=== PATIENT | female | born 1950 | race Caucasian/White ===

== ENCOUNTER 2016-09-28 22:27 | Emergency (ER) | payer MEDICARE, MEDICAID, SELFPAY ==
[2016-09-28] MEDS ORDERED: Sodium Chloride 0.9% 1,000 ML IV ONE (23:00)
[2016-09-28] MEDS ORDERED: Ondansetron 4 MG/2 ML SDV IVPUSH ONE (23:01)
[2016-09-28] MEDS ORDERED: HYDROmorphone 1 MG/ML Syringe IVPUSH ONE (23:01)
--- NOTE | 2016-09-28 23:08 | EDM.PDOC ---
ED HPI GI/ABDOMINAL - General Chief Complaint: Gastrointestinal Problem Stated Complaint: Constipation, No BM for 5 days Time Seen by Provider: 09/28/16 22:40 Source of Information: Reports: Patient History Limitations: Reports: No limitations - History of Present Illness INITIAL COMMENTS - FREE TEXT/NARRATIVE: patient has had a long h/o sluggish bowels. Typically one BM per week. Last BM currently was 4 days ago. C/O upper abd pain which is typically the area that gives her problems but is tender for 2 days which is not usual for her. No F/C. Timing/Duration: Reports: Day(s): (2), Gradual onset Location: other (Upper abd) Quality: Reports: cramping, fullness Severity: severe Improves with: Reports: lying down (on left side) Worsens with: Reports: palpation, other (moving) Associated Symptoms (-Female): Reports: constipation. Denies: chest pain, back pain, fever/chills, nausea/vomiting - Related Data Allergies/ADRs: Allergies Allergy/AdvReac Type Severity Reaction Status Date / Time carisoprodol [From Soma] Allergy Hives Verified 06/04/16 21:42 cefpodoxime proxetil Allergy Anaphylactic Verified 06/04/16 21:42 [From Vantin] Shock ciprofloxacin [From Cipro] Allergy Anaphylactic Verified 06/04/16 21:42 Shock ciprofloxacin HCl Allergy Anaphylactic Verified 06/04/16 21:42 [From Cipro] Shock egg Allergy Hives Verified 06/04/16 21:42 Iodinated Contrast Media - Allergy Anaphylactic Verified 06/04/16 21:42 Oral and Shock [Iodinated Contrast Media - IV Dye] latex Allergy Shortness Verified 06/04/16 21:42 of Breath milk Allergy Stomach Verified 09/28/16 22:29 Upset morphine Allergy Itching Verified 09/28/16 22:29 Penicillins Allergy Anaphylactic Verified 06/04/16 21:42 Shock propoxyphene HCl Allergy Itching Verified 06/04/16 21:42 [From Darvon] Home Meds: Home Meds Brimonidine [Alphagan 0.2% Ophth Soln] 1 ea EYEBOTH BID 11/07/13 [History] Montelukast [Singulair] 10 mg PO BEDTIME PRN 11/07/13 [History] Nebivolol [Bystolic] 20 mg PO QAM 11/07/13 [History] Travoprost [Travatan Z 0.004% Ophth Soln] 1 drop EYEBOTH BEDTIME 11/07/13 [ History] Albuterol Sulfate [Albuterol Sulfate HFA] 18 gm IH TID PRN 06/04/16 [History] Cholecalciferol (Vitamin D3) [Vitamin D3] 1,000 units PO DAILY 06/04/16 [History ] Pregabalin [Lyrica] 100 mg PO BID 06/04/16 [History] Warfarin [Coumadin] 1.5 mg PO DAILY 06/04/16 [History] Cetirizine [ZyrTEC] 10 mg PO DAILY 09/28/16 [History] Sennosides/Docusate Sodium [Senna S Tablet] 2 tab PO DAILY 09/28/16 [History] Vitamin B Complex 1 cap PO DAILY 09/28/16 [History] Past Medical History HEENT History: Reports: Glaucoma Cardiovascular History: Reports: Blood clots/VTE/DVT, Hypertension Respiratory History: Reports: Asthma Gastrointestinal History: Reports: Other (see below) (Food sensitivities) Endocrine/Metabolic History: Reports: Obesity/BMI 30+ Social & Family History - Tobacco Use Smoking Status *Q: Never Smoker Second Hand Smoke Exposure: No - Alcohol Use Days Per Week of Alcohol Use: 0 - Recreational Drug Use Recreational Drug Use: No - Living Situation & Occupation Living situation: Reports: (1994, marriage) Occupation: retired ED ROS GENERAL - Review of Systems Review Of Systems: See Below Constitutional: Denies: fever, chills, malaise, weakness, fatigue HEENT: Reports: No symptoms Respiratory: Reports: No Symptoms Cardiovascular: Reports: No symptoms Endocrine: Reports: no symptoms GI/Abdominal: Reports: Abdominal pain, Constipation, Distension, Other (able to eat fine) : Reports: no symptoms Musculoskeletal: Reports: no symptoms Skin: Reports: no symptoms Neurological: Reports: No Symptoms Psychiatric: Reports: No symptoms Hematologic/Lymphatic: Reports: no symptoms Immunologic: Reports: no symptoms ED EXAM, GI/ABD - Physical Exam Exam: See Below Exam Limited By: No limitations General Appearance: alert, WD/WN, mild distress (frustrated affect) Eyes: bilateral: EOMI Ears: normal external exam Nose: normal inspection, normal mucosa, no blood Throat/Mouth: Normal inspection, Normal oropharynx, No airway compromise Head: atraumatic, normocephalic Neck: normal inspection, supple, non-tender, full range of motion. No: lymphadenopathy (L), lymphadenopathy (R) Respiratory/Chest: no respiratory distress, lungs clear, normal breath sounds, no accessory muscle use Cardiovascular: regular rate, rhythm, no edema, no murmur GI/Abdominal: no organomegaly, hyperactive bowel sounds, tenderness (Upper abdomen), distention (generally, not tense) Back Exam: normal inspection, full range of motion. No: CVA tenderness (L), CVA tenderness (R) Extremities: normal inspection, normal range of motion, no pedal edema, normal capillary refill Neurological: alert, oriented, CN II-XII intact, normal cognition, no motor/ sensory deficits Psychiatric: normal affect, normal mood Skin Exam: Warm, Dry, Intact, Normal color, No rash Lymphatic: no adenopathy Course - Vital Signs Last Recorded V/S: Last Vital Signs Temp 37.3 C 09/28/16 22:38 Pulse 63 09/28/16 23:33 Resp 16 09/28/16 22:38 BP 109/74 09/28/16 23:33 Pulse Ox 98 09/28/16 23:29 - Orders/Labs/Meds Orders: Active Orders 24 hr Category Date Time Status EKG Documentation Completion [RC] ASDIRECTED Care 09/28/16 23:01 Active Abdomen Pelvis wo Cont [CT] Stat Exams 09/28/16 23:01 Taken Chest 2V [CR] Stat Exams 09/28/16 23:01 Taken UA W/MICROSCOPIC [URIN] Stat Lab 09/28/16 23:01 Uncollected Labs: Laboratory Tests 09/28/16 09/28/16 09/28/16 Range/Units 23:15 23:15 23:15 WBC 6.9 (4.0-10.2) K/uL RBC 4.61 (3.77-5.09) M/uL Hgb 13.4 (11.7-15.5) g/dL Hct 41.6 (34.0-46.0) % MCV 90.2 (84.0-98.0) fL MCH 29.1 (28.2-33.3) pg MCHC 32.2 (31.7-36.0) g/dL RDW 13.4 (11.2-14.1) % Plt Count 247 (150-350) K/uL Neut % (Auto) 59.8 (45.0-80.0) % Lymph % (Auto) 32.0 (10.0-50.0) % [place] % (Auto) 4.6 (2.0-14.0) % Eos % (Auto) 2.9 (0.0-5.0) % Baso % (Auto) 0.7 (0.0-2.0) % Neut # (Auto) 4.12 (1.40-7.00) K/uL Lymph # (Auto) 2.21 (0.50-3.50) K/uL [place] # (Auto) 0.32 (0.00-1.00) K/uL Eos # (Auto) 0.20 (0.00-0.50) K/uL Baso # (Auto) 0.05 (0.00-0.20) K/uL PT 24.9 H D (9.8-11.7) SEC INR 2.2 Sodium 143 (136-145) mmol/L Potassium 3.7 (3.5-5.1) mmol/L Chloride 106 (98-107) mmol/L Carbon Dioxide 27.3 (21.0-32.0) mmol/L BUN 21 H (7-18) mg/dL Creatinine 0.74 (0.51-1.17) mg/dL Est Cr Clr Drug Dosing TNP Estimated GFR (MDRD) > 60 mL/min Glucose 185 H (74-106) mg/dL Calcium 8.3 L (8.5-10.1) mg/dL Total Bilirubin 0.2 (0.2-1.0) mg/dL AST 16 (15-37) U/L ALT 35 (12-78) U/L Alkaline Phosphatase 110 (46-116) IU/L Troponin I 0.000 (0.000-0.056) ng/mL Total Protein 6.5 (6.4-8.2) g/dL Albumin 3.1 L (3.4-5.0) g/dL Lipase 95 (73-393) U/L Meds: Medications Discontinued Medications Generic Name Dose Route Start Last Admin Trade Name Freq PRN Reason Stop Dose Admin Hydromorphone HCl 0.5 mg 09/28/16 23:01 09/28/16 23:27 Dilaudid IVPUSH 09/28/16 23:02 0.5 mg ONETIME ONE Administration Sodium Chloride 1,000 mls @ 999 mls/hr 09/28/16 23:00 09/28/16 23:19 Normal Saline IV 09/29/16 00:00 999 mls/hr .BOLUS ONE Administration Ondansetron HCl 4 mg 09/28/16 23:01 09/28/16 23:22 Zofran IVPUSH 09/28/16 23:02 4 mg ONETIME ONE Administration Departure - Departure Time of Disposition: 00:23 Disposition: Home, Self-Care 01 Condition: good Clinical Impression: Constipation Instructions: Constipation, Adult Referrals: Candelario Jeong LAYBOY OPERATOR [Primary Care Provider] - Forms: ED Department Discharge Additional Instructions: Take the bottle of magnesium citrate when you get home. It will take a couple hours to work. If it does not work then try one more tomorrow Try visiting a smoke chaser who may be able to recommend intermediate project manager treatment - Problem List Review Problem List Initiated/Reviewed/Updated: No - My Orders Last 24 Hours: My Active Orders 09/28/16 23:01 EKG Documentation Completion [RC] ASDIRECTED Abdomen Pelvis wo Cont [CT] Stat Chest 2V [CR] Stat UA W/MICROSCOPIC [URIN] Stat - Assessment/Plan Last 24 Hours: My Active Orders 09/28/16 23:01 EKG Documentation Completion [RC] ASDIRECTED Abdomen Pelvis wo Cont [CT] Stat Chest 2V [CR] Stat UA W/MICROSCOPIC [URIN] Stat Assessment:: 1. Chronic constipation with acute exacerbation Plan: 1. Mag citrate tonight. 2. F/U GI
[2016-09-28 23:34] LABS: CHLORIDE,CL 106 mmol/L (98-107); SODIUM,NA 143 mmol/L (136-145)
[2016-09-28 23:48] VITALS: BP 109/74
[2016-09-29] MEDS ORDERED: Magnesium Citrate Solution 296 ML Bottle PO ONE (00:26)
== END 2016-09-29 00:50 | disposition home or self-care (01) ==
LOC: LL.ED 22:27
DX: K59.00 Constipation, unspecified (principal); Z88.8 Allergy status to other drugs, medicaments and biological substances; Z88.0 Allergy status to penicillin; Z79.899 Other long term (current) drug therapy; J45.909 Unspecified asthma, uncomplicated
CPT/HCPCS: 36415; 71020; 74176; 80053; 83690; 84484; 85025; 85610; 93005; 96361; 96374; 96375; 99284; A9270; J1170; J2405; J7030; 99283

== ENCOUNTER 2017-02-03 19:01 | Inpatient (IN) | payer MEDICARE, MEDICAID ==
[2017-02-03 20:21] LABS: CHLORIDE,CL 108 mmol/L (98-107); SODIUM,NA 144 mmol/L (136-145)
--- NOTE | 2017-02-03 20:58 | EDM.PDOC ---
ED HPI GENERAL MEDICAL PROBLEM - General Chief Complaint: Gastrointestinal Problem Stated Complaint: CONSTIPATION, ABD PAIN Time Seen by Provider: 02/03/17 19:02 Source of Information: Reports: Patient History Limitations: Reports: No Limitations - History of Present Illness INITIAL COMMENTS - FREE TEXT/NARRATIVE: Patient is here complaining of no bowel movement for approximately three weeks. Has chronic issues with constipation. 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 Has nausea but no emesis. No fevers. Has generalized abdominal distension and discomfort. No other complaints. Hospitalized for this in past. Has not tried mag citrate at home as it causes her to pass out when she subsequently needs to use toilet. She has tried Miralax, prune juice, and fruit. Abdominal Pain Score (Numeric/FACES): 10 - Related Data Allergies Allergy/AdvReac Type Severity Reaction Status Date / Time carisoprodol [From Soma] Allergy Hives Verified 02/03/17 19:09 cefpodoxime proxetil Allergy Anaphylactic Verified 02/03/17 19:09 [From Vantin] Shock ciprofloxacin [From Cipro] Allergy Anaphylactic Verified 02/03/17 19:09 Shock ciprofloxacin HCl Allergy Anaphylactic Verified 02/03/17 19:09 [From Cipro] Shock egg Allergy Hives Verified 02/03/17 19:09 Iodinated Contrast- Oral and Allergy Anaphylactic Verified 02/03/17 19:09 IV Dye Shock [Iodinated Contrast Media - IV Dye] latex Allergy Shortness Verified 02/03/17 19:09 of Breath milk Allergy Stomach Verified 02/03/17 19:09 Upset morphine Allergy Itching Verified 02/03/17 19:09 Penicillins Allergy Anaphylactic Verified 02/03/17 19:09 Shock propoxyphene HCl Allergy Itching Verified 02/03/17 19:09 [From Darvon] Home Meds: Home Meds Brimonidine [Alphagan 0.2% Ophth Soln] 1 ea EYEBOTH BID 11/07/13 [History] Montelukast [Singulair] 10 mg PO BEDTIME 11/07/13 [History] Nebivolol [Bystolic] 20 mg PO QAM 11/07/13 [History] Travoprost [Travatan Z 0.004% Ophth Soln] 1 drop EYEBOTH BEDTIME 11/07/13 [ History] Pregabalin [Lyrica] 100 mg PO BID 06/04/16 [History] Warfarin [Coumadin] 1.5 mg PO DAILY 06/04/16 [History] Cetirizine [ZyrTEC] 10 mg PO DAILY 09/28/16 [History] . [Unable To Obtain] 1 tab PO TID 02/03/17 [History] Acarbose [Precose] 25 mg PO TID 02/03/17 [History] Past Medical History HEENT History: Reports: Glaucoma Cardiovascular History: Reports: Blood Clots/VTE/DVT, Hypertension Respiratory History: Reports: Asthma Gastrointestinal History: Reports: Other (See Below) Other Gastrointestinal History: Hx of chronic constipation Musculoskeletal History: Reports: Fracture Endocrine/Metabolic History: Reports: Obesity/BMI 30+ - Past Surgical History HEENT Surgical History: Reports: Oral Surgery GI Surgical History: Reports: Appendectomy, Maylin Fundoplication, Other (See Below) (gastric bypass) Social & Family History - Tobacco Use Smoking Status *Q: Never Smoker Second Hand Smoke Exposure: No - Alcohol Use Days Per Week of Alcohol Use: 0 - Recreational Drug Use Recreational Drug Use: No - Living Situation & Occupation Living situation: Reports: Occupation: Retired ED ROS GENERAL - Review of Systems Review Of Systems: See Below Constitutional: Reports: Decreased Appetite. Denies: Fever, Chills, Night Sweats, Diaphoresis HEENT: Reports: No Symptoms Respiratory: Reports: No Symptoms Cardiovascular: Reports: No Symptoms GI/Abdominal: Reports: Abdominal Pain, Constipation, Decreased Appetite, Distension, Nausea. Denies: Black Stool, Bloody Stool, Diarrhea, Difficulty Swallowing, Hematemesis, Hematochezia, Melena, Stool Incontinence, Vomiting : Reports: No Symptoms Musculoskeletal: Reports: No Symptoms Skin: Reports: No Symptoms Neurological: Reports: No Symptoms Psychiatric: Reports: No Symptoms Hematologic/Lymphatic: Reports: No Symptoms ED EXAM, GI/ABD - Physical Exam Exam: See Below Exam Limited By: No Limitations General Appearance: Alert, WD/WN, Other (appears tired) Eyes: Bilateral: Normal Appearance, EOMI Ears: Normal External Exam Nose: No: Nasal Swelling, Nasal Drainage Throat/Mouth: Normal Inspection, Normal Voice, No Airway Compromise Head: Atraumatic, Normocephalic Neck: Normal Inspection, Supple, Non-Tender, Full Range of Motion. No: Lymphadenopathy (L), Lymphadenopathy (R) Respiratory/Chest: No Respiratory Distress, Lungs Clear, Normal Breath Sounds, No Accessory Muscle Use, Chest Non-Tender Cardiovascular: Regular Rate, Rhythm, No Murmur GI/Abdominal Exam: Normal Bowel Sounds, Soft, Distended, Tender (all four quadrants, more so on left side). No: Guarding, Rigid, Rebound Back Exam: No: CVA Tenderness (L), CVA Tenderness (R) Extremities: Normal Range of Motion, Non-Tender, Normal Capillary Refill Neurological: Alert, Oriented, Normal Cognition, No Motor/Sensory Deficits Psychiatric: Depressed Mood Skin Exam: Warm, Dry, Intact Course - Vital Signs Last Recorded V/S: Last Vital Signs Temp 36.6 C 02/03/17 19:02 Pulse 71 02/03/17 19:34 Resp 20 02/03/17 19:02 BP 172/76 H 02/03/17 19:34 Pulse Ox 96 02/03/17 19:34 - Orders/Labs/Meds Orders: Active Orders 24 hr Category Date Time Status Abdomen 2V AP Flat Upright [CR] Stat Exams 02/03/17 19:16 Ordered Labs: Laboratory Tests 02/03/17 02/03/17 02/03/17 Range/Units 19:55 19:55 19:55 WBC 10.9 H (4.0-10.2) K/uL RBC 4.91 (3.77-5.09) M/uL Hgb 14.5 (11.7-15.5) g/dL Hct 44.2 (34.0-46.0) % MCV 90.0 (84.0-98.0) fL MCH 29.5 (28.2-33.3) pg MCHC 32.8 (31.7-36.0) g/dL RDW 12.7 (11.2-14.1) % Plt Count 286 (150-350) K/uL Neut % (Auto) 77.5 (45.0-80.0) % Lymph % (Auto) 16.0 (10.0-50.0) % [place] % (Auto) 4.6 (2.0-14.0) % Eos % (Auto) 1.6 (0.0-5.0) % Baso % (Auto) 0.3 (0.0-2.0) % Neut # (Auto) 8.42 H (1.40-7.00) K/uL Lymph # (Auto) 1.74 (0.50-3.50) K/uL [place] # (Auto) 0.50 (0.00-1.00) K/uL Eos # (Auto) 0.17 (0.00-0.50) K/uL Baso # (Auto) 0.03 (0.00-0.20) K/uL PT 16.9 H D (9.8-11.7) SEC INR 1.5 Sodium 144 (136-145) mmol/L Potassium 3.5 (3.5-5.1) mmol/L Chloride 108 H (98-107) mmol/L Carbon Dioxide 28.2 (21.0-32.0) mmol/L BUN 17 (7-18) mg/dL Creatinine 0.82 (0.51-1.17) mg/dL Est Cr Clr Drug Dosing 58.26 mL/min Estimated GFR (MDRD) > 60 mL/min Glucose 125 H (74-106) mg/dL Calcium 8.8 (8.5-10.1) mg/dL Total Bilirubin 0.3 (0.2-1.0) mg/dL AST 18 (15-37) U/L ALT 33 (12-78) U/L Alkaline Phosphatase 150 H (46-116) IU/L Total Protein 7.4 (6.4-8.2) g/dL Albumin 3.5 (3.4-5.0) g/dL - Radiology Interpretation Free Text/Narrative:: Large quantity of stool noted throughout. Some air/fluid levels. Does not appear obstructed. - Re-Assessments/Exams Free Text/Narrative Re-Assessment/Exam: 02/03/17 21:01 Plan at this time is to admit patient for treatment of constipation. Given the prolonged nature of her complaint and severity of the constipation, will have her as full admit instead of observation as this may take multiple days to get adequately cleared. Departure - Departure Time of Disposition: 21:03 Disposition: Admitted As Inpatient 64 Condition: Good Clinical Impression: Constipation - Discharge Information - Problem List & Annotations (1) Constipation SNOMED Code(s): 58642651 Code(s): K59.00 - CONSTIPATION, UNSPECIFIED Status: Chronic Priority: High Current Visit: Yes Onset Date: ~01/13/17 Annotation/Comment:: Reports no bowel movement for approximately 3 weeks. Long history of GI issues, surgeries, and constipation. (2) Hypertension SNOMED Code(s): 62931295 Code(s): I10 - ESSENTIAL (PRIMARY) HYPERTENSION Status: Chronic Priority : Low Current Visit: No Qualifiers: Hypertension type: essential hypertension Qualified Code(s): I10 - Essential (primary) hypertension (3) Glaucoma SNOMED Code(s): 80471274 Code(s): H40.9 - UNSPECIFIED GLAUCOMA Status: Chronic Priority: Low Current Visit: No (4) Warfarin anticoagulation SNOMED Code(s): 58771934, 389875560 Code(s): Z79.01 - CORROSION CONTROL ENGINEER (CURRENT) USE OF ANTICOAGULANTS Status: Chronic Priority: Low Current Visit: No Annotation/Comment:: INR 1.5 History of difficult to control INR. Will increase patient's current dose for now and recheck INR in two days. - Problem List Review Problem List Initiated/Reviewed/Updated: Yes - My Orders Last 24 Hours: My Active Orders 02/03/17 19:16 Abdomen 2V AP Flat Upright [CR] Stat - Assessment/Plan Admission H&P: Please use this note as an admission H&P Last 24 Hours: My Active Orders 02/03/17 19:16 Abdomen 2V AP Flat Upright [CR] Stat Assessment:: Severe constipation. Plan: IV fluids, nausea medication, pain control prn, mag citrate. Increase warfarin dose and repeat INR in two days.
[2017-02-03] MEDS ORDERED: Magnesium Citrate Solution 296 ML Bottle PO ONE ×2 (21:12→21:24)
[2017-02-03] MEDS ORDERED: Acetaminophen 325 MG Tab PO PRN (21:23)
[2017-02-03] MEDS ORDERED: Warfarin 5 MG Tab PO ONE (21:29)
[2017-02-03] MEDS ORDERED: Sodium Chloride 0.9% 1,000 ML IV ONE (21:30)
[2017-02-03] MEDS ORDERED: Ondansetron 4 MG/2 ML SDV IVPUSH PRN (21:35)
[2017-02-03] MEDS ORDERED: HYDROmorphone 1 MG/ML Syringe IVPUSH PRN (21:35)
[2017-02-03] MEDS ORDERED: traMADol 50 MG Tab PO PRN (21:37)
[2017-02-03] MEDS ORDERED: Pregabalin 25 MG Cap PO ONE (22:09)
[2017-02-04] MEDS ORDERED: Sodium Chloride 0.9% 1,000 ML IV SCH (05:00)
[2017-02-04] MEDS ORDERED: Polyethylene Glycol 3350 Powder 17 GM Packet PO ONE (08:00)
[2017-02-04] MEDS ORDERED: Magnesium Citrate Solution 296 ML Bottle PO ONE (08:00)
[2017-02-04] MEDS: Brimonidine 0.2% Ophth Soln 5 ML Bottle EYEBOTH SCH ×2 (08:48→17:09)
[2017-02-04] MEDS: Cetirizine 10 MG Tab PO SCH (08:48)
[2017-02-04] MEDS: Pregabalin 25 MG Cap PO SCH ×2 (08:48→17:08)
[2017-02-04] MEDS ORDERED: Enoxaparin 40 MG/0.4 ML Syringe SUBCUT ONE (08:56)
--- NOTE | 2017-02-04 09:11 | PCM.PN ---
- General Info Date of Service: 02/04/17 Admission Dx/Problem (Free Text): 1. Abdominal pain 2. Chronic constipation 3. History of DVTs 4. Hypertension Functional Status: Reports: Pain Controlled, Tolerating Diet, Ambulating, Urinating. Denies: New Symptoms, Incentive Spirometry Pain Score: 6 (Improved from admission by patient history) - Review of Systems General: Denies: Fever, Weakness, Fatigue, Malaise, Chills, Night Sweats, Appetite (Adequate) HEENT: Reports: No Symptoms. Denies: Ear Pain, Eye Pain, Post Nasal Drip, Sinus Congestion, Sore Throat, Rhinitis, Visual Changes Pulmonary: Reports: No Symptoms. Denies: Shortness of Breath, Pleuritic Chest Pain, Cough, Sputum, Wheezing Cardiovascular: Reports: No Symptoms. Denies: Chest Pain, Palpitations, Dyspnea on Exertion, Orthopnea, Edema, Lightheadedness Gastrointestinal: Reports: Abdominal Pain (Secondary to abdominal cramping and constipation with some nonspecific radiation to the lumbar region bilaterally, no colic), Constipation, Other (No bowel movement since admission). Denies: Decreased Appetite, Diarrhea, Difficulty Swallowing, Flatus, Hematochezia, Melena, Nausea, Vomiting Genitourinary: Reports: No Symptoms. Denies: Dysuria, Frequency, Burning, Pain , Urgency, Incontinence, Hematuria, Retention, Flank Pain Musculoskeletal: Reports: Back Pain (Nonspecific as above). Denies: Neck Pain, Shoulder Pain, Arm Pain, Leg Pain Skin: Reports: No Symptoms. Denies: Cyanosis, Jaundice, Pallor, Diaphoresis, Bruising Neurological: Reports: No Symptoms. Denies: Confusion, Dizziness, Headache, Numbness, Paresthesia, Difficulty Walking, Weakness Psychiatric: Reports: No Symptoms. Denies: Confusion, Depression, Anxiety, Agitation, Cravings, Hallucinations - Patient Data Vitals - Most Recent: Last Vital Signs Temp 36.7 C 02/03/17 22:38 Pulse 68 02/04/17 08:48 Resp 16 02/03/17 22:38 BP 134/86 02/04/17 08:48 Pulse Ox 95 02/03/17 22:38 Weight - Most Recent: 82.645 kg I&O - Last 24 Hours: Intake & Output 02/03/17 02/04/17 02/04/17 22:59 06:59 14:59 Intake Total 1000 Balance 1000 Imaging Impressions - Last 24 Hours: None Lab Results Last 24 Hours: Laboratory Results - last 24 hr 02/03/17 02/03/17 02/03/17 Range/Units 19:55 19:55 19:55 WBC 10.9 H (4.0-10.2) K/uL RBC 4.91 (3.77-5.09) M/uL Hgb 14.5 (11.7-15.5) g/dL Hct 44.2 (34.0-46.0) % MCV 90.0 (84.0-98.0) fL MCH 29.5 (28.2-33.3) pg MCHC 32.8 (31.7-36.0) g/dL RDW 12.7 (11.2-14.1) % Plt Count 286 (150-350) K/uL Neut % (Auto) 77.5 (45.0-80.0) % Lymph % (Auto) 16.0 (10.0-50.0) % Gilchrist % (Auto) 4.6 (2.0-14.0) % Eos % (Auto) 1.6 (0.0-5.0) % Baso % (Auto) 0.3 (0.0-2.0) % Neut # (Auto) 8.42 H (1.40-7.00) K/uL Lymph # (Auto) 1.74 (0.50-3.50) K/uL Gilchrist # (Auto) 0.50 (0.00-1.00) K/uL Eos # (Auto) 0.17 (0.00-0.50) K/uL Baso # (Auto) 0.03 (0.00-0.20) K/uL PT 16.9 H D (9.8-11.7) SEC INR 1.5 Sodium 144 (136-145) mmol/L Potassium 3.5 (3.5-5.1) mmol/L Chloride 108 H (98-107) mmol/L Carbon Dioxide 28.2 (21.0-32.0) mmol/L BUN 17 (7-18) mg/dL Creatinine 0.82 (0.51-1.17) mg/dL Est Cr Clr Drug Dosing 58.26 mL/min Estimated GFR (MDRD) > 60 mL/min Glucose 125 H (74-106) mg/dL Calcium 8.8 (8.5-10.1) mg/dL Total Bilirubin 0.3 (0.2-1.0) mg/dL AST 18 (15-37) U/L ALT 33 (12-78) U/L Alkaline Phosphatase 150 H (46-116) IU/L Total Protein 7.4 (6.4-8.2) g/dL Albumin 3.5 (3.4-5.0) g/dL Leoncio Results Last 24 Hours: None Med Orders - Current: Current Medications Acetaminophen (Tylenol) 650 mg PO Q4H PRN PRN Reason: analgesia/fever Brimonidine Tartrate (Alphagan 0.2% Ophth Soln) 0 ml EYEBOTH BID [facility] Last Admin: 02/04/17 08:48 Dose: 1 drop Cetirizine HCl (Zyrtec) 10 mg PO DAILY [facility] Last Admin: 02/04/17 08:48 Dose: 10 mg Enoxaparin Sodium (Lovenox) 40 mg SUBCUT ONETIME ONE Stop: 02/04/17 08:57 Famotidine (Pepcid) 20 mg IVPUSH BID [facility] Sodium Chloride (Normal Saline) 1,000 mls @ 100 mls/hr IV ASDIRECTED [facility] Last Admin: 02/04/17 04:51 Dose: 100 mls/hr Clindamycin Phosphate 600 mg/ (Sodium Chloride) 104 mls @ 200 mls/hr IV Q8H [facility] Metronidazole 500 mg/ Premix 100 mls @ 100 mls/hr IV Q8H [facility] Latanoprost (Xalatan 0.005% Ophth Soln) 0 ml EYEBOTH BEDTIME [facility] Lisinopril (Prinivil) 10 mg PO DAILY [facility] Montelukast Sodium (Singulair) 10 mg PO BEDTIME [facility] Nebivolol (Bystolic) 20 mg PO QAM [facility] Last Admin: 02/04/17 08:48 Dose: 20 mg Non-Formulary Medication (Acarbose [Precose]) 25 mg PO TID [facility] Ondansetron HCl (Zofran) 4 mg IVPUSH Q6H PRN PRN Reason: Nausea/Vomiting Pantoprazole Sodium (Protonix Iv) 40 mg IVPUSH Q12H [facility] Pregabalin (Lyrica) 100 mg PO BID [facility] Last Admin: 02/04/17 08:48 Dose: 100 mg Sodium Chloride (Saline Flush) 10 ml FLUSH ASDIRECTED PRN PRN Reason: Keep Vein Open Tramadol HCl (Ultram) 50 mg PO Q6H PRN PRN Reason: Pain Last Admin: 02/03/17 22:30 Dose: 50 mg Warfarin Sodium (Coumadin) 2 mg PO DAILY@1800 GERALD Discontinued Medications Hydromorphone HCl (Dilaudid) 1 mg IVPUSH Q2H PRN PRN Reason: Pain (severe 7-10) Sodium Chloride (Normal Saline) 1,000 mls @ 150 mls/hr IV .BOLUS ONE Stop: 02/04/17 04:09 Last Admin: 02/03/17 21:55 Dose: 150 mls/hr Magnesium Citrate (Citrate Of Magnesia) 396 ml PO ONETIME ONE Stop: 02/03/17 21:13 Last Admin: 02/03/17 21:25 Dose: Not Given Magnesium Citrate (Citrate Of Magnesia) 296 ml PO ONETIME ONE Stop: 02/03/17 21:25 Last Admin: 02/03/17 21:53 Dose: 296 ml Magnesium Citrate (Citrate Of Magnesia) 296 ml PO ONETIME ONE Stop: 02/04/17 08:01 Last Admin: 02/04/17 08:48 Dose: 296 ml Polyethylene Glycol (Miralax) 17 gm PO ONETIME ONE Stop: 02/04/17 08:01 Last Admin: 02/04/17 08:47 Dose: 17 gm Pregabalin (Lyrica) 100 mg PO ONETIME ONE Stop: 02/03/17 22:10 Last Admin: 02/03/17 22:29 Dose: 100 mg Warfarin Sodium (Coumadin) 5 mg PO ONETIME ONE Stop: 02/03/17 21:30 Last Admin: 02/03/17 21:53 Dose: 5 mg - Exam Quality Assessment: DVT Prophylaxis (On Coumadin although INR sub-therapeutic). No: Supplemental Oxygen, Central Line/PICC, Urine Catheter, Skin Breakdown General: Alert, Oriented, Cooperative, No Acute Distress HEENT: Pupils Equal, Pupils Reactive, EOMI, Mucous Membr. Moist/[place] Neck: Supple, Trachea Midline, No JVD, No Thyromegaly. No: Lymphadenopathy Lungs: Clear to Auscultation, Normal Respiratory Effort. No: Rub Cardiovascular: Regular Rate, Regular Rhythm, No Murmurs. No: Murmurs, Gallops , Rubs GI/Abdominal Exam: Soft, No Distention, No Abnormal Bruit, No Mass, Pelvis Stable, Tender (Nonspecific mild diffuse palpation pain), Abnormal Bowel Sounds (Mild diffuse increased bowel sounds not high-pitched in nature), Other (Obese) . No: Distended, Guarding, Rebound (Female) Exam: Deferred Back Exam: Normal Inspection, Full Range of Motion. No: CVA Tenderness (L), CVA Tenderness (R), Muscle Spasm Extremities: Normal Inspection, Normal Range of Motion, Non-Tender, No Pedal Edema, Normal Capillary Refill, Other (AKASH hose in place). No: Pedal Edema, Sameera's Sign Peripheral Pulses: 2+: Radial (L), Radial (R), Dorsalis Pedis (L), Dorsalis Pedis (R) Skin: Warm, Dry, Intact. No: Ecchymosis Neurological: No New Focal Deficit Psy/Mental Status: Alert, Normal Affect, Normal Mood. No: Anxious, Depressed, Agitated, Hallucinations, Withdrawal Symptoms - Problem List & Annotations (1) Abdominal pain SNOMED Code(s): 06031361 Code(s): R10.9 - UNSPECIFIED ABDOMINAL PAIN Status: Acute Priority: High Current Visit: Yes Onset Date: 02/03/17 Qualifiers: Abdominal location: generalized Qualified Code(s): R10.84 - Generalized abdominal pain Annotation/Comment:: Nonspecific generalized abdominal pain likely secondary to her chronic constipation. No results from magnesium citrate yesterday with magnesium citrate with Miralax ordered for this morning. Fleet Enema has yet to be given, although this will be given later today, if the above therapy is not effective. Note mild leukocytosis on admission with IV Flagyl, IV clindamycin, IV Pepcid, and IV Protonix to be initiated today as GI prophylaxis. Repeat blood work and x-rays in the a.m. tomorrow. Abdominal assessments with vitals. (2) Constipation SNOMED Code(s): 82139510 Code(s): K59.00 - CONSTIPATION, UNSPECIFIED Status: Chronic Priority: [facility] Current Visit: Yes Onset Date: ~01/13/17 Annotation/Comment:: As above. Reports no bowel movement for approximately 3 weeks. Long history of GI issues, surgeries, including gastric bypass, etc. with additional history of known chronic constipation. (3) Hypertension SNOMED Code(s): 14230859 Code(s): I10 - ESSENTIAL (PRIMARY) HYPERTENSION Status: Chronic Priority : Medium Current Visit: No Qualifiers: Hypertension type: essential hypertension Qualified Code(s): I10 - Essential (primary) hypertension Annotation/Comment:: Blood pressure is under poor control despite high-dose by systolic. Additional lisinopril will be added this morning. 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 INR subtherapeutic on admission with subcutaneous Lovenox to be initiated today as DVT prophylaxis. Note the patient did receive a loading dose of her Coumadin on admission with INR and PTT to be repeated tomorrow with other blood work. By patient history her INRs have previously been therapeutic. No clinical evidence of DVT or PE today. (5) Allergic rhinitis SNOMED Code(s): 29842441 Code(s): J30.9 - ALLERGIC RHINITIS, UNSPECIFIED Status: Chronic Priority : Medium Current Visit: Yes Qualifiers: Chronicity: chronic Allergic rhinitis trigger: unspecified Allergic rhinitis seasonality: unspecified seasonality Qualified Code(s): J30.9 - Allergic rhinitis, unspecified Annotation/Comment:: Stable by history (6) Glaucoma SNOMED Code(s): 25463541 Code(s): H40.9 - UNSPECIFIED GLAUCOMA Status: Chronic Priority: Medium Current Visit: No Qualifiers: Glaucoma type: open-angle Laterality: bilateral Glaucoma stage: indeterminate stage Annotation/Comment:: Under therapy (7) Peptic reflux disease SNOMED Code(s): 11745712 Code(s): K21.9 - GASTRO-ESOPHAGEAL REFLUX DISEASE WITHOUT ESOPHAGITIS Status: Chronic Priority: Medium Current Visit: Yes Annotation/Comment:: IV Pepcid and IV Protonix added to current medical therapy as above (8) Asthma SNOMED Code(s): 841161436 Code(s): J45.909 - UNSPECIFIED ASTHMA, UNCOMPLICATED Status: Chronic Priority: Medium Current Visit: Yes Qualifiers: Asthma severity: mild intermittent Asthma complication type: uncomplicated Qualified Code(s): J45.20 - Mild intermittent asthma, uncomplicated Annotation/Comment:: No recent fever or bronchitic type symptoms (9) Osteoarthritis SNOMED Code(s): 090906064 Code(s): M19.90 - UNSPECIFIED OSTEOARTHRITIS, UNSPECIFIED SITE Status: Chronic Priority: Medium Current Visit: Yes Qualifiers: Osteoarthritis location: multiple joints Osteoarthritis type: primary Qualified Code(s): M15.0 - Primary generalized (osteo)arthritis Annotation/Comment:: Other than nonspecific low back pain stable by history - Problem List Review Problem List Initiated/Reviewed/Updated: Yes - My Orders Last 24 Hours: My Active Orders 02/04/17 08:53 Communication Order [RC] ROUTINE 02/04/17 08:54 OCCULT BLOOD DIAGNOSTIC [OP] Stat 02/04/17 08:56 Enoxaparin [Lovenox] 40 mg SUBCUT ONETIME ONE 02/04/17 09:00 Clindamycin Phosphate [Cleocin] 600 mg Sodium Chloride 0.9% [Normal Saline] 100 ml IV Q8H Famotidine [Pepcid] 20 mg IVPUSH BID Lisinopril [Prinivil] 10 mg PO DAILY Pantoprazole [ProTONIX IV] 40 mg IVPUSH Q12H metroNIDAZOLE/Normal Saline [Flagyl 500 MG in NS 100 ML] 500 mg Premix Bag 1 bag IV Q8H 02/04/17 09:02 Communication Order [RC] ROUTINE Daily Weight [Height and Weight] [RC] DAILY Intake and Output Strict [RC] ASDIRECTED GM Immunization Reflex [OM.PC] Click To Edit 02/04/17 09:03 Vaccines to be Administered [RC] PER UNIT ROUTINE 02/05/17 05:11 Abdomen Series w Chest 1V [CR] Routine AMYLASE [CHEM] Routine CBC WITH AUTO DIFF [HEME] Routine COMPREHENSIVE METABOLIC PN,CMP [CHEM] Routine INR,PT,PROTHROMBIN TIME [COAG] Routine LIPASE [CHEM] Routine MAGNESIUM [CHEM] Routine PTT,PARTIAL THROMBOPLSTIN TIME [COAG] Routine - Assessment Assessment:: As above - Plan Plan:: As above. Extensive precautions were given to the patient, who is in agreement with the treatment plan. Anticipate about 2-3 additional days of inpatient care secondary to refractory symptoms
[2017-02-04] MEDS: ACARBOSE 25 MG PO SCH ×3 (10:34→17:08)
[2017-02-04] MEDS: Famotidine 20 MG/2 ML SDV IVPUSH SCH ×2 (10:50→17:09)
[2017-02-04] MEDS: Lisinopril 10 MG Tab PO SCH (10:50)
[2017-02-04] MEDS: Clindamycin Phosphate 600 MG in Sodium Chloride 0.9% 100 ML IV SCH ×2 (10:50→17:09)
[2017-02-04] MEDS: Pantoprazole 40 MG Vial IVPUSH SCH ×2 (10:51→22:30)
[2017-02-04] MEDS: metroNIDAZOLE/Normal Saline 500 MG in Premix Bag 1 BAG IV SCH ×2 (12:13→20:21)
[2017-02-04] MEDS: Sodium Chloride 0.9% 10 ML Syringe FLUSH PRN ×3 (17:14→23:22)
[2017-02-04] MEDS ORDERED: Warfarin 2 MG Tab PO SCH (18:00)
[2017-02-04] MEDS ORDERED: Non-Formulary Medication 1 Each (Travoprost [Travatan Z 0.004% Ophth Soln] 1 DROP) EYEBOTH SCH (20:00)
[2017-02-04] MEDS: Latanoprost 0.005% Ophth Soln 2.5 ML Bottle EYEBOTH SCH (20:22)
[2017-02-04] MEDS: Montelukast 10 MG Tab PO SCH (20:22)
[2017-02-05] MEDS: Clindamycin Phosphate 600 MG in Sodium Chloride 0.9% 100 ML IV SCH ×3 (02:58→17:30)
[2017-02-05] MEDS: metroNIDAZOLE/Normal Saline 500 MG in Premix Bag 1 BAG IV SCH ×3 (02:58→19:32)
[2017-02-05 08:11] LABS: CHLORIDE,CL 107 mmol/L (98-107); SODIUM,NA 141 mmol/L (136-145)
[2017-02-05] MEDS: Famotidine 20 MG/2 ML SDV IVPUSH SCH ×2 (08:15→17:29)
[2017-02-05] MEDS: Cetirizine 10 MG Tab PO SCH (08:25)
[2017-02-05] MEDS: Pregabalin 25 MG Cap PO SCH ×2 (08:25→17:28)
[2017-02-05] MEDS: Brimonidine 0.2% Ophth Soln 5 ML Bottle EYEBOTH SCH ×2 (08:26→17:30)
[2017-02-05] MEDS: Lisinopril 10 MG Tab PO SCH (08:27)
[2017-02-05] MEDS: ACARBOSE 25 MG PO SCH ×3 (08:27→17:28)
--- NOTE | 2017-02-05 10:16 | PCM.PN ---
- General Info Date of Service: 02/05/17 Admission Dx/Problem (Free Text): 1. Abdominal pain 2. Chronic constipation 3. History of DVTs 4. Hypertension Functional Status: Reports: Pain Controlled, Tolerating Diet, Ambulating, Urinating. Denies: New Symptoms Pain Score: 5 - Review of Systems General: Reports: No Symptoms. Denies: Fever, Weakness, Fatigue, Malaise, Chills, Night Sweats, Appetite (Appetite good) HEENT: Reports: No Symptoms. Denies: Dysphasia, Ear Pain, Eye Pain, Headaches, Sinus Congestion, Sore Throat, Rhinitis, Visual Changes Pulmonary: Reports: No Symptoms. Denies: Shortness of Breath, Pleuritic Chest Pain, Cough, Sputum, Wheezing Cardiovascular: Reports: Edema (Stable chronic dependent). Denies: Chest Pain, Palpitations, Dyspnea on Exertion, Orthopnea, Lightheadedness Gastrointestinal: Reports: Abdominal Pain (Stable nonspecific intermittent generalized abdominal cramping), Diarrhea (Several large bowel movements yesterday by her history). Denies: Constipation, Difficulty Swallowing, Flatus , Hematochezia, Melena, Nausea, Vomiting Genitourinary: Reports: No Symptoms. Denies: Dysuria, Frequency, Burning, Pain , Urgency, Incontinence, Hematuria, Retention, Flank Pain Musculoskeletal: Reports: No Symptoms. Denies: Neck Pain, Shoulder Pain, Arm Pain, Leg Pain Skin: Reports: No Symptoms. Denies: Pallor, Diaphoresis, Bruising, Rash Neurological: Reports: No Symptoms. Denies: Confusion, Dizziness, Headache, Numbness, Paresthesia, Tingling, Weakness Psychiatric: Reports: No Symptoms. Denies: Confusion, Depression, Anxiety - Patient Data Vitals - Most Recent: Last Vital Signs Temp 36.4 C 02/05/17 08:00 Pulse 62 02/05/17 08:24 Resp 16 02/05/17 08:00 BP 131/67 02/05/17 08:27 Pulse Ox 96 02/05/17 08:00 Vital Signs - 24 hr 02/04/17 02/04/17 02/04/17 10:50 16:00 21:24 Temperature [ 36.8 C Oral] Pulse, Peripheral Pulse, 62 Peripheral [ Left Pulse Oximetry] Respiratory 12 Rate Blood Pressure 134/68 Blood Pressure 152/61 H [Left Upper Arm ] O2 Sat by Pulse 100 96 Oximetry 02/05/17 02/05/17 02/05/17 08:00 08:24 08:27 Temperature [ 36.4 C Oral] Pulse, 62 Peripheral Pulse, 62 Peripheral [ Left Pulse Oximetry] Respiratory 16 Rate Blood Pressure 131/67 131/67 Blood Pressure 131/67 [Left Upper Arm ] O2 Sat by Pulse 96 Oximetry Weight - Most Recent: 82.645 kg I&O - Last 24 Hours: Intake & Output 02/04/17 02/05/17 02/05/17 22:59 06:59 14:59 Intake Total 1154 240 Output Total 450 Balance 1154 -210 Imaging Impressions - Last 24 Hours: Acute abdominal x-rays shows evidence of persistent moderate diffuse stool and nonspecific mild to moderate increased bowel gaseous pattern, however no free air, fluid levels, or evidence of ileus/obstruction. Note status post cholecystectomy. Otherwise moderate osteoarthritic changes in the thoracic spine with mildly prominent proximal aorta with no cardiomegaly or CHF. Moderate COPD changes but no pulmonary infiltrates Lab Results Last 24 Hours: Laboratory Results - last 24 hr 02/05/17 02/05/17 02/05/17 Range/Units 07:15 07:15 07:15 WBC 5.5 (4.0-10.2) K/uL RBC 4.38 (3.77-5.09) M/uL Hgb 13.3 (11.7-15.5) g/dL Hct 40.3 (34.0-46.0) % MCV 92.0 (84.0-98.0) fL MCH 30.4 (28.2-33.3) pg MCHC 33.0 (31.7-36.0) g/dL RDW 12.6 (11.2-14.1) % Plt Count 253 (150-350) K/uL Neut % (Auto) 65.9 (45.0-80.0) % Lymph % (Auto) 24.4 (10.0-50.0) % Giles % (Auto) 6.6 (2.0-14.0) % Eos % (Auto) 2.7 (0.0-5.0) % Baso % (Auto) 0.4 (0.0-2.0) % Neut # (Auto) 3.62 (1.40-7.00) K/uL Lymph # (Auto) 1.34 (0.50-3.50) K/uL Giles # (Auto) 0.36 (0.00-1.00) K/uL Eos # (Auto) 0.15 (0.00-0.50) K/uL Baso # (Auto) 0.02 (0.00-0.20) K/uL PT 51.5 H D (9.8-11.7) SEC INR 4.5 Sodium 141 (136-145) mmol/L Potassium 4.6 (3.5-5.1) mmol/L Chloride 107 (98-107) mmol/L Carbon Dioxide 28.6 (21.0-32.0) mmol/L BUN 9 (7-18) mg/dL Creatinine 0.75 (0.51-1.17) mg/dL Est Cr Clr Drug Dosing 63.70 mL/min Estimated GFR (MDRD) > 60 mL/min Glucose 99 (74-106) mg/dL Calcium 8.1 L (8.5-10.1) mg/dL Magnesium 1.9 (1.8-2.4) mg/dL Total Bilirubin 0.3 (0.2-1.0) mg/dL AST 28 (15-37) U/L ALT 35 (12-78) U/L Alkaline Phosphatase 137 H (46-116) IU/L Total Protein 6.0 L (6.4-8.2) g/dL Albumin 2.8 L (3.4-5.0) g/dL Amylase 25 (25-115) U/L Lipase 70 L (73-393) U/L Leoncio Results Last 24 Hours: None Med Orders - Current: Current Medications Acetaminophen (Tylenol) 650 mg PO Q4H PRN PRN Reason: analgesia/fever Brimonidine Tartrate (Alphagan 0.2% Ophth Soln) 0 ml EYEBOTH BID [facility] Last Admin: 02/05/17 08:26 Dose: 2 drop Cetirizine HCl (Zyrtec) 10 mg PO DAILY [facility] Last Admin: 02/05/17 08:25 Dose: 10 mg Famotidine (Pepcid) 20 mg IVPUSH BID [facility] Last Admin: 02/05/17 08:15 Dose: 20 mg Sodium Chloride (Normal Saline) 1,000 mls @ 100 mls/hr IV ASDIRECTED [facility] Last Admin: 02/04/17 04:51 Dose: 100 mls/hr Clindamycin Phosphate 600 mg/ (Sodium Chloride) 104 mls @ 200 mls/hr IV Q8H [facility] Last Admin: 02/05/17 02:58 Dose: 200 mls/hr Metronidazole 500 mg/ Premix 100 mls @ 100 mls/hr IV Q8H [facility] Last Admin: 02/05/17 02:58 Dose: 100 mls/hr Latanoprost (Xalatan 0.005% Ophth Soln) 0 ml EYEBOTH BEDTIME [facility] Last Admin: 02/04/17 20:22 Dose: 1 drop Lisinopril (Prinivil) 10 mg PO DAILY [facility] Last Admin: 02/05/17 08:27 Dose: 10 mg Montelukast Sodium (Singulair) 10 mg PO BEDTIME [facility] Last Admin: 02/04/17 20:22 Dose: 10 mg Nebivolol (Bystolic) 10 mg PO DAILY [facility] Last Admin: 02/05/17 08:24 Dose: 10 mg Acarbose [Precose] (25 Mg Tab) 25 mg PO TID [facility] Last Admin: 02/05/17 08:27 Dose: 25 mg Ondansetron HCl (Zofran) 4 mg IVPUSH Q6H PRN PRN Reason: Nausea/Vomiting Pantoprazole Sodium (Protonix Iv) 40 mg IVPUSH Q12H [facility] Last Admin: 02/04/17 22:30 Dose: 40 mg Pregabalin (Lyrica) 100 mg PO BID [facility] Last Admin: 02/05/17 08:25 Dose: 100 mg Sodium Chloride (Saline Flush) 10 ml FLUSH ASDIRECTED PRN PRN Reason: Keep Vein Open Last Admin: 02/04/17 23:22 Dose: 10 ml Warfarin Sodium (Coumadin) 2 mg PO DAILY@1800 [facility] Last Admin: 02/04/17 17:08 Dose: 2 mg Discontinued Medications Enoxaparin Sodium (Lovenox) 40 mg SUBCUT ONETIME ONE Stop: 02/04/17 08:57 Last Admin: 02/04/17 10:49 Dose: 40 mg Hydromorphone HCl (Dilaudid) 1 mg IVPUSH Q2H PRN PRN Reason: Pain (severe 7-10) Sodium Chloride (Normal Saline) 1,000 mls @ 150 mls/hr IV .BOLUS ONE Stop: 02/04/17 04:09 Last Admin: 02/03/17 21:55 Dose: 150 mls/hr Magnesium Citrate (Citrate Of Magnesia) 396 ml PO ONETIME ONE Stop: 02/03/17 21:13 Last Admin: 02/03/17 21:25 Dose: Not Given Magnesium Citrate (Citrate Of Magnesia) 296 ml PO ONETIME ONE Stop: 02/03/17 21:25 Last Admin: 02/03/17 21:53 Dose: 296 ml Magnesium Citrate (Citrate Of Magnesia) 296 ml PO ONETIME ONE Stop: 02/04/17 08:01 Last Admin: 02/04/17 08:48 Dose: 296 ml Nebivolol (Bystolic) 20 mg PO QAM [facility] Last Admin: 02/04/17 08:48 Dose: 20 mg Polyethylene Glycol (Miralax) 17 gm PO ONETIME ONE Stop: 02/04/17 08:01 Last Admin: 02/04/17 08:47 Dose: 17 gm Pregabalin (Lyrica) 100 mg PO ONETIME ONE Stop: 02/03/17 22:10 Last Admin: 02/03/17 22:29 Dose: 100 mg Tramadol HCl (Ultram) 50 mg PO Q6H PRN PRN Reason: Pain Last Admin: 02/03/17 22:30 Dose: 50 mg Warfarin Sodium (Coumadin) 5 mg PO ONETIME ONE Stop: 02/03/17 21:30 Last Admin: 02/03/17 21:53 Dose: 5 mg - Exam Quality Assessment: DVT Prophylaxis. No: Supplemental Oxygen, Central Line/PICC , Urine Catheter, Skin Breakdown, Restraints General: Alert, Oriented, Cooperative, No Acute Distress HEENT: Pupils Equal, Pupils Reactive, EOMI, Mucous Membr. Moist/[place] Neck: Supple, Trachea Midline, No JVD, No Thyromegaly. No: Lymphadenopathy Lungs: Clear to Auscultation, Normal Respiratory Effort. No: Rales, Rub, Wheezing Cardiovascular: Regular Rate, Regular Rhythm, No Murmurs. No: Gallops, Rubs GI/Abdominal Exam: Normal Bowel Sounds, Soft, Non-Tender, No Organomegaly, No Distention, No Abnormal Bruit, No Mass, Pelvis Stable, Other (Obese). No: Guarding, Rebound (Female) Exam: Deferred Back Exam: Normal Inspection, Full Range of Motion. No: CVA Tenderness (L), CVA Tenderness (R), Muscle Spasm Extremities: Normal Range of Motion, Non-Tender, Normal Capillary Refill, Pedal Edema (Mild trace to +1 pedal/pretibial edema). No: Sameera's Sign Peripheral Pulses: 2+: Radial (L), Radial (R), Dorsalis Pedis (L), Dorsalis Pedis (R) Skin: Warm, Dry, Intact. No: Ecchymosis Neurological: No New Focal Deficit Psy/Mental Status: Alert, Normal Affect, Normal Mood - Problem List & Annotations (1) Abdominal pain SNOMED Code(s): 31627971 Code(s): R10.9 - UNSPECIFIED ABDOMINAL PAIN Status: Acute Priority: High Current Visit: Yes Onset Date: 02/03/17 Qualifiers: Abdominal location: generalized Qualified Code(s): R10.84 - Generalized abdominal pain Annotation/Comment:: Various therapeutic options were discussed with the patient , who is requesting an additional day of inpatient care and additional dose of Mirilax/magnesium citrate therapy today. Note excellent response to previous dosing yesterday, although previous history of significant constipation and recurrent borderline obstructions. Nonspecific generalized abdominal pain has improved likely secondary to her chronic constipation. Note mild leukocytosis on admission with IV Flagyl, IV clindamycin, IV Pepcid, and IV Protonix to be continued as GI prophylaxis. Repeat blood work and x-rays in the a.m. tomorrow. Abdominal assessments with vitals will also be continued. (2) Constipation SNOMED Code(s): 21854107 Code(s): K59.00 - CONSTIPATION, UNSPECIFIED Status: Chronic Priority: High Current Visit: Yes Onset Date: ~01/13/17 Annotation/Comment:: As above. Reports no bowel movement for approximately 3 weeks prior to admission. Long history of GI issues, surgeries, including gastric bypass, etc. with additional history of known chronic constipation. She would benefit from chronic magnesium oxide and Mirilax use (3) Hypertension SNOMED Code(s): 06210060 Code(s): I10 - ESSENTIAL (PRIMARY) HYPERTENSION Status: Chronic Priority : Medium Current Visit: No Qualifiers: Hypertension type: essential hypertension Qualified Code(s): I10 - Essential (primary) hypertension Annotation/Comment:: Blood pressures are improved today with additional lisinopril, which was started yesterday. (4) DVT (deep venous thrombosis) SNOMED Code(s): 955555227 Code(s): I82.409 - ACUTE EMBOLISM AND THOMBOS UNSP DEEP VN UNSP LOWER EXTREMITY Status: Chronic Priority: Medium Current Visit: Yes Qualifiers: DVT location: lower extremity Chronicity: chronic Laterality: left Annotation/Comment:: INR elevated today. 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 INR subtherapeutic on admission with subcutaneous Lovenox initiated yesterday. Note the patient did receive a loading dose of her Coumadin on admission with INR and PTT to be repeated tomorrow with other blood work. No clinical evidence of DVT or PE today. Hold Coumadin for now (5) Allergic rhinitis SNOMED Code(s): 02892696 Code(s): J30.9 - ALLERGIC RHINITIS, UNSPECIFIED Status: Chronic Priority : Medium Current Visit: Yes Qualifiers: Chronicity: chronic Allergic rhinitis trigger: unspecified Allergic rhinitis seasonality: unspecified seasonality Qualified Code(s): J30.9 - Allergic rhinitis, unspecified Annotation/Comment:: Stable by history (6) Glaucoma SNOMED Code(s): 07111827 Code(s): H40.9 - UNSPECIFIED GLAUCOMA Status: Chronic Priority: Medium Current Visit: No Qualifiers: Glaucoma type: open-angle Laterality: bilateral Glaucoma stage: indeterminate stage Annotation/Comment:: Under therapy (7) Peptic reflux disease SNOMED Code(s): 21503182 Code(s): K21.9 - GASTRO-ESOPHAGEAL REFLUX DISEASE WITHOUT ESOPHAGITIS Status: Chronic Priority: Medium Current Visit: Yes Annotation/Comment:: IV Pepcid and IV Protonix added to current medical therapy as above (8) Asthma SNOMED Code(s): 920259593 Code(s): J45.909 - UNSPECIFIED ASTHMA, UNCOMPLICATED Status: Chronic Priority: Medium Current Visit: Yes Qualifiers: Asthma severity: mild intermittent Asthma complication type: uncomplicated Qualified Code(s): J45.20 - Mild intermittent asthma, uncomplicated Annotation/Comment:: No recent fever or bronchitic type symptoms (9) Osteoarthritis SNOMED Code(s): 046099580 Code(s): M19.90 - UNSPECIFIED OSTEOARTHRITIS, UNSPECIFIED SITE Status: Chronic Priority: Medium Current Visit: Yes Qualifiers: Osteoarthritis location: multiple joints Osteoarthritis type: primary Qualified Code(s): M15.0 - Primary generalized (osteo)arthritis Annotation/Comment:: Other than nonspecific low back pain stable by history (10) Hypoalbuminemia SNOMED Code(s): 811297355 Code(s): E88.09 - OTH DISORDERS OF PLASMA-PROTEIN METABOLISM, NEC Status: Acute Priority: Medium Current Visit: Yes Onset Date: 02/05/17 Annotation/Comment:: Initiate high protein Glucerna supplements as snacks - Problem List Review Problem List Initiated/Reviewed/Updated: Yes - My Orders Last 24 Hours: My Active Orders 02/04/17 10:00 Clindamycin Phosphate [Cleocin] 600 mg Sodium Chloride 0.9% [Normal Saline] 100 ml IV Q8H Pantoprazole [ProTONIX IV] 40 mg IVPUSH Q12H 02/04/17 11:00 metroNIDAZOLE/Normal Saline [Flagyl 500 MG in NS 100 ML] 500 mg Premix Bag 1 bag IV Q8H 02/05/17 05:11 Abdomen Series w Chest 1V [CR] Routine 02/05/17 07:15 INR,PT,PROTHROMBIN TIME [COAG] Routine PTT,PARTIAL THROMBOPLSTIN TIME [COAG] Routine 02/05/17 08:00 Nebivolol [Bystolic] 10 mg PO DAILY 02/05/17 09:50 Echo Comp wo Cont [US] Urgent - Assessment Assessment:: As above - Plan Plan:: As above. Extensive precautions were given to the patient, who is in agreement with the treatment plan. Anticipate about 1 additional day of inpatient care secondary to refractory symptoms
[2017-02-05] MEDS: Pantoprazole 40 MG Vial IVPUSH SCH ×2 (10:32→22:04)
[2017-02-05] MEDS ORDERED: Polyethylene Glycol 3350 Powder 17 GM Packet PO ONE (10:57)
[2017-02-05] MEDS ORDERED: Magnesium Citrate Solution 296 ML Bottle PO ONE (10:57)
[2017-02-05] MEDS: Latanoprost 0.005% Ophth Soln 2.5 ML Bottle EYEBOTH SCH (19:32)
[2017-02-05] MEDS: Montelukast 10 MG Tab PO SCH (19:32)
[2017-02-05] MEDS: Sodium Chloride 0.9% 10 ML Syringe FLUSH PRN (22:04)
[2017-02-06] MEDS: Sodium Chloride 0.9% 10 ML Syringe FLUSH PRN ×3 (02:51→07:43)
[2017-02-06] MEDS: Clindamycin Phosphate 600 MG in Sodium Chloride 0.9% 100 ML IV SCH (02:51)
[2017-02-06] MEDS: metroNIDAZOLE/Normal Saline 500 MG in Premix Bag 1 BAG IV SCH (03:31)
[2017-02-06 07:28] LABS: CHLORIDE,CL 106 mmol/L (98-107); SODIUM,NA 142 mmol/L (136-145)
[2017-02-06] MEDS: Famotidine 20 MG/2 ML SDV IVPUSH SCH (07:43)
[2017-02-06] MEDS: Brimonidine 0.2% Ophth Soln 5 ML Bottle EYEBOTH SCH (07:44)
[2017-02-06] MEDS: ACARBOSE 25 MG PO SCH (07:44)
[2017-02-06] MEDS: Pregabalin 25 MG Cap PO SCH (07:45)
[2017-02-06] MEDS: Lisinopril 10 MG Tab PO SCH (07:47)
[2017-02-06] MEDS: Cetirizine 10 MG Tab PO SCH (07:47)
[2017-02-06 09:22] VITALS: BP 144/65
--- NOTE | 2017-02-06 09:38 | PCM.DCSUM1 ---
Discharge Summary - Hospital Course HPI Initial Comments: See admission H&P/emergency room note Brief History: See admission H&P/emergency room note - Discharge Data Discharge Date: 02/06/17 Discharge Disposition: Home, Self-Care 01 Condition: Good - Discharge Diagnosis/Problem(s) (1) Abdominal pain SNOMED Code(s): 44515763 ICD Code: R10.9 - UNSPECIFIED ABDOMINAL PAIN Status: Acute Priority: High Current Visit: Yes Onset Date: 02/03/17 Problem Details: Excellent results with repeat Mirilax yesterday. Only mild nonspecific left upper quadrant abdominal cramping with excellent bowel movements yesterday and this morning without nausea, emesis, hematochezia, melena, etc. Note excellent response to previous dosing, although symptoms somewhat initially refractory to therapy with previous history of significant constipation and recurrent borderline obstructions. Amylase and lipase 2 were normal during this hospitalization with no evidence of acute GI bleed, etc. Resolved leukocytosis on admission with IV Flagyl, IV clindamycin, IV Pepcid, and IV Protonix throughout this hospitalization. Close follow-up with regular provider with dietary issues discussed today Qualifiers: Abdominal location: generalized Qualified Code(s): R10.84 - Generalized abdominal pain (2) Constipation SNOMED Code(s): 08251090 ICD Code: K59.00 - CONSTIPATION, UNSPECIFIED Status: Chronic Priority: High Current Visit: Yes Onset Date: ~01/13/17 Problem Details: As above. Reports no bowel movement for approximately 3 weeks prior to admission. Long history of GI issues, surgeries, including gastric bypass, etc. with additional history of known chronic constipation. She would benefit from chronic magnesium oxide and Mirilax use as per discharge instructions (3) Hypertension SNOMED Code(s): 02065121 ICD Code: I10 - ESSENTIAL (PRIMARY) HYPERTENSION Status: Chronic Priority : Medium Current Visit: No Problem Details: Blood pressures are improved and under good control at discharge with additional lisinopril during this hospitalization. Continued close follow-up by her regular provider. Qualifiers: Hypertension type: essential hypertension Qualified Code(s): I10 - Essential (primary) hypertension (4) DVT (deep venous thrombosis) SNOMED Code(s): 242584963 ICD Code: I82.409 - ACUTE EMBOLISM AND THOMBOS UNSP DEEP VN UNSP LOWER EXTREMITY Status: Chronic Priority: Medium Current Visit: Yes Problem Details: INR progressively elevated today despite discontinuation of Lovenox and holding her Coumadin. No evidence of significant bleeding. INR elevation secondary to current antibiotic therapy, which will not be continued at discharge. No evidence of significant colitis, etc. Coumadin will be continued to be held with repeat CBC and INR in 2 days as per discharge instructions with vitamin K therapy not indicated at this time. 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 INR subtherapeutic on admission with subcutaneous Lovenox initiated in early hospitalization however subsequently discontinued after one dose. Note the patient did receive a loading dose of her Coumadin on admission. Qualifiers: DVT location: lower extremity Chronicity: chronic Laterality: left (5) Allergic rhinitis SNOMED Code(s): 21539267 ICD Code: J30.9 - ALLERGIC RHINITIS, UNSPECIFIED Status: Chronic Priority : Medium Current Visit: Yes Problem Details: Stable by history Qualifiers: Chronicity: chronic Allergic rhinitis trigger: unspecified Allergic rhinitis seasonality: unspecified seasonality Qualified Code(s): J30.9 - Allergic rhinitis, unspecified (6) Glaucoma SNOMED Code(s): 43074615 ICD Code: H40.9 - UNSPECIFIED GLAUCOMA Status: Chronic Priority: Medium Current Visit: No Problem Details: Under therapy Qualifiers: Glaucoma type: open-angle Laterality: bilateral Glaucoma stage: indeterminate stage (7) Peptic reflux disease SNOMED Code(s): 55943244 ICD Code: K21.9 - GASTRO-ESOPHAGEAL REFLUX DISEASE WITHOUT ESOPHAGITIS Status: Chronic Priority: Medium Current Visit: Yes Problem Details: IV Pepcid and IV Protonix added to current medical therapy during this hospitalization as above (8) Asthma SNOMED Code(s): 550625878 ICD Code: J45.909 - UNSPECIFIED ASTHMA, UNCOMPLICATED Status: Chronic Priority: Medium Current Visit: Yes Problem Details: No recent fever or bronchitic type symptoms Qualifiers: Asthma severity: mild intermittent Asthma complication type: uncomplicated Qualified Code(s): J45.20 - Mild intermittent asthma, uncomplicated (9) Osteoarthritis SNOMED Code(s): 796551972 ICD Code: M19.90 - UNSPECIFIED OSTEOARTHRITIS, UNSPECIFIED SITE Status: Chronic Priority: Medium Current Visit: Yes Problem Details: Other than nonspecific occasional low back pain stable by history Qualifiers: Osteoarthritis location: multiple joints Osteoarthritis type: primary Qualified Code(s): M15.0 - Primary generalized (osteo)arthritis (10) Hypoalbuminemia SNOMED Code(s): 064162396 ICD Code: E88.09 - OTH DISORDERS OF PLASMA-PROTEIN METABOLISM, NEC Status: Acute Priority: Medium Current Visit: Yes Onset Date: 02/05/17 Problem Details: Initiate high protein Glucerna supplements as snacks (11) Elevated INR SNOMED Code(s): 580411464, 812447634 ICD Code: R79.1 - ABNORMAL COAGULATION PROFILE Status: Acute Priority: High Current Visit: Yes Onset Date: 02/05/17 Problem Details: As above (12) Syncope SNOMED Code(s): 106042889 ICD Code: R55 - SYNCOPE AND COLLAPSE Status: Acute Priority: Medium Current Visit: Yes Problem Details: Apparent previous episode of syncope with echocardiogram previously ordered in this facility by her regular provider with preliminary results as below Qualifiers: Syncope type: unspecified Qualified Code(s): R55 - Syncope and collapse - Patient Summary/Data Operative Procedure(s) Performed: None Complications: None despite elevated INR as above Consults: None Labs Pending at D/C: Final echocardiogram report Recommended Follow-up Testing/Procedures: As per discharge instructions Planned Operative Procedure(s) after DC: None Hospital Course: She was admitted to inpatient/acute care secondary to threatening ileus/bowel obstruction with aggressive IV Pepcid, IV Protonix, IV Flagyl, and IV clindamycin therapy. Her antibiotic therapy was discontinued this morning secondary to progressive INR elevation as above with Lovenox previously discontinued and Coumadin therapy stopped on day prior to discharge as above. No complications from INR elevation as above. Patient's symptoms were somewhat refractory to therapy with aggressive Mirilax and lactulose therapy required. An echocardiogram was conducted during this hospitalization with a study previously ordered by her regular provider secondary to apparent previous episode of syncope. No chest pain, anginal complaints, syncope, or neurological deficits during this hospitalization. - Patient Instructions Diet: Heart Healthy Diet Diet, Other: Otherwise as per discharge instructions Activity: As Tolerated (With strict injury and fall precautions secondary to elevated INR) Driving: May Drive Today Notify Provider of: Fever, Increased Pain, Nausea and/or Vomiting Other/Special Instructions: 1. Follow-up with your regular provider in 2 days for reevaluation and recommended repeat CBC and INR. 2. Resume Coumadin per instructions of regular provider. 3. Recommend an additional follow-up with your regular provider in one week for reevaluation, CBC, comprehensive metabolic panel, magnesium level, and acute abdominal x-rays. 4. [place] diet including encouragement of oral fluids such as sports drinks, etc. for 24-48 hours as directed. Advance to strict low-fat, low-cholesterol, high-fiber, high protein diverticulosis diet as tolerated thereafter. Additional high- protein Glucerna supplements twice a day as snacks. 5. Discuss possible colonoscopy and/or EGD at your follow-up visit with your regular provider - Discharge Plan Prescriptions/Med Rec: Lisinopril [Prinivil] 10 mg PO DAILY #20 tablet Magnesium Oxide 400 mg PO BID #30 tablet Omeprazole Magnesium [Prilosec Otc] 20 mg PO DAILY #30 tablet. Polyethylene Glycol 3350 [MiraLAX] 17 gm PO BEDTIME #30 packet Home Medications: Home Meds Brimonidine [Alphagan 0.2% Ophth Soln] 1 ea EYEBOTH BID 11/07/13 [History] Montelukast [Singulair] 10 mg PO BEDTIME 11/07/13 [History] Travoprost [Travatan Z 0.004% Ophth Soln] 1 drop EYEBOTH BEDTIME 11/07/13 [ History] Pregabalin [Lyrica] 100 mg PO BID@08,20 06/04/16 [History] Cetirizine [ZyrTEC] 10 mg PO DAILY 09/28/16 [History] Acarbose [Precose] 25 mg PO TID 02/03/17 [History] Nebivolol HCl [Bystolic] 10 mg PO DAILY 02/04/17 [History] Acetaminophen [Tylenol] 650 mg PO Q4H PRN #0 tablet 02/06/17 [Rx] Lisinopril [Prinivil] 10 mg PO DAILY #20 tablet 02/06/17 [Rx] Magnesium Oxide 400 mg PO BID #30 tablet 02/06/17 [Rx] Omeprazole Magnesium [Prilosec Otc] 20 mg PO DAILY #30 tablet. 02/06/17 [Rx] Polyethylene Glycol 3350 [MiraLAX] 17 gm PO BEDTIME #30 packet 02/06/17 [Rx] Patient Handouts: Abdominal Pain, Adult, [id number], Constipation, Adult, High-Fiber Diet, Fat and Cholesterol Restricted Diet Forms: ED Department Discharge - Discharge Summary/Plan Comment DC Time >30 min.: Yes Discharge Summary/Plan Comment: As above. Extensive precautions were given to the patient, who is in agreement with the treatment plan. See Patient Instructions for further treatment and plan. - General Info Date of Service: 02/06/17 Admission Dx/Problem (Free Text: 1. Abdominal pain 2. Chronic constipation 3. History of DVTs 4. Hypertension Functional Status: Reports: Pain Controlled, Tolerating Diet, Ambulating, Urinating. Denies: New Symptoms, Incentive Spirometry Numeric/FACES Score: 5 - Review of Systems General: Reports: No Symptoms. Denies: Fever, Weakness, Fatigue, Malaise, Chills, Night Sweats, Appetite (Appetite good) HEENT: Reports: No Symptoms. Denies: Dysphasia, Ear Pain, Eye Pain, Headaches, Sinus Congestion, Sore Throat, Rhinitis, Visual Changes Pulmonary: Reports: No Symptoms. Denies: Shortness of Breath, Pleuritic Chest Pain, Cough, Sputum, Wheezing Cardiovascular: Reports: Edema (Stable dependent). Denies: Chest Pain, Palpitations, Dyspnea on Exertion, Orthopnea, Lightheadedness, Other Gastrointestinal: Reports: Abdominal Pain (Nonspecific occasional left upper quadrant abdominal cramping). Denies: Constipation, Decreased Appetite, Diarrhea, Difficulty Swallowing, Flatus, Hematochezia, Melena, Nausea, Vomiting Genitourinary: Reports: No Symptoms. Denies: Dysuria, Frequency, Burning, Pain , Urgency, Incontinence, Hematuria, Retention, Flank Pain Musculoskeletal: Reports: No Symptoms. Denies: Neck Pain, Shoulder Pain, Arm Pain, Back Pain, Leg Pain Skin: Reports: No Symptoms. Denies: Jaundice, Pallor, Diaphoresis, Bruising Neurological: Reports: No Symptoms. Denies: Confusion, Dizziness, Headache, Numbness, Paresthesia, Tingling, Weakness Psychiatric: Reports: No Symptoms. Denies: Confusion, Depression, Anxiety, Agitation, Hallucinations - Patient Data Vitals - Most Recent: Last Vital Signs Temp 36.2 C 02/06/17 08:00 Pulse 61 02/06/17 08:00 Resp 16 02/06/17 08:00 BP 144/65 H 02/06/17 08:00 Pulse Ox 99 02/06/17 08:00 Vital Signs - 24 hr 02/05/17 02/05/17 02/05/17 16:00 21:00 23:43 Temperature [ 36.3 C 36.3 C Oral] Pulse, Peripheral Pulse, 60 58 L Peripheral [ Left Pulse Oximetry] Respiratory 12 16 Rate Blood Pressure Blood Pressure 144/61 H 126/63 [Left Upper Arm ] O2 Sat by Pulse 100 100 100 Oximetry 02/06/17 02/06/17 02/06/17 07:46 07:47 08:00 Temperature [ 36.2 C Oral] Pulse, 61 Peripheral Pulse, 61 Peripheral [ Left Pulse Oximetry] Respiratory 16 Rate Blood Pressure 149/65 H 149/65 H Blood Pressure 144/65 H [Left Upper Arm ] O2 Sat by Pulse 99 Oximetry Weight - Most Recent: 82.554 kg I&O - Last 24 hours: Intake & Output 02/05/17 02/06/17 02/06/17 22:59 06:59 14:59 Intake Total 365 220 Balance 365 220 Imaging Impressions - Last 24 hrs: Acute abdominal x-rays on day of discharge showed some persistent mild diffuse increased bowel gaseous pattern with occasional fluid levels but no significant evidence of ileus, obstruction, free air, etc.. Bowel gaseous pattern somewhat prominent and yesterday however significant improvement of her moderate stool since that evaluation. Note status post cholecystectomy. Additional moderate pulmonary obstructive disease with right middle lobe atelectasis versus nonspecific infiltrate and mild cardiomegaly and prominence of the proximal aorta but no CHF, pneumothorax, etc. Telephone consultation with Amira [facility], on 02/05/17 with preliminary verbal report of Echocardiogram which was conducted in this facility per her regular provider's request secondary to previous syncopal episode. Only mild tricuspid and mitral valve insuffiency with EF of 60%. No etiiology of syncope by Echocardiogram. Lab Results - Last 24 hrs: Laboratory Results - last 24 hr 02/05/17 02/06/17 02/06/17 Range/Units 07:15 06:35 06:35 WBC 5.7 (4.0-10.2) K/uL RBC 4.46 (3.77-5.09) M/uL Hgb 13.2 (11.7-15.5) g/dL Hct 40.7 (34.0-46.0) % MCV 91.3 (84.0-98.0) fL MCH 29.6 (28.2-33.3) pg MCHC 32.4 (31.7-36.0) g/dL RDW 12.6 (11.2-14.1) % Plt Count 253 (150-350) K/uL Neut % (Auto) 71.4 (45.0-80.0) % Lymph % (Auto) 20.8 (10.0-50.0) % [place] % (Auto) 5.3 (2.0-14.0) % Eos % (Auto) 2.1 (0.0-5.0) % Baso % (Auto) 0.4 (0.0-2.0) % Neut # (Auto) 4.08 (1.40-7.00) K/uL Lymph # (Auto) 1.19 (0.50-3.50) K/uL [place] # (Auto) 0.30 (0.00-1.00) K/uL Eos # (Auto) 0.12 (0.00-0.50) K/uL Baso # (Auto) 0.02 (0.00-0.20) K/uL PT 51.5 H D 79.6 H D (9.8-11.7) SEC INR 4.5 6.7 H* APTT 43.8 H 52.4 H (23.5-30.0) SEC Sodium (136-145) mmol/L Potassium (3.5-5.1) mmol/L Chloride (98-107) mmol/L Carbon Dioxide (21.0-32.0) mmol/L BUN (7-18) mg/dL Creatinine (0.51-1.17) mg/dL Est Cr Clr Drug Dosing mL/min Estimated GFR (MDRD) mL/min Glucose (74-106) mg/dL Calcium (8.5-10.1) mg/dL Total Bilirubin (0.2-1.0) mg/dL AST (15-37) U/L ALT (12-78) U/L Alkaline Phosphatase (46-116) IU/L Total Protein (6.4-8.2) g/dL Albumin (3.4-5.0) g/dL Amylase (25-115) U/L Lipase (73-393) U/L 02/06/17 02/06/17 Range/Units 06:35 06:50 WBC (4.0-10.2) K/uL RBC (3.77-5.09) M/uL Hgb (11.7-15.5) g/dL Hct (34.0-46.0) % MCV (84.0-98.0) fL MCH (28.2-33.3) pg MCHC (31.7-36.0) g/dL RDW (11.2-14.1) % Plt Count (150-350) K/uL Neut % (Auto) (45.0-80.0) % Lymph % (Auto) (10.0-50.0) % [place] % (Auto) (2.0-14.0) % Eos % (Auto) (0.0-5.0) % Baso % (Auto) (0.0-2.0) % Neut # (Auto) (1.40-7.00) K/uL Lymph # (Auto) (0.50-3.50) K/uL [place] # (Auto) (0.00-1.00) K/uL Eos # (Auto) (0.00-0.50) K/uL Baso # (Auto) (0.00-0.20) K/uL PT (9.8-11.7) SEC INR APTT (23.5-30.0) SEC Sodium 142 (136-145) mmol/L Potassium 3.8 (3.5-5.1) mmol/L Chloride 106 (98-107) mmol/L Carbon Dioxide 30.2 (21.0-32.0) mmol/L BUN 9 (7-18) mg/dL Creatinine 0.87 (0.51-1.17) mg/dL Est Cr Clr Drug Dosing 54.92 mL/min Estimated GFR (MDRD) > 60 mL/min Glucose 107 H (74-106) mg/dL Calcium 8.2 L (8.5-10.1) mg/dL Total Bilirubin 0.3 (0.2-1.0) mg/dL AST 24 (15-37) U/L ALT 33 (12-78) U/L Alkaline Phosphatase 134 H (46-116) IU/L Total Protein 6.3 L (6.4-8.2) g/dL Albumin 3.0 L (3.4-5.0) g/dL Amylase 20 L (25-115) U/L Lipase 63 L (73-393) U/L Laboratory Tests 02/03/17 02/03/17 02/03/17 Range/Units 19:55 19:55 19:55 WBC 10.9 H (4.0-10.2) K/uL RBC 4.91 (3.77-5.09) M/uL Hgb 14.5 (11.7-15.5) g/dL Hct 44.2 (34.0-46.0) % MCV 90.0 (84.0-98.0) fL MCH 29.5 (28.2-33.3) pg MCHC 32.8 (31.7-36.0) g/dL RDW 12.7 (11.2-14.1) % Plt Count 286 (150-350) K/uL Neut % (Auto) 77.5 (45.0-80.0) % Lymph % (Auto) 16.0 (10.0-50.0) % [place] % (Auto) 4.6 (2.0-14.0) % Eos % (Auto) 1.6 (0.0-5.0) % Baso % (Auto) 0.3 (0.0-2.0) % Neut # (Auto) 8.42 H (1.40-7.00) K/uL Lymph # (Auto) 1.74 (0.50-3.50) K/uL [place] # (Auto) 0.50 (0.00-1.00) K/uL Eos # (Auto) 0.17 (0.00-0.50) K/uL Baso # (Auto) 0.03 (0.00-0.20) K/uL PT 16.9 H D (9.8-11.7) SEC INR 1.5 APTT (23.5-30.0) SEC Sodium 144 (136-145) mmol/L Potassium 3.5 (3.5-5.1) mmol/L Chloride 108 H (98-107) mmol/L Carbon Dioxide 28.2 (21.0-32.0) mmol/L BUN 17 (7-18) mg/dL Creatinine 0.82 (0.51-1.17) mg/dL Est Cr Clr Drug Dosing 58.26 mL/min Estimated GFR (MDRD) > 60 mL/min Glucose 125 H (74-106) mg/dL Calcium 8.8 (8.5-10.1) mg/dL Magnesium (1.8-2.4) mg/dL Total Bilirubin 0.3 (0.2-1.0) mg/dL AST 18 (15-37) U/L ALT 33 (12-78) U/L Alkaline Phosphatase 150 H (46-116) IU/L Total Protein 7.4 (6.4-8.2) g/dL Albumin 3.5 (3.4-5.0) g/dL Amylase (25-115) U/L Lipase (73-393) U/L 02/05/17 02/05/17 02/05/17 Range/Units 07:15 07:15 07:15 WBC 5.5 (4.0-10.2) K/uL RBC 4.38 (3.77-5.09) M/uL Hgb 13.3 (11.7-15.5) g/dL Hct 40.3 (34.0-46.0) % MCV 92.0 (84.0-98.0) fL MCH 30.4 (28.2-33.3) pg MCHC 33.0 (31.7-36.0) g/dL RDW 12.6 (11.2-14.1) % Plt Count 253 (150-350) K/uL Neut % (Auto) 65.9 (45.0-80.0) % Lymph % (Auto) 24.4 (10.0-50.0) % [place] % (Auto) 6.6 (2.0-14.0) % Eos % (Auto) 2.7 (0.0-5.0) % Baso % (Auto) 0.4 (0.0-2.0) % Neut # (Auto) 3.62 (1.40-7.00) K/uL Lymph # (Auto) 1.34 (0.50-3.50) K/uL [place] # (Auto) 0.36 (0.00-1.00) K/uL Eos # (Auto) 0.15 (0.00-0.50) K/uL Baso # (Auto) 0.02 (0.00-0.20) K/uL PT 51.5 H D (9.8-11.7) SEC INR 4.5 APTT 43.8 H (23.5-30.0) SEC Sodium 141 (136-145) mmol/L Potassium 4.6 (3.5-5.1) mmol/L Chloride 107 (98-107) mmol/L Carbon Dioxide 28.6 (21.0-32.0) mmol/L BUN 9 (7-18) mg/dL Creatinine 0.75 (0.51-1.17) mg/dL Est Cr Clr Drug Dosing 63.70 mL/min Estimated GFR (MDRD) > 60 mL/min Glucose 99 (74-106) mg/dL Calcium 8.1 L (8.5-10.1) mg/dL Magnesium 1.9 (1.8-2.4) mg/dL Total Bilirubin 0.3 (0.2-1.0) mg/dL AST 28 (15-37) U/L ALT 35 (12-78) U/L Alkaline Phosphatase 137 H (46-116) IU/L Total Protein 6.0 L (6.4-8.2) g/dL Albumin 2.8 L (3.4-5.0) g/dL Amylase 25 (25-115) U/L Lipase 70 L (73-393) U/L 02/06/17 02/06/17 02/06/17 Range/Units 06:35 06:35 06:35 WBC 5.7 (4.0-10.2) K/uL RBC 4.46 (3.77-5.09) M/uL Hgb 13.2 (11.7-15.5) g/dL Hct 40.7 (34.0-46.0) % MCV 91.3 (84.0-98.0) fL MCH 29.6 (28.2-33.3) pg MCHC 32.4 (31.7-36.0) g/dL RDW 12.6 (11.2-14.1) % Plt Count 253 (150-350) K/uL Neut % (Auto) 71.4 (45.0-80.0) % Lymph % (Auto) 20.8 (10.0-50.0) % [place] % (Auto) 5.3 (2.0-14.0) % Eos % (Auto) 2.1 (0.0-5.0) % Baso % (Auto) 0.4 (0.0-2.0) % Neut # (Auto) 4.08 (1.40-7.00) K/uL Lymph # (Auto) 1.19 (0.50-3.50) K/uL [place] # (Auto) 0.30 (0.00-1.00) K/uL Eos # (Auto) 0.12 (0.00-0.50) K/uL Baso # (Auto) 0.02 (0.00-0.20) K/uL PT 79.6 H D (9.8-11.7) SEC INR 6.7 H* APTT 52.4 H (23.5-30.0) SEC Sodium 142 (136-145) mmol/L Potassium 3.8 (3.5-5.1) mmol/L Chloride 106 (98-107) mmol/L Carbon Dioxide 30.2 (21.0-32.0) mmol/L BUN 9 (7-18) mg/dL Creatinine 0.87 (0.51-1.17) mg/dL Est Cr Clr Drug Dosing 54.92 mL/min Estimated GFR (MDRD) > 60 mL/min Glucose 107 H (74-106) mg/dL Calcium 8.2 L (8.5-10.1) mg/dL Magnesium (1.8-2.4) mg/dL Total Bilirubin 0.3 (0.2-1.0) mg/dL AST 24 (15-37) U/L ALT 33 (12-78) U/L Alkaline Phosphatase 134 H (46-116) IU/L Total Protein 6.3 L (6.4-8.2) g/dL Albumin 3.0 L (3.4-5.0) g/dL Amylase (25-115) U/L Lipase (73-393) U/L 02/06/17 Range/Units 06:50 WBC (4.0-10.2) K/uL RBC (3.77-5.09) M/uL Hgb (11.7-15.5) g/dL Hct (34.0-46.0) % MCV (84.0-98.0) fL MCH (28.2-33.3) pg MCHC (31.7-36.0) g/dL RDW (11.2-14.1) % Plt Count (150-350) K/uL Neut % (Auto) (45.0-80.0) % Lymph % (Auto) (10.0-50.0) % [place] % (Auto) (2.0-14.0) % Eos % (Auto) (0.0-5.0) % Baso % (Auto) (0.0-2.0) % Neut # (Auto) (1.40-7.00) K/uL Lymph # (Auto) (0.50-3.50) K/uL [place] # (Auto) (0.00-1.00) K/uL Eos # (Auto) (0.00-0.50) K/uL Baso # (Auto) (0.00-0.20) K/uL PT (9.8-11.7) SEC INR APTT (23.5-30.0) SEC Sodium (136-145) mmol/L Potassium (3.5-5.1) mmol/L Chloride (98-107) mmol/L Carbon Dioxide (21.0-32.0) mmol/L BUN (7-18) mg/dL Creatinine (0.51-1.17) mg/dL Est Cr Clr Drug Dosing mL/min Estimated GFR (MDRD) mL/min Glucose (74-106) mg/dL Calcium (8.5-10.1) mg/dL Magnesium (1.8-2.4) mg/dL Total Bilirubin (0.2-1.0) mg/dL AST (15-37) U/L ALT (12-78) U/L Alkaline Phosphatase (46-116) IU/L Total Protein (6.4-8.2) g/dL Albumin (3.4-5.0) g/dL Amylase 20 L (25-115) U/L Lipase 63 L (73-393) U/L [facility]KAS Results - Last 24 hrs: Microbiology 02/06/17 03:00 Stool Occult Blood (VIKAS) - Final Stool / Feces NEGATIVE OCCULT BLOOD Microbiology 02/06/17 03:00 Stool / Feces Stool Occult Blood (VIKAS) - Final NEGATIVE OCCULT BLOOD Med Orders - Current: Current Medications Acetaminophen (Tylenol) 650 mg PO Q4H PRN PRN Reason: analgesia/fever Brimonidine Tartrate (Alphagan 0.2% Ophth Soln) 0 ml EYEBOTH BID [facility] Last Admin: 02/06/17 07:44 Dose: 2 drop Cetirizine HCl (Zyrtec) 10 mg PO DAILY [facility] Last Admin: 02/06/17 07:47 Dose: 10 mg Famotidine (Pepcid) 20 mg IVPUSH BID [facility] Last Admin: 02/06/17 07:43 Dose: 20 mg Latanoprost (Xalatan 0.005% Ophth Soln) 0 ml EYEBOTH BEDTIME [facility] Last Admin: 02/05/17 19:32 Dose: 1 drop Lisinopril (Prinivil) 10 mg PO DAILY [facility] Last Admin: 02/06/17 07:47 Dose: 10 mg Montelukast Sodium (Singulair) 10 mg PO BEDTIME [facility] Last Admin: 02/05/17 19:32 Dose: 10 mg Nebivolol (Bystolic) 10 mg PO DAILY [facility] Last Admin: 02/06/17 07:46 Dose: 10 mg Acarbose [Precose] (25 Mg Tab) 25 mg PO TID [facility] Last Admin: 02/06/17 07:44 Dose: 25 mg Ondansetron HCl (Zofran) 4 mg IVPUSH Q6H PRN PRN Reason: Nausea/Vomiting Last Admin: 02/05/17 11:53 Dose: 4 mg Pantoprazole Sodium (Protonix Iv) 40 mg IVPUSH Q12H [facility] Last Admin: 02/05/17 22:04 Dose: 40 mg Pregabalin (Lyrica) 100 mg PO BID [facility] Last Admin: 02/06/17 07:45 Dose: 100 mg Sodium Chloride (Saline Flush) 10 ml FLUSH ASDIRECTED PRN PRN Reason: Keep Vein Open Last Admin: 02/06/17 07:43 Dose: 10 ml Discontinued Medications Enoxaparin Sodium (Lovenox) 40 mg SUBCUT ONETIME ONE Stop: 02/04/17 08:57 Last Admin: 02/04/17 10:49 Dose: 40 mg Hydromorphone HCl (Dilaudid) 1 mg IVPUSH Q2H PRN PRN Reason: Pain (severe 7-10) Sodium Chloride (Normal Saline) 1,000 mls @ 150 mls/hr IV .BOLUS ONE Stop: 02/04/17 04:09 Last Admin: 02/03/17 21:55 Dose: 150 mls/hr Sodium Chloride (Normal Saline) 1,000 mls @ 100 mls/hr IV ASDIRECTED [facility] Last Admin: 02/04/17 04:51 Dose: 100 mls/hr Clindamycin Phosphate 600 mg/ (Sodium Chloride) 104 mls @ 200 mls/hr IV Q8H [facility] Last Admin: 02/06/17 02:51 Dose: 200 mls/hr Metronidazole 500 mg/ Premix 100 mls @ 100 mls/hr IV Q8H [facility] Last Admin: 02/06/17 03:31 Dose: 100 mls/hr Magnesium Citrate (Citrate Of Magnesia) 396 ml PO ONETIME ONE Stop: 02/03/17 21:13 Last Admin: 02/03/17 21:25 Dose: Not Given Magnesium Citrate (Citrate Of Magnesia) 296 ml PO ONETIME ONE Stop: 02/03/17 21:25 Last Admin: 02/03/17 21:53 Dose: 296 ml Magnesium Citrate (Citrate Of Magnesia) 296 ml PO ONETIME ONE Stop: 02/04/17 08:01 Last Admin: 02/04/17 08:48 Dose: 296 ml Magnesium Citrate (Citrate Of Magnesia) 296 ml PO ONETIME ONE Stop: 02/05/17 10:58 Last Admin: 02/05/17 11:16 Dose: 296 ml Nebivolol (Bystolic) 20 mg PO [facility] Last Admin: 02/04/17 08:48 Dose: 20 mg Polyethylene Glycol (Miralax) 17 gm PO ONETIME ONE Stop: 02/04/17 08:01 Last Admin: 02/04/17 08:47 Dose: 17 gm Polyethylene Glycol (Miralax) 17 gm PO ONETIME ONE Stop: 02/05/17 10:58 Last Admin: 02/05/17 11:16 Dose: 17 gm Pregabalin (Lyrica) 100 mg PO ONETIME ONE Stop: 02/03/17 22:10 Last Admin: 02/03/17 22:29 Dose: 100 mg Tramadol HCl (Ultram) 50 mg PO Q6H PRN PRN Reason: Pain Last Admin: 02/03/17 22:30 Dose: 50 mg Warfarin Sodium (Coumadin) 5 mg PO ONETIME ONE Stop: 02/03/17 21:30 Last Admin: 02/03/17 21:53 Dose: 5 mg Warfarin Sodium (Coumadin) 2 mg PO DAILY@1800 [facility] Last Admin: 02/04/17 17:08 Dose: 2 mg - Exam Quality Assessment: Reports: DVT Prophylaxis (Including Lovenox and Coumadin as above). Denies: Supplemental Oxygen, Central Line/PICC, Urine Catheter, Skin Breakdown, Restraints General: Reports: Alert, Oriented, Cooperative, No Acute Distress HEENT: Reports: Pupils Equal, Pupils Reactive, EOMI, Mucous Membr. Moist/[place] Neck: Reports: Supple, Trachea Midline, No JVD, No Thyromegaly. Denies: Lymphadenopathy Lungs: Reports: Clear to Auscultation, Normal Respiratory Effort. Denies: Rub, Wheezing Cardiovascular: Reports: Regular Rate, Regular Rhythm, No Murmurs. Denies: Gallops, Rubs GI/Abdominal Exam: Normal Bowel Sounds, Soft, Non-Tender (With only mild occasional nonspecific left upper quadrant abdominal cramping as above but no significant palpation pain), No Organomegaly, No Distention, No Abnormal Bruit, No Mass, Pelvis Stable, Other (Obese). No: Guarding, Rebound (Female) Exam: Deferred Rectal (Female) Exam: Deferred Back Exam: Reports: Normal Inspection, Full Range of Motion. Denies: CVA Tenderness (L), CVA Tenderness (R), Muscle Spasm Extremities: Normal Range of Motion, Non-Tender, Normal Capillary Refill, Pedal Edema (Trace bilateral pedal/pretibial edema) Skin: Reports: Warm, Dry, Intact. Denies: Ecchymosis Neurological: Reports: No New Focal Deficit Psy/Mental Status: Reports: Alert, Normal Affect, Normal Mood. Denies: Agitated , Withdrawal Symptoms *Q Meaningful Use (DIS) - VTE *Q VTE Criteria *Q: - Stroke *Q Stroke Criteria *Q: - AMI *Q AMI Criteria *Q:
[2017-02-06] MEDS: Pantoprazole 40 MG Vial IVPUSH SCH (09:44)
== END 2017-02-06 11:15 | disposition home or self-care (01) | DRG 392 ==
LOC: LL.ED 19:01 → LL.MS 20:28 → UNDOADMIN 20:28 → LL.MS 21:16 → UNDODISIN 02-06 11:15
PROVIDERS: ADMIT Emergency Medicine; ATTEND Family Medicine
DX: K59.09 Other constipation (principal); I10 Essential (primary) hypertension; Z79.01 Long term (current) use of anticoagulants; Z86.718 Personal history of other venous thrombosis and embolism; Z86.711 Personal history of pulmonary embolism; Z98.84 Bariatric surgery status; R10.84 Generalized abdominal pain; R55 Syncope and collapse; H40.9 Unspecified glaucoma; J30.9 Allergic rhinitis, unspecified; K21.9 Gastro-esophageal reflux disease without esophagitis; J45.20 Mild intermittent asthma, uncomplicated; M19.90 Unspecified osteoarthritis, unspecified site; R79.1 Abnormal coagulation profile; Z88.1 Allergy status to other antibiotic agents; Z91.041 Radiographic dye allergy status; Z91.012 Allergy to eggs; Z88.5 Allergy status to narcotic agent; Z88.0 Allergy status to penicillin; Z88.8 Allergy status to other drugs, medicaments and biological substances; Z91.011 Allergy to milk products
CPT/HCPCS: 36415; 74020; 74022; 80053; 82150; 82272; 83690; 83735; 85025; 85610; 85730; 93306; 99285; A9270-GY; C9113; J1650; J2405; J7030; J7050; S0028; S0077

== ENCOUNTER 2017-02-21 12:22 | Day surgery (SDC) | payer MEDICARE, MEDICAID, OTHER ==
[2017-02-21] MEDS ORDERED: Lactated Ringers 1,000 ML IV SCH (12:30)
[2017-02-21] MEDS ORDERED: Sodium Chloride 0.9% 10 ML Syringe FLUSH PRN (12:30)
[2017-02-21] MEDS ORDERED: fentaNYL 100 MCG/2 ML SDV ONE ×2 (13:08→13:25)
[2017-02-21] MEDS ORDERED: Propofol 200 MG/20 ML SDV ONE ×2 (13:09→13:25)
[2017-02-21] MEDS ORDERED: Midazolam 1 MG/ML 2 ML SDV ONE ×2 (13:09→13:25)
--- NOTE | 2017-02-21 13:23 | PCM.PN ---
- General Info Date of Service: 02/21/17 - Review of Systems Systems Review Comment:: 67 y/o female referred for EGD and Colonoscopy. She has some symptoms of dysphagia and she has noted a significant change in bowel pattern recently. I have discussed the proposed procedures with the patient. Risks such bleeding and GI injury discussed. She agrees to proceed. - Patient Data Vitals - Most Recent: Last Vital Signs Temp 97.7 F 02/21/17 12:38 Pulse 64 02/21/17 12:38 Resp 20 02/21/17 12:38 BP 82/45 L 02/21/17 12:38 Pulse Ox 93 L 02/21/17 12:38 Weight - Most Recent: 82.554 kg Med Orders - Current: Current Medications Lactated Ringer's (Ringers, Lactated) 1,000 mls @ 125 mls/hr IV ASDIRECTED GERALD Sodium Chloride (Saline Flush) 10 ml FLUSH ASDIRECTED PRN PRN Reason: Keep Vein Open - Problem List Review Problem List Initiated/Reviewed/Updated: Yes - My Orders Last 24 Hours: My Active Orders 02/21/17 12:30 Patient Status [ADT] Routine Peripheral IV Care [RC] . DIRECTED Verify Patient Consent Obtain [RC] ASDIRECTED Lactated Ringers [Ringers, Lactated] 1,000 ml IV ASDIRECTED Sodium Chloride 0.9% [Saline Flush] 10 ml FLUSH ASDIRECTED PRN Peripheral IV Insertion Adult [OM.PC] Routine - Assessment Assessment:: Dysphagia Change in Bowel Habits - Plan Plan:: EGD and Colonoscopy
[2017-02-21] MEDS ORDERED: Lidocaine 2% 100 MG/5 ML Syringe ONE (13:25)
--- NOTE | 2017-02-21 14:17 | PCM.OPNOTE ---
- General Post-Op/Procedure Note Date of Surgery/Procedure: 02/21/17 Operative Procedure(s): EGD with Biopsy and Colonoscopy Findings: Normal Post Op EGD and Normal Colonoscopy Pre Op Diagnosis: Dysphagia. Change in Bowel Pattern Post-Op Diagnosis: Normal EGD and Colonoscopy Anesthesia Technique: MAC Primary Surgeon: Francisco Lincoln Pathology: Biopsies of Gastric Antrum Output, Urine Amount: 0 EBL in mLs: 2 Complications: None Condition: Good Free Text/Narrative:: Intake & Output 02/20/17 02/21/17 02/21/17 22:59 06:59 14:59 Intake Total 450 Balance 450
[2017-02-21 16:49] VITALS: BP 123/53
--- NOTE | 2017-02-22 08:26 | OR ---
Date of Procedure: 02/21/2017 PREOPERATIVE DIAGNOSIS: Dysphagia and change in bowel habits. POSTOPERATIVE DIAGNOSIS: Normal post surgical upper endoscopy and normal colon. TEST PERFORMED: Esophagogastroduodenoscopy with biopsy and colonoscopy. INDICATIONS FOR SURGERY: This 67-year-old female, who has a history of some symptoms of dysphagia. She also notes that she has had an ulcer in the past as well. She has noticed a significant change in the bowel pattern with rather profound constipation over the last few weeks and she is referred for upper and lower endoscopy. FINDINGS: Upper endoscopy appears normal. She has had a previous Maylin fundoplication. The wrap appears intact. There has no evidence of any narrowing of the esophagus or of the gastroesophageal junction at the level of the wrap. The esophageal lining appears healthy without signs of visible inflammation. The stomach including retroflexed examination appears to have a normal appearing lining without signs of ulcer or inflammation and the visualized duodenum appears normal. The patient's colon also appears normal. PROCEDURE: The patient is taken to the operating room. She was given intravenous sedation and her throat is topically anesthetized. With her in the left lateral decubitus position, the esophagus is intubated with the Olympus gastroscope. The scope was advanced under direct visualization through the entire length of the esophagus, stomach, and duodenum where examination to the fourth portion is performed. The duodenum was then carefully examined and the scope was withdrawn back into the stomach where full examination of the stomach including retroflexed examination of the fundus was performed. Biopsies of the antrum are taken to rule out H. pylori. After examining the stomach, the GE junction is again carefully examined and the scope was withdrawn allowing reexamination of the esophagus. The upper endoscope was then removed and attention was turned to colonoscopy. Digital rectal exam shows no rectal masses. The Olympus colonoscope was inserted into the rectum. Retroflexed examination of the rectal canal is performed. The scope was then carefully advanced under direct visualization through the entire length of the colon until the cecum was reached. Cecal acquisition is confirmed by noting the normal internal cecal anatomy including the appendiceal orifice and ileocecal valve. Acquisition of the cecum did require some hand pressure, but was able to be safely accomplished. After examining the cecum, the scope was slowly withdrawn sequentially re-examining the colonic segments until the entire colon and rectum had been fully examined. The scope was removed. The patient was taken from the operating room in satisfactory condition. ESTIMATED BLOOD LOSS: 2 mL. COMPLICATIONS: None. PROGNOSIS: Good. ZAN Lincoln MD /[id number] MTDD
== END 2017-02-21 15:24 | disposition home or self-care (01) ==
LOC: LL.SDS 12:22
PROVIDERS: ATTEND Surgery
DX: K29.50 Unspecified chronic gastritis without bleeding (principal); K91.1 Postgastric surgery syndromes; R73.03 Prediabetes; K59.09 Other constipation; I10 Essential (primary) hypertension; Z88.1 Allergy status to other antibiotic agents; Z88.5 Allergy status to narcotic agent; Z88.6 Allergy status to analgesic agent; Z88.8 Allergy status to other drugs, medicaments and biological substances; Z91.040 Latex allergy status; Z91.048 Other nonmedicinal substance allergy status; Z79.899 Other long term (current) drug therapy; Z98.890 Other specified postprocedural states
CPT/HCPCS: 00810; 43239; 45378; J2250; J2704; J3010; J7120; 88305; 88342

== ENCOUNTER 2017-04-12 07:31 | Emergency (ER) | payer MEDICARE, MEDICAID, OTHER, SELFPAY ==
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
[2017-04-12 07:53] VITALS: BP 157/84
== END 2017-04-12 09:00 | disposition home or self-care (01) ==
LOC: LL.ED 07:31
DX: S70.12XA Contusion of left thigh, initial encounter (principal); K21.9 Gastro-esophageal reflux disease without esophagitis; F41.8 Other specified anxiety disorders; E78.5 Hyperlipidemia, unspecified; I82.512 Chronic embolism and thrombosis of left femoral vein; F32.9 Major depressive disorder, single episode, unspecified; F41.9 Anxiety disorder, unspecified; E78.00 Pure hypercholesterolemia, unspecified; I10 Essential (primary) hypertension; J45.909 Unspecified asthma, uncomplicated; M15.0 Primary generalized (osteo)arthritis; E66.9 Obesity, unspecified; Z88.1 Allergy status to other antibiotic agents; Z88.5 Allergy status to narcotic agent; Z91.012 Allergy to eggs; Z88.0 Allergy status to penicillin; Z91.011 Allergy to milk products; Z91.040 Latex allergy status; Z91.041 Radiographic dye allergy status; Z91.09 Other allergy status, other than to drugs and biological substances; Z79.899 Other long term (current) drug therapy; Z79.01 Long term (current) use of anticoagulants; Z87.440 Personal history of urinary (tract) infections; Z86.79 Personal history of other diseases of the circulatory system; Z90.49 Acquired absence of other specified parts of digestive tract; Z90.89 Acquired absence of other organs; Z90.710 Acquired absence of both cervix and uterus; Z86.718 Personal history of other venous thrombosis and embolism; W22.8XXA Striking against or struck by other objects, initial encounter
CPT/HCPCS: 72170; 99283

== ENCOUNTER 2019-04-27 14:42 | Emergency (ER) | payer MEDICARE, MEDICAID ==
--- NOTE | 2019-04-27 15:02 | EDM.PDOC ---
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 discuss your medical care. 6. Please remember that we are ALWAYS here for you and want to answer any questions you may have. Feel free to call the hospital any time and we call you back ERYN. - Problem List & Annotations (1) Abdominal pain SNOMED Code(s): 99105126 Code(s): R10.9 - UNSPECIFIED ABDOMINAL PAIN Status: Acute Priority: High Current Visit: Yes Annotation/Comment:: Long history of chronic abdominal pain, including diarrhea, constipation, irritable bowel syndrome, etc. as above. Symptoms improved with IV Pepcid, IV Protonix, and 1 L bolus of IV lactated Ringer's. No change in medical therapy for now with close follow-up by regular provider as per discharge instructions. Patient was unable to provide us with a urine specimen. Qualifiers: Abdominal location: generalized Qualified Code(s): R10.84 - Generalized abdominal pain (2) Migraine headache SNOMED Code(s): 14266836 Code(s): G43.909 - MIGRAINE, UNSP, NOT INTRACTABLE, WITHOUT STATUS MIGRAINOSUS Status: Acute Priority: High Current Visit: Yes Annotation/ Comment:: Recurrence of her chronic migraine headaches. Note current magnesium supplementation. She has not taken any medications for her symptoms to this point with symptomatic relief, including Tylenol, etc. as per discharge instructions. Note extensive previous negative workup including CT scans of the brain, MRI of the brain, etc. Note previous TIA in May 2018 with no neurological deficits today. Qualifiers: Migraine type: without aura Status migrainosus presence: without status migrainosus Intractability: not intractable Qualified Code(s): G43.009 - Migraine without aura, not intractable, without status migrainosus (3) Elevated lactic acid level SNOMED Code(s): 6646030 Code(s): R79.89 - OTHER SPECIFIED ABNORMAL FINDINGS OF BLOOD CHEMISTRY Status: Acute Priority: High Current Visit: Yes Onset Date: 04/27/19 Annotation/Comment:: No leukocytosis, fever, or clinical evidence of sepsis. Note some diarrhea today with 1 L IV bolus of lactated Ringer's given in the emergency room. Continue to observe closely by regular provider. (4) Hypoalbuminemia SNOMED Code(s): 798220801 Code(s): E88.09 - [facility] DISORDERS OF PLASMA-PROTEIN METABOLISM, NEC Status: Chronic Priority: Medium Current Visit: Yes Onset Date: 02/05/17 Annotation/Comment:: She has yet to initiate high protein Glucerna supplements as snacks as previously advised with compliance with these supplements once again strongly encouraged today. (5) Hypokalemia SNOMED Code(s): 55898000 Code(s): E87.6 - HYPOKALEMIA Status: Acute Priority: Medium Current Visit: Yes Onset Date: 04/27/19 Annotation/Comment:: Observe closely by regular provider. IV lactated Ringer's given as above. (6) Hypomagnesemia SNOMED Code(s): 432587674 Code(s): E83.42 - HYPOMAGNESEMIA Status: Chronic Priority: Medium Current Visit: Yes Annotation/Comment:: Currently under supplementation. Observe for now. Follow-up by regular provider as per discharge instructions. (7) Asthma SNOMED Code(s): 219442470 Code(s): J45.909 - UNSPECIFIED ASTHMA, UNCOMPLICATED Status: Chronic Priority: Medium Current Visit: Yes Annotation/Comment:: Stable by history with no recent fever or bronchitic type symptoms. Qualifiers: Asthma severity: mild Asthma persistence: intermittent Asthma complication type: uncomplicated Qualified Code(s): J45.20 - Mild intermittent asthma, uncomplicated (8) DVT (deep venous thrombosis) SNOMED Code(s): 307073203 Code(s): I82.409 - ACUTE EMBOLISM AND THOMBOS UNSP DEEP VN UNSP LOWER EXTREMITY Status: Chronic Priority: Medium Current Visit: Yes Annotation /Comment:: INR therapeutic today. No clinical evidence of DVT or PE. Qualifiers: DVT location: lower extremity Affected thrombotic vein of extremity: femoral Chronicity: chronic Laterality: left Qualified Code(s): I82.512 - Chronic embolism and thrombosis of left femoral vein (9) Hypertension SNOMED Code(s): 03642964 Code(s): I10 - ESSENTIAL (PRIMARY) HYPERTENSION Status: Chronic Priority : Medium Current Visit: Yes Annotation/Comment:: Blood pressures were under good control in the emergency room, although occasional low but nonsymptomatic. IV fluids given as above. Continue close follow-up by her regular provider. Qualifiers: Hypertension type: essential hypertension Qualified Code(s): I10 - Essential (primary) hypertension (10) Mixed anxiety depressive disorder SNOMED Code(s): 774292620 Code(s): F41.8 - OTHER SPECIFIED ANXIETY DISORDERS Status: Chronic Priority: Medium Current Visit: Yes Annotation/Comment:: Mild to moderate control based on today's exam. Continue to observe closely by her regular provider. (11) Osteoarthritis SNOMED Code(s): 122315902 Code(s): M19.90 - UNSPECIFIED OSTEOARTHRITIS, UNSPECIFIED SITE Status: Chronic Priority: Medium Current Visit: Yes Annotation/Comment:: Stable by history Qualifiers: Osteoarthritis location: multiple joints Osteoarthritis type: primary Qualified Code(s): M15.0 - Primary generalized (osteo)arthritis (12) Sleep apnea SNOMED Code(s): 99375764 Code(s): G47.30 - SLEEP APNEA, UNSPECIFIED Status: Acute Priority: Medium Current Visit: Yes Annotation/Comment:: Complex sleep apnea per [facility]. She is still attempting to have her CPAP therapy adjusted with apparent new machines, etc. Qualifiers: Sleep apnea type: other type Qualified Code(s): G47.39 - Other sleep apnea (13) Peptic reflux disease SNOMED Code(s): 182265967 Code(s): K21.9 - GASTRO-ESOPHAGEAL REFLUX DISEASE WITHOUT ESOPHAGITIS Status: Chronic Priority: Medium Current Visit: Yes Annotation/Comment:: Stable by history with high-dose IV Pepcid and IV Protonix given as GI prophylaxis as above. (14) Diabetes mellitus SNOMED Code(s): 06664449 Code(s): E11.9 - TYPE 2 DIABETES MELLITUS WITHOUT COMPLICATIONS Status: Acute Current Visit: Yes Annotation/Comment:: Prediabetes currently diet controlled. Weight loss in moderation is advisable. Mild elevated random blood sugar/hyperglycemia today. Continue to observe closely by regular provider. Qualifiers: Diabetes mellitus type: type 2 Diabetes mellitus prison insulin use: without terminal carman use Diabetes mellitus complication status: without complication Qualified Code(s): E11.9 - Type 2 diabetes mellitus without complications - Problem List Review Problem List Initiated/Reviewed/Updated: Yes - My Orders Last 24 Hours: My Active Orders 04/27/19 15:09 Sodium Chloride 0.9% [Saline Flush] 10 ml FLUSH ASDIRECTED PRN Resuscitation Status Stat 04/27/19 15:10 Abdomen Series w Chest 1V [CR] Stat Obtain Past Medical Record [OM.PC] Urgent Peripheral IV Insertion Adult [OM.PC] Stat 04/27/19 15:11 Peripheral IV Care [RC] . DIRECTED 04/27/19 Breakfast Nothing Per Oral Diet [DIET] - Assessment/Plan Last 24 Hours: My Active Orders 04/27/19 15:09 Sodium Chloride 0.9% [Saline Flush] 10 ml FLUSH ASDIRECTED PRN Resuscitation Status Stat 04/27/19 15:10 Abdomen Series w Chest 1V [CR] Stat Obtain Past Medical Record [OM.PC] Urgent Peripheral IV Insertion Adult [OM.PC] Stat 04/27/19 15:11 Peripheral IV Care [RC] . DIRECTED 04/27/19 Breakfast Nothing Per Oral Diet [DIET] Assessment:: As above Plan: As above. Extensive precautions were given to the patient and her , who are in agreement with the treatment plan. See Patient Instructions for further treatment and plan.
[2019-04-27] MEDS ORDERED: Lactated Ringers 1,000 ML IV ONE (15:09)
[2019-04-27] MEDS ORDERED: Ondansetron 4 MG/2 ML SDV IVPUSH ONE (15:09)
[2019-04-27] MEDS ORDERED: Famotidine 20 MG/2 ML SDV IVPUSH ONE (15:09)
[2019-04-27] MEDS ORDERED: Sodium Chloride 0.9% 10 ML Syringe FLUSH PRN (15:09)
[2019-04-27] MEDS ORDERED: Pantoprazole 40 MG Vial IVPUSH ONE (15:09)
[2019-04-27 15:36] LABS: CHLORIDE,CL 104 mmol/L (98-107); SODIUM,NA 142 mmol/L (136-145)
[2019-04-27 16:39] VITALS: BP 94/54; PULSE 67
== END 2019-04-27 16:55 | disposition home or self-care (01) ==
LOC: LL.ED 14:42
DX: K21.9 Gastro-esophageal reflux disease without esophagitis (principal); I82.512 Chronic embolism and thrombosis of left femoral vein; F41.8 Other specified anxiety disorders; E83.42 Hypomagnesemia; E87.6 Hypokalemia; G47.30 Sleep apnea, unspecified; E11.9 Type 2 diabetes mellitus without complications; M15.0 Primary generalized (osteo)arthritis; J45.20 Mild intermittent asthma, uncomplicated; G43.909 Migraine, unspecified, not intractable, without status migrainosus; I10 Essential (primary) hypertension; J45.909 Unspecified asthma, uncomplicated; E78.5 Hyperlipidemia, unspecified; R74.0 Nonspecific elevation of levels of transaminase and lactic acid dehydrogenase [LDH]; R10.84 Generalized abdominal pain; Z88.5 Allergy status to narcotic agent; Z88.0 Allergy status to penicillin; Z88.1 Allergy status to other antibiotic agents; Z91.041 Radiographic dye allergy status; Z91.012 Allergy to eggs; Z91.040 Latex allergy status; Z91.011 Allergy to milk products; Z79.01 Long term (current) use of anticoagulants; Z79.899 Other long term (current) drug therapy
CPT/HCPCS: 36415; 74022; 80053; 82150; 83605; 83690; 83735; 84550; 85025; 85610; 85730; 96361; 96374; 96375; 99284-25; C9113; J2405; J3490; J7120

== ENCOUNTER 2019-09-17 08:34 | Inpatient (IN) | payer MEDICARE, MEDICAID ==
[2019-09-17] MEDS ORDERED: Cetirizine 10 MG Tab PO PRN (14:31)
[2019-09-17] MEDS ORDERED: Albuterol/Ipratropium 3.0-0.5 MG/3 ML Neb Soln NEB PRN (14:39)
--- NOTE | 2019-09-17 14:53 | PCM.HP.2 ---
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 Acetaminophen (Tylenol) 650 mg PO TID [facility] Albuterol (Proventil Neb Soln) 2.5 mg INH Q2H PRN PRN Reason: SHORTNESS OF BREATH Albuterol/Ipratropium (Duoneb 3.0-0.5 Mg/3 Ml) 3 ml NEB Q4HRRT PRN PRN Reason: Dyspnea Cetirizine HCl (Zyrtec) 10 mg PO DAILY PRN PRN Reason: Allergies Chlorthalidone (Chlorthalidone) 12.5 mg PO MOWEFR@08 [facility] Cyanocobalamin (Vitamin B12) 1,000 mcg PO DAILY [facility] Docusate Sodium (Colace) 100 mg PO BID [facility] Enoxaparin Sodium (Lovenox) 30 mg SUBCUT Q12HR [facility] Escitalopram Oxalate (Lexapro) 20 mg PO DAILY [facility] Hydromorphone HCl (Dilaudid) 2 mg PO Q6H PRN PRN Reason: Pain (severe 7-10) Magnesium Oxide (Magnesium Oxide) 400 mg PO BID [facility] Montelukast Sodium (Singulair) 10 mg PO BEDTIME [facility] Nebivolol (Bystolic) 1.25 mg PO DAILY [facility] Non-Formulary Medication (Brimonidine Tartrate [Alphagan P 0.1% Ophth Soln]) 1 drop EYEBOTH BID [facility] Non-Formulary Medication (Latanoprost/Pf [Latanoprost 0.005% Eye Drop]) 1 drop EYEBOTH BEDTIME [facility] Non-Formulary Medication (Pregabalin [Pregabalin]) 150 mg PO BID [facility] Non-Formulary Medication (Travoprost [Travatan Z 0.004% Ophth Soln]) 1 drop EYEBOTH BEDTIME [facility] Non-Formulary Medication (Warfarin) 1.5 mg PO MOWEFR@18 [facility] Non-Formulary Medication (Warfarin) 2 mg PO SUTUTHSA@18 [facility] Senna/Docusate Sodium (Senna Plus) 2 tab PO DAILY@1800 [facility] Assessment/Plan Comment:: As above. Extensive precautions were given to the patient, who is in agreement with the treatment plan. - Mortality Measure Prognosis:: Good
[2019-09-17] MEDS ORDERED: HYDROmorphone 2 MG Tab PO PRN (15:00)
[2019-09-17] MEDS ORDERED: Albuterol 0.083% 2.5 MG/3 ML Neb Soln INH PRN (15:00)
[2019-09-17] MEDS: Magnesium Citrate Solution 296 ML Bottle PO ONE ×2 (16:16→18:19)
[2019-09-17] MEDS: Polyethylene Glycol 3350 Powder 17 GM Packet PO ONE ×2 (16:16→18:19)
[2019-09-17] MEDS: Docusate Sodium 100 MG Cap PO SCH (17:38)
[2019-09-17] MEDS: Pregabalin 75 MG Cap PO SCH (17:39)
[2019-09-17] MEDS: Acetaminophen 325 MG Tab PO SCH (17:40)
[2019-09-17] MEDS: Magnesium Oxide 400 MG Tab PO SCH (17:40)
[2019-09-17] MEDS: BRIMONIDINE TARTRATE EYEBOTH SCH (17:43)
[2019-09-17] MEDS: Montelukast 10 MG Tab PO SCH (19:14)
[2019-09-17] MEDS: Latanoprost 0.005% Ophth Soln 2.5 ML Bottle EYEBOTH SCH (19:15)
[2019-09-17] MEDS: Enoxaparin 30 MG/0.3 ML Syringe SUBCUT SCH (19:16)
[2019-09-17] MEDS ORDERED: Non-Formulary Medication 1 Each (Travoprost [Travatan Z 0.004% Ophth Soln] 1 DROP) EYEBOTH SCH (20:00)
[2019-09-18] MEDS ORDERED: Acetaminophen 325 MG Tab PO PRN (00:25)
[2019-09-18 07:33] LABS: HEMOGLOBIN A1C 6.5 % (4.3-5.7)
[2019-09-18 07:47] LABS: CHLORIDE,CL 104 mmol/L (98-107); SODIUM,NA 143 mmol/L (136-145)
[2019-09-18 07:52] LABS: PTT,PARTIAL THROMBOPLSTIN TIME 31.9 SEC (24.5-32.8)
[2019-09-18] MEDS: BRIMONIDINE TARTRATE EYEBOTH SCH ×2 (07:59→17:11)
[2019-09-18] MEDS: Chlorthalidone 25 MG Tab PO SCH (08:01)
[2019-09-18] MEDS: Escitalopram 20 MG Tab PO SCH (08:03)
[2019-09-18] MEDS: Docusate Sodium 100 MG Cap PO SCH ×2 (08:03→17:12)
[2019-09-18] MEDS: Magnesium Oxide 400 MG Tab PO SCH ×2 (08:03→17:12)
[2019-09-18] MEDS: Acetaminophen 325 MG Tab PO SCH ×3 (08:04→17:12)
[2019-09-18] MEDS: Pregabalin 75 MG Cap PO SCH ×2 (08:04→17:12)
[2019-09-18] MEDS: Enoxaparin 30 MG/0.3 ML Syringe SUBCUT SCH ×2 (08:05→20:51)
[2019-09-18] MEDS: Cyanocobalamin (Vitamin B12) 1,000 MCG Tab PO SCH (08:05)
[2019-09-18] MEDS: Montelukast 10 MG Tab PO SCH (20:51)
[2019-09-18] MEDS: Latanoprost 0.005% Ophth Soln 2.5 ML Bottle EYEBOTH SCH (20:51)
[2019-09-18] MEDS: Melatonin 3 MG Tab PO SCH (20:51)
[2019-09-19] MEDS: Acetaminophen 325 MG Tab PO SCH ×3 (09:47→20:39)
[2019-09-19] MEDS: Docusate Sodium 100 MG Cap PO SCH ×2 (09:47→17:30)
[2019-09-19] MEDS: Pregabalin 75 MG Cap PO SCH ×2 (09:48→17:31)
[2019-09-19] MEDS: Cyanocobalamin (Vitamin B12) 1,000 MCG Tab PO SCH (09:48)
[2019-09-19] MEDS: Magnesium Oxide 400 MG Tab PO SCH ×2 (09:48→17:30)
[2019-09-19] MEDS: Escitalopram 20 MG Tab PO SCH (09:49)
[2019-09-19] MEDS: Enoxaparin 30 MG/0.3 ML Syringe SUBCUT SCH ×2 (09:50→20:39)
[2019-09-19] MEDS: BRIMONIDINE TARTRATE EYEBOTH SCH ×2 (09:50→17:32)
[2019-09-19] MEDS: Montelukast 10 MG Tab PO SCH (20:39)
[2019-09-19] MEDS: Melatonin 3 MG Tab PO SCH (20:39)
[2019-09-19] MEDS: Latanoprost 0.005% Ophth Soln 2.5 ML Bottle EYEBOTH SCH (21:01)
[2019-09-20] MEDS: Acetaminophen 325 MG Tab PO PRN (00:08)
[2019-09-20] MEDS: Pregabalin 75 MG Cap PO SCH ×2 (07:15→18:09)
[2019-09-20] MEDS: Magnesium Oxide 400 MG Tab PO SCH ×2 (07:15→18:11)
[2019-09-20] MEDS: Docusate Sodium 100 MG Cap PO SCH ×2 (07:15→18:09)
[2019-09-20] MEDS: BRIMONIDINE TARTRATE EYEBOTH SCH ×2 (07:16→18:09)
[2019-09-20] MEDS: Cyanocobalamin (Vitamin B12) 1,000 MCG Tab PO SCH (07:16)
[2019-09-20] MEDS: Escitalopram 20 MG Tab PO SCH (07:16)
[2019-09-20] MEDS: Enoxaparin 30 MG/0.3 ML Syringe SUBCUT SCH ×2 (07:16→20:55)
[2019-09-20] MEDS: Warfarin 2 MG Tab PO SCH (18:11)
[2019-09-20] MEDS: Montelukast 10 MG Tab PO SCH (20:55)
[2019-09-20] MEDS: Melatonin 3 MG Tab PO SCH (20:55)
[2019-09-20] MEDS: Latanoprost 0.005% Ophth Soln 2.5 ML Bottle EYEBOTH SCH (20:55)
[2019-09-21] MEDS: BRIMONIDINE TARTRATE EYEBOTH SCH ×2 (07:57→17:59)
[2019-09-21] MEDS: Cyanocobalamin (Vitamin B12) 1,000 MCG Tab PO SCH (08:11)
[2019-09-21] MEDS: Docusate Sodium 100 MG Cap PO SCH ×2 (08:12→17:59)
[2019-09-21] MEDS: Escitalopram 20 MG Tab PO SCH (08:12)
[2019-09-21] MEDS: Chlorthalidone 25 MG Tab PO SCH (08:12)
[2019-09-21] MEDS: Enoxaparin 30 MG/0.3 ML Syringe SUBCUT SCH ×2 (08:13→21:26)
[2019-09-21] MEDS: Pregabalin 75 MG Cap PO SCH ×2 (08:13→17:59)
[2019-09-21] MEDS: Magnesium Oxide 400 MG Tab PO SCH ×2 (08:13→17:59)
[2019-09-21] MEDS ORDERED: Warfarin 5 MG Tab PO ONE (09:00)
--- NOTE | 2019-09-21 09:34 | PCM.SN ---
- Free Text/Narrative Note: Patient's INRs continue to be variable with additional 5 mg loading dose of Coumadin today. I did consult with the patient and her physical therapist, Desmond Smith, today in the room updating her on chest x-ray and blood work results from 09/18/19. Note some moderate LFTs elevation with probable fatty liver, however abdominal ultrasound will be conducted later today. Her glycosylated hemoglobin was 6.5%. Some hypoalbuminemia, which will be observed for now secondary to her obesity. Repeat blood work and official swing bed exam will be conducted tomorrow. Otherwise no current complaints from the patient today. Estimating an additional 1-2 weeks of swing bed care per history from her physical therapist as above. Chest x-ray, PA and lateral, from 09/18/19 showed some moderate pulmonary obstructive disease with no pulmonary infiltrates, CHF, pneumothorax, etc.. Mild increase in bowel gaseous pattern with additional moderate stool and moderate osteoarthritic and osteoporotic changes in the thoracic spine. Mild hiatal hernia. Mildly elevated right hemidiaphragm with mild prominence of the proximal aortic arch.
[2019-09-21] MEDS: Warfarin 2 MG Tab PO SCH (17:59)
[2019-09-21] MEDS: Melatonin 3 MG Tab PO SCH (21:24)
[2019-09-21] MEDS: Montelukast 10 MG Tab PO SCH (21:24)
[2019-09-21] MEDS: Acetaminophen 325 MG Tab PO PRN (21:25)
[2019-09-21] MEDS: Latanoprost 0.005% Ophth Soln 2.5 ML Bottle EYEBOTH SCH (21:27)
[2019-09-22 07:09] LABS: PTT,PARTIAL THROMBOPLSTIN TIME 37.4 SEC (24.5-32.8)
[2019-09-22] MEDS: Enoxaparin 30 MG/0.3 ML Syringe SUBCUT SCH ×2 (07:33→20:58)
[2019-09-22] MEDS: Pregabalin 75 MG Cap PO SCH ×2 (07:34→17:38)
[2019-09-22] MEDS: Magnesium Oxide 400 MG Tab PO SCH ×2 (07:34→17:38)
[2019-09-22] MEDS: Escitalopram 20 MG Tab PO SCH (07:34)
[2019-09-22] MEDS: Docusate Sodium 100 MG Cap PO SCH ×2 (07:35→17:38)
[2019-09-22] MEDS: Cyanocobalamin (Vitamin B12) 1,000 MCG Tab PO SCH (07:35)
[2019-09-22] MEDS: BRIMONIDINE TARTRATE EYEBOTH SCH ×2 (07:37→17:38)
[2019-09-22 08:30] LABS: CHLORIDE,CL 104 mmol/L (98-107); SODIUM,NA 143 mmol/L (136-145)
[2019-09-22] MEDS ORDERED: Warfarin 5 MG Tab PO ONE (09:34)
--- NOTE | 2019-09-22 09:46 | PCM.PN ---
- General Info Date of Service: 09/22/19 Admission Dx/Problem (Free Text): Admission Diagnosis/Problem Admission Diagnosis/Problem Osteoarthritis Functional Status: Reports: Pain Controlled, Tolerating Diet, Ambulating (With a knee scooter) Pain Score: 4 - Review of Systems General: Denies: Fever, Weakness, Fatigue, Malaise, Appetite (Good) HEENT: Reports: Glasses. Denies: Dysphasia, Ear Pain, Eye Pain, Headaches, Sinus Congestion, Sore Throat Pulmonary: Reports: Pleuritic Chest Pain (Occasional nonspecific), Cough. Denies: Shortness of Breath, Sputum, Hemoptysis, Wheezing Cardiovascular: Reports: Edema (Stable dependent). Denies: Chest Pain, Palpitations, Dyspnea on Exertion, Orthopnea, Lightheadedness Gastrointestinal: Reports: No Symptoms, Other (Excellent normal bowel movement yesterday). Denies: Abdominal Pain, Constipation, Decreased Appetite, Diarrhea , Difficulty Swallowing, Flatus, Hematochezia, Melena, Nausea, Vomiting Genitourinary: Reports: No Symptoms. Denies: Dysuria, Frequency, Burning, Pain , Urgency, Incontinence, Hematuria, Retention, Flank Pain Musculoskeletal: Reports: Foot Pain (Normal postoperative left foot pain under good control). Denies: Neck Pain, Shoulder Pain, Arm Pain, Back Pain, Leg Pain Skin: Reports: No Symptoms. Denies: Diaphoresis, Rash Neurological: Reports: Difficulty Walking (Secondary to left foot surgery). Denies: Confusion, Dizziness, Headache, Numbness, Paresthesia, Pre-Existing Deficit, Tingling, Weakness Psychiatric: Reports: No Symptoms. Denies: Confusion, Depression, Anxiety, Agitation, Hallucinations, Homicidal Ideation - Patient Data Vitals - Most Recent: Last Vital Signs Temp 36.3 C 09/22/19 07:57 Pulse 71 09/22/19 07:57 Resp 17 09/22/19 07:57 BP 153/74 H 09/22/19 07:57 Pulse Ox 97 09/22/19 07:57 Vital Signs (72 hours) 09/19/19 09/20/19 09/20/19 09:48 07:18 07:19 Temperature [ 36.6 C Temporal] Pulse, 0 L 78 Peripheral Pulse, 78 Peripheral [ Left Pulse Oximetry] Respiratory 16 Rate Blood Pressure 00/00 L 135/80 Blood Pressure 135/80 [Left Upper Arm ] O2 Sat by Pulse 95 Oximetry 09/21/19 09/21/19 09/22/19 07:50 08:12 07:33 Temperature [ 36.7 C Temporal] Pulse, 82 71 Peripheral Pulse, 82 Peripheral [ Left Pulse Oximetry] Respiratory 17 Rate Blood Pressure 138/80 153/74 H Blood Pressure 138/80 [Left Upper Arm ] O2 Sat by Pulse 94 L Oximetry 09/22/19 07:57 Temperature [ 36.3 C Temporal] Pulse, Peripheral Pulse, 71 Peripheral [ Left Pulse Oximetry] Respiratory 17 Rate Blood Pressure Blood Pressure 153/74 H [Left Upper Arm ] O2 Sat by Pulse 97 Oximetry Weight - Most Recent: 90.718 kg I&O - Last 24 Hours: Intake & Output 09/21/19 09/22/19 09/22/19 22:59 06:59 14:59 Intake Total 360 Balance 360 Imaging Impressions - Last 24 Hours: Chest x-ray, PA and lateral, from 09/18/19 showed some moderate pulmonary obstructive disease with no pulmonary infiltrates, CHF, pneumothorax, etc.. Mild increase in bowel gaseous pattern with additional moderate stool and moderate osteoarthritic and osteoporotic changes in the thoracic spine. Mild hiatal hernia. Mildly elevated right hemidiaphragm with mild prominence of the proximal aortic arch. Complete abdominal ultrasound from 09/21/19 indicates a fatty liver with borderline dilated common bile duct, however suboptimal exam. Lab Results Last 24 Hours: Laboratory Results - last 24 hr 09/22/19 09/22/19 09/22/19 Range/Units 06:45 06:45 06:45 WBC 8.3 (4.0-10.2) K/uL RBC 4.18 (3.77-5.09) M/uL Hgb 12.4 (11.7-15.5) g/dL Hct 39.5 (34.0-46.0) % MCV 94.5 (84.0-98.0) fL MCH 29.7 (28.2-33.3) pg MCHC 31.4 L (31.7-36.0) g/dL RDW 14.3 H (11.2-14.1) % Plt Count 308 (150-350) K/uL Neut % (Auto) 58.4 (45.0-80.0) % Lymph % (Auto) 30.3 (10.0-50.0) % [place] % (Auto) 6.2 (2.0-14.0) % Eos % (Auto) 4.4 (0.0-5.0) % Baso % (Auto) 0.7 (0.0-2.0) % Neut # (Auto) 4.86 (1.40-7.00) K/uL Lymph # (Auto) 2.53 (0.50-3.50) K/uL [place] # (Auto) 0.52 (0.00-1.00) K/uL Eos # (Auto) 0.37 (0.00-0.50) K/uL Baso # (Auto) 0.06 (0.00-0.20) K/uL PT 17.8 H D (9.5-12.0) SEC INR 1.8 APTT 37.4 H (24.5-32.8) SEC Sodium 143 (136-145) mmol/L Potassium 3.6 (3.5-5.1) mmol/L Chloride 104 (98-107) mmol/L Carbon Dioxide 31.1 (21.0-32.0) mmol/L BUN 14 (7-18) mg/dL Creatinine 0.81 (0.51-1.17) mg/dL Est Cr Clr Drug Dosing 57.32 mL/min Estimated GFR (MDRD) > 60 mL/min Glucose 139 H (74-106) mg/dL Hemoglobin A1c (4.3-5.7) % Calcium 8.6 (8.5-10.1) mg/dL Total Bilirubin 0.3 (0.2-1.0) mg/dL AST 33 (15-37) U/L ALT 87 H (12-78) U/L Alkaline Phosphatase 159 H (46-116) IU/L Creatine Kinase 25 L (26-308) U/L Creatine Kinase Index 2.0 (0.0-2.5) % CK-MB (CK-2) 0.50 (0.00-3.60) ng/mL Troponin I 0.000 (0.000-0.056) ng/mL NT-Pro-B Natriuret Pep 28 (0-125) pg/mL Total Protein 6.6 (6.4-8.2) g/dL Albumin 3.0 L (3.4-5.0) g/dL Amylase 29 (25-115) U/L Lipase 57 L (73-393) U/L 09/22/19 Range/Units 06:45 WBC (4.0-10.2) K/uL RBC (3.77-5.09) M/uL Hgb (11.7-15.5) g/dL Hct (34.0-46.0) % MCV (84.0-98.0) fL MCH (28.2-33.3) pg MCHC (31.7-36.0) g/dL RDW (11.2-14.1) % Plt Count (150-350) K/uL Neut % (Auto) (45.0-80.0) % Lymph % (Auto) (10.0-50.0) % [place] % (Auto) (2.0-14.0) % Eos % (Auto) (0.0-5.0) % Baso % (Auto) (0.0-2.0) % Neut # (Auto) (1.40-7.00) K/uL Lymph # (Auto) (0.50-3.50) K/uL [place] # (Auto) (0.00-1.00) K/uL Eos # (Auto) (0.00-0.50) K/uL Baso # (Auto) (0.00-0.20) K/uL PT (9.5-12.0) SEC INR APTT (24.5-32.8) SEC Sodium (136-145) mmol/L Potassium (3.5-5.1) mmol/L Chloride (98-107) mmol/L Carbon Dioxide (21.0-32.0) mmol/L BUN (7-18) mg/dL Creatinine (0.51-1.17) mg/dL Est Cr Clr Drug Dosing mL/min Estimated GFR (MDRD) mL/min Glucose (74-106) mg/dL Hemoglobin A1c 6.5 H (4.3-5.7) % Calcium (8.5-10.1) mg/dL Total Bilirubin (0.2-1.0) mg/dL AST (15-37) U/L ALT (12-78) U/L Alkaline Phosphatase (46-116) IU/L Creatine Kinase (26-308) U/L Creatine Kinase Index (0.0-2.5) % CK-MB (CK-2) (0.00-3.60) ng/mL Troponin I (0.000-0.056) ng/mL NT-Pro-B Natriuret Pep (0-125) pg/mL Total Protein (6.4-8.2) g/dL Albumin (3.4-5.0) g/dL Amylase (25-115) U/L Lipase (73-393) U/L Leoncio Results Last 24 Hours: None Med Orders - Current: Current Medications Acetaminophen (Tylenol) 650 mg PO Q4H PRN PRN Reason: Pain (mild 1-3) Last Admin: 09/21/19 21:25 Dose: 650 mg Albuterol (Proventil Neb Soln) 2.5 mg INH Q2H PRN PRN Reason: SHORTNESS OF BREATH Albuterol/Ipratropium (Duoneb 3.0-0.5 Mg/3 Ml) 3 ml NEB Q4HRRT PRN PRN Reason: Dyspnea Cetirizine HCl (Zyrtec) 10 mg PO DAILY PRN PRN Reason: Allergies Chlorthalidone (Chlorthalidone) 12.5 mg PO MOWEFR@08 [facility] Last Admin: 09/21/19 08:12 Dose: 12.5 mg Cyanocobalamin (Vitamin B12) 1,000 mcg PO DAILY [facility] Last Admin: 09/22/19 07:35 Dose: 1,000 mcg Docusate Sodium (Colace) 100 mg PO BID [facility] Last Admin: 09/22/19 07:35 Dose: 100 mg Enoxaparin Sodium (Lovenox) 30 mg SUBCUT Q12HR [facility] Last Admin: 09/22/19 07:33 Dose: 30 mg Escitalopram Oxalate (Lexapro) 20 mg PO DAILY [facility] Last Admin: 09/22/19 07:34 Dose: 20 mg Hydromorphone HCl (Dilaudid) 2 mg PO Q6H PRN PRN Reason: Pain (severe 7-10) Latanoprost (Xalatan 0.005% Ophth Soln) 1 ml EYEBOTH BEDTIME [facility] Last Admin: 09/21/19 21:27 Dose: 1 drop Magnesium Oxide (Magnesium Oxide) 400 mg PO BID [facility] Last Admin: 09/22/19 07:34 Dose: 400 mg Melatonin (Melatonin) 3 mg PO BEDTIME [facility] Last Admin: 09/21/19 21:24 Dose: 3 mg Montelukast Sodium (Singulair) 10 mg PO BEDTIME [facility] Last Admin: 09/21/19 21:24 Dose: 10 mg Nebivolol (Bystolic) 1.25 mg PO DAILY [facility] Last Admin: 09/22/19 07:33 Dose: 1.25 mg Brimonidine Tartrate [Alphagan 0.15% Ophth Soln] 1 drop EYEBOTH BID [facility] Last Admin: 09/22/19 07:37 Dose: 1 drop Non-Formulary Medication (Travoprost [Travatan Z 0.004% Ophth Soln]) 1 drop EYEBOTH BEDTIME [facility] Polyethylene Glycol (Miralax) 17 gm PO DAILY PRN PRN Reason: Constipation Pregabalin (Lyrica) 150 mg PO BID [facility] Last Admin: 09/22/19 07:34 Dose: 150 mg Senna/Docusate Sodium (Senna Plus) 2 tab PO DAILY@1800 [facility] Last Admin: 09/21/19 17:59 Dose: 2 tab Warfarin Sodium (Coumadin) 10 mg PO ONETIME ONE Stop: 09/22/19 09:35 Discontinued Medications Acetaminophen (Tylenol) 650 mg PO TID [facility] Last Admin: 09/18/19 17:12 Dose: 650 mg Acetaminophen (Tylenol) 325 mg PO Q4H PRN PRN Reason: Pain (mild 1-3) Last Admin: 09/18/19 00:37 Dose: 325 mg Acetaminophen (Tylenol) 650 mg PO 0800,1400,2000 [facility] Last Admin: 09/19/19 20:39 Dose: Not Given Magnesium Citrate (Citrate Of Magnesia) 296 ml PO ONETIME ONE Stop: 09/17/19 15:19 Last Admin: 09/17/19 18:19 Dose: Not Given Polyethylene Glycol (Miralax) 17 gm PO ONETIME ONE Stop: 09/17/19 15:19 Last Admin: 09/17/19 18:19 Dose: Not Given Warfarin Sodium (Coumadin) 1.5 mg PO MOWEFR@18 [facility] Last Admin: 09/18/19 17:13 Dose: 1.5 mg Warfarin Sodium (Coumadin) 2 mg PO SUTUTHSA@18 [facility] Last Admin: 09/19/19 17:29 Dose: 2 mg Warfarin Sodium (Coumadin) 2 mg PO DAILY@1800 [facility] Last Admin: 09/21/19 17:59 Dose: 2 mg Warfarin Sodium (Coumadin) 5 mg PO ONETIME ONE Stop: 09/21/19 09:01 Last Admin: 09/21/19 10:10 Dose: 5 mg - Exam Quality Assessment: DVT Prophylaxis (Lovenox and Coumadin). No: Central Line/ PICC, Urine Catheter, Skin Breakdown, Restraints General: Alert, Oriented, Cooperative, No Acute Distress HEENT: Pupils Equal, Pupils Reactive, EOMI, Mucous Membr. Moist/[place], Other ( Patient wearing glasses.). No: Scleral Icterus Neck: Supple, Trachea Midline, No JVD, No Thyromegaly. No: Carotid Bruit Lungs: Clear to Auscultation, Normal Respiratory Effort. No: Rhonchi, Rub, Wheezing Cardiovascular: Regular Rate, Regular Rhythm, No Murmurs. No: Gallops, Rubs GI/Abdominal Exam: Normal Bowel Sounds, Soft, Non-Tender, No Organomegaly, No Distention, No Abnormal Bruit, No Mass, Other (Obese). No: Guarding (Female) Exam: Deferred Back Exam: Normal Inspection, Full Range of Motion. No: CVA Tenderness (L), CVA Tenderness (R), Muscle Spasm Extremities: Normal Capillary Refill, Pedal Edema (Stable trace +1 bilateral pedal/pretibial edema with left foot any plantar splint with Umer wrapped dressing), Leg Pain (Normal postoperative left foot pain). No: Sameera's Sign, Increased Warmth Peripheral Pulses: 2+: Radial (L), Radial (R), Dorsalis Pedis (R) Skin: Warm, Dry, Intact Wound/Incisions: Healing Well Neurological: No New Focal Deficit Psy/Mental Status: Alert, Normal Affect, Normal Mood. No: Agitated, Hallucinations, Withdrawal Symptoms Sepsis Event Note - Evaluation Sepsis Screening Result: No Definite Risk - Focused Exam Vital Signs: Vital Signs Temp Pulse Pulse Resp BP BP Pulse Ox 09/22/19 07:57 36.3 C 71 17 153/74 H 97 09/22/19 07:33 71 153/74 H Date Exam was Performed: 09/22/19 Time Exam was Performed: 09:57 - Problem List & Annotations (1) Osteoarthritis SNOMED Code(s): 775747748 Code(s): M19.90 - UNSPECIFIED OSTEOARTHRITIS, UNSPECIFIED SITE Status: Chronic Priority: Medium Current Visit: Yes Qualifiers: Osteoarthritis location: multiple joints Osteoarthritis type: primary Qualified Code(s): M15.0 - Primary generalized (osteo)arthritis Annotation/Comment:: Note recent left foot surgery above on 09/10/19. PT and OT are progressing well with she now using a knee scooter. Per consultation with physical therapy yesterday planned continued treatment for an additional 12 weeks for wound care, strengthening, etc.. Otherwise follow-up with her orthopedic surgeon, etc. as already scheduled. 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 Patient is still subtherapeutic today despite 7 mg loading dose yesterday. 10 mg of Coumadin to be given this morning with continuation of daily Coumadin and INR evaluations and orders with [facility] physician to assume care tomorrow morning. Continue with bridging Lovenox therapy until her INRs are therapeutic with her Coumadin with subsequent district continuation of her Lovenox. (3) Diabetes mellitus SNOMED Code(s): 77308218 Code(s): E11.9 - TYPE 2 DIABETES MELLITUS WITHOUT COMPLICATIONS Status: Chronic Priority: Medium Current Visit: Yes Qualifiers: Diabetes mellitus type: type 2 Diabetes mellitus [employer] insulin use: without fpc use Diabetes mellitus complication status: without complication Qualified Code(s): E11.9 - Type 2 diabetes mellitus without complications Annotation/Comment:: Prediabetes currently diet controlled, although the patient has been significantly noncompliant with her diet, including in swing bed. She is eating cookies, candy, etc.. Weight loss in moderation is advisable. Glycosylated hemoglobin on 09/21 was 6.5%. Compliance with diet strongly encouraged. Continue to observe closely by regular provider after discharge. (4) Asthma SNOMED Code(s): 783915773 Code(s): J45.909 - UNSPECIFIED ASTHMA, UNCOMPLICATED Status: Chronic Priority: Medium Current Visit: Yes Qualifiers: Asthma severity: mild Asthma persistence: intermittent Asthma complication type: uncomplicated Qualified Code(s): J45.20 - Mild intermittent asthma, uncomplicated Annotation/Comment:: Stable by history with no recent fever or bronchitic type symptoms however nonspecific postoperative nonproductive cough and borderline occasional pleurisy as above. Chest x-ray shows no evidence of infection, etc.. Continue when necessary nebulizer treatments during this swing bed care. Consider PFTs by her regular provider after discharge. (5) Constipation SNOMED Code(s): 97419578 Code(s): K59.00 - CONSTIPATION, UNSPECIFIED Status: Chronic Priority: High Current Visit: Yes Onset Date: ~01/13/17 Annotation/Comment:: Post operative constipation secondary to narcotics as above. MiraLAX and magnesium citrate on admission. Excellent bowel movement on 09/20. Long history of GI issues, surgeries, including gastric bypass, etc. with additional history of known chronic constipation. Magnesium oxide increased on admission. (6) Dyslipidemia SNOMED Code(s): 522226723 Code(s): E78.5 - HYPERLIPIDEMIA, UNSPECIFIED Status: Chronic Priority: Medium Current Visit: Yes Annotation/Comment:: Currently under therapy, however persistent fatty liver with secondary LFTs elevation. Lipase and amylase are normal. Note abdominal ultrasound results from 09/20 as above. Patient has been noncompliant with her diet as above. Her diet was extensively discussed. Lipid panel to be conducted on 09/22. Continue close follow-up by her regular provider after discharge. (7) Hypertension SNOMED Code(s): 10438329 Code(s): I10 - ESSENTIAL (PRIMARY) HYPERTENSION Status: Chronic Priority : Medium Current Visit: Yes Qualifiers: Hypertension type: essential hypertension Qualified Code(s): I10 - Essential (primary) hypertension Annotation/Comment:: Blood pressure somewhat variable with occasional systolic blood pressures in the 150s, however otherwise under good control. Continue to observe for now and by her regular provider after discharge. (8) Mixed anxiety depressive disorder SNOMED Code(s): 641800243 Code(s): F41.8 - OTHER SPECIFIED ANXIETY DISORDERS Status: Chronic Priority: Medium Current Visit: Yes Annotation/Comment:: Stable by history. Continue to observe closely. (9) Peptic reflux disease SNOMED Code(s): 002192435 Code(s): K21.9 - GASTRO-ESOPHAGEAL REFLUX DISEASE WITHOUT ESOPHAGITIS Status: Chronic Priority: Medium Current Visit: Yes Annotation/Comment:: Stable by history, however discontinue ibuprofen therapy secondary to chronic Coumadin use. (10) Hypoalbuminemia SNOMED Code(s): 390127735 Code(s): E88.09 - OTH DISORDERS OF PLASMA-PROTEIN METABOLISM, NEC Status: Chronic Priority: Medium Current Visit: No Onset Date: 02/05/17 Annotation/Comment:: Consider high protein Glucerna supplements as snacks as previously advised however note problems with her obesity, dietary noncompliance , etc. Observe for now. - Problem List Review Problem List Initiated/Reviewed/Updated: Yes - My Orders Last 24 Hours: My Active Orders 09/21/19 08:58 Abdomen Comp [US] Urgent 09/22/19 09:34 Warfarin [Coumadin] 10 mg PO ONETIME ONE 09/22/19 09:39 polyethylene glycoL 3350 [MiraLAX] 17 gm PO DAILY PRN 09/22/19 Dinner Nothing per Oral Now Diet [DIET] 09/23/19 05:11 INR,PT,PROTHROMBIN TIME [COAG] Routine LIPID PANEL [CHEM] Routine - Assessment Assessment:: As above - Plan Plan:: As above. Extensive precautions were given to the patient, who is in agreement with the treatment plan. Continue PT and OT as above.
[2019-09-22] MEDS: Montelukast 10 MG Tab PO SCH (20:59)
[2019-09-22] MEDS: Latanoprost 0.005% Ophth Soln 2.5 ML Bottle EYEBOTH SCH (20:59)
[2019-09-22] MEDS: Melatonin 3 MG Tab PO SCH (20:59)
[2019-09-23] MEDS: Docusate Sodium 100 MG Cap PO SCH ×2 (07:55→17:30)
[2019-09-23] MEDS: BRIMONIDINE TARTRATE EYEBOTH SCH ×2 (07:55→17:31)
[2019-09-23] MEDS: Chlorthalidone 25 MG Tab PO SCH (07:56)
[2019-09-23] MEDS: Magnesium Oxide 400 MG Tab PO SCH ×2 (07:56→17:31)
[2019-09-23] MEDS: Pregabalin 75 MG Cap PO SCH ×2 (07:57→17:30)
[2019-09-23] MEDS: Escitalopram 20 MG Tab PO SCH (07:59)
[2019-09-23] MEDS: Enoxaparin 30 MG/0.3 ML Syringe SUBCUT SCH ×2 (07:59→20:41)
[2019-09-23] MEDS: Cyanocobalamin (Vitamin B12) 1,000 MCG Tab PO SCH (07:59)
[2019-09-23] MEDS: Acetaminophen 325 MG Tab PO PRN (11:31)
[2019-09-23] MEDS: Melatonin 3 MG Tab PO SCH (20:41)
[2019-09-23] MEDS: Montelukast 10 MG Tab PO SCH (20:41)
[2019-09-23] MEDS: Latanoprost 0.005% Ophth Soln 2.5 ML Bottle EYEBOTH SCH (20:42)
[2019-09-24] MEDS: Docusate Sodium 100 MG Cap PO SCH ×2 (08:25→17:08)
[2019-09-24] MEDS: Magnesium Oxide 400 MG Tab PO SCH ×2 (08:26→17:08)
[2019-09-24] MEDS: Cyanocobalamin (Vitamin B12) 1,000 MCG Tab PO SCH (08:26)
[2019-09-24] MEDS: Pregabalin 75 MG Cap PO SCH ×2 (08:26→17:08)
[2019-09-24] MEDS: Escitalopram 20 MG Tab PO SCH (08:26)
[2019-09-24] MEDS: BRIMONIDINE TARTRATE EYEBOTH SCH ×2 (08:27→17:08)
[2019-09-24] MEDS: Enoxaparin 30 MG/0.3 ML Syringe SUBCUT SCH (08:48)
[2019-09-24] MEDS: Acetaminophen 325 MG Tab PO PRN (17:08)
[2019-09-24] MEDS: Montelukast 10 MG Tab PO SCH (20:36)
[2019-09-24] MEDS: Latanoprost 0.005% Ophth Soln 2.5 ML Bottle EYEBOTH SCH (20:36)
[2019-09-24] MEDS: Melatonin 3 MG Tab PO SCH (20:36)
[2019-09-25] MEDS: BRIMONIDINE TARTRATE EYEBOTH SCH ×2 (07:32→17:38)
[2019-09-25] MEDS: Magnesium Oxide 400 MG Tab PO SCH ×2 (07:34→17:38)
[2019-09-25] MEDS: Pregabalin 75 MG Cap PO SCH ×2 (07:34→17:38)
[2019-09-25] MEDS: Cyanocobalamin (Vitamin B12) 1,000 MCG Tab PO SCH (07:34)
[2019-09-25] MEDS: Chlorthalidone 25 MG Tab PO SCH (07:35)
[2019-09-25] MEDS: Docusate Sodium 100 MG Cap PO SCH ×2 (07:35→17:38)
[2019-09-25] MEDS: Escitalopram 20 MG Tab PO SCH (07:36)
[2019-09-25] MEDS: Acetaminophen 325 MG Tab PO PRN (07:43)
[2019-09-25] MEDS: Warfarin 2 MG Tab PO SCH (17:38)
[2019-09-25] MEDS: Melatonin 3 MG Tab PO SCH (20:02)
[2019-09-25] MEDS: Montelukast 10 MG Tab PO SCH (20:02)
[2019-09-25] MEDS: Latanoprost 0.005% Ophth Soln 2.5 ML Bottle EYEBOTH SCH (20:03)
[2019-09-26] MEDS: Cyanocobalamin (Vitamin B12) 1,000 MCG Tab PO SCH (08:06)
[2019-09-26] MEDS: Docusate Sodium 100 MG Cap PO SCH ×2 (08:06→18:24)
[2019-09-26] MEDS: Pregabalin 75 MG Cap PO SCH ×2 (08:07→18:23)
[2019-09-26] MEDS: Escitalopram 20 MG Tab PO SCH (08:08)
[2019-09-26] MEDS: BRIMONIDINE TARTRATE EYEBOTH SCH ×2 (08:09→18:34)
[2019-09-26] MEDS: Magnesium Oxide 400 MG Tab PO SCH ×2 (08:09→18:24)
--- NOTE | 2019-09-26 14:35 | PCM.SN ---
- Free Text/Narrative Note: Patient started on Clindamycin due to erythema observed around incision site/ foot. Mildly worse today than yesterday. No active drainage noted. No fevers. Continue to observe for changes.
[2019-09-26] MEDS: Clindamycin HCl 150 MG Cap PO SCH ×2 (15:09→23:24)
[2019-09-26] MEDS: Warfarin 2 MG Tab PO SCH (18:23)
[2019-09-26] MEDS: Montelukast 10 MG Tab PO SCH (20:05)
[2019-09-26] MEDS: Melatonin 3 MG Tab PO SCH (20:05)
[2019-09-26] MEDS: Latanoprost 0.005% Ophth Soln 2.5 ML Bottle EYEBOTH SCH (20:06)
[2019-09-27] MEDS: Clindamycin HCl 150 MG Cap PO SCH ×3 (07:39→22:10)
[2019-09-27] MEDS: Magnesium Oxide 400 MG Tab PO SCH ×2 (07:39→17:29)
[2019-09-27] MEDS: Docusate Sodium 100 MG Cap PO SCH ×2 (07:39→17:29)
[2019-09-27] MEDS: Pregabalin 75 MG Cap PO SCH ×2 (07:39→17:28)
[2019-09-27] MEDS: Cyanocobalamin (Vitamin B12) 1,000 MCG Tab PO SCH (07:41)
[2019-09-27] MEDS: BRIMONIDINE TARTRATE EYEBOTH SCH ×2 (07:42→17:31)
[2019-09-27] MEDS: Escitalopram 20 MG Tab PO SCH (07:42)
[2019-09-27] MEDS: Acetaminophen 325 MG Tab PO PRN (16:18)
[2019-09-27] MEDS: Warfarin 2.5 MG Tab PO SCH (17:29)
[2019-09-27] MEDS: Montelukast 10 MG Tab PO SCH (20:34)
[2019-09-27] MEDS: Latanoprost 0.005% Ophth Soln 2.5 ML Bottle EYEBOTH SCH (20:35)
[2019-09-27] MEDS: Melatonin 3 MG Tab PO SCH (20:35)
[2019-09-28] MEDS: Escitalopram 20 MG Tab PO SCH (09:16)
[2019-09-28] MEDS: Docusate Sodium 100 MG Cap PO SCH ×2 (09:16→17:27)
[2019-09-28] MEDS: Chlorthalidone 25 MG Tab PO SCH (09:16)
[2019-09-28] MEDS: Pregabalin 75 MG Cap PO SCH ×2 (09:16→17:27)
[2019-09-28] MEDS: Cyanocobalamin (Vitamin B12) 1,000 MCG Tab PO SCH (09:17)
[2019-09-28] MEDS: Magnesium Oxide 400 MG Tab PO SCH ×2 (09:17→17:27)
[2019-09-28] MEDS: BRIMONIDINE TARTRATE EYEBOTH SCH ×2 (09:20→17:27)
[2019-09-28] MEDS: Clindamycin HCl 150 MG Cap PO SCH ×3 (09:20→22:00)
--- NOTE | 2019-09-28 14:11 | PCM.SN ---
- Free Text/Narrative Note: Recheck labs in AM. to assume care tomorrow.
[2019-09-28] MEDS: Warfarin 2.5 MG Tab PO SCH (17:27)
[2019-09-28] MEDS: Melatonin 3 MG Tab PO SCH (21:47)
[2019-09-28] MEDS: Montelukast 10 MG Tab PO SCH (21:48)
[2019-09-28] MEDS: Latanoprost 0.005% Ophth Soln 2.5 ML Bottle EYEBOTH SCH (21:49)
[2019-09-29 07:39] LABS: CHLORIDE,CL 104 mmol/L (98-107); SODIUM,NA 143 mmol/L (136-145)
[2019-09-29] MEDS: Magnesium Oxide 400 MG Tab PO SCH ×2 (07:46→17:26)
[2019-09-29] MEDS: BRIMONIDINE TARTRATE EYEBOTH SCH ×2 (07:46→17:25)
[2019-09-29] MEDS: Pregabalin 75 MG Cap PO SCH ×2 (07:47→17:25)
[2019-09-29] MEDS: Docusate Sodium 100 MG Cap PO SCH ×2 (07:47→17:26)
[2019-09-29] MEDS: Escitalopram 20 MG Tab PO SCH (07:47)
[2019-09-29] MEDS: Clindamycin HCl 150 MG Cap PO SCH ×3 (07:47→22:09)
[2019-09-29] MEDS: Cyanocobalamin (Vitamin B12) 1,000 MCG Tab PO SCH (07:47)
--- NOTE | 2019-09-29 10:56 | PCM.SN ---
- Free Text/Narrative Note: Today's blood work was from reviewed with some mild hypoalbuminemia, which will be observed for now. INR is therapeutic despite recent initiation of clindamycin therapy. Repeat INR on 10/01. Planned discharge from swing bed next week per physical therapy. Blood work, etc. should be repeated prior to discharge. Close follow-up of patient's INR by [facility] physician. Note negative wound culture and sensitivity with gram-positive organisms noted on Gram stain. Consider discontinuation of clindamycin in the near future, depending on her clinical course secondary to current Coumadin therapy.
[2019-09-29] MEDS: Warfarin 2.5 MG Tab PO SCH (17:27)
[2019-09-29] MEDS: Melatonin 3 MG Tab PO SCH (21:23)
[2019-09-29] MEDS: Montelukast 10 MG Tab PO SCH (21:23)
[2019-09-29] MEDS: Latanoprost 0.005% Ophth Soln 2.5 ML Bottle EYEBOTH SCH (21:23)
[2019-09-30] MEDS: Clindamycin HCl 150 MG Cap PO SCH ×3 (07:45→22:09)
[2019-09-30] MEDS: Magnesium Oxide 400 MG Tab PO SCH ×2 (07:46→17:09)
[2019-09-30] MEDS: Pregabalin 75 MG Cap PO SCH ×2 (07:46→17:09)
[2019-09-30] MEDS: Docusate Sodium 100 MG Cap PO SCH ×2 (07:46→17:09)
[2019-09-30] MEDS: Escitalopram 20 MG Tab PO SCH (07:47)
[2019-09-30] MEDS: BRIMONIDINE TARTRATE EYEBOTH SCH ×2 (07:47→17:09)
[2019-09-30] MEDS: Cyanocobalamin (Vitamin B12) 1,000 MCG Tab PO SCH (07:47)
[2019-09-30] MEDS: Chlorthalidone 25 MG Tab PO SCH (08:17)
[2019-09-30] MEDS: Warfarin 2.5 MG Tab PO SCH (17:09)
[2019-09-30] MEDS: Melatonin 3 MG Tab PO SCH (19:47)
[2019-09-30] MEDS: Montelukast 10 MG Tab PO SCH (19:47)
[2019-09-30] MEDS: Latanoprost 0.005% Ophth Soln 2.5 ML Bottle EYEBOTH SCH (19:47)
[2019-10-01] MEDS: Clindamycin HCl 150 MG Cap PO SCH ×3 (07:39→22:11)
[2019-10-01] MEDS: BRIMONIDINE TARTRATE EYEBOTH SCH ×2 (07:39→17:17)
[2019-10-01] MEDS: Pregabalin 75 MG Cap PO SCH ×2 (07:40→17:14)
[2019-10-01] MEDS: Escitalopram 20 MG Tab PO SCH (07:40)
[2019-10-01] MEDS: Magnesium Oxide 400 MG Tab PO SCH ×2 (07:40→17:14)
[2019-10-01] MEDS: Docusate Sodium 100 MG Cap PO SCH ×2 (07:41→17:15)
[2019-10-01] MEDS: Cyanocobalamin (Vitamin B12) 1,000 MCG Tab PO SCH (07:41)
[2019-10-01] MEDS: Warfarin 2.5 MG Tab PO SCH (17:16)
[2019-10-01] MEDS: Montelukast 10 MG Tab PO SCH (20:59)
[2019-10-01] MEDS: Melatonin 3 MG Tab PO SCH (20:59)
[2019-10-01] MEDS: Latanoprost 0.005% Ophth Soln 2.5 ML Bottle EYEBOTH SCH (20:59)
[2019-10-02] MEDS: Chlorthalidone 25 MG Tab PO SCH (07:44)
[2019-10-02] MEDS: Pregabalin 75 MG Cap PO SCH ×2 (07:44→17:50)
[2019-10-02] MEDS: Magnesium Oxide 400 MG Tab PO SCH ×2 (07:45→17:50)
[2019-10-02] MEDS: Clindamycin HCl 150 MG Cap PO SCH ×3 (07:45→21:57)
[2019-10-02] MEDS: BRIMONIDINE TARTRATE EYEBOTH SCH ×2 (07:45→17:50)
[2019-10-02] MEDS: Escitalopram 20 MG Tab PO SCH (07:46)
[2019-10-02] MEDS: Cyanocobalamin (Vitamin B12) 1,000 MCG Tab PO SCH (07:46)
[2019-10-02] MEDS: Docusate Sodium 100 MG Cap PO SCH ×2 (07:46→17:50)
[2019-10-02] MEDS: Warfarin 2.5 MG Tab PO SCH (17:50)
[2019-10-02] MEDS: Latanoprost 0.005% Ophth Soln 2.5 ML Bottle EYEBOTH SCH (20:40)
[2019-10-02] MEDS: Melatonin 3 MG Tab PO SCH (20:40)
[2019-10-02] MEDS: Montelukast 10 MG Tab PO SCH (20:40)
[2019-10-03] MEDS: BRIMONIDINE TARTRATE EYEBOTH SCH ×2 (08:00→17:19)
[2019-10-03] MEDS: Escitalopram 20 MG Tab PO SCH (08:01)
[2019-10-03] MEDS: Cyanocobalamin (Vitamin B12) 1,000 MCG Tab PO SCH (08:01)
[2019-10-03] MEDS: Magnesium Oxide 400 MG Tab PO SCH ×2 (08:01→17:19)
[2019-10-03] MEDS: Pregabalin 75 MG Cap PO SCH ×2 (08:01→17:19)
[2019-10-03] MEDS: Docusate Sodium 100 MG Cap PO SCH ×2 (08:01→17:19)
[2019-10-03] MEDS: Clindamycin HCl 150 MG Cap PO SCH ×3 (08:01→23:49)
[2019-10-03] MEDS: Polyethylene Glycol 3350 Powder 17 GM Packet PO PRN (08:06)
[2019-10-03] MEDS: Warfarin 2.5 MG Tab PO SCH (17:18)
[2019-10-03] MEDS: Montelukast 10 MG Tab PO SCH (20:43)
[2019-10-03] MEDS: Melatonin 3 MG Tab PO SCH (20:43)
[2019-10-03] MEDS: Latanoprost 0.005% Ophth Soln 2.5 ML Bottle EYEBOTH SCH (20:43)
[2019-10-04] MEDS: Cyanocobalamin (Vitamin B12) 1,000 MCG Tab PO SCH (08:23)
[2019-10-04] MEDS: BRIMONIDINE TARTRATE EYEBOTH SCH ×2 (08:23→17:13)
[2019-10-04] MEDS: Clindamycin HCl 150 MG Cap PO SCH ×3 (08:24→23:06)
[2019-10-04] MEDS: Escitalopram 20 MG Tab PO SCH (08:24)
[2019-10-04] MEDS: Docusate Sodium 100 MG Cap PO SCH ×2 (08:24→17:12)
[2019-10-04] MEDS: Pregabalin 75 MG Cap PO SCH ×2 (08:24→17:12)
[2019-10-04] MEDS: Magnesium Oxide 400 MG Tab PO SCH ×2 (08:24→17:12)
--- NOTE | 2019-10-04 15:20 | PCM.SN ---
- Free Text/Narrative Note: UC ordered after UA showed 5-10 WBC/HPF. Negative nitrite/trace L.E.
[2019-10-04] MEDS: Warfarin 2.5 MG Tab PO SCH (17:12)
[2019-10-04] MEDS: Latanoprost 0.005% Ophth Soln 2.5 ML Bottle EYEBOTH SCH (20:25)
[2019-10-04] MEDS: Montelukast 10 MG Tab PO SCH (20:25)
[2019-10-04] MEDS: Melatonin 3 MG Tab PO SCH (20:25)
[2019-10-05] MEDS: Clindamycin HCl 150 MG Cap PO SCH ×2 (07:34→15:16)
[2019-10-05] MEDS: Cyanocobalamin (Vitamin B12) 1,000 MCG Tab PO SCH (07:34)
[2019-10-05] MEDS: Magnesium Oxide 400 MG Tab PO SCH ×2 (07:34→17:33)
[2019-10-05] MEDS: Docusate Sodium 100 MG Cap PO SCH ×2 (07:34→17:33)
[2019-10-05] MEDS: Chlorthalidone 25 MG Tab PO SCH (07:35)
[2019-10-05] MEDS: Pregabalin 75 MG Cap PO SCH ×2 (07:35→17:33)
[2019-10-05] MEDS: BRIMONIDINE TARTRATE EYEBOTH SCH ×2 (07:35→17:34)
[2019-10-05] MEDS: Escitalopram 20 MG Tab PO SCH (07:36)
[2019-10-05] MEDS: Polyethylene Glycol 3350 Powder 17 GM Packet PO PRN (17:33)
[2019-10-05] MEDS: Warfarin 2.5 MG Tab PO SCH (17:34)
[2019-10-05] MEDS: Montelukast 10 MG Tab PO SCH (19:47)
[2019-10-05] MEDS: Latanoprost 0.005% Ophth Soln 2.5 ML Bottle EYEBOTH SCH (19:47)
[2019-10-05] MEDS: Melatonin 3 MG Tab PO SCH (19:47)
[2019-10-05] MEDS: Acetaminophen 325 MG Tab PO PRN (19:48)
[2019-10-06] MEDS: Clindamycin HCl 150 MG Cap PO SCH ×4 (01:27→22:59)
[2019-10-06] MEDS: BRIMONIDINE TARTRATE EYEBOTH SCH ×2 (07:24→17:38)
[2019-10-06] MEDS: Docusate Sodium 100 MG Cap PO SCH ×2 (07:25→17:39)
[2019-10-06] MEDS: Pregabalin 75 MG Cap PO SCH ×2 (07:25→17:40)
[2019-10-06] MEDS: Cyanocobalamin (Vitamin B12) 1,000 MCG Tab PO SCH (07:25)
[2019-10-06] MEDS: Magnesium Oxide 400 MG Tab PO SCH ×2 (07:26→17:39)
[2019-10-06] MEDS: Escitalopram 20 MG Tab PO SCH (07:26)
[2019-10-06] MEDS: Sulfamethoxazole/Trimethoprim 800-160 MG Tab PO SCH ×2 (11:43→17:40)
[2019-10-06] MEDS: Warfarin 2.5 MG Tab PO SCH (17:39)
[2019-10-06] MEDS: Melatonin 3 MG Tab PO SCH (19:46)
[2019-10-06] MEDS: Latanoprost 0.005% Ophth Soln 2.5 ML Bottle EYEBOTH SCH (19:46)
[2019-10-06] MEDS: Montelukast 10 MG Tab PO SCH (19:46)
[2019-10-07 07:55] VITALS: BP 142/79; PULSE 69
[2019-10-07] MEDS: Clindamycin HCl 150 MG Cap PO SCH (08:12)
[2019-10-07] MEDS: BRIMONIDINE TARTRATE EYEBOTH SCH (08:12)
[2019-10-07] MEDS: Pregabalin 75 MG Cap PO SCH (08:13)
[2019-10-07] MEDS: Docusate Sodium 100 MG Cap PO SCH (08:13)
[2019-10-07] MEDS: Escitalopram 20 MG Tab PO SCH (08:13)
[2019-10-07] MEDS: Chlorthalidone 25 MG Tab PO SCH (08:13)
[2019-10-07] MEDS: Magnesium Oxide 400 MG Tab PO SCH (08:14)
[2019-10-07] MEDS: Sulfamethoxazole/Trimethoprim 800-160 MG Tab PO SCH (08:14)
[2019-10-07] MEDS: Cyanocobalamin (Vitamin B12) 1,000 MCG Tab PO SCH (08:14)
--- NOTE | 2019-10-07 09:26 | PCM.DCSUM1 ---
Discharge Summary - Hospital Course Free Text/Narrative:: Pt has done well Pt started on Bactrim DS for UTI INR monitored Pt stable for discharge Diagnosis: Stroke: No - Discharge Data Discharge Date: 10/07/19 Discharge Disposition: Home, Self-Care 01 Condition: Good - Referral to Home Health Date of Face to Face Encounter: 10/07/19 Reason for Homebound Status: Wound care, nursing care for lab draws for PT/INR. Hold Coumadin for 10/07/2019. Primary Care Physician: Elsie Szymanski NP Skilled Need: needs PT/INR and anticoag monitoring; wound care. - Discharge Diagnosis/Problem(s) (1) UTI (urinary tract infection) SNOMED Code(s): 78654276 ICD Code: N39.0 - URINARY TRACT INFECTION, SITE NOT SPECIFIED Status: Acute Current Visit: Yes Qualifiers: Urinary tract infection type: site unspecified (2) Cellulitis of left foot SNOMED Code(s): 984217780 ICD Code: L03.116 - CELLULITIS OF LEFT LOWER LIMB Status: Acute Current Visit: Yes (3) S/P foot surgery, left SNOMED Code(s): 683520606, 24410079, 635321420 ICD Code: Z98.890 - OTHER SPECIFIED POSTPROCEDURAL STATES Status: Acute Current Visit: Yes (4) Diabetes mellitus SNOMED Code(s): 10948322 ICD Code: E11.9 - TYPE 2 DIABETES MELLITUS WITHOUT COMPLICATIONS Status: Chronic Priority: Medium Current Visit: Yes Problem Details: Prediabetes currently diet controlled, although the patient has been significantly noncompliant with her diet, including in swing bed. She is eating cookies, candy , etc.. Weight loss in moderation is advisable. Glycosylated hemoglobin on was 6.5%. Compliance with diet strongly encouraged. Continue to observe closely by regular provider after discharge. Qualifiers: Diabetes mellitus type: type 2 Diabetes mellitus tank terminal gauger insulin use: without tank terminal gauger use Diabetes mellitus complication status: without complication Qualified Code(s): E11.9 - Type 2 diabetes mellitus without complications (5) Hypertension SNOMED Code(s): 84541917 ICD Code: I10 - ESSENTIAL (PRIMARY) HYPERTENSION Status: Chronic Priority : Medium Current Visit: Yes Problem Details: Needs to follow up with PCP after DC. Qualifiers: Hypertension type: essential hypertension Qualified Code(s): I10 - Essential (primary) hypertension - Patient Summary/Data Consults: Consultations 09/17/19 14:23 Consult to Case Management/Supervisor [employer] [CONS] Routine OT Evaluation and Treatment [CONS] Routine PT Evaluation and Treatment [CONS] Routine 10/07/19 08:06 Consult to Home Health [CONS] Routine - Patient Instructions Diet: Diabetic Diet Activity: Non Weight Bearing Driving: Do Not Drive Showering/Bathing: May Shower Wound/Incision Care: Keep Operative Site/Wound Site Clean and Dry, Change Dressing Daily (home health ) Notify Provider of: Fever, Increased Pain, Swelling and Redness, Drainage Other/Special Instructions: Please hold coumadin dose for 10/07/2019. Patient to be drawn on 10/08/2019. Coumadin dosing will be adjusted based on that result. - Discharge Plan *PRESCRIPTION DRUG MONITORING PROGRAM REVIEWED*: Not Applicable *COPY OF PRESCRIPTION DRUG MONITORING REPORT IN PATIENT STACIE: Not Applicable Prescriptions/Med Rec: Sulfamethoxazole/Trimethoprim [Septra DS] 1 tab PO BID #20 tablet Home Medications: Home Meds Travoprost [Travatan Z 0.004% Ophth Soln] 1 drop EYEBOTH BEDTIME 11/07/13 [ History] Escitalopram [Lexapro] 20 mg PO DAILY 04/18/18 [History] Brimonidine Tartrate [Alphagan P 0.1% Ophth Soln] 1 drop EYEBOTH BID 09/17/19 [ History] Cetirizine [ZyrTEC] 10 mg PO DAILY PRN 09/17/19 [History] Chlorthalidone 12.5 mg PO MOWEFR@08 09/17/19 [History] Cyanocobalamin (Vitamin B-12) [B-12] 1,000 mcg PO DAILY 09/17/19 [History] Docusate Sodium 100 mg PO BID 09/17/19 [History] Ibuprofen 400 mg PO Q4HR PRN 09/17/19 [History] Ipratropium [Atrovent HFA] 2 puff INH Q6H PRN 09/17/19 [History] Latanoprost/Pf [Latanoprost 0.005% Eye Drop] 1 drop EYEBOTH BEDTIME 09/17/19 [ History] Magnesium Chloride [Slow-Mag] 2 tab PO BID 09/17/19 [History] Montelukast Sodium [Singulair] 10 mg PO BEDTIME 09/17/19 [History] Nebivolol [Bystolic] 1.25 mg PO DAILY 09/17/19 [History] Pregabalin 150 mg PO BID 09/17/19 [History] Sennosides/Docusate Sodium [Senna-Docusate Sodium Tablet] 2 tab PO DAILY@1800 [History] fentaNYL [Sublimaze] 25 mcg SUBCUT Q2HR PRN 09/17/19 [History] Melatonin 3 mg PO BEDTIME 09/18/19 [History] Acetaminophen [Tylenol] 650 mg PO Q4H PRN tablet 10/07/19 [Rx] Sulfamethoxazole/Trimethoprim [Septra DS] 1 tab PO BID #20 tablet 10/07/19 [Rx] polyethylene glycoL 3350 [MiraLAX] 17 gm PO DAILY PRN packet 10/07/19 [Rx] - Discharge Summary/Plan Comment DC Time >30 min.: No - General Info Date of Service: 10/07/19 (+-) Admission Dx/Problem (Free Text: Pt doing well Wound healing Pt started on Bactrim DS for UTI Coumadin being monitored Functional Status: Reports: Pain Controlled - Review of Systems Pulmonary: Reports: No Symptoms Cardiovascular: Reports: No Symptoms Gastrointestinal: Reports: No Symptoms Musculoskeletal: Reports: Other (Wound healing) - Patient Data Vitals - Most Recent: Last Vital Signs Temp 97.7 F 10/07/19 07:54 Pulse 69 10/07/19 08:12 Resp 17 10/07/19 07:54 BP 142/79 H 10/07/19 08:12 Pulse Ox 100 10/07/19 07:54 Weight - Most Recent: 207 lb 6.4 oz I&O - Last 24 hours: Intake & Output 10/06/19 10/07/19 10/07/19 18:59 02:59 10:59 Intake Total 420 240 Balance 420 240 Lab Results - Last 24 hrs: Laboratory Results - last 24 hr 10/07/19 Range/Units 07:45 INR 3.6 VIKAS Results - Last 24 hrs: Microbiology 10/04/19 12:16 Urine Culture - Final Urine, Voided Enterobacter Aerogenes Med Orders - Current: Current Medications Acetaminophen (Tylenol) 650 mg PO Q4H PRN PRN Reason: Pain (mild 1-3) Last Admin: 10/05/19 19:48 Dose: 650 mg Albuterol (Proventil Neb Soln) 2.5 mg INH Q2H PRN PRN Reason: SHORTNESS OF BREATH Albuterol/Ipratropium (Duoneb 3.0-0.5 Mg/3 Ml) 3 ml NEB Q4HRRT PRN PRN Reason: Dyspnea Cetirizine HCl (Zyrtec) 10 mg PO DAILY PRN PRN Reason: Allergies Chlorthalidone (Chlorthalidone) 12.5 mg PO MOWEFR@08 [facility] Last Admin: 10/07/19 08:13 Dose: 12.5 mg Clindamycin HCl (Cleocin) 300 mg PO Q8H [facility] Last Admin: 10/07/19 08:12 Dose: 300 mg Cyanocobalamin (Vitamin B12) 1,000 mcg PO DAILY [facility] Last Admin: 10/07/19 08:14 Dose: 1,000 mcg Docusate Sodium (Colace) 100 mg PO BID [facility] Last Admin: 10/07/19 08:13 Dose: 100 mg Escitalopram Oxalate (Lexapro) 20 mg PO DAILY [facility] Last Admin: 10/07/19 08:13 Dose: 20 mg Hydromorphone HCl (Dilaudid) 2 mg PO Q6H PRN PRN Reason: Pain (severe 7-10) Latanoprost (Xalatan 0.005% Ophth Soln) 1 ml EYEBOTH BEDTIME [facility] Last Admin: 10/06/19 19:46 Dose: 1 drop Magnesium Oxide (Magnesium Oxide) 400 mg PO BID [facility] Last Admin: 10/07/19 08:14 Dose: 400 mg Melatonin (Melatonin) 3 mg PO BEDTIME [facility] Last Admin: 10/06/19 19:46 Dose: 3 mg Montelukast Sodium (Singulair) 10 mg PO BEDTIME [facility] Last Admin: 10/06/19 19:46 Dose: 10 mg Nebivolol (Bystolic) 2.5 mg PO DAILY [facility] Last Admin: 10/07/19 08:12 Dose: 2.5 mg Brimonidine Tartrate [Alphagan 0.15% Ophth Soln] 1 drop EYEBOTH BID [facility] Last Admin: 10/07/19 08:12 Dose: 1 drop Non-Formulary Medication (Travoprost [Travatan Z 0.004% Ophth Soln]) 1 drop EYEBOTH BEDTIME [facility] Polyethylene Glycol (Miralax) 17 gm PO DAILY PRN PRN Reason: Constipation Last Admin: 10/05/19 17:33 Dose: 17 gm Pregabalin (Lyrica) 150 mg PO BID [facility] Last Admin: 10/07/19 08:13 Dose: 150 mg Senna/Docusate Sodium (Senna Plus) 2 tab PO DAILY@1800 [facility] Last Admin: 10/06/19 17:39 Dose: 2 tab Trimethoprim/Sulfamethoxazole (Septra Ds) 1 tab PO BID [facility] Stop: 10/16/19 12:01 Last Admin: 10/07/19 08:14 Dose: 1 tab Warfarin Sodium (Coumadin) 2.5 mg PO DAILY@1800 [facility] Last Admin: 10/06/19 17:39 Dose: 2.5 mg Discontinued Medications Acetaminophen (Tylenol) 650 mg PO TID [facility] Last Admin: 09/18/19 17:12 Dose: 650 mg Acetaminophen (Tylenol) 325 mg PO Q4H PRN PRN Reason: Pain (mild 1-3) Last Admin: 09/18/19 00:37 Dose: 325 mg Acetaminophen (Tylenol) 650 mg PO 0800,1400,2000 [facility] Last Admin: 09/19/19 20:39 Dose: Not Given Enoxaparin Sodium (Lovenox) 30 mg SUBCUT Q12HR [facility] Last Admin: 09/24/19 08:48 Dose: Not Given Magnesium Citrate (Citrate Of Magnesia) 296 ml PO ONETIME ONE Stop: 09/17/19 15:19 Last Admin: 09/17/19 18:19 Dose: Not Given Nebivolol (Bystolic) 1.25 mg PO DAILY [facility] Last Admin: 10/03/19 08:11 Dose: 1.25 mg Nebivolol (Bystolic) 2.5 mg PO ONETIME ONE Stop: 10/03/19 15:30 Last Admin: 10/03/19 16:33 Dose: 2.5 mg Polyethylene Glycol (Miralax) 17 gm PO ONETIME ONE Stop: 09/17/19 15:19 Last Admin: 09/17/19 18:19 Dose: Not Given Warfarin Sodium (Coumadin) 1.5 mg PO MOWEFR@18 [facility] Last Admin: 09/18/19 17:13 Dose: 1.5 mg Warfarin Sodium (Coumadin) 2 mg PO SUTUTHSA@18 [facility] Last Admin: 09/19/19 17:29 Dose: 2 mg Warfarin Sodium (Coumadin) 2 mg PO DAILY@1800 [facility] Last Admin: 09/21/19 17:59 Dose: 2 mg Warfarin Sodium (Coumadin) 5 mg PO ONETIME ONE Stop: 09/21/19 09:01 Last Admin: 09/21/19 10:10 Dose: 5 mg Warfarin Sodium (Coumadin) 10 mg PO ONETIME ONE Stop: 09/22/19 09:35 Last Admin: 09/22/19 10:25 Dose: 10 mg Warfarin Sodium (Coumadin) 2 mg PO DAILY@1800 [facility] Last Admin: 09/26/19 18:23 Dose: 2 mg Warfarin Sodium (Coumadin) 1 mg PO ONETIME ONE Stop: 09/27/19 12:55 Last Admin: 09/27/19 14:43 Dose: 1 mg - Exam General: Reports: Alert, Oriented Lungs: Reports: Clear to Auscultation Cardiovascular: Reports: Regular Rate GI/Abdominal Exam: Non-Tender Extremities: Other (Wound clean and dressed)
== END 2019-10-07 10:15 | disposition home health service (06) | DRG 560 ==
LOC: LL.MS 13:15 → UNDOADMIN 13:15 → LL.MS 14:24
PROVIDERS: ADMIT Family Medicine; ATTEND Family Medicine
DX: Z47.89 Encounter for other orthopedic aftercare (principal); N39.0 Urinary tract infection, site not specified; L03.116 Cellulitis of left lower limb; M15.0 Primary generalized (osteo)arthritis; E11.9 Type 2 diabetes mellitus without complications; J45.20 Mild intermittent asthma, uncomplicated; K59.03 Drug induced constipation; T40.605A Adverse effect of unspecified narcotics, initial encounter; E78.5 Hyperlipidemia, unspecified; I10 Essential (primary) hypertension; F41.8 Other specified anxiety disorders; K21.9 Gastro-esophageal reflux disease without esophagitis; E88.09 Other disorders of plasma-protein metabolism, not elsewhere classified; Z98.890 Other specified postprocedural states; Z79.01 Long term (current) use of anticoagulants; Z86.718 Personal history of other venous thrombosis and embolism
CPT/HCPCS: 36415; 36416; 71046; 76700; 80053; 80061; 81001; 82150; 82550; 82553; 83036; 83690; 83735; 83880; 84484; 85025; 85610; 85730; 87070; 87086; 87088; 87186; 87205; 97110-GO; 97110-GP; 97116-GP; 97162-GP; 97165-GO; 97530-GO; 97530-GP; 97535-GO; A9270-GY; J1650

== ENCOUNTER 2020-01-07 22:19 | Emergency (ER) | payer MEDICARE, MEDICAID ==
--- NOTE | 2020-01-07 22:39 | EDM.PDOC ---
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 concerning this disorder. Symptomatic relief as per discharge instructions. Additional mild right elbow contusion with no clinical indication for x-rays at this time. Note mild leukocytosis and no evidence of infection at injury sites including multiple superficial abrasions as above. Patient has a local intolerance/allergy to tetanus immunization. Qualifiers: Encounter type: initial encounter Contusion area: lower leg Laterality: left Qualified Code(s): S80.12XA - Contusion of left lower leg, initial encounter (2) Asthma SNOMED Code(s): 542496830 Code(s): J45.909 - UNSPECIFIED ASTHMA, UNCOMPLICATED Status: Chronic Priority: Medium Annotation/Comment:: Stable by history with no recent fever or bronchitic type symptoms. Possible mild left lower rib contusion, however the patient did not feel that rib x-rays were warranted at this time with only clinical findings today. Continue to observe for now. Qualifiers: Asthma severity: mild Asthma persistence: intermittent Asthma complication type: uncomplicated Qualified Code(s): J45.20 - Mild intermittent asthma, uncomplicated (3) Hypertension SNOMED Code(s): 31355403 Code(s): I10 - ESSENTIAL (PRIMARY) HYPERTENSION Status: Chronic Priority: Medium Annotation/Comment:: Initially elevated blood pressure on arrival however improved without therapy prior to discharge. Continue to closely by her regular provider. Qualifiers: Hypertension type: essential hypertension Qualified Code(s): I10 - Essential (primary) hypertension (4) Mixed anxiety depressive disorder SNOMED Code(s): 653713194 Code(s): F41.8 - OTHER SPECIFIED ANXIETY DISORDERS Status: Chronic Priority: Medium Annotation/Comment:: Stable by history. Continue to observe closely by her regular provider. (5) Osteoarthritis SNOMED Code(s): 249874919 Code(s): M19.90 - UNSPECIFIED OSTEOARTHRITIS, UNSPECIFIED SITE Status: Chronic Priority: Medium Annotation/Comment:: Otherwise stable by history with no other significant injuries. 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 She has not been using excessive Tylenol and previously stopped using ibuprofen. INR is therapeutic today. (8) Elevated LFTs SNOMED Code(s): 883389794, 942182316 Code(s): R79.89 - OTHER SPECIFIED ABNORMAL FINDINGS OF BLOOD CHEMISTRY Status: Chronic Priority: Medium Annotation/Comment:: Likely secondary to fatty liver. Continue to observe closely by regular provider. (9) Hypokalemia SNOMED Code(s): 30780543 Code(s): E87.6 - HYPOKALEMIA Status: Acute Priority: Medium Onset Date: 01/07/20 Annotation/Comment:: Observe for now. Close follow-up by regular provider. (10) Hypoalbuminemia SNOMED Code(s): 580588048 Code(s): E88.09 - OTH DISORDERS OF PLASMA-PROTEIN METABOLISM, NEC Status: Chronic Priority: Medium Onset Date: 02/05/17 Annotation/Comment:: Consider high protein Glucerna supplements as snacks as previously advised however note problems with her obesity, dietary noncompliance, etc. Observe for now. - Problem List Review Problem List Initiated/Reviewed/Updated: Yes - My Orders Last 24 Hours: My Active Orders 01/07/20 22:39 Tibia Fibula Lt [CR] Stat - Assessment/Plan Last 24 Hours: My Active Orders 01/07/20 22:39 Tibia Fibula Lt [CR] Stat Assessment:: As above Plan: As above. Extensive precautions were given to the patient and her , who are in agreement with the treatment plan. See Patient Instructions for further treatment and plan.
[2020-01-07 23:09] VITALS: BP 134/73; PULSE 89
[2020-01-07 23:12] LABS: PTT,PARTIAL THROMBOPLSTIN TIME 37.7 SEC (24.5-32.8)
[2020-01-07 23:50] LABS: CHLORIDE,CL 100 mmol/L (98-107); SODIUM,NA 138 mmol/L (136-145)
== END 2020-01-07 23:43 | disposition home or self-care (01) ==
LOC: LL.ED 22:19
DX: S50.01XA Contusion of right elbow, initial encounter (principal); S80.12XA Contusion of left lower leg, initial encounter; F41.8 Other specified anxiety disorders; K21.9 Gastro-esophageal reflux disease without esophagitis; E88.09 Other disorders of plasma-protein metabolism, not elsewhere classified; E87.6 Hypokalemia; R79.89 Other specified abnormal findings of blood chemistry; E11.9 Type 2 diabetes mellitus without complications; I11.0 Hypertensive heart disease with heart failure; I50.9 Heart failure, unspecified; M89.49 Other hypertrophic osteoarthropathy, multiple sites; J45.20 Mild intermittent asthma, uncomplicated; Z79.01 Long term (current) use of anticoagulants; Z88.8 Allergy status to other drugs, medicaments and biological substances; Z88.1 Allergy status to other antibiotic agents; Z91.012 Allergy to eggs; Z91.041 Radiographic dye allergy status; Z91.011 Allergy to milk products; Z91.09 Other allergy status, other than to drugs and biological substances; Z88.5 Allergy status to narcotic agent; Z88.0 Allergy status to penicillin; W10.8XXA Fall (on) (from) other stairs and steps, initial encounter
CPT/HCPCS: 36415; 73590-LT; 80053; 82550; 82553; 85025; 85610; 85730; 99283-25

== ENCOUNTER 2020-09-04 13:52 | Observation (INO) | payer MEDICARE, MEDICAID, SELFPAY ==
[2020-09-04 15:04] LABS: CHLORIDE,CL 103 mmol/L (98-107); SODIUM,NA 142 mmol/L (136-145)
--- NOTE | 2020-09-04 15:56 | EDM.PDOC ---
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 Annotation/Comment:: Normal/low level noted today. Will give single dose IV Mag as that may assist with the constipation issue. (15) Osteoarthritis SNOMED Code(s): 880423827 Code(s): M19.90 - UNSPECIFIED OSTEOARTHRITIS, UNSPECIFIED SITE Status: Chronic Priority: Low Current Visit: No Annotation/Comment:: Stable by history Qualifiers: Osteoarthritis location: multiple joints Osteoarthritis type: primary Qualified Code(s): M89.49 - Other hypertrophic osteoarthropathy, multiple sites (16) Sleep apnea SNOMED Code(s): 49362282 Code(s): G47.30 - SLEEP APNEA, UNSPECIFIED Status: Chronic Priority: Medium Current Visit: No Annotation/Comment:: Patient does not have her CPAP with her at this time. Will see if family can bring it if patient desires to have it overnight. Qualifiers: Sleep apnea type: other type Qualified Code(s): G47.39 - Other sleep apnea - Problem List Review Problem List Initiated/Reviewed/Updated: Yes - My Orders Last 24 Hours: My Active Orders 09/04/20 14:41 UA W/MICROSCOPIC [URIN] Stat 09/04/20 14:42 Abdomen Series w Chest 1V [CR] Stat - Assessment/Plan Admission H&P: Please use this note as an admission H&P Last 24 Hours: My Active Orders 09/04/20 14:41 UA W/MICROSCOPIC [URIN] Stat 09/04/20 14:42 Abdomen Series w Chest 1V [CR] Stat Assessment:: as above. Patient stable and suitable for general supervision Plan: Will see if current plan can promote good bowel movements and if patient's abdominal discomfort improves afterwards. Anticipate possible discharge tomorrow if things go well.
[2020-09-04] MEDS ORDERED: Sodium Chloride 0.9% 10 ML Syringe FLUSH PRN (16:21)
[2020-09-04] MEDS ORDERED: Polyethylene Glycol 3350 Powder 17 GM Packet PO ONE (16:24)
[2020-09-04] MEDS ORDERED: Ondansetron 4 MG Tab.DIS PO ONE (16:25)
[2020-09-04] MEDS ORDERED: Magnesium Citrate Solution 296 ML Bottle PO ONE (16:26)
[2020-09-04] MEDS ORDERED: Warfarin 2.5 MG Tab PO ONE (16:29)
[2020-09-04] MEDS ORDERED: Acetaminophen 325 MG Tab PO PRN (16:30)
[2020-09-04] MEDS ORDERED: Ondansetron 4 MG/2 ML SDV IVPUSH PRN (16:35)
[2020-09-04] MEDS: Sodium Chloride 0.9% 1,000 ML IV SCH (16:41)
[2020-09-04] MEDS: Pregabalin 25 MG Cap PO SCH (18:24)
[2020-09-04] MEDS ORDERED: Lactulose Soln 10 GM/15 ML 30 ML UD Cup PO ONE (20:00)
[2020-09-05] MEDS ORDERED: Lactulose Soln 10 GM/15 ML 30 ML UD Cup PO ONE (08:00)
[2020-09-05] MEDS ORDERED: Pregabalin 75 MG Cap PO SCH (08:00)
[2020-09-05] MEDS ORDERED: Escitalopram 20 MG Tab PO SCH (08:00)
[2020-09-05 08:02] LABS: HEMOGLOBIN A1C 8.6 % (4.3-5.7)
[2020-09-05 08:05] VITALS: PULSE 82
[2020-09-05 08:05] LABS: CHLORIDE,CL 105 mmol/L (98-107); SODIUM,NA 142 mmol/L (136-145)
[2020-09-05 08:47] VITALS: BP 126/76
[2020-09-05] MEDS: Pregabalin 25 MG Cap PO SCH (08:47)
[2020-09-05] MEDS: Sodium Chloride 0.9% 1,000 ML IV SCH (08:50)
--- NOTE | 2020-09-05 09:19 | PCM.DCSUM1 ---
Discharge Summary - Hospital Course Free Text/Narrative:: Pt admitted with constipation which is a chronic problem Pt given medication and is now passing stool without difficulty Diagnosis: Stroke: No - Discharge Data Discharge Date: 09/05/20 Discharge Disposition: Home, Self-Care 01 Condition: Good - Referral to Home Health Primary Care Physician: Elsie Szymanski NP - Discharge Diagnosis/Problem(s) (1) Constipation SNOMED Code(s): 44267232 ICD Code: K59.00 - CONSTIPATION, UNSPECIFIED Status: Acute Current Visit: Yes Qualifiers: Constipation type: unspecified constipation type Qualified Code(s): K59.00 - Constipation, unspecified - Patient Instructions Diet: Usual Diet as Tolerated Activity: As Tolerated Driving: May Drive Today Showering/Bathing: May Shower Notify Provider of: Increased Pain, Nausea and/or Vomiting - Discharge Plan *PRESCRIPTION DRUG MONITORING PROGRAM REVIEWED*: Not Applicable *COPY OF PRESCRIPTION DRUG MONITORING REPORT IN PATIENT STACIE: Not Applicable Home Medications: Home Meds Escitalopram [Lexapro] 20 mg PO DAILY 04/18/18 [History] Brimonidine Tartrate [Alphagan P 0.1% Ophth Soln] 1 drop EYEBOTH BID 09/17/19 [History] Cetirizine [ZyrTEC] 10 mg PO DAILY PRN 09/17/19 [History] Chlorthalidone 12.5 mg PO MOWEFR@08 09/17/19 [History] Docusate Sodium 100 mg PO BID 09/17/19 [History] Ipratropium [Atrovent HFA] 2 puff INH Q6H PRN 09/17/19 [History] Latanoprost/Pf [Latanoprost 0.005% Eye Drop] 1 drop EYEBOTH BID 09/17/19 [History] Magnesium Chloride [Slow-Mag] 2 tab PO TID 09/17/19 [History] Montelukast Sodium [Singulair] 10 mg PO BEDTIME 09/17/19 [History] Nebivolol [Bystolic] 1.25 mg PO DAILY 09/17/19 [History] Pregabalin 150 mg PO BID 09/17/19 [History] Sennosides/Docusate Sodium [Senna-Docusate Sodium Tablet] 2 tab PO BID 09/17/19 [History] Acetaminophen [Tylenol] 650 mg PO Q4H PRN tablet 10/07/19 [Rx] Warfarin [Coumadin] 1.5 mg PO SUTUTHSA 01/07/20 [History] Warfarin [Coumadin] 2 mg PO MOWEFR 01/07/20 [History] Forms: ED Department Discharge Referrals: Elsie Szymanski, [employer] [Primary Care Provider] - - Discharge Summary/Plan Comment DC Time >30 min.: No Discharge Summary/Plan Comment: Follow up in clinic - General Info Date of Service: 09/05/20 - Review of Systems General: Reports: No Symptoms HEENT: Reports: No Symptoms Pulmonary: Reports: No Symptoms Cardiovascular: Reports: No Symptoms Gastrointestinal: Reports: Constipation Genitourinary: Reports: No Symptoms Musculoskeletal: Reports: No Symptoms - Patient Data Vitals - Most Recent: Last Vital Signs Temp 97.7 F 09/05/20 08:00 Pulse 82 09/05/20 08:46 Resp 16 09/05/20 08:00 BP 126/76 09/05/20 08:46 Pulse Ox 91 L 09/05/20 08:00 Weight - Most Recent: 182 lb I&O - Last 24 hours: Intake & Output 09/04/20 09/05/20 09/05/20 18:59 02:59 10:59 Intake Total 100 897 Balance 100 897 Lab Results - Last 24 hrs: Laboratory Results - last 24 hr 09/04/20 09/04/20 09/04/20 Range/Units 14:42 14:42 14:42 WBC 12.3 H (4.0-10.2) K/uL RBC 4.98 (3.77-5.09) M/uL Hgb 14.7 D (11.7-15.5) g/dL Hct 46.2 H (34.0-46.0) % MCV 92.8 (84.0-98.0) fL MCH 29.5 (28.2-33.3) pg MCHC 31.8 (31.7-36.0) g/dL RDW 13.3 (11.2-14.1) % Plt Count 312 (150-350) K/uL Neut % (Auto) 85.9 H (45.0-80.0) % Lymph % (Auto) 9.5 L (10.0-50.0) % [place] % (Auto) 3.5 (2.0-14.0) % Eos % (Auto) 0.9 (0.0-5.0) % Baso % (Auto) 0.2 (0.0-2.0) % Neut # (Auto) 10.60 H (1.40-7.00) K/uL Lymph # (Auto) 1.17 (0.50-3.50) K/uL [place] # (Auto) 0.43 (0.00-1.00) K/uL Eos # (Auto) 0.11 (0.00-0.50) K/uL Baso # (Auto) 0.03 (0.00-0.20) K/uL PT 18.9 H (9.5-12.0) SEC INR 1.9 Sodium 142 (136-145) mmol/L Potassium 3.9 (3.5-5.1) mmol/L Chloride 103 (98-107) mmol/L Carbon Dioxide 32.8 H (21.0-32.0) mmol/L BUN 17 (7-18) mg/dL Creatinine 0.81 (0.51-1.17) mg/dL Est Cr Clr Drug Dosing 54.21 mL/min Estimated GFR (MDRD) > 60 mL/min Glucose 256 H (70-99) mg/dL Hemoglobin A1c (4.3-5.7) % Lactic Acid (0.4-2.0) mmol/L Calcium 9.4 (8.5-10.1) mg/dL Magnesium 1.9 (1.8-2.4) mg/dL Total Bilirubin 0.6 (0.2-1.0) mg/dL AST 36 (15-37) U/L ALT 65 (12-78) U/L Alkaline Phosphatase 126 H (46-116) IU/L Troponin I 0.000 (0.000-0.056) ng/mL Total Protein 7.2 (6.4-8.2) g/dL Albumin 3.3 L (3.4-5.0) g/dL 09/04/20 09/05/20 09/05/20 Range/Units 14:42 07:40 07:40 WBC 13.0 H (4.0-10.2) K/uL RBC 4.78 (3.77-5.09) M/uL Hgb 14.1 (11.7-15.5) g/dL Hct 44.6 (34.0-46.0) % MCV 93.3 (84.0-98.0) fL MCH 29.5 (28.2-33.3) pg MCHC 31.6 L (31.7-36.0) g/dL RDW 13.6 (11.2-14.1) % Plt Count 332 (150-350) K/uL Neut % (Auto) 73.1 (45.0-80.0) % Lymph % (Auto) 21.4 (10.0-50.0) % [place] % (Auto) 4.4 (2.0-14.0) % Eos % (Auto) 0.8 (0.0-5.0) % Baso % (Auto) 0.3 (0.0-2.0) % Neut # (Auto) 9.50 H (1.40-7.00) K/uL Lymph # (Auto) 2.79 (0.50-3.50) K/uL [place] # (Auto) 0.57 (0.00-1.00) K/uL Eos # (Auto) 0.11 (0.00-0.50) K/uL Baso # (Auto) 0.04 (0.00-0.20) K/uL PT 24.0 H (9.5-12.0) SEC INR 2.5 Sodium (136-145) mmol/L Potassium (3.5-5.1) mmol/L Chloride (98-107) mmol/L Carbon Dioxide (21.0-32.0) mmol/L BUN (7-18) mg/dL Creatinine (0.51-1.17) mg/dL Est Cr Clr Drug Dosing mL/min Estimated GFR (MDRD) mL/min Glucose (70-99) mg/dL Hemoglobin A1c (4.3-5.7) % Lactic Acid 1.8 (0.4-2.0) mmol/L Calcium (8.5-10.1) mg/dL Magnesium (1.8-2.4) mg/dL Total Bilirubin (0.2-1.0) mg/dL AST (15-37) U/L ALT (12-78) U/L Alkaline Phosphatase (46-116) IU/L Troponin I (0.000-0.056) ng/mL Total Protein (6.4-8.2) g/dL Albumin (3.4-5.0) g/dL 09/05/20 09/05/20 Range/Units 07:40 07:40 WBC (4.0-10.2) K/uL RBC (3.77-5.09) M/uL Hgb (11.7-15.5) g/dL Hct (34.0-46.0) % MCV (84.0-98.0) fL MCH (28.2-33.3) pg MCHC (31.7-36.0) g/dL RDW (11.2-14.1) % Plt Count (150-350) K/uL Neut % (Auto) (45.0-80.0) % Lymph % (Auto) (10.0-50.0) % [place] % (Auto) (2.0-14.0) % Eos % (Auto) (0.0-5.0) % Baso % (Auto) (0.0-2.0) % Neut # (Auto) (1.40-7.00) K/uL Lymph # (Auto) (0.50-3.50) K/uL [place] # (Auto) (0.00-1.00) K/uL Eos # (Auto) (0.00-0.50) K/uL Baso # (Auto) (0.00-0.20) K/uL PT (9.5-12.0) SEC INR Sodium 142 (136-145) mmol/L Potassium 3.5 (3.5-5.1) mmol/L Chloride 105 (98-107) mmol/L Carbon Dioxide 33.7 H (21.0-32.0) mmol/L BUN 20 H (7-18) mg/dL Creatinine 0.76 (0.51-1.17) mg/dL Est Cr Clr Drug Dosing 57.78 mL/min Estimated GFR (MDRD) > 60 mL/min Glucose 178 H (70-99) mg/dL Hemoglobin A1c 8.6 H (4.3-5.7) % Lactic Acid (0.4-2.0) mmol/L Calcium 8.3 L (8.5-10.1) mg/dL Magnesium (1.8-2.4) mg/dL Total Bilirubin (0.2-1.0) mg/dL AST (15-37) U/L ALT (12-78) U/L Alkaline Phosphatase (46-116) IU/L Troponin I (0.000-0.056) ng/mL Total Protein (6.4-8.2) g/dL Albumin (3.4-5.0) g/dL Med Orders - Current: Current Medications Acetaminophen (Tylenol) 650 mg PO Q4H PRN PRN Reason: Pain (mild 1-3) Last Admin: 09/05/20 09:01 Dose: 650 mg Documented by: Escitalopram Oxalate (Lexapro) 20 mg PO DAILY [facility] Last Admin: 09/05/20 08:46 Dose: 20 mg Documented by: Sodium Chloride (Normal Saline) 1,000 mls @ 75 mls/hr IV ASDIRECTED [facility] Last Admin: 09/05/20 08:50 Dose: 75 mls/hr Documented by: Nebivolol (Bystolic) 1.25 mg PO DAILY [facility] Last Admin: 09/05/20 08:46 Dose: 1.25 mg Documented by: Ondansetron HCl (Zofran) 4 mg IVPUSH Q6H PRN PRN Reason: Nausea/Vomiting Pregabalin (Lyrica) 150 mg PO BID [facility] Last Admin: 09/05/20 08:46 Dose: 150 mg Documented by: Sodium Chloride (Saline Flush) 10 ml FLUSH ASDIRECTED PRN PRN Reason: Keep Vein Open Warfarin Sodium (Coumadin) 1.5 mg PO SuTuThSa@1800 [facility] Last Admin: 09/04/20 18:26 Dose: 1.5 mg Documented by: Discontinued Medications Magnesium Sulfate/Dextrose 1 (gm/ Premix) 100 mls @ 100 mls/hr IV ONETIME ONE Stop: 09/04/20 17:37 Last Admin: 09/04/20 18:26 Dose: 100 mls/hr Documented by: Lactulose (Cephulac) 30 gm PO ONETIME ONE Stop: 09/04/20 20:01 Last Admin: 09/04/20 20:00 Dose: Not Given Documented by: Lactulose (Cephulac) 20 gm PO ONETIME ONE Stop: 09/05/20 08:01 Last Admin: 09/05/20 08:47 Dose: Not Given Documented by: Magnesium Citrate (Citrate Of Magnesia) 286 ml PO ONETIME ONE Stop: 09/04/20 16:27 Last Admin: 09/04/20 16:42 Dose: 286 ml Documented by: Ondansetron HCl (Zofran Odt) 4 mg PO ONETIME ONE Stop: 09/04/20 16:26 Last Admin: 09/04/20 16:43 Dose: 4 mg Documented by: Polyethylene Glycol (Miralax) 17 gm PO ONETIME ONE Stop: 09/04/20 16:25 Last Admin: 09/04/20 16:42 Dose: 17 gm Documented by: Pregabalin (Lyrica) 150 mg PO BID [facility] Last Admin: 09/05/20 08:47 Dose: Not Given Documented by: Warfarin Sodium (Coumadin) 2.5 mg PO ONETIME ONE Stop: 09/04/20 16:30 Last Admin: 09/04/20 16:43 Dose: 2.5 mg Documented by: - Exam General: Reports: Alert, Oriented, No Acute Distress Neck: Reports: Supple Lungs: Reports: Clear to Auscultation Cardiovascular: Reports: Regular Rhythm GI/Abdominal Exam: Soft, Non-Tender Extremities: Normal Inspection Psy/Mental Status: Reports: Alert, Normal Affect
== END 2020-09-05 09:42 | disposition home or self-care (01) ==
LOC: LL.ED 13:52 → LL.MS 15:40 → UNDOADMOB 15:40 → UNDODISOB 09-05 09:42
PROVIDERS: ADMIT Emergency Medicine; ATTEND Family Medicine
DX: K59.09 Other constipation (principal); E78.00 Pure hypercholesterolemia, unspecified; I10 Essential (primary) hypertension; J45.909 Unspecified asthma, uncomplicated; G47.30 Sleep apnea, unspecified; K56.7 Ileus, unspecified; H40.9 Unspecified glaucoma; E11.42 Type 2 diabetes mellitus with diabetic polyneuropathy; K21.9 Gastro-esophageal reflux disease without esophagitis; M79.7 Fibromyalgia; M19.90 Unspecified osteoarthritis, unspecified site; E83.42 Hypomagnesemia; R32 Unspecified urinary incontinence; E66.9 Obesity, unspecified; Z68.31 Body mass index [BMI] 31.0-31.9, adult; Z91.041 Radiographic dye allergy status; Z88.1 Allergy status to other antibiotic agents; Z91.012 Allergy to eggs; Z91.040 Latex allergy status; Z91.011 Allergy to milk products; Z88.0 Allergy status to penicillin; Z88.6 Allergy status to analgesic agent; Z88.7 Allergy status to serum and vaccine; Z91.048 Other nonmedicinal substance allergy status; Z79.01 Long term (current) use of anticoagulants; Z79.899 Other long term (current) drug therapy; Z86.718 Personal history of other venous thrombosis and embolism; Z87.19 Personal history of other diseases of the digestive system; Z87.42 Personal history of other diseases of the female genital tract; Z98.890 Other specified postprocedural states; Z91.11 Patient's noncompliance with dietary regimen
CPT/HCPCS: 36415; 74018; 74022; 80048; 80053; 83036; 83605; 83735; 84484; 85025; 85610; 93005; 96374; 99217; 99219; 99285-25; A9270-GY; G0378; J3475; J7030

== ENCOUNTER 2020-09-07 15:53 | Inpatient (IN) | payer MEDICARE, MEDICAID, SELFPAY ==
--- NOTE | 2020-09-07 16:07 | EDM.PDOC ---
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 history. High-dose IV Pepcid and IV Protonix as a prophylactic measure. Qualifiers: Esophagitis presence: esophagitis presence not specified Qualified Code(s): K21.9 - Gastro-esophageal reflux disease without esophagitis (5) Mixed anxiety depressive disorder SNOMED Code(s): 545890381 Code(s): F41.8 - OTHER SPECIFIED ANXIETY DISORDERS Status: Chronic Priority: Medium Current Visit: Yes Annotation/Comment:: Stable by history although moderate control based on today's exam. Continue to observe closely by her regular provider. (6) Osteoarthritis SNOMED Code(s): 722376261 Code(s): M19.90 - UNSPECIFIED OSTEOARTHRITIS, UNSPECIFIED SITE Status: Chronic Priority: Medium Current Visit: Yes Annotation/Comment:: Stable by history with patient needing a walker. Qualifiers: Osteoarthritis location: multiple joints Osteoarthritis type: primary Qualified Code(s): M89.49 - Other hypertrophic osteoarthropathy, multiple sites (7) Hypertension SNOMED Code(s): 17628389 Code(s): I10 - ESSENTIAL (PRIMARY) HYPERTENSION Status: Chronic Priority: Medium Current Visit: Yes Annotation/Comment:: Blood pressure somewhat elevated in the emergency room. Continue to observe closely for now. Qualifiers: Hypertension type: essential hypertension Qualified Code(s): I10 - Essential (primary) hypertension - Problem List Review Problem List Initiated/Reviewed/Updated: Yes - My Orders Last 24 Hours: My Active Orders 09/07/20 16:14 Abdomen Series w Chest 1V [CR] Routine Obtain Past Medical Record [OM.PC] Routine - Assessment/Plan Admission H&P: Please use this note as an admission H&P Last 24 Hours: My Active Orders 09/07/20 16:14 Abdomen Series w Chest 1V [CR] Routine Obtain Past Medical Record [OM.PC] Routine Assessment:: As above Plan: As above. Extensive precautions were given to the patient and her daughter, who are in agreement with the treatment plan. See Patient Instructions for further treatment and plan. The patiennt's condition is stable enough to allow placement in Observation.
[2020-09-07] MEDS ORDERED: Polyethylene Glycol 3350 Powder 17 GM Packet PO ONE (18:15)
[2020-09-07] MEDS ORDERED: Polyethylene Glycol 3350 Powder 17 GM Packet PO PRN (18:15)
[2020-09-07] MEDS ORDERED: IPRATROPIUM INH PRN (18:15)
[2020-09-07] MEDS ORDERED: Magnesium Citrate Solution 296 ML Bottle PO ONE (18:15)
[2020-09-07] MEDS ORDERED: Cetirizine 10 MG Tab PO PRN (18:15)
[2020-09-07] MEDS ORDERED: Ondansetron 4 MG/2 ML SDV IVPUSH PRN (18:16)
[2020-09-07] MEDS ORDERED: Magnesium Oxide 400 MG Tab PO ONE (19:05)
[2020-09-07] MEDS ORDERED: Temazepam 15 MG Cap PO PRN (20:00)
[2020-09-07] MEDS ORDERED: Montelukast 10 MG Tab PO SCH (20:00)
[2020-09-07] MEDS ORDERED: Pravastatin 20 MG Tab PO SCH (20:00)
[2020-09-07] MEDS ORDERED: Escitalopram 20 MG Tab PO SCH (20:00)
[2020-09-07] MEDS: Escitalopram 20 MG Tab PO SCH (20:01)
[2020-09-07] MEDS: Montelukast 10 MG Tab PO SCH (20:01)
[2020-09-07] MEDS: Pravastatin 20 MG Tab PO SCH (20:01)
[2020-09-07] MEDS: Sodium Chloride 0.9% 10 ML Syringe FLUSH SCH (20:02)
[2020-09-07] MEDS: Famotidine 20 MG/2 ML SDV IVPUSH SCH (20:37)
[2020-09-07] MEDS: Pantoprazole 40 MG Vial IVPUSH SCH (20:37)
[2020-09-07] MEDS: Sodium Chloride 0.9% 10 ML Syringe FLUSH PRN (23:23)
[2020-09-08] MEDS: Pregabalin 75 MG Cap PO SCH ×2 (07:27→17:40)
[2020-09-08] MEDS: Famotidine 20 MG/2 ML SDV IVPUSH SCH ×2 (07:27→17:41)
[2020-09-08] MEDS: Docusate Sodium 100 MG Cap PO SCH ×2 (07:27→17:40)
[2020-09-08] MEDS: Pantoprazole 40 MG Vial IVPUSH SCH ×2 (07:27→21:39)
[2020-09-08] MEDS: Chlorthalidone 25 MG Tab PO SCH (07:28)
[2020-09-08] MEDS: Acetaminophen 325 MG Tab PO PRN (07:33)
[2020-09-08] MEDS: Latanoprost 0.005% Ophth Soln **OWN MED EYEBOTH SCH ×3 (07:34→21:39)
[2020-09-08] MEDS: Sodium Chloride 0.9% 10 ML Syringe FLUSH SCH ×2 (07:34→21:39)
[2020-09-08] MEDS: ALPHAGAN P EYEBOTH SCH ×2 (07:34→21:40)
[2020-09-08 07:39] LABS: CHLORIDE,CL 104 mmol/L (98-107); SODIUM,NA 143 mmol/L (136-145)
[2020-09-08] MEDS ORDERED: MAGNESIUM CHLORIDE PO SCH (08:00)
[2020-09-08] MEDS ORDERED: Polyethylene Glycol 3350 Powder 17 GM Packet PO ONE (08:44)
[2020-09-08] MEDS ORDERED: Magnesium Citrate Solution 296 ML Bottle PO ONE (08:44)
[2020-09-08] MEDS ORDERED: Glucagon,Human Recombinant 1 MG Vial IM PRN (08:46)
[2020-09-08] MEDS ORDERED: 50% Dextrose in Water 50 ML Syringe IV PRN (08:46)
[2020-09-08] MEDS ORDERED: Bisacodyl 5 MG Tab PO ONE (08:50)
--- NOTE | 2020-09-08 08:58 | PCM.PN ---
- General Info Date of Service: 09/08/20 Admission Dx/Problem (Free Text): 1. Constipation secondary abdominal pain 2. Peptic reflux disease Functional Status: Reports: Pain Controlled, Ambulating (With walker), Urinating, Incentive Spirometry. Denies: Tolerating Diet (Still n.p.o.), New Symptoms Pain Score: 4 (Left retro-orbital headache which apparently has been present for 1 week with stable nonspecific bilateral lower quadrant cramping secondary to her constipation) - Review of Systems General: Reports: Weakness (Stable generalized with required walker use), Appetite (Borderline anorexia). Denies: Fever, Fatigue, Malaise, Chills, Night Sweats HEENT: Reports: Headaches (Left retro-orbital headache as above). Denies: Ear Pain, Eye Pain, Post Nasal Drip, Sinus Congestion, Sore Throat, Rhinitis, Visual Changes Pulmonary: Reports: Cough (Stable chronic nonproductive). Denies: Shortness of Breath, Pleuritic Chest Pain, Sputum, Hemoptysis, Wheezing Cardiovascular: Reports: No Symptoms. Denies: Chest Pain, Palpitations, Dyspnea on Exertion, Orthopnea, PND, Edema, Lightheadedness Gastrointestinal: Reports: Abdominal Pain, Constipation, Decreased Appetite (As above), Other (Mild stool smearing). Denies: Difficulty Swallowing, Flatus, Hematochezia, Melena, Nausea, Vomiting Genitourinary: Reports: No Symptoms. Denies: Dysuria, Frequency, Burning, Pain, Urgency, Hematuria, Retention, Flank Pain Musculoskeletal: Reports: No Symptoms. Denies: Neck Pain, Shoulder Pain, Arm Pain, Back Pain, Leg Pain Skin: Reports: Bruising (Stable from previous hospitalization). Denies: Diaphoresis, Rash Neurological: Reports: Headache, Difficulty Walking (Stable with required walker use), Weakness (As above). Denies: Confusion, Dizziness, Numbness, Paresthesia, Tingling Psychiatric: Reports: Depression (Stable), Anxiety (Stable). Denies: Agitation, Cravings, Hallucinations - Patient Data Vitals - Most Recent: Last Vital Signs Temp 36.9 C 09/08/20 07:40 Pulse 103 H 09/08/20 07:40 Resp 16 09/08/20 07:40 BP 149/82 H 09/08/20 07:40 Pulse Ox 92 L 09/08/20 07:40 Vital Signs - 24 hr 09/07/20 09/07/20 09/07/20 16:00 18:03 19:43 Temperature [ Oral] Temperature [ 36.6 C 36.6 C 36.6 C Temporal] Pulse, Peripheral Pulse, 78 81 85 Peripheral [ Pulse Oximetry] Respiratory 16 16 16 Rate Blood Pressure Blood Pressure [Left Upper Arm ] Blood Pressure 171/83 H 160/72 H 158/100 H [Right Upper Arm] O2 Sat by Pulse 94 L 93 L 99 Oximetry 09/07/20 09/08/20 09/08/20 23:24 03:50 07:28 Temperature [ 37.1 C 36.9 C Oral] Temperature [ Temporal] Pulse, 103 H Peripheral Pulse, 91 105 H Peripheral [ Pulse Oximetry] Respiratory 20 20 Rate Blood Pressure 149/82 H Blood Pressure 158/89 H 153/79 H [Left Upper Arm ] Blood Pressure [Right Upper Arm] O2 Sat by Pulse 92 L 91 L Oximetry 09/08/20 07:40 Temperature [ 36.9 C Oral] Temperature [ Temporal] Pulse, Peripheral Pulse, 103 H Peripheral [ Pulse Oximetry] Respiratory 16 Rate Blood Pressure Blood Pressure 149/82 H [Left Upper Arm ] Blood Pressure [Right Upper Arm] O2 Sat by Pulse 92 L Oximetry Weight - Most Recent: 97.976 kg I&O - Last 24 Hours: Intake & Output 09/07/20 09/08/20 09/08/20 22:59 06:59 14:59 Intake Total 60 Output Total 200 300 Balance -200 -240 Imaging Impressions - Last 24 Hours: None Lab Results Last 24 Hours: Laboratory Results - last 24 hr 09/08/20 09/08/20 09/08/20 Range/Units 00:00 07:15 07:15 WBC 9.0 (4.0-10.2) K/uL RBC 4.55 (3.77-5.09) M/uL Hgb 13.4 (11.7-15.5) g/dL Hct 42.6 (34.0-46.0) % MCV 93.6 (84.0-98.0) fL MCH 29.5 (28.2-33.3) pg MCHC 31.5 L (31.7-36.0) g/dL RDW 13.4 (11.2-14.1) % Plt Count 296 (150-350) K/uL Neut % (Auto) 65.9 (45.0-80.0) % Lymph % (Auto) 25.5 (10.0-50.0) % [place] % (Auto) 6.4 (2.0-14.0) % Eos % (Auto) 1.9 (0.0-5.0) % Baso % (Auto) 0.3 (0.0-2.0) % Neut # (Auto) 5.91 (1.40-7.00) K/uL Lymph # (Auto) 2.29 (0.50-3.50) K/uL [place] # (Auto) 0.57 (0.00-1.00) K/uL Eos # (Auto) 0.17 (0.00-0.50) K/uL Baso # (Auto) 0.03 (0.00-0.20) K/uL Sodium 143 (136-145) mmol/L Potassium 3.8 (3.5-5.1) mmol/L Chloride 104 (98-107) mmol/L Carbon Dioxide 34.4 H (21.0-32.0) mmol/L BUN 18 (7-18) mg/dL Creatinine 0.80 (0.51-1.17) mg/dL Est Cr Clr Drug Dosing 54.89 mL/min Estimated GFR (MDRD) > 60 mL/min Glucose 185 H (70-99) mg/dL Calcium 8.1 L (8.5-10.1) mg/dL Magnesium 2.4 (1.8-2.4) mg/dL Total Bilirubin 0.4 (0.2-1.0) mg/dL AST 37 (15-37) U/L ALT 66 (12-78) U/L Alkaline Phosphatase 111 (46-116) IU/L Total Protein 6.3 L (6.4-8.2) g/dL Albumin 2.9 L (3.4-5.0) g/dL Amylase 20 L (25-115) U/L Lipase 39 L (73-393) U/L Specimen Type Urincc Urine Color Yellow Urine Appearance Slightly cloudy Urine pH 7.0 (5.0-9.0) Ur Specific [place] 1.025 (1.005-1.030) Urine Protein Negative (NEGATIVE) mg/dL Urine Glucose (UA) 100 H (NEGATIVE) mg/dL Urine Ketones 15 H (NEGATIVE) mg/dL Urine Occult Blood Negative (NEGATIVE) Urine Nitrite Negative (NEGATIVE) Urine Bilirubin Negative (NEGATIVE) Urine Urobilinogen 0.2 (0.2-1.0) E.U./dL Ur Leukocyte Esterase Negative (NEGATIVE) Urine RBC Not seen /HPF Urine WBC 0-5 /HPF Ur Epithelial Cells Moderate H /LPF Urine Bacteria Rare (NONE TO FEW) /HPF Urine specimen sent for culture and sensitivity Leoncio Results Last 24 Hours: Microbiology 09/07/20 16:14 Stool Occult Blood (LEONCIO) - Final Stool / Feces NEGATIVE OCCULT BLOOD REFERENCE RANGE: NEGATIVE Med Orders - Current: Current Medications Acetaminophen (Tylenol) 650 mg PO Q4H PRN PRN Reason: Pain Last Admin: 09/08/20 07:33 Dose: 650 mg Documented by: Bisacodyl (Dulcolax) 10 mg PO ONETIME ONE Stop: 09/08/20 08:51 Cetirizine HCl (Zyrtec) 10 mg PO DAILY PRN PRN Reason: Allergies Chlorthalidone (Chlorthalidone) 12.5 mg PO TUTHSA@08 [facility] Last Admin: 09/08/20 07:28 Dose: 12.5 mg Documented by: Dextrose/Water (Dextrose 50% In Water) 50 ml IV ASDIRECTED PRN PRN Reason: Hypoglycemia Docusate Sodium (Colace) 100 mg PO BID [facility] Last Admin: 09/08/20 07:27 Dose: 100 mg Documented by: Escitalopram Oxalate (Lexapro) 20 mg PO BEDTIME [facility] Last Admin: 09/07/20 20:01 Dose: 20 mg Documented by: Famotidine (Pepcid) 20 mg IVPUSH BID [facility] Last Admin: 09/08/20 07:27 Dose: 20 mg Documented by: Glucagon (Glucagen) 1 mg IM ASDIRECTED PRN PRN Reason: Hypoglycemia Lactated Ringer's (Ringers, Lactated) 1,000 mls @ 80 mls/hr IV ASDIRECTED [facility] Insulin Human Lispro ([facility]) [facility] Protocol Latanoprost (Xalatan 0.005% Ophth Soln) 0 ml EYEBOTH BID [facility] Last Admin: 09/08/20 07:39 Dose: Not Given Documented by: Lisinopril (Prinivil) 10 mg PO DAILY [facility] Magnesium Citrate (Citrate Of Magnesia) 0 ml PO ONETIME ONE Stop: 09/08/20 08:45 Metformin HCl (Glucophage) 500 mg PO BIDMEALS [facility] Montelukast Sodium (Singulair) 10 mg PO BEDTIME [facility] Last Admin: 09/07/20 20:01 Dose: 10 mg Documented by: Nebivolol (Bystolic) 1.25 mg PO DAILY [facility] Last Admin: 09/08/20 07:28 Dose: 1.25 mg Documented by: Cassia Cuellar 1% Own (Med) 0 each EYEBOTH BID [facility] Last Admin: 09/08/20 07:34 Dose: 1 each Documented by: Non-Formulary Medication (Ipratropium) 2 puff INH Q6H PRN PRN Reason: Shortness of Breath Non-Formulary Medication (Magnesium Chloride [Nu-Mag]) 2 tab PO TID [facility] Ondansetron HCl (Zofran) 4 mg IVPUSH Q6H PRN PRN Reason: Nausea/Vomiting Last Admin: 09/07/20 23:23 Dose: 4 mg Documented by: Pantoprazole Sodium (Protonix Iv) 40 mg IVPUSH Q12H [facility] Last Admin: 09/08/20 07:27 Dose: 40 mg Documented by: Polyethylene Glycol (Miralax) 17 gm PO DAILY PRN PRN Reason: Constipation Last Admin: 09/08/20 07:56 Dose: 17 gm Documented by: Polyethylene Glycol (Miralax) 17 gm PO ONETIME ONE Stop: 09/08/20 08:45 Pravastatin Sodium (Pravachol) 20 mg PO BEDTIME [facility] Last Admin: 09/07/20 20:01 Dose: 20 mg Documented by: Pregabalin (Lyrica) 150 mg PO BID [facility] Last Admin: 09/08/20 07:27 Dose: 150 mg Documented by: Sodium Chloride (Saline Flush) 10 ml FLUSH Q12HR [facility] Last Admin: 09/08/20 07:34 Dose: 10 ml Documented by: Sodium Chloride (Saline Flush) 10 ml FLUSH ASDIRECTED PRN PRN Reason: Keep Vein Open Last Admin: 09/07/20 23:23 Dose: 10 ml Documented by: Temazepam (Restoril) 15 mg PO DAILY@2000 PRN PRN Reason: Insomnia Warfarin Sodium (Coumadin) 1.5 mg PO SUTUTHSA@18 [facility] Warfarin Sodium (Coumadin) 2 mg PO MOWEFR@18 [facility] Discontinued Medications Famotidine (Pepcid) 20 mg IVPUSH Q12H [facility] Magnesium Citrate (Citrate Of Magnesia) 0 ml PO ONETIME ONE Stop: 09/07/20 18:16 Last Admin: 09/07/20 20:00 Dose: 296 ml Documented by: Magnesium Oxide (Magnesium Oxide) 400 mg PO ONETIME ONE Stop: 09/07/20 19:06 Last Admin: 09/07/20 20:00 Dose: 400 mg Documented by: Montelukast Sodium (Singulair) 10 mg PO BEDTIME [facility] Polyethylene Glycol (Miralax) 17 gm PO ONETIME ONE Stop: 09/07/20 18:16 Last Admin: 09/07/20 20:00 Dose: 17 gm Documented by: Pravastatin Sodium (Pravachol) 20 mg PO BEDTIME [facility] - Exam Quality Assessment: DVT Prophylaxis (Coumadin). No: Supplemental Oxygen, C entral Line/PICC, Urine Catheter, Skin Breakdown, Restraints General: Alert, Oriented, Cooperative, No Acute Distress HEENT: Pupils Equal, Pupils Reactive, EOMI, Mucous Membr. Moist/Kim. No: Scleral Icterus Neck: Supple, Trachea Midline, No JVD, No Thyromegaly. No: Lymphadenopathy Lungs: Clear to Auscultation, Normal Respiratory Effort. No: Rub Cardiovascular: Regular Rate, Regular Rhythm, No Murmurs. No: Tachycardia (Resolved from previous vitals although borderline), Gallops, Rubs GI/Abdominal Exam: Normal Bowel Sounds, Soft, Non-Tender, No Organomegaly, No Distention, No Abnormal Bruit, No Mass, Pelvis Stable, Other (Obese) (Female) Exam: Deferred Back Exam: Normal Inspection, Full Range of Motion. No: CVA Tenderness (L), CVA Tenderness (R), Muscle Spasm Extremities: Normal Inspection, Normal Range of Motion, Non-Tender, No Pedal Edema, Normal Capillary Refill. No: Sameera's Sign Peripheral Pulses: 2+: Radial (L), Radial (R), Dorsalis Pedis (L), Dorsalis Pedis (R) Skin: Warm, Dry, Intact, Ecchymosis (Arms and hands by laterally secondary to previous IVs from recent hospitalization. No petechiae.) Neurological: No New Focal Deficit Psy/Mental Status: Anxious (Mild to moderate), Depressed (Moderate). No: Agitated, Hallucinations, Withdrawal Symptoms - Patient Data Lab Results Last 24 hrs: Laboratory Results - last 24 hr 09/08/20 09/08/20 09/08/20 Range/Units 00:00 07:15 07:15 WBC 9.0 (4.0-10.2) K/uL RBC 4.55 (3.77-5.09) M/uL Hgb 13.4 (11.7-15.5) g/dL Hct 42.6 (34.0-46.0) % MCV 93.6 (84.0-98.0) fL MCH 29.5 (28.2-33.3) pg MCHC 31.5 L (31.7-36.0) g/dL RDW 13.4 (11.2-14.1) % Plt Count 296 (150-350) K/uL Neut % (Auto) 65.9 (45.0-80.0) % Lymph % (Auto) 25.5 (10.0-50.0) % [place] % (Auto) 6.4 (2.0-14.0) % Eos % (Auto) 1.9 (0.0-5.0) % Baso % (Auto) 0.3 (0.0-2.0) % Neut # (Auto) 5.91 (1.40-7.00) K/uL Lymph # (Auto) 2.29 (0.50-3.50) K/uL [place] # (Auto) 0.57 (0.00-1.00) K/uL Eos # (Auto) 0.17 (0.00-0.50) K/uL Baso # (Auto) 0.03 (0.00-0.20) K/uL Sodium 143 (136-145) mmol/L Potassium 3.8 (3.5-5.1) mmol/L Chloride 104 (98-107) mmol/L Carbon Dioxide 34.4 H (21.0-32.0) mmol/L BUN 18 (7-18) mg/dL Creatinine 0.80 (0.51-1.17) mg/dL Est Cr Clr Drug Dosing 54.89 mL/min Estimated GFR (MDRD) > 60 mL/min Glucose 185 H (70-99) mg/dL Calcium 8.1 L (8.5-10.1) mg/dL Magnesium 2.4 (1.8-2.4) mg/dL Total Bilirubin 0.4 (0.2-1.0) mg/dL AST 37 (15-37) U/L ALT 66 (12-78) U/L Alkaline Phosphatase 111 (46-116) IU/L Total Protein 6.3 L (6.4-8.2) g/dL Albumin 2.9 L (3.4-5.0) g/dL Amylase 20 L (25-115) U/L Lipase 39 L (73-393) U/L Specimen Type Urincc Urine Color Yellow Urine Appearance Slightly cloudy Urine pH 7.0 (5.0-9.0) Ur Specific [place] 1.025 (1.005-1.030) Urine Protein Negative (NEGATIVE) mg/dL Urine Glucose (UA) 100 H (NEGATIVE) mg/dL Urine Ketones 15 H (NEGATIVE) mg/dL Urine Occult Blood Negative (NEGATIVE) Urine Nitrite Negative (NEGATIVE) Urine Bilirubin Negative (NEGATIVE) Urine Urobilinogen 0.2 (0.2-1.0) E.U./dL Ur Leukocyte Esterase Negative (NEGATIVE) Urine RBC Not seen /HPF Urine WBC 0-5 /HPF Ur Epithelial Cells Moderate H /LPF Urine Bacteria Rare (NONE TO FEW) /HPF Result Diagrams: 09/08/20 07:15 09/08/20 07:15 Leoncio Results Last 24 hrs: Microbiology 09/07/20 16:14 Stool Occult Blood (LEONCIO) - Final Stool / Feces NEGATIVE OCCULT BLOOD REFERENCE RANGE: NEGATIVE Sepsis Event Note - Evaluation Sepsis Screening Result: No Definite Risk - Focused Exam Vital Signs: Vital Signs Temp Pulse Pulse Resp BP BP Pulse Ox 09/08/20 07:40 36.9 C 103 H 16 149/82 H 92 L 09/08/20 07:28 103 H 149/82 H 09/08/20 03:50 36.9 C 105 H 20 153/79 H 91 L 09/07/20 23:24 37.1 C 91 20 158/89 H 92 L - Problem List & Annotations (1) Constipation SNOMED Code(s): 17222383 Code(s): K59.00 - CONSTIPATION, UNSPECIFIED Status: Acute Priority: High Current Visit: Yes Onset Date: ~09/04/20 Qualifiers: Constipation type: unspecified constipation type Qualified Code(s): K59.00 - Constipation, unspecified Annotation/Comment:: In spite of magnesium citrate and MiraLAX therapy after admission the patient has had to have a bowel movement, although she is having some stool smears at this time. Additional Dulcolax and MiraLAX with magnesium citrate will be initiated this morning with repeat dose later today, if this remains ineffective. Secondary to some mild ketonuria with no evidence of significant dehydration the patient will be started on IV lactated Ringer's. Continue observation status for now with delay of repeat x-rays or blood work for the time being. Note the patient and her daughter refused outpatient treatment in the emergency room secondary to their safety issues of care at home. The patient was placed in observation status per their request. Abdominal check with vitals have been stable. Soapsuds enema depending on her clinical course. Patient and her daughter were extensively counseled on the importance of compliance with medical therapy, excellent bowel movements on at least a daily to every other day basis, etc. in the emergency room prior to hospitalization. Mild abdominal pain secondary to her constipation as above with no evidence of acute GI bleed. High-dose IV Pepcid and IV Protonix initiated on admission as GI prophylaxis. 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 By patient history patient had an INR of 3.2 at [facility] on 3 prior to admission. (2) Asthma SNOMED Code(s): 331196081 Code(s): J45.909 - UNSPECIFIED ASTHMA, UNCOMPLICATED Status: Chronic Priority: Medium Current Visit: Yes Qualifiers: Asthma severity: mild Asthma persistence: intermittent Asthma complication type: uncomplicated Qualified Code(s): J45.20 - Mild intermittent asthma, uncomplicated Annotation/Comment:: Stable by history with no recent fever or bronchitic type symptoms. (3) Diabetes mellitus SNOMED Code(s): 42491358 Code(s): E11.9 - TYPE 2 DIABETES MELLITUS WITHOUT COMPLICATIONS Status: Chronic Priority: Medium Current Visit: Yes Qualifiers: Diabetes mellitus type: type 2 Diabetes mellitus senior care insulin use: without senior care use Diabetes mellitus complication status: without complication Qualified Code(s): E11.9 - Type 2 diabetes mellitus without complications Annotation/Comment:: Previously diet controlled, although the patient has been observed to be significantly noncompliant with her diet and has also been noncompliant with her home Accu-Cheks. Diabetic teaching, including review of diabetic Accu-Cheks, diet, etc. initiated on 09/08. Glycosylated hemoglobin 8.6% on 09/05/2020 in this facility. Metformin therapy initiated in the a.m. of 09/08 w ith additional lisinopril for better blood pressure control and as renal protection for her diabetes. The patient was also placed on a Humalog twice daily sliding scale on 09/08. Glycosylated hemoglobin and lipid panel should be repeated in about 3 months by her regular provider. Weight loss in moderation strongly advisable with dietary information to be provided at discharge. (4) GERD (gastroesophageal reflux disease) SNOMED Code(s): 799653432 Code(s): K21.9 - GASTRO-ESOPHAGEAL REFLUX DISEASE WITHOUT ESOPHAGITIS Status: Chronic Priority: Medium Current Visit: Yes Qualifiers: Esophagitis presence: esophagitis presence not specified Qualified Code(s): K21.9 - Gastro-esophageal reflux disease without esophagitis Annotation/Comment:: History Gerd/HH/PUD. Stable per history. High-dose IV Pepcid and IV Protonix initiated on admission as above. (5) Mixed anxiety depressive disorder SNOMED Code(s): 253137762 Code(s): F41.8 - OTHER SPECIFIED ANXIETY DISORDERS Status: Chronic Priority: Medium Current Visit: Yes Annotation/Comment:: Stable by history although moderate control based on today's exam. Continue to observe closely by her regular provider. Note 1 week history of minor left-sided headache as above with Tylenol received this morning. Continue to observe for now. (6) Osteoarthritis SNOMED Code(s): 016127946 Code(s): M19.90 - UNSPECIFIED OSTEOARTHRITIS, UNSPECIFIED SITE Status: Chronic Priority: Medium Current Visit: Yes Qualifiers: Osteoarthritis location: multiple joints Osteoarthritis type: primary Qualified Code(s): M89.49 - Other hypertrophic osteoarthropathy, multiple sites Annotation/Comment:: Stable by history with patient needing a walker. (7) Hypertension SNOMED Code(s): 67050580 Code(s): I10 - ESSENTIAL (PRIMARY) HYPERTENSION Status: Chronic Priority: Medium Current Visit: Yes Qualifiers: Hypertension type: essential hypertension Qualified Code(s): I10 - Ailyn ntial (primary) hypertension Annotation/Comment:: Blood pressure somewhat elevated in the emergency room and during the early phases of this hospitalization. Lisinopril initiated on 09/08/2020 as above. Continue to observe closely. (8) Hypocalcemia SNOMED Code(s): 4095898 Code(s): E83.51 - HYPOCALCEMIA Status: Acute Priority: Medium Current Visit: Yes Onset Date: 09/08/20 Annotation/Comment:: Observe for now (9) Hypomagnesemia SNOMED Code(s): 940048968 Code(s): E83.42 - HYPOMAGNESEMIA Status: Chronic Priority: Medium Curre nt Visit: Yes Annotation/Comment:: Normal on 09/08/2020. Her magnesium supplement from home is not available with magnesium oxide at 400 mg p.o. twice daily initiated on admission. (10) Hypoalbuminemia SNOMED Code(s): 565009688 Code(s): E88.09 - OT DISORDERS OF PLASMA-PROTEIN METABOLISM, NEC Status: Chronic Priority: Medium Current Visit: Yes Onset Date: 02/05/17 An notation/Comment:: Consider high protein Glucerna supplements as snacks as previously advised however note problems with her obesity, dietary noncompliance, etc. Observe for now. - Problem List Review Problem List Initiated/Reviewed/Updated: Yes - My Orders Last 24 Hours: My Active Orders 09/07/20 16:14 Abdomen Series w Chest 1V [CR] Routine 09/07/20 18:15 Cetirizine [ZyrTEC] 10 mg PO DAILY PRN Ipratropium 2 puff INH Q6H PRN polyethylene glycoL 3350 [MiraLAX] 17 gm PO DAILY PRN 09/07/20 18:16 Communication Order [RC] 08,20 Communication Order [RC] Q4HR Height and Weight [RC] DAILY Intake and Output Strict [RC] 06,18 Oxygen Therapy [RC] .PRN Pulse Oximetry [RC] .PRN Up With Assistance [RC] DAILY Acetaminophen [TylenoL] 650 mg PO Q4H PRN Ondansetron [Zofran] 4 mg IVPUSH Q6H PRN GM Immunization Reflex [OM.PC] Click to Edit 09/07/20 18:17 Communication, Vaccine [RC] PER UNIT ROUTINE 09/07/20 19:28 Peripheral IV Care [RC] . DIRECTED Sodium Chloride 0.9% [Saline Flush] 10 ml FLUSH ASDIRECTED PRN Peripheral IV Insertion Adult [OM.PC] Routine 09/07/20 20:00 Escitalopram [Lexapro] 20 mg PO BEDTIME Montelukast [Singulair] 10 mg PO BEDTIME Pravastatin [Pravachol] 20 mg PO BEDTIME Sodium Chloride 0.9% [Saline Flush] 10 ml FLUSH Q12HR Temazepam [Restoril] 15 mg PO DAILY@1999 PRN 09/07/20 20:15 Famotidine [Pepcid] 20 mg IVPUSH BID Pantoprazole [ProTONIX IV] 40 mg IVPUSH Q12H 09/07/20 22:00 CULTURE URINE [RM] Stat 09/07/20 22:08 Resuscitation Status Routine 09/08/20 Breakfast ADA Diabetic [[employer] [employer] Diet] [DIET] 09/08/20 08:00 Chlorthalidone 12.5 mg PO TUTHSA@08 Docusate Sodium [Colace] 100 mg PO BID Latanoprost [Xalatan 0.005% Ophth Soln] 0 ml EYEBOTH BID Magnesium Chloride [Nu-Mag] 2 tab PO TID Nebivolol [Bystolic] 1.25 mg PO DAILY Non-Formulary Medication [NF Drug] 0 each EYEBOTH BID Pregabalin [Lyrica] 150 mg PO BID 09/08/20 08:44 Magnesium Citrate [Citrate of Magnesia] See Dose Instructions PO ONETIME ONE polyethylene glycoL 3350 [MiraLAX] 17 gm PO ONETIME ONE 09/08/20 08:45 metFORMIN [Glucophage] 500 mg PO BIDMEALS 09/08/20 08:46 Dextrose 50% in Water 50 ml IV ASDIRECTED PRN Glucagon,Human Recombinant [GlucaGen] 1 mg IM ASDIRECTED PRN 09/08/20 08:50 Communication Order [RC] ROUTINE bisacodyL [Dulcolax] 10 mg PO ONETIME ONE 09/08/20 08:52 Vital Signs [RC] Q6HR 09/08/20 09:00 Lactated Ringers [Ringers, Lactated] 1,000 ml IV ASDIRECTED lisinopriL [Prinivil] 10 mg PO DAILY 09/08/20 17:30 Blood Glucose Check, Bedside [RC] BIDAC Insulin Lispro [HumaLOG] See Protocol SUBCUT BIDAC 09/08/20 18:00 Warfarin [Coumadin] 1.5 mg PO SUTUTHSA@18 09/09/20 18:00 Warfarin [Coumadin] 2 mg PO MOWEFR@18 - Assessment Assessment:: As above - Plan Plan:: As above. Extensive precautions were given to the patient, who is in agreement with the treatment plan. Continue observation status with consideration of transfer to acute care tomorrow, if symptoms continue to remain refractory to therapy.
[2020-09-08] MEDS: metFORMIN 500 MG Tab PO SCH ×2 (09:37→17:39)
[2020-09-08] MEDS: Magnesium Oxide 400 MG Tab PO SCH ×2 (09:37→17:40)
[2020-09-08] MEDS: Lisinopril 10 MG Tab PO SCH (09:37)
[2020-09-08] MEDS: Lactated Ringers 1,000 ML IV SCH ×2 (09:38→21:41)
[2020-09-08] MEDS: Insulin Lispro 100 Units/ML 3 ML Vial SUBCUT SCH (17:50)
[2020-09-08] MEDS ORDERED: Famotidine 20 MG/2 ML SDV IVPUSH SCH (18:30)
[2020-09-08] MEDS ORDERED: Pantoprazole 40 MG Vial IVPUSH SCH (18:30)
[2020-09-08] MEDS: Escitalopram 20 MG Tab PO SCH (21:38)
[2020-09-08] MEDS: Montelukast 10 MG Tab PO SCH (21:38)
[2020-09-08] MEDS: Pravastatin 20 MG Tab PO SCH (21:38)
[2020-09-09] MEDS: Pregabalin 75 MG Cap PO SCH ×2 (08:20→17:29)
[2020-09-09] MEDS: Magnesium Oxide 400 MG Tab PO SCH ×2 (08:20→17:30)
[2020-09-09] MEDS: Lisinopril 10 MG Tab PO SCH (08:20)
[2020-09-09] MEDS: metFORMIN 500 MG Tab PO SCH ×2 (08:21→17:03)
[2020-09-09] MEDS: Docusate Sodium 100 MG Cap PO SCH ×2 (08:23→17:30)
[2020-09-09] MEDS: ALPHAGAN P EYEBOTH SCH ×2 (08:23→17:02)
[2020-09-09] MEDS: Insulin Lispro 100 Units/ML 3 ML Vial SUBCUT SCH ×2 (08:25→17:13)
[2020-09-09] MEDS: Latanoprost 0.005% Ophth Soln **OWN MED EYEBOTH SCH ×2 (08:26→21:14)
[2020-09-09] MEDS: Pantoprazole 40 MG Vial IVPUSH SCH ×2 (08:28→21:13)
[2020-09-09] MEDS: Famotidine 20 MG/2 ML SDV IVPUSH SCH ×2 (08:28→17:29)
[2020-09-09] MEDS: Sodium Chloride 0.9% 10 ML Syringe FLUSH SCH ×2 (08:29→21:13)
--- NOTE | 2020-09-09 09:16 | PCM.PN ---
- General Info Date of Service: 09/09/20 Admission Dx/Problem (Free Text): 1. Constipation secondary abdominal pain 2. Peptic reflux disease Functional Status: Reports: Pain Controlled, Tolerating Diet, Ambulating (With assist and walker), Urinating (Urinary incontinence), Incentive Spirometry. Denies: New Symptoms Pain Score: 3 (Improved abdominal pain. Resolved headache) - Review of Systems General: Reports: Weakness (Chronic). Denies: Fever, Fatigue, Malaise, Chills, Night Sweats, Appetite (Good) HEENT: Reports: Glasses. Denies: Dysphasia, Ear Pain, Eye Pain, Headaches, Post Nasal Drip, Sinus Congestion, Sore Throat, Rhinitis, Visual Changes Pulmonary: Reports: No Symptoms. Denies: Shortness of Breath, Pleuritic Chest Pain, Cough, Sputum, Hemoptysis, Wheezing Cardiovascular: Reports: Edema (Mild dependent). Denies: Chest Pain, Palpitat ions, Dyspnea on Exertion, Orthopnea, Lightheadedness, Other Gastrointestinal: Reports: Abdominal Pain, Constipation (Improved). Denies: Decreased Appetite, Diarrhea, Difficulty Swallowing, Flatus, Hematochezia, Melena, Nausea, Vomiting, Other Genitourinary: Reports: Incontinence. Denies: Dysuria, Frequency, Burning, Pain, Urgency, Hematuria, Retention, Flank Pain Musculoskeletal: Reports: No Symptoms. Denies: Neck Pain, Shoulder Pain, Arm Pain, Back Pain, Leg Pain Skin: Reports: Bruising (Stable from previous IV sites). Denies: Jaundice, Pallor, Diaphoresis, Pruritis, Rash Neurological: Reports: Difficulty Walking (As above), Weakness (As above). Denies: Confusion, Dizziness, Headache Psychiatric: Reports: Depression (Improved), Anxiety (Improved). Denies: Agitation, Cravings, Hallucinations - Patient Data Vitals - Most Recent: Last Vital Signs Temp 36.4 C 09/09/20 06:00 Pulse 83 09/09/20 08:26 Resp 14 09/09/20 06:00 BP 133/72 09/09/20 08:26 Pulse Ox 93 L 09/09/20 06:00 Vital Signs - 24 hr 09/08/20 09/08/20 09/08/20 09:37 12:00 18:00 Temperature [ 36.6 C 36.9 C Oral] Pulse, Peripheral Pulse, 67 82 Peripheral [ Pulse Oximetry] Respiratory 16 18 Rate Blood Pressure 149/82 H Blood Pressure 120/69 139/87 [Left Upper Arm ] Blood Pressure [Right Upper Arm] O2 Sat by Pulse 92 L 95 Oximetry 09/08/20 09/09/20 09/09/20 23:20 06:00 08:20 Temperature [ 36.8 C 36.4 C Oral] Pulse, Peripheral Pulse, 82 83 Peripheral [ Pulse Oximetry] Respiratory 15 14 Rate Blood Pressure 133/72 Blood Pressure 132/72 [Left Upper Arm ] Blood Pressure 148/94 H [Right Upper Arm] O2 Sat by Pulse 97 93 L Oximetry 09/09/20 08:26 Temperature [ Oral] Pulse, 83 Peripheral Pulse, Peripheral [ Pulse Oximetry] Respiratory Rate Blood Pressure 133/72 Blood Pressure [Left Upper Arm ] Blood Pressure [Right Upper Arm] O2 Sat by Pulse Oximetry Weight - Most Recent: 97.976 kg I&O - Last 24 Hours: Intake & Output 09/08/20 09/09/20 09/09/20 22:59 06:59 14:59 Intake Total 1595 Balance 1595 Imaging Impressions - Last 24 Hours: None Lab Results Last 24 Hours: Laboratory Results - last 24 hr 09/08/20 09/09/20 Range/Units 17:11 07:45 POC Glucose 163 H 148 H (65-110) mg/dl [facility]cio Results Last 24 Hours: Microbiology 09/07/20 16:14 Stool / Feces Stool Occult Blood (LEONCIO) - Final NEGATIVE OCCULT BLOOD REFERENCE RANGE: NEGATIVE Med Orders - Current: Current Medications Acetaminophen (Tylenol) 650 mg PO Q4H PRN PRN Reason: Pain Last Admin: 09/08/20 07:33 Dose: 650 mg Documented by: Cetirizine HCl (Zyrtec) 10 mg PO DAILY PRN PRN Reason: Allergies Chlorthalidone (Chlorthalidone) 12.5 mg PO TUTHSA@08 [facility] Last Admin: 09/08/20 07:28 Dose: 12.5 mg Documented by: Dextrose/Water (Dextrose 50% In Water) 50 ml IV ASDIRECTED PRN PRN Reason: Hypoglycemia Docusate Sodium (Colace) 100 mg PO BID [facility] Last Admin: 09/09/20 08:23 Dose: Not Given Documented by: Escitalopram Oxalate (Lexapro) 20 mg PO BEDTIME [facility] Last Admin: 09/08/20 21:38 Dose: 20 mg Documented by: Famotidine (Pepcid) 20 mg IVPUSH BID [facility] Last Admin: 09/09/20 08:28 Dose: 20 mg Documented by: Glucagon (Glucagen) 1 mg IM ASDIRECTED PRN PRN Reason: Hypoglycemia Lactated Ringer's (Ringers, Lactated) 1,000 mls @ 80 mls/hr IV ASDIRECTED [facility] Last Admin: 09/08/20 21:41 Dose: 80 mls/hr Documented by: Insulin Human Lispro (Humalog) 0 unit SUBCUT BIDAC [facility]; Protocol Last Admin: 09/09/20 08:25 Dose: Not Given Documented by: Latanoprost (Xalatan 0.005% Ophth Soln) 0 ml EYEBOTH BID [facility] Last Admin: 09/09/20 08:26 Dose: Not Given Documented by: Lisinopril (Prinivil) 10 mg PO DAILY [facility] Last Admin: 09/09/20 08:20 Dose: 10 mg Documented by: Magnesium Oxide (Magnesium Oxide) 400 mg PO BID [facility] Last Admin: 09/09/20 08:20 Dose: 400 mg Documented by: Metformin HCl (Glucophage) 500 mg PO BIDMEALS [facility] Last Admin: 09/09/20 08:21 Dose: 500 mg Documented by: Montelukast Sodium (Singulair) 10 mg PO BEDTIME [facility] Last Admin: 09/08/20 21:38 Dose: 10 mg Documented by: Nebivolol (Bystolic) 1.25 mg PO DAILY [facility] Last Admin: 09/09/20 08:26 Dose: 1.25 mg Documented by: Alphagan P 1% Own (Med) 0 each EYEBOTH BID [facility] Last Admin: 09/09/20 08:23 Dose: 1 each Documented by: Non-Formulary Medication (Ipratropium) 2 puff INH Q6H PRN PRN Reason: Shortness of Breath Ondansetron HCl (Zofran) 4 mg IVPUSH Q6H PRN PRN Reason: Nausea/Vomiting Last Admin: 09/07/20 23:23 Dose: 4 mg Documented by: Pantoprazole Sodium (Protonix Iv) 40 mg IVPUSH Q12H [facility] Last Admin: 09/09/20 08:28 Dose: 40 mg Documented by: Polyethylene Glycol (Miralax) 17 gm PO DAILY PRN PRN Reason: Constipation Pravastatin Sodium (Pravachol) 20 mg PO BEDTIME [facility] Last Admin: 09/08/20 21:38 Dose: 20 mg Documented by: Pregabalin (Lyrica) 150 mg PO BID [facility] Last Admin: 09/09/20 08:20 Dose: 150 mg Documented by: Sodium Chloride (Saline Flush) 10 ml FLUSH Q12HR [facility] Last Admin: 09/09/20 08:29 Dose: 10 ml Documented by: Sodium Chloride (Saline Flush) 10 ml FLUSH ASDIRECTED PRN PRN Reason: Keep Vein Open Last Admin: 09/07/20 23:23 Dose: 10 ml Documented by: Temazepam (Restoril) 15 mg PO DAILY@2000 PRN PRN Reason: Insomnia Warfarin Sodium (Coumadin) 1.5 mg PO SUTUTHSA@18 [facility] Last Admin: 09/08/20 17:40 Dose: 1.5 mg Documented by: Warfarin Sodium (Coumadin) 2 mg PO MOWEFR@18 [facility] Discontinued Medications Bisacodyl (Dulcolax) 10 mg PO ONETIME ONE Stop: 09/08/20 08:51 Last Admin: 09/08/20 09:37 Dose: 10 mg Documented by: Famotidine (Pepcid) 20 mg IVPUSH Q12H [facility] Magnesium Citrate (Citrate Of Magnesia) 0 ml PO ONETIME ONE Stop: 09/07/20 18:16 Last Admin: 09/07/20 20:00 Dose: 296 ml Documented by: Magnesium Citrate (Citrate Of Magnesia) 0 ml PO ONETIME ONE Stop: 09/08/20 08:45 Last Admin: 09/08/20 09:36 Dose: 296 ml Documented by: Magnesium Oxide (Magnesium Oxide) 400 mg PO ONETIME ONE Stop: 09/07/20 19:06 Last Admin: 09/07/20 20:00 Dose: 400 mg Documented by: Montelukast Sodium (Singulair) 10 mg PO BEDTIME [facility] Polyethylene Glycol (Miralax) 17 gm PO ONETIME ONE Stop: 09/07/20 18:16 Last Admin: 09/07/20 20:00 Dose: 17 gm Documented by: Polyethylene Glycol (Miralax) 17 gm PO ONETIME ONE Stop: 09/08/20 08:45 Last Admin: 09/08/20 09:37 Dose: 17 gm Documented by: Pravastatin Sodium (Pravachol) 20 mg PO BEDTIME [facility] - Exam Quality Assessment: DVT Prophylaxis (Coumadin). No: Supplemental Oxygen, Central Line/PICC, Urine Catheter, Skin Breakdown, Restraints General: Oriented, Cooperative, No Acute Distress HEENT: Pupils Equal, Pupils Reactive, EOMI, Mucous Membr. Moist/[address], Other (Patient is wearing glasses). No: Scleral Icterus Neck: Supple, Trachea Midline, No JVD, No Thyromegaly. No: Lymphadenopathy, Thy romegaly Lungs: Clear to Auscultation, Normal Respiratory Effort. No: Rub Cardiovascular: Regular Rate, Regular Rhythm, No Murmurs. No: Gallops, Rubs GI/Abdominal Exam: Normal Bowel Sounds, Soft, Non-Tender, No Organomegaly, No Distention, No Abnormal Bruit, No Mass, Other (Obese). No: Guarding (Female) Exam: Deferred Back Exam: Normal Inspection, Full Range of Motion. No: CVA Tenderness (L), CVA Tenderness (R), Muscle Spasm Extremities: Normal Range of Motion, Non-Tender, No Pedal Edema, Normal Capillary Refill, Pedal Edema (Trace bilateral pedal/pretibial edema). No: Sameera's Sign Peripheral Pulses: 2+: Radial (L), Radial (R), Dorsalis Pedis (L), Dorsalis Pedis (R) Skin: Warm, Dry, Intact. No: Ecchymosis (Stable in the arms bilaterally secondary previous IVs and hospitalization) Neurological: No New Focal Deficit, Other (No clinical orthostasis. Stable moderate generalized weakness.) Psy/Mental Status: Anxious (Mildimproved), Depressed (Mildimproved). No: Agitated, Hallucinations, Withdrawal Symptoms - Patient Data Lab Results Last 24 hrs: Laboratory Results - last 24 hr 09/08/20 09/09/20 Range/Units 17:11 07:45 POC Glucose 163 H 148 H (65-110) mg/dl Result Diagrams: 09/08/20 07:15 09/08/20 07:15 Sepsis Event Note - Evaluation Sepsis Screening Result: No Definite Risk - Focused Exam Vital Signs: Vital Signs Temp Pulse Pulse Resp BP BP BP 09/09/20 08:26 83 133/72 09/09/20 08:20 133/72 03/05/21 06:00 36.4 C 83 14 132/72 09/08/20 23:20 36.8 C 82 15 148/94 H Pulse Ox 09/09/20 08:26 09/09/20 08:20 09/09/20 06:00 93 L 09/08/20 23:20 97 - Problem List & Annotations (1) Constipation SNOMED Code(s): 34217172 Code(s): K59.00 - CONSTIPATION, UNSPECIFIED Status: Acute Priority: High Current Visit: Yes Onset Date: ~09/04/20 Qualifiers: Constipation type: unspecified constipation type Qualified Code(s): K59.00 - Constipation, unspecified Annotation/Comment:: Eventual improved results with bowel movements with patient having 8 bowel movement yesterday but no bowel movement yet today. She is still having 23/10 mostly bilateral lower quadrant abdominal cramping and still feels full. Note additional magnesium oxide therapy on a twice daily basis. In spite of magnesium citrate and MiraLAX therapy after admission the patient did not initially have a bowel movement. Additional Dulcolax and MiraLAX with magnesium citrate given on 09/08 with additional repeat dose not needed. Secondary to some mild ketonuria with no evidence of significant dehydration the patient was started on IV lactated Ringer's with continuation of this fluids for the time being. Secondary to refractory symptoms the patient was changed from observation status to inpatient/acute care on 09/08/2020. Blood work and x-rays will be repeated on 09/10 with [facility] physician to assume care at that time. The patient is requesting permanent group home placement with case management consultation in effect and initial plans of transferring the patient to [facility] on 09/12/2020. Recommend repeat labs on that day including her INR secondary to multiple medication changes during this hospitalization. PT and OT consultation ordered on 09/10 secondary to moderate generalized weakness and history of recurrent falls at home despite her walker use. The patient does not feel that she can perform her ADLs any longer with limited support system at home, including a very weak , etc. Abdominal checks have been stable. Note the patient and her daughter refused outpatient treatment in the emergency room secondary to their safety issues of care at home. The patient was placed initially in observation status per their request. Soapsuds enema depending on her clinical course with the patient to initiate daily MiraLAX use for now. Patient and her daughter were extensively counseled on the importance of compliance with medical therapy, excellent bowel movements on at least a daily to every other day basis, etc. in the emergency room prior to hospitalization. Mild abdominal pain secondary to her constipation as above with no evidence of acute GI bleed. High-dose IV Pepcid and IV Protonix initiated on admission as GI prophylaxis with this to be continued for now. 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 By patient history patient had an INR of 3.2 at [facility] on 09/07 prior to admission. (2) Asthma SNOMED Code(s): 238969794 Code(s): J45.909 - UNSPECIFIED ASTHMA, UNCOMPLICATED Status: Chronic Priority: Medium Current Visit: Yes Qualifiers: Asthma severity: mild Asthma persistence: intermittent Asthma c omplication type: uncomplicated Qualified Code(s): J45.20 - Mild intermittent asthma, uncomplicated Annotation/Comment:: Stable by history with no recent fever or bronchitic type symptoms. The patient is using inhalers during this hospitalization. (3) Diabetes mellitus SNOMED Code(s): 42064047 Code(s): E11.9 - TYPE 2 DIABETES MELLITUS WITHOUT COMPLICATIONS Status: Chronic Priority: Medium Current Visit: Yes Qualifiers: Diabetes mellitus type: type 2 Diabetes mellitus halfway insulin use: without halfway use Diabetes mellitus complication status: without complication Qualified Code(s): E11.9 - Type 2 diabetes mellitus without complications Annotation/Comment:: Previously diet controlled, although the patient has been observed to be significantly noncompliant with her diet and has also been noncompliant with her home Accu-Cheks. Diabetic teaching, including review of diabetic Accu-Cheks, diet, etc. initiated on 09/08 and is going well by patient history. Glycosylated hemoglobin 8.6% on 09/05/2020 in this facility. Metformin therapy initiated in the a.m. of 09/08 with additional lisinopril for better blood pressure control and as renal protection for her diabetes. The patient was also placed on a Humalog twice daily sliding scale on 09/08 with improved twice daily Accu-Cheks during this hospitalization with the above therapy. Glycosylated hemoglobin and lipid panel should be repeated in about 3 monthsr. Weight loss i n moderation strongly advisable with patient placed on a 1500-calorie weight loss ADA, heart healthy, diverticulosis diet on 09/08. (4) GERD (gastroesophageal reflux disease) SNOMED Code(s): 325105155 Code(s): K21.9 - GASTRO-ESOPHAGEAL REFLUX DISEASE WITHOUT ESOPHAGITIS Status: Chronic Priority: Medium Current Visit: Yes Qualifiers: Esophagitis presence: esophagitis presence not specified Qualified Code(s): K21.9 - Gastro-esophageal reflux disease without esophagitis Annotation/Comment:: History Gerd/HH/PUD. Stable per history. High-dose IV Pepcid and IV Protonix initiated on admission and during this hospitalization as above. (5) Mixed anxiety depressive disorder SNOMED Code(s): 440549293 Code(s): F41.8 - OTHER SPECIFIED ANXIETY DISORDERS Status: Chronic Priority: Medium Current Visit: Yes Annotation/Comment:: Stable by history although moderate control during initial phases of this hospitalization. Note that the patient's anxiety has significantly improved after improvement of her abdominal complaints and our plan for group home placement. Continue to observe closely by her regular provider after discharge from this facility. Her headachehas completely resolved. (6) Osteoarthritis SNOMED Code(s): 267410337 Code(s): M19.90 - UNSPECIFIED OSTEOARTHRITIS, UNSPECIFIED SITE Status: Chronic Priority: Medium Current Visit: Yes Qualifiers: Osteoarthritis location: multiple joints Osteoarthritis type: primary Qualified Code(s): M89.49 - Other hypertrophic osteoarthropathy, multiple sites Annotation/Comment:: Stable by history with patient needing a walker. (7) Hypertension SNOMED Code(s): 28468361 Code(s): I10 - ESSENTIAL (PRIMARY) HYPERTENSION Status: Chronic Priority: Medium Current Visit: Yes Qualifiers: Hypertension type: essential hypertension Qualified Code(s): I10 - E ssential (primary) hypertension Annotation/Comment:: Blood pressure somewhat elevated in the emergency room and during the early phases of this hospitalization. Lisinopril initiated on 09/08/2020 and much improved as above. Continue to observe closely. (8) Hypocalcemia SNOMED Code(s): 8908835 Code(s): E83.51 - HYPOCALCEMIA Status: Acute Priority: Medium Current Visit: Yes Onset Date: 09/08/20 Annotation/Comment:: Observe for now. Consider extra strength Tums depending on blood work results on 09/10. (9) Hypomagnesemia SNOMED Code(s): 750350107 Code(s): E83.42 - HYPOMAGNESEMIA Status: Chronic Priority: Medium Current Visit: Yes Annotation/Comment:: Normal on 09/08/2020. Her magnesium supplement from home is not available with magnesium oxide at 400 mg p.o. twice daily initiated on admission. (10) Hypoalbuminemia SNOMED Code(s): 982173674 Code(s): E88.09 - OTH DISORDERS OF PLASMA-PROTEIN METABOLISM, NEC Status: Chronic Priority: Medium Current Visit: Yes Onset Date: 02/05/17 Annotation/Comment:: Consider high protein Glucerna supplements as snacks as previously advised however note problems with her obesity, dietary noncompliance, etc. Observe for now. (11) Weakness SNOMED Code(s): 39948644 Code(s): R53.1 - WEAKNESS Status: Chronic Priority: High Current Visit: Yes Annotation/Comment:: Note generalized weakness with patient requesting group home placement as above. Family appears to be in agreement with this plan. PT and OT has been ordered as above. - Problem List Review Problem List Initiated/Reviewed/Updated: Yes - My Orders Last 24 Hours: My Active Orders 09/08/20 08:45 metFORMIN [Glucophage] 500 mg PO BIDMEALS 09/08/20 08:46 Dextrose 50% in Water 50 ml IV ASDIRECTED PRN Glucagon,Human Recombinant [GlucaGen] 1 mg IM ASDIRECTED PRN 09/08/20 08:50 Communication Order [RC] ROUTINE 09/08/20 08:52 Vital Signs [RC] QSHIFT 09/08/20 09:00 Lactated Ringers [Ringers, Lactated] 1,000 ml IV ASDIRECTED lisinopriL [Prinivil] 10 mg PO DAILY 09/08/20 09:15 Magnesium Oxide 400 mg PO BID 09/08/20 11:35 Admission Status [Patient Status] [ADT] Routine 09/08/20 11:36 Consult to Case Management/[employer] [CONS] Routine 09/08/20 17:30 Blood Glucose Check, Bedside [RC] BIDAC Insulin Lispro [HumaLOG] See Protocol SUBCUT BIDAC 09/08/20 18:00 Warfarin [Coumadin] 1.5 mg PO SUTUTHSA@18 09/09/20 09:01 PT Evaluation and Treatment [CONS] Routine 09/09/20 09:03 OT Evaluation and Treatment [CONS] Routine 09/09/20 18:00 Warfarin [Coumadin] 2 mg PO MOWEFR@18 09/10/20 05:11 Abdomen Series w Chest 1V [CR] Routine CBC WITH AUTO DIFF [HEME] Routine COMPREHENSIVE METABOLIC PN,CMP [CHEM] Routine INR,PT,PROTHROMBIN TIME [COAG] Routine MAGNESIUM [CHEM] Routine - Assessment Assessment:: As above - Plan Plan:: As above. Extensive precautions were given to the patient, who is in agreement with the treatment plan. Continue inpatient/acute care for now with planned group home placement as above. The patient will require about 3 days of inpatient/acute care secondary to multiple health problems as above. union contract representative physician will assume patient's care tomorrow morning, and I will resume care of the patient on 09/12.
[2020-09-09] MEDS: Lactated Ringers 1,000 ML IV SCH ×2 (10:30→23:00)
[2020-09-09] MEDS: Polyethylene Glycol 3350 Powder 17 GM Packet PO SCH (12:26)
[2020-09-09] MEDS ORDERED: Warfarin 2 MG Tab PO SCH (18:00)
[2020-09-09] MEDS: Escitalopram 20 MG Tab PO SCH (21:13)
[2020-09-09] MEDS: Pravastatin 20 MG Tab PO SCH (21:13)
[2020-09-09] MEDS: Montelukast 10 MG Tab PO SCH (21:13)
[2020-09-10] MEDS ORDERED: Polyethylene Glycol 3350 Powder 17 GM Packet PO SCH (08:00)
[2020-09-10 08:21] LABS: CHLORIDE,CL 106 mmol/L (98-107); SODIUM,NA 145 mmol/L (136-145)
[2020-09-10] MEDS: Polyethylene Glycol 3350 Powder 17 GM Packet PO SCH (08:29)
[2020-09-10] MEDS: Pantoprazole 40 MG Vial IVPUSH SCH ×2 (08:29→23:30)
[2020-09-10] MEDS: Famotidine 20 MG/2 ML SDV IVPUSH SCH ×2 (08:29→18:08)
[2020-09-10] MEDS: Sodium Chloride 0.9% 10 ML Syringe FLUSH SCH ×2 (08:30→23:30)
[2020-09-10] MEDS: Pregabalin 75 MG Cap PO SCH ×2 (08:31→18:10)
[2020-09-10] MEDS: Magnesium Oxide 400 MG Tab PO SCH ×2 (08:31→18:10)
[2020-09-10] MEDS: Lisinopril 10 MG Tab PO SCH (08:31)
[2020-09-10] MEDS: Docusate Sodium 100 MG Cap PO SCH ×2 (08:32→18:10)
[2020-09-10] MEDS: metFORMIN 500 MG Tab PO SCH ×2 (08:32→18:10)
[2020-09-10] MEDS: Chlorthalidone 25 MG Tab PO SCH (08:33)
[2020-09-10] MEDS: Insulin Lispro 100 Units/ML 3 ML Vial SUBCUT SCH ×2 (08:35→18:12)
[2020-09-10] MEDS: ALPHAGAN P EYEBOTH SCH ×2 (08:39→18:08)
--- NOTE | 2020-09-10 17:41 | PCM.PN ---
- General Info Date of Service: 09/10/20 Admission Dx/Problem (Free Text): 1. Constipation secondary abdominal pain 2. Peptic reflux disease Subjective Update: Patient feeling improved overall. No bowel movements today. No new complaints. Functional Status: Reports: Pain Controlled, Tolerating Diet, Ambulating (with assistance/walker), Urinating. Denies: New Symptoms - Review of Systems General: Reports: Weakness (generalized weakness). Denies: Fever, Malaise, Chills, Night Sweats HEENT: Denies: Headaches, Sinus Congestion, Sore Throat, Rhinitis, Visual Changes Pulmonary: Denies: Shortness of Breath, Pleuritic Chest Pain, Cough, Sputum, Hemoptysis, Wheezing Cardiovascular: Denies: Chest Pain, Palpitations, Dyspnea on Exertion, PND, Lightheadedness Gastrointestinal: Reports: Constipation. Denies: Difficulty Swallowing, Hematochezia, Nausea, Vomiting Genitourinary: Reports: Incontinence (chronic). Denies: Dysuria, Frequency, Burning, Pain, Urgency, Flank Pain Musculoskeletal: Reports: Other (no acute changes from baseline) Skin: Denies: Cyanosis, Jaundice, Mottled, Pallor, Diaphoresis, Pruritis, Rash Neurological: Reports: Difficulty Walking (chronic), Weakness (chronic). Denies: Confusion, Dizziness, Headache, Numbness, Paresthesia, Change in Speech Psychiatric: Reports: No Symptoms - Patient Data Vitals - Most Recent: Last Vital Signs Temp 36.3 C 09/10/20 14:00 Pulse 69 09/10/20 14:00 Resp 17 09/10/20 14:00 BP 129/59 L 09/10/20 14:00 Pulse Ox 95 09/10/20 14:00 Weight - Most Recent: 96.706 kg I&O - Last 24 Hours: Intake & Output 09/10/20 09/10/20 09/10/20 06:59 14:59 22:59 Intake Total 240 Balance 240 Lab Results Last 24 Hours: Laboratory Results - last 24 hr 09/10/20 09/10/20 09/10/20 Range/Units 07:16 07:30 07:30 WBC 7.3 (4.0-10.2) K/uL RBC 4.13 (3.77-5.09) M/uL Hgb 12.3 (11.7-15.5) g/dL Hct 39.4 (34.0-46.0) % MCV 95.4 (84.0-98.0) fL MCH 29.8 (28.2-33.3) pg MCHC 31.2 L (31.7-36.0) g/dL RDW 13.3 (11.2-14.1) % Plt Count 262 (150-350) K/uL Neut % (Auto) 69.1 (45.0-80.0) % Lymph % (Auto) 22.2 (10.0-50.0) % Spencer % (Auto) 5.7 (2.0-14.0) % Eos % (Auto) 2.6 (0.0-5.0) % Baso % (Auto) 0.4 (0.0-2.0) % Neut # (Auto) 5.06 (1.40-7.00) K/uL Lymph # (Auto) 1.63 (0.50-3.50) K/uL Spencer # (Auto) 0.42 (0.00-1.00) K/uL Eos # (Auto) 0.19 (0.00-0.50) K/uL Baso # (Auto) 0.03 (0.00-0.20) K/uL PT 21.0 H (9.5-12.0) SEC INR 2.1 Sodium (136-145) mmol/L Potassium (3.5-5.1) mmol/L Chloride (98-107) mmol/L Carbon Dioxide (21.0-32.0) mmol/L BUN (7-18) mg/dL Creatinine (0.51-1.17) mg/dL Est Cr Clr Drug Dosing mL/min Estimated GFR (MDRD) mL/min Glucose (70-99) mg/dL POC Glucose 163 H (65-110) mg/dl Calcium (8.5-10.1) mg/dL Magnesium (1.8-2.4) mg/dL Total Bilirubin (0.2-1.0) mg/dL AST (15-37) U/L ALT (12-78) U/L Alkaline Phosphatase (46-116) IU/L Total Protein (6.4-8.2) g/dL Albumin (3.4-5.0) g/dL 09/10/20 09/10/20 Range/Units 07:30 17:12 WBC (4.0-10.2) K/uL RBC (3.77-5.09) M/uL Hgb (11.7-15.5) g/dL Hct (34.0-46.0) % MCV (84.0-98.0) fL MCH (28.2-33.3) pg MCHC (31.7-36.0) g/dL RDW (11.2-14.1) % Plt Count (150-350) K/uL Neut % (Auto) (45.0-80.0) % Lymph % (Auto) (10.0-50.0) % Spencer % (Auto) (2.0-14.0) % Eos % (Auto) (0.0-5.0) % Baso % (Auto) (0.0-2.0) % Neut # (Auto) (1.40-7.00) K/uL Lymph # (Auto) (0.50-3.50) K/uL Spencer # (Auto) (0.00-1.00) K/uL Eos # (Auto) (0.00-0.50) K/uL Baso # (Auto) (0.00-0.20) K/uL PT (9.5-12.0) SEC INR Sodium 145 (136-145) mmol/L Potassium 3.6 (3.5-5.1) mmol/L Chloride 106 (98-107) mmol/L Carbon Dioxide 35.3 H (21.0-32.0) mmol/L BUN 9 (7-18) mg/dL Creatinine 0.83 (0.51-1.17) mg/dL Est Cr Clr Drug Dosing 52.91 mL/min Estimated GFR (MDRD) > 60 mL/min Glucose 175 H (70-99) mg/dL POC Glucose 151 H (65-110) mg/dl Calcium 8.4 L (8.5-10.1) mg/dL Magnesium 1.8 (1.8-2.4) mg/dL Total Bilirubin 0.4 (0.2-1.0) mg/dL AST 31 (15-37) U/L ALT 55 (12-78) U/L Alkaline Phosphatase 93 (46-116) IU/L Total Protein 5.7 L (6.4-8.2) g/dL Albumin 2.8 L (3.4-5.0) g/dL Med Orders - Current: Current Medications Acetaminophen (Tylenol) 650 mg PO Q4H PRN PRN Reason: Pain Last Admin: 09/08/20 07:33 Dose: 650 mg Documented by: Cetirizine HCl (Zyrtec) 10 mg PO DAILY PRN PRN Reason: Allergies Chlorthalidone (Chlorthalidone) 12.5 mg PO TUTHSA@08 [facility] Last Admin: 09/10/20 08:33 Dose: 12.5 mg Documented by: Dextrose/Water (Dextrose 50% In Water) 50 ml IV ASDIRECTED PRN PRN Reason: Hypoglycemia Docusate Sodium (Colace) 100 mg PO BID [facility] Last Admin: 09/10/20 08:32 Dose: 100 mg Documented by: Escitalopram Oxalate (Lexapro) 20 mg PO BEDTIME [facility] Last Admin: 09/09/20 21:13 Dose: 20 mg Documented by: Famotidine (Pepcid) 20 mg IVPUSH BID [facility] Last Admin: 09/10/20 08:29 Dose: 20 mg Documented by: Glucagon (Glucagen) 1 mg IM ASDIRECTED PRN PRN Reason: Hypoglycemia Insulin Human Lispro (Humalog) 0 unit SUBCUT BIDAC [facility]; Protocol Last Admin: 09/10/20 08:35 Dose: 2 units Documented by: Latanoprost (Xalatan 0.005% Ophth Soln) 0 ml EYEBOTH DAILY@2200 [facility] Last Admin: 09/09/20 21:14 Dose: 1 drop Documented by: Lisinopril (Prinivil) 10 mg PO DAILY [facility] Last Admin: 09/10/20 08:31 Dose: 10 mg Documented by: Magnesium Oxide (Magnesium Oxide) 400 mg PO BID [facility] Last Admin: 09/10/20 08:31 Dose: 400 mg Documented by: Metformin HCl (Glucophage) 500 mg PO BIDMEALS [facility] Last Admin: 09/10/20 08:32 Dose: 500 mg Documented by: Montelukast Sodium (Singulair) 10 mg PO BEDTIME [facility] Last Admin: 09/09/20 21:13 Dose: 10 mg Documented by: Nebivolol (Bystolic) 1.25 mg PO DAILY [facility] Last Admin: 09/10/20 08:32 Dose: 1.25 mg Documented by: Non-Formulary Medication (Ipratropium) 2 puff INH Q6H PRN PRN Reason: Shortness of Breath Alphagan P 1% Own (Med) 0 each EYEBOTH BID@0800,1700 [facility] Last Admin: 09/10/20 08:39 Dose: 1 each Documented by: Ondansetron HCl (Zofran) 4 mg IVPUSH Q6H PRN PRN Reason: Nausea/Vomiting Last Admin: 09/07/20 23:23 Dose: 4 mg Documented by: Pantoprazole Sodium (Protonix Iv) 40 mg IVPUSH Q12H [facility] Last Admin: 09/10/20 08:29 Dose: 40 mg Documented by: Polyethylene Glycol (Miralax) 17 gm PO DAILY [facility] Last Admin: 09/10/20 08:29 Dose: 17 gm Documented by: Pravastatin Sodium (Pravachol) 20 mg PO BEDTIME [facility] Last Admin: 09/09/20 21:13 Dose: 20 mg Documented by: Pregabalin (Lyrica) 150 mg PO BID [facility] Last Admin: 09/10/20 08:31 Dose: 150 mg Documented by: Sodium Chloride (Saline Flush) 10 ml FLUSH Q12HR [facility] Last Admin: 09/10/20 08:30 Dose: 10 ml Documented by: Sodium Chloride (Saline Flush) 10 ml FLUSH ASDIRECTED PRN PRN Reason: Keep Vein Open Last Admin: 09/07/20 23:23 Dose: 10 ml Documented by: Temazepam (Restoril) 15 mg PO DAILY@2000 PRN PRN Reason: Insomnia Warfarin Sodium (Coumadin) 1.5 mg PO SUTUTHSA@18 [facility] Last Admin: 09/08/20 17:40 Dose: 1.5 mg Documented by: Warfarin Sodium (Coumadin) 2 mg PO MOWEFR@18 [facility] Last Admin: 09/09/20 17:30 Dose: 2 mg Documented by: Discontinued Medications Bisacodyl (Dulcolax) 10 mg PO ONETIME ONE Stop: 09/08/20 08:51 Last Admin: 09/08/20 09:37 Dose: 10 mg Documented by: Famotidine (Pepcid) 20 mg IVPUSH Q12H [facility] Lactated Ringer's (Ringers, Lactated) 1,000 mls @ 80 mls/hr IV ASDIRECTED [facility] Last Admin: 09/09/20 23:00 Dose: 80 mls/hr Documented by: Latanoprost (Xalatan 0.005% Ophth Soln) 0 ml EYEBOTH BID [facility] Last Admin: 09/09/20 08:26 Dose: Not Given Documented by: Magnesium Citrate (Citrate Of Magnesia) 0 ml PO ONETIME ONE Stop: 09/07/20 18:16 Last Admin: 09/07/20 20:00 Dose: 296 ml Documented by: Magnesium Citrate (Citrate Of Magnesia) 0 ml PO ONETIME ONE Stop: 09/08/20 08:45 Last Admin: 09/08/20 09:36 Dose: 296 ml Documented by: Magnesium Oxide (Magnesium Oxide) 400 mg PO ONETIME ONE Stop: 09/07/20 19:06 Last Admin: 09/07/20 20:00 Dose: 400 mg Documented by: Montelukast Sodium (Singulair) 10 mg PO BEDTIME [facility] Alphagan P 1% Own (Med) 0 each EYEBOTH BID [facility] Last Admin: 09/09/20 08:23 Dose: 1 each Documented by: Polyethylene Glycol (Miralax) 17 gm PO DAILY PRN PRN Reason: Constipation Polyethylene Glycol (Miralax) 17 gm PO ONETIME ONE Stop: 09/07/20 18:16 Last Admin: 09/07/20 20:00 Dose: 17 gm Documented by: Polyethylene Glycol (Miralax) 17 gm PO ONETIME ONE Stop: 09/08/20 08:45 Last Admin: 09/08/20 09:37 Dose: 17 gm Documented by: Polyethylene Glycol (Miralax) 17 gm PO DAILY [facility] Pravastatin Sodium (Pravachol) 20 mg PO BEDTIME [facility] - Exam Quality Assessment: DVT Prophylaxis (On Warfarin) General: Alert, Oriented, Cooperative, No Acute Distress HEENT: Pupils Equal, Pupils Reactive, EOMI, Mucous Membr. Moist/[place] Neck: Supple Lungs: Clear to Auscultation, Normal Respiratory Effort Cardiovascular: Regular Rhythm, Irregular Rhythm GI/Abdominal Exam: Soft, Non-Tender, No Distention, Abnormal Bowel Sounds (diminished throughout). No: Distended, Guarding, Rigid, Rebound, Tender (Female) Exam: Deferred Back Exam: No: CVA Tenderness (L), CVA Tenderness (R), Muscle Spasm, Paraspinal Tenderness, Vertebral Tenderness Extremities: Non-Tender, Normal Capillary Refill Skin: Warm, Dry Neurological: No New Focal Deficit Psy/Mental Status: Alert, Normal Affect, Normal Mood - Patient Data Lab Results Last 24 hrs: Laboratory Results - last 24 hr 09/10/20 09/10/20 09/10/20 Range/Units 07:16 07:30 07:30 WBC 7.3 (4.0-10.2) K/uL RBC 4.13 (3.77-5.09) M/uL Hgb 12.3 (11.7-15.5) g/dL Hct 39.4 (34.0-46.0) % MCV 95.4 (84.0-98.0) fL MCH 29.8 (28.2-33.3) pg MCHC 31.2 L (31.7-36.0) g/dL RDW 13.3 (11.2-14.1) % Plt Count 262 (150-350) K/uL Neut % (Auto) 69.1 (45.0-80.0) % Lymph % (Auto) 22.2 (10.0-50.0) % Spencer % (Auto) 5.7 (2.0-14.0) % Eos % (Auto) 2.6 (0.0-5.0) % Baso % (Auto) 0.4 (0.0-2.0) % Neut # (Auto) 5.06 (1.40-7.00) K/uL Lymph # (Auto) 1.63 (0.50-3.50) K/uL Spencer # (Auto) 0.42 (0.00-1.00) K/uL Eos # (Auto) 0.19 (0.00-0.50) K/uL Baso # (Auto) 0.03 (0.00-0.20) K/uL PT 21.0 H (9.5-12.0) SEC INR 2.1 Sodium (136-145) mmol/L Potassium (3.5-5.1) mmol/L Chloride (98-107) mmol/L Carbon Dioxide (21.0-32.0) mmol/L BUN (7-18) mg/dL Creatinine (0.51-1.17) mg/dL Est Cr Clr Drug Dosing mL/min Estimated GFR (MDRD) mL/min Glucose (70-99) mg/dL POC Glucose 163 H (65-110) mg/dl Calcium (8.5-10.1) mg/dL Magnesium (1.8-2.4) mg/dL Total Bilirubin (0.2-1.0) mg/dL AST (15-37) U/L ALT (12-78) U/L Alkaline Phosphatase (46-116) IU/L Total Protein (6.4-8.2) g/dL Albumin (3.4-5.0) g/dL 09/10/20 09/10/20 Range/Units 07:30 17:12 WBC (4.0-10.2) K/uL RBC (3.77-5.09) M/uL Hgb (11.7-15.5) g/dL Hct (34.0-46.0) % MCV (84.0-98.0) fL MCH (28.2-33.3) pg MCHC (31.7-36.0) g/dL RDW (11.2-14.1) % Plt Count (150-350) K/uL Neut % (Auto) (45.0-80.0) % Lymph % (Auto) (10.0-50.0) % Spencer % (Auto) (2.0-14.0) % Eos % (Auto) (0.0-5.0) % Baso % (Auto) (0.0-2.0) % Neut # (Auto) (1.40-7.00) K/uL Lymph # (Auto) (0.50-3.50) K/uL Spencer # (Auto) (0.00-1.00) K/uL Eos # (Auto) (0.00-0.50) K/uL Baso # (Auto) (0.00-0.20) K/uL PT (9.5-12.0) SEC INR Sodium 145 (136-145) mmol/L Potassium 3.6 (3.5-5.1) mmol/L Chloride 106 (98-107) mmol/L Carbon Dioxide 35.3 H (21.0-32.0) mmol/L BUN 9 (7-18) mg/dL Creatinine 0.83 (0.51-1.17) mg/dL Est Cr Clr Drug Dosing 52.91 mL/min Estimated GFR (MDRD) > 60 mL/min Glucose 175 H (70-99) mg/dL POC Glucose 151 H (65-110) mg/dl Calcium 8.4 L (8.5-10.1) mg/dL Magnesium 1.8 (1.8-2.4) mg/dL Total Bilirubin 0.4 (0.2-1.0) mg/dL AST 31 (15-37) U/L ALT 55 (12-78) U/L Alkaline Phosphatase 93 (46-116) IU/L Total Protein 5.7 L (6.4-8.2) g/dL Albumin 2.8 L (3.4-5.0) g/dL Result Diagrams: 09/10/20 07:30 09/10/20 07:30 Sepsis Event Note - Evaluation Sepsis Screening Result: No Definite Risk - Focused Exam Vital Signs: Vital Signs Temp Pulse Pulse Resp BP BP Pulse Ox 09/10/20 14:00 36.3 C 69 17 129/59 L 95 09/10/20 08:32 75 141/68 H 09/10/20 08:31 141/68 H 09/10/20 07:25 36.7 C 75 18 141/68 H 92 L 09/10/20 05:38 82 14 159/82 H 93 L - Problem List & Annotations (1) Constipation SNOMED Code(s): 00864124 Code(s): K59.00 - CONSTIPATION, UNSPECIFIED Status: Acute Priority: High Current Visit: Yes Onset Date: ~09/04/20 Qualifiers: Constipation type: unspecified constipation type Qualified Code(s): K59.00 - Constipation, unspecified Annotation/Comment:: Currently improved. Difficult to promote bowel movemen ts/chronic issue/consider motility disorder. May benefit from GI consult in future. Secondary to refractory symptoms the patient was changed from observation status to inpatient/acute care on 09/08/2020. The patient is requesting permanent fci placement with case management consultation in effect and initial plans of transferring the patient to [facility] on 09/12/2020. Recommend repeat labs on that day including her INR secondary to multiple medication changes during this hospitalization. PT and OT consultation ordered on 09/10 secondary to moderate generalized weakness and history of recurrent falls at home despite her walker use. The patient does not feel that she can perform her ADLs any longer with limited support system at home, including a very weak , etc. Abdominal checks have been stable. Note the patient and her daughter refused outpatient treatment in the emergency room secondary to their safety issues of care at home. The patient was placed initial ly in observation status per their request. Soapsuds enema depending on her clinical course with the patient to initiate daily MiraLAX use for now. No evidence of acute GI bleed. High-dose IV Pepcid and IV Protonix initiated on admission as GI prophylaxis with this to be continued for now. (2) GERD (gastroesophageal reflux disease) SNOMED Code(s): 518986459 Code(s): K21.9 - GASTRO-ESOPHAGEAL REFLUX DISEASE WITHOUT ESOPHAGITIS Status: Chronic Priority: Medium Current Visit: Yes Qualifiers: Esophagitis presence: esophagitis presence not specified Qualified Code(s): K21.9 - Gastro-esophageal reflux disease without esophagitis Annotation/Comment:: History Gerd/HH/PUD. Stable per history. High-dose IV Pepcid and IV Protonix initiated on admission and during this hospitalization as above. 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 She has been having issues with keeping INR within therapeutic range. INR 2.1 today (4) Hypertension SNOMED Code(s): 91142458 Code(s): I10 - ESSENTIAL (PRIMARY) HYPERTENSION Status: Chronic Priority: Medium Current Visit: Yes Qualifiers: Hypertension type: essential hypertension Qualified Code(s): I10 - Essential (primary) hypertension Annotation/Comment:: Blood pressure somewhat elevated in the emergency room and during the early phases of this hospitalization. Lisinopril initiated on 09/08/2020 and much improved as above. Continue to observe closely. (5) Asthma SNOMED Code(s): 898657777 Code(s): J45.909 - UNSPECIFIED ASTHMA, UNCOMPLICATED Status: Chronic Priority: Medium Current Visit: Yes Qualifiers: Asthma severity: mild Asthma persistence: intermittent Asthma complication type: uncomplicated Qualified Code(s): J45.20 - Mild intermittent asthma, uncomplicated Annotation/Comment:: Stable by history with no recent fever or bronchitic type symptoms. The patient is using inhalers during this hospitalization. (6) Osteoarthritis SNOMED Code(s): 361468345 Code(s): M19.90 - UNSPECIFIED OSTEOARTHRITIS, UNSPECIFIED SITE Status: Chronic Priority: Medium Current Visit: Yes Qualifiers: Osteoarthritis location: multiple joints Osteoarthritis type: primary Qualified Code(s): M89.49 - Other hypertrophic osteoarthropathy, multiple sites Annotation/Comment:: Stable by history with patient needing a walker. (7) Mixed anxiety depressive disorder SNOMED Code(s): 517027397 Code(s): F41.8 - OTHER SPECIFIED ANXIETY DISORDERS Status: Chronic Priority: Medium Current Visit: Yes Annotation/Comment:: Stable by history although moderate control during initial phases of this hospitalization. Note that the patient's anxiety has significantly improved after improvement of her abdominal complaints and our plan for fci placement. Continue to observe closely by her regular provider after discharge from this facility. Her headache has completely resolved. (8) Diabetes mellitus SNOMED Code(s): 20562099 Code(s): E11.9 - TYPE 2 DIABETES MELLITUS WITHOUT COMPLICATIONS Status: Chronic Priority: Medium Current Visit: Yes Qualifiers: Diabetes mellitus type: type 2 Diabetes mellitus mcc insulin use: without mcc use Diabetes mellitus complication status: without complication Qualified Code(s): E11.9 - Type 2 diabetes mellitus without complications Annotation/Comment:: Previously attempted to be diet controlled, although the patient has been observed to be significantly noncompliant with her diet and has also been noncompliant with her home Accu-Cheks. Diabetic teaching, including review of diabetic Accu-Cheks, diet, etc. initiated on 09/08 and is going well by patient history. Glycosylated hemoglobin 8.6% on 09/05/2020 in this facility. Metformin therapy initiated in the a.m. of 09/08 with additional lisinopril for better blood pressure control and as renal protection for her diabetes. The patient was also placed on a Humalog twice daily sliding scale on 09/08 with improved twice daily Accu-Cheks during this hospitalization with the above therapy. Glycosylated hemoglobin and lipid panel should be repeated in about 3 monthsr. Weight loss in moderation strongly advisable with patient placed on a 1500-calorie weight loss ADA, heart healthy, diverticulosis diet on 09/08. - Problem List Review Problem List Initiated/Reviewed/Updated: Yes - Assessment Assessment:: As above - Plan Plan:: As above. Extensive precautions were given to the patient, who is in agreement with the treatment plan. Continue inpatient/acute care for now with planned fci placement as above. The patient will require about 2 days of inpatient/acute care secondary to multiple health problems as above and pending fci placement after the weekend.
[2020-09-10] MEDS: Sodium Chloride 0.9% 10 ML Syringe FLUSH PRN (18:08)
[2020-09-10] MEDS: Montelukast 10 MG Tab PO SCH (23:29)
[2020-09-10] MEDS: Latanoprost 0.005% Ophth Soln **OWN MED EYEBOTH SCH (23:30)
[2020-09-10] MEDS: Pravastatin 20 MG Tab PO SCH (23:30)
[2020-09-10] MEDS: Escitalopram 20 MG Tab PO SCH (23:30)
[2020-09-11] MEDS: Polyethylene Glycol 3350 Powder 17 GM Packet PO SCH (07:52)
[2020-09-11] MEDS: Pantoprazole 40 MG Vial IVPUSH SCH (07:53)
[2020-09-11] MEDS: Sodium Chloride 0.9% 10 ML Syringe FLUSH SCH (07:55)
[2020-09-11] MEDS: Famotidine 20 MG/2 ML SDV IVPUSH SCH (07:56)
[2020-09-11] MEDS: Docusate Sodium 100 MG Cap PO SCH ×2 (07:59→17:42)
[2020-09-11] MEDS: Magnesium Oxide 400 MG Tab PO SCH ×2 (07:59→17:41)
[2020-09-11] MEDS: Pregabalin 75 MG Cap PO SCH ×2 (08:00→17:41)
[2020-09-11] MEDS: metFORMIN 500 MG Tab PO SCH ×2 (08:02→17:42)
[2020-09-11] MEDS: Lisinopril 10 MG Tab PO SCH (08:02)
[2020-09-11] MEDS: ALPHAGAN P EYEBOTH SCH ×2 (08:03→17:48)
[2020-09-11] MEDS: Sodium Chloride 0.9% 10 ML Syringe FLUSH PRN (08:04)
[2020-09-11] MEDS: Insulin Lispro 100 Units/ML 3 ML Vial SUBCUT SCH ×2 (08:05→17:48)
[2020-09-11] MEDS ORDERED: Lactulose Soln 10 GM/15 ML 30 ML UD Cup PO ONE ×2 (10:08→15:00)
--- NOTE | 2020-09-11 10:17 | PCM.PN ---
- General Info Date of Service: 09/11/20 Admission Dx/Problem (Free Text): 1. Constipation secondary abdominal pain 2. Peptic reflux disease Subjective Update: Patient feeling improved overall. No new complaints. Functional Status: Reports: Pain Controlled, Tolerating Diet, Ambulating (with assistance and with encouragement), Urinating. Denies: New Symptoms - Review of Systems General: Denies: Fever, Weakness, Fatigue, Malaise, Chills HEENT: Denies: Ear Pain, Headaches, Sinus Congestion, Sore Throat, Rhinitis, Visual Changes Pulmonary: Denies: Shortness of Breath, Pleuritic Chest Pain, Cough, Sputum, Hemoptysis, Wheezing Cardiovascular: Denies: Chest Pain, Palpitations, Dyspnea on Exertion, Orthopnea, Edema, Lightheadedness Gastrointestinal: Reports: Constipation (chronic/improved). Denies: Difficulty Swallowing, Hematochezia, Melena, Nausea, Vomiting Genitourinary: Reports: Incontinence (stable). Denies: Dysuria, Frequency, Burning, Pain, Urgency, Hematuria, Flank Pain Musculoskeletal: Reports: Other (no acute changes from baseline) Skin: Reports: Other (no acute changes) Neurological: Reports: Difficulty Walking (chronic/unchanged), Weakness (chronic/unchanged/deconditioning). Denies: Confusion, Dizziness, Headache, Numbness, Paresthesia, Syncope Psychiatric: Reports: No Symptoms - Patient Data Vitals - Most Recent: Last Vital Signs Temp 36.9 C 09/11/20 08:17 Pulse 94 09/11/20 08:17 Resp 17 09/11/20 08:17 BP 154/83 H 09/11/20 08:17 Pulse Ox 93 L 09/11/20 08:17 Weight - Most Recent: 98.43 kg I&O - Last 24 Hours: Intake & Output 09/10/20 09/11/20 09/11/20 22:59 06:59 14:59 Intake Total 800 480 Output Total 1 Balance 799 480 Lab Results Last 24 Hours: Laboratory Results - last 24 hr 09/10/20 09/11/20 Range/Units 17:12 07:15 POC Glucose 151 H 148 H (65-110) mg/dl Med Orders - Current: Current Medications Acetaminophen (Tylenol) 650 mg PO Q4H PRN PRN Reason: Pain Last Admin: 09/08/20 07:33 Dose: 650 mg Documented by: Cetirizine HCl (Zyrtec) 10 mg PO DAILY PRN PRN Reason: Allergies Chlorthalidone (Chlorthalidone) 12.5 mg PO TUTHSA@08 PENDING SALE TO [facility] Last Admin: 09/10/20 08:33 Dose: 12.5 mg Documented by: Dextrose/Water (Dextrose 50% In Water) 50 ml IV ASDIRECTED PRN PRN Reason: Hypoglycemia Docusate Sodium (Colace) 100 mg PO BID PENDING SALE TO [facility] Last Admin: 09/11/20 07:59 Dose: 100 mg Documented by: Escitalopram Oxalate (Lexapro) 20 mg PO BEDTIME PENDING SALE TO [facility] Last Admin: 09/10/20 23:30 Dose: 20 mg Documented by: Famotidine (Pepcid) 20 mg IVPUSH BID PENDING SALE TO [facility] Last Admin: 09/11/20 07:56 Dose: 20 mg Documented by: Glucagon (Glucagen) 1 mg IM ASDIRECTED PRN PRN Reason: Hypoglycemia Insulin Human Lispro (Humalog) 0 unit SUBCUT BIDAC PENDING SALE TO [facility]; Protocol Last Admin: 09/11/20 08:05 Dose: Not Given Documented by: Lactulose (Cephulac) 20 gm PO ONETIME ONE Stop: 09/11/20 15:01 Latanoprost (Xalatan 0.005% Ophth Soln) 0 ml EYEBOTH DAILY@2200 PENDING SALE TO [facility] Last Admin: 09/10/20 23:30 Dose: 1 drop Documented by: Lisinopril (Prinivil) 10 mg PO DAILY PENDING SALE TO [facility] Last Admin: 09/11/20 08:02 Dose: 10 mg Documented by: Magnesium Oxide (Magnesium Oxide) 400 mg PO BID PENDING SALE TO [facility] Last Admin: 09/11/20 07:59 Dose: 400 mg Documented by: Metformin HCl (Glucophage) 500 mg PO BIDMEALS PENDING SALE TO [facility] Last Admin: 09/11/20 08:02 Dose: 500 mg Documented by: Montelukast Sodium (Singulair) 10 mg PO BEDTIME PENDING SALE TO [facility] Last Admin: 09/10/20 23:29 Dose: 10 mg Documented by: Nebivolol (Bystolic) 1.25 mg PO DAILY PENDING SALE TO [facility] Last Admin: 09/11/20 08:01 Dose: 1.25 mg Documented by: Non-Formulary Medication (Ipratropium) 2 puff INH Q6H PRN PRN Reason: Shortness of Breath Alphagan P 1% Own (Med) 0 each EYEBOTH BID@0800,1700 PENDING SALE TO [facility] Last Admin: 09/11/20 08:03 Dose: 1 each Documented by: Ondansetron HCl (Zofran) 4 mg IVPUSH Q6H PRN PRN Reason: Nausea/Vomiting Last Admin: 09/07/20 23:23 Dose: 4 mg Documented by: Pantoprazole Sodium (Protonix Iv) 40 mg IVPUSH Q12H PENDING SALE TO [facility] Last Admin: 09/11/20 07:53 Dose: 40 mg Documented by: Polyethylene Glycol (Miralax) 17 gm PO DAILY PENDING SALE TO [facility] Last Admin: 09/11/20 07:52 Dose: 17 gm Documented by: Pravastatin Sodium (Pravachol) 20 mg PO BEDTIME PENDING SALE TO [facility] Last Admin: 09/10/20 23:30 Dose: 20 mg Documented by: Pregabalin (Lyrica) 150 mg PO BID PENDING SALE TO [facility] Last Admin: 09/11/20 08:00 Dose: 150 mg Documented by: Sodium Chloride (Saline Flush) 10 ml FLUSH Q12HR PENDING SALE TO [facility] Last Admin: 09/11/20 07:55 Dose: 10 ml Documented by: Sodium Chloride (Saline Flush) 10 ml FLUSH ASDIRECTED PRN PRN Reason: Keep Vein Open Last Admin: 09/11/20 08:04 Dose: 10 ml Documented by: Temazepam (Restoril) 15 mg PO DAILY@2000 PRN PRN Reason: Insomnia Warfarin Sodium (Coumadin) 1.5 mg PO SUTUTHSA@18 PENDING SALE TO [facility] Last Admin: 09/10/20 18:10 Dose: 1.5 mg Documented by: Warfarin Sodium (Coumadin) 2 mg PO MOWEFR@18 PENDING SALE TO [facility] Last Admin: 09/09/20 17:30 Dose: 2 mg Documented by: Discontinued Medications Bisacodyl (Dulcolax) 10 mg PO ONETIME ONE Stop: 09/08/20 08:51 Last Admin: 09/08/20 09:37 Dose: 10 mg Documented by: Famotidine (Pepcid) 20 mg IVPUSH Q12H PENDING SALE TO [facility] Lactated Ringer's (Ringers, Lactated) 1,000 mls @ 80 mls/hr IV ASDIRECTED PENDING SALE TO [facility] Last Admin: 09/09/20 23:00 Dose: 80 mls/hr Documented by: Lactulose (Cephulac) 20 gm PO ONETIME ONE Stop: 09/11/20 10:09 Latanoprost (Xalatan 0.005% Ophth Soln) 0 ml EYEBOTH BID PENDING SALE TO [facility] Last Admin: 09/09/20 08:26 Dose: Not Given Documented by: Magnesium Citrate (Citrate Of Magnesia) 0 ml PO ONETIME ONE Stop: 09/07/20 18:16 Last Admin: 09/07/20 20:00 Dose: 296 ml Documented by: Magnesium Citrate (Citrate Of Magnesia) 0 ml PO ONETIME ONE Stop: 09/08/20 08:45 Last Admin: 09/08/20 09:36 Dose: 296 ml Documented by: Magnesium Oxide (Magnesium Oxide) 400 mg PO ONETIME ONE Stop: 09/07/20 19:06 Last Admin: 09/07/20 20:00 Dose: 400 mg Documented by: Montelukast Sodium (Singulair) 10 mg PO BEDTIME PENDING SALE TO [facility] Alphagan P 1% Own (Med) 0 each EYEBOTH BID PENDING SALE TO [facility] Last Admin: 09/09/20 08:23 Dose: 1 each Documented by: Polyethylene Glycol (Miralax) 17 gm PO DAILY PRN PRN Reason: Constipation Polyethylene Glycol (Miralax) 17 gm PO ONETIME ONE Stop: 09/07/20 18:16 Last Admin: 09/07/20 20:00 Dose: 17 gm Documented by: Polyethylene Glycol (Miralax) 17 gm PO ONETIME ONE Stop: 09/08/20 08:45 Last Admin: 09/08/20 09:37 Dose: 17 gm Documented by: Polyethylene Glycol (Miralax) 17 gm PO DAILY PENDING SALE TO [facility] Pravastatin Sodium (Pravachol) 20 mg PO BEDTIME GERALD - Exam Quality Assessment: DVT Prophylaxis General: Alert, Oriented, Cooperative, No Acute Distress HEENT: Pupils Equal, Pupils Reactive, EOMI, Mucous Membr. Moist/[place] Neck: Supple Lungs: Clear to Auscultation, Normal Respiratory Effort Cardiovascular: Regular Rate, Regular Rhythm GI/Abdominal Exam: Normal Bowel Sounds, Soft, Non-Tender, Other (obese) (Female) Exam: Deferred Back Exam: No: CVA Tenderness (L), CVA Tenderness (R), Muscle Spasm Extremities: Non-Tender, Normal Capillary Refill Skin: Warm, Dry Neurological: No New Focal Deficit Psy/Mental Status: Alert, Normal Affect, Normal Mood - Patient Data Lab Results Last 24 hrs: Laboratory Results - last 24 hr 09/10/20 09/11/20 Range/Units 17:12 07:15 POC Glucose 151 H 148 H (65-110) mg/dl Result Diagrams: 09/10/20 07:30 09/10/20 07:30 Sepsis Event Note - Evaluation Sepsis Screening Result: No Definite Risk - Focused Exam Vital Signs: Vital Signs Temp Pulse Pulse Resp BP BP Pulse Ox 09/11/20 08:17 36.9 C 94 17 154/83 H 93 L 09/11/20 08:02 154/83 H 09/11/20 08:01 95 154/83 H - Problem List & Annotations (1) Constipation SNOMED Code(s): 59829310 Code(s): K59.00 - CONSTIPATION, UNSPECIFIED Status: Acute Priority: High Current Visit: Yes Onset Date: ~09/04/20 Qualifiers: Constipation type: unspecified constipation type Qualified Code(s): K59.00 - Constipation, unspecified Annotation/Comment:: Currently improved. Difficult to promote bowel movements/chronic issue/consider motility disorder. May benefit from GI consult in future. Secondary to refractory symptoms the patient was changed from observation status to inpatient/acute care on 09/08/2020. The patient is requesting permanent usp placement with case management consultation in effect and initial plans of transferring the patient to [facility] on 09/12/2020. Recommend repeat labs on that day including her INR secondary to multiple medication changes during this hospitalization. PT and OT consultation ordered on 09/10 secondary to moderate generalized weakness and history of recurrent falls at home despite her walker use. The patient does not feel that she can perform her ADLs any longer with limited support system at home, including a very weak , etc. Abdominal checks have been stable. Note the patient and her daughter refused outpatient treatment in the emergency room secondary to their safety issues of care at home. The patient was placed initially in observation status per their request. Soapsuds enema depending on her clinical course with the patient to initiate daily MiraLAX use for now. No evidence of acute GI bleed. High-dose IV Pepcid and IV Protonix initiated on admission as GI prophylaxis with this to be continued for now. (2) GERD (gastroesophageal reflux disease) SNOMED Code(s): 470911684 Code(s): K21.9 - GASTRO-ESOPHAGEAL REFLUX DISEASE WITHOUT ESOPHAGITIS Status: Chronic Priority: Medium Current Visit: Yes Qualifiers: Esophagitis presence: esophagitis presence not specified Qualified Code(s): K21.9 - Gastro-esophageal reflux disease without esophagitis Annotation/Comment:: History Gerd/HH/PUD. Stable per history. High-dose IV Pepcid and IV Protonix initiated on admission and during this hospitalization as above. 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 She has been having issues with keeping INR within therapeutic range. INR 2.1 yesterday. Recheck in AM (4) Hypertension SNOMED Code(s): 15793223 Code(s): I10 - ESSENTIAL (PRIMARY) HYPERTENSION Status: Chronic Priority: Medium Current Visit: Yes Qualifiers: Hypertension type: essential hypertension Qualified Code(s): I10 - Essential (primary) hypertension Annotation/Comment:: Blood pressure somewhat elevated in the emergency room and during the early phases of this hospitalization. Lisinopril initiated on 09/08/2020 and much improved as above. Continue to observe closely. (5) Asthma SNOMED Code(s): 517523953 Code(s): J45.909 - UNSPECIFIED ASTHMA, UNCOMPLICATED Status: Chronic Priority: Medium Current Visit: Yes Qualifiers: Asthma severity: mild Asthma persistence: intermittent Asthma complicatio n type: uncomplicated Qualified Code(s): J45.20 - Mild intermittent asthma, uncomplicated Annotation/Comment:: Stable by history with no recent fever or bronchitic type symptoms. The patient is using inhalers during this hospitalization. (6) Osteoarthritis SNOMED Code(s): 832085958 Code(s): M19.90 - UNSPECIFIED OSTEOARTHRITIS, UNSPECIFIED SITE Status: Chronic Priority: Medium Current Visit: Yes Qualifiers: Osteoarthritis location: multiple joints Osteoarthritis type: primary Qualified Code(s): M89.49 - Other hypertrophic osteoarthropathy, multiple sites Annotation/Comment:: Stable by history with patient needing a walker. (7) Mixed anxiety depressive disorder SNOMED Code(s): 262336427 Code(s): F41.8 - OTHER SPECIFIED ANXIETY DISORDERS Status: Chronic Priority: Medium Current Visit: Yes Annotation/Comment:: Stable by history although moderate control during initial phases of this hospitalization. Note that the patient's anxiety has significantly improved after improvement of her abdominal complaints and our plan for usp placement. Continue to observe closely by her regular provider after discharge from this facility. (8) Diabetes mellitus SNOMED Code(s): 78589265 Code(s): E11.9 - TYPE 2 DIABETES MELLITUS WITHOUT COMPLICATIONS Status: Chronic Priority: Medium Current Visit: Yes Qualifiers: Diabetes mellitus type: type 2 Diabetes mellitus superintendent container terminal insulin use: without superintendent container terminal use Diabetes mellitus complication status: without complication Qualified Code(s): E11.9 - Type 2 diabetes mellitus without complications Annotation/Comment:: Previously attempted to be diet controlled, although the patient has been observed to be significantly noncompliant with her diet and has also been noncompliant with her home Accu-Cheks. Diabetic teaching, including review of diabetic Accu-Cheks, diet, etc. initiated on 09/08 and is going well by patient history. Glycosylated hemoglobin 8.6% on 09/05/2020 in this facility. Metformin therapy initiated in the a.m. of 09/08 with additional lisinopril for better blood pressure control and as renal protection for her diabetes. The patient was also placed on a Humalog twice daily sliding scale on 09/08 with improved twice daily Accu-Cheks during this hospitalization with the above therapy. Glycosylated hemoglobin and lipid panel should be repeated in about 3 monthsr. Weight loss in moderation strongly advisable with patient placed on a 1500-calorie weight loss ADA, heart healthy, diverticulosis diet on 09/08. - Problem List Review Problem List Initiated/Reviewed/Updated: Yes - My Orders Last 24 Hours: My Active Orders 09/11/20 15:00 Lactulose [Cephulac] 20 gm PO ONETIME ONE 09/12/20 05:11 COMPREHENSIVE METABOLIC PN,CMP [CHEM] AM INR,PT,PROTHROMBIN TIME [COAG] AM MAGNESIUM [CHEM] AM 09/12/20 05:15 CBC WITH AUTO DIFF [HEME] AM - Assessment Assessment:: As above - Plan Plan:: As above. Extensive precautions were given to the patient, who is in agreement with the treatment plan. Continue inpatient/acute care for now with planned [facility] home placement as above. The patient will require an additional day of inpatient/acute care secondary to multiple health problems as above and pending usp placement after the weekend.
[2020-09-11] MEDS ORDERED: Ondansetron 4 MG Tab.DIS PO PRN (11:24)
[2020-09-11] MEDS: Pravastatin 20 MG Tab PO SCH (19:33)
[2020-09-11] MEDS: Montelukast 10 MG Tab PO SCH (19:33)
[2020-09-11] MEDS: Escitalopram 20 MG Tab PO SCH (19:34)
[2020-09-11] MEDS: Latanoprost 0.005% Ophth Soln **OWN MED EYEBOTH SCH (22:26)
[2020-09-12] MEDS: Docusate Sodium 100 MG Cap PO SCH (07:28)
[2020-09-12] MEDS: Magnesium Oxide 400 MG Tab PO SCH (07:28)
[2020-09-12] MEDS: Pregabalin 75 MG Cap PO SCH (07:29)
[2020-09-12] MEDS: Lisinopril 10 MG Tab PO SCH (07:29)
[2020-09-12] MEDS ORDERED: Pantoprazole 40 MG Tab.CR PO SCH (07:30)
[2020-09-12] MEDS: Acetaminophen 325 MG Tab PO PRN (07:30)
[2020-09-12] MEDS: metFORMIN 500 MG Tab PO SCH (07:30)
[2020-09-12] MEDS: Polyethylene Glycol 3350 Powder 17 GM Packet PO SCH (07:30)
[2020-09-12 07:31] VITALS: BP 126/52
[2020-09-12] MEDS: Insulin Lispro 100 Units/ML 3 ML Vial SUBCUT SCH (07:31)
[2020-09-12] MEDS: ALPHAGAN P EYEBOTH SCH (07:31)
[2020-09-12 07:38] LABS: CHLORIDE,CL 104 mmol/L (98-107); SODIUM,NA 143 mmol/L (136-145)
[2020-09-12 08:46] VITALS: PULSE 72
--- NOTE | 2020-09-12 10:01 | PCM.DCSUM1 ---
Discharge Summary - Hospital Course HPI Initial Comments: See emergency room note/admission H&P Brief History: See emergency room note/admission H&P Diagnosis: Stroke: No Modified Rid[place] Scale: No Symptoms at All Modified Ridgeland Scale Score: 0 - Discharge Data Discharge Date: 09/12/20 Discharge Disposition: DC/Tfer to SNF 03 Condition: Fair - Referral to Home Health Primary Care Physician: Elsie Szymanski PULPIT OPERATOR - Discharge Diagnosis/Problem(s) (1) Constipation SNOMED Code(s): 91126207 ICD Code: K59.00 - CONSTIPATION, UNSPECIFIED Status: Acute Priority: High Current Visit: Yes Onset Date: ~09/04/20 Problem Details: Despite initial improvement during this hospitalization with aggressive therapy, including Dulcolax, multiple doses of magnesium oxide with MiraLAX, daily MiraLAX, and additional lactulose yesterday the patient has not had a bowel movement for the last couple of days. Note prolonged inpatient care secondary to refractory symptoms. Difficult to promote bowel movements/chronic issue/consider motility disorder. The patient refuses recommended GI referral for possible colonoscopy at this time, although she should discuss this further with her new regular provider. She will be transferred to [facility] under skilled care later today with consideration of close bowel assessments, PT, OT, etc. with patient not able to perform ADLs at home with limited home support at this time. Secondary to refractory symptoms the patient was changed from observation status to inpatient/acute care on 09/08/2020. PT and OT consultation ordered on 09/10 secondary to moderate generalized weakness and history of recurrent falls at home despite her walker use. The patient does not feel that she can perform her ADLs any longer as above with limited support system at home, including a very weak , etc. Abdominal checks have been stable. Note the patient and her daughter refused outpatient treatment in the emergency room secondary to their safety issues of care at home. The patient was placed initially in observation status per their request. No evidence of acute GI bleed. High-dose IV Pepcid and IV Protonix initiated on admission as GI prophylaxis with continued throughout this hospitalization. No indication for antibiotic therapy. Another dose of lactulose and MiraLAX were given to the patient earlier this morning prior to [facility]. In spite of some increased gaseous distention at time of follow-up abdominal x-rays on 09/10/2020 patient is clinically improved with close follow-up by your regular provider as per discharge instructions. Qualifiers: Constipation type: unspecified constipation type Qualified Code(s): K59.00 - Constipation, unspecified (2) Asthma SNOMED Code(s): 650720886 ICD Code: J45.909 - UNSPECIFIED ASTHMA, UNCOMPLICATED Status: Chronic Priority: Medium Current Visit: Yes Problem Details: Stable by history with no recent fever or bronchitic type symptoms. The patient used inhalers during this hospitalization. Qualifiers: Asthma severity: mild Asthma persistence: intermittent Asthma complication type: uncomplicated Qualified Code(s): J45.20 - Mild intermittent asthma, uncomplicated (3) Diabetes mellitus SNOMED Code(s): 45973972 ICD Code: E11.9 - TYPE 2 DIABETES MELLITUS WITHOUT COMPLICATIONS Status: Chronic Priority: Medium Current Visit: Yes Problem Details: Previously attempted to be diet controlled, although the patient has been observed to be significantly noncompliant with her diet and has also been noncompliant with her home Accu-Cheks. Diabetic teaching, including review of diabetic Accu-Cheks, diet, etc. initiated on 09/08 and went well by patient history, although patient is now going into a penitentiary as above. Glycosylated hemoglobin 8.6% on 09/05/2020 in this facility. Metformin therapy initiated in the a.m. of 09/08 with additional lisinopril for better blood pressure control and as renal protection for her diabetes. The patient was also placed on a Humalog twice daily sliding scale on 09/08 with improved twice daily Accu-Cheks during this hospitalization with the above therapy. Continue Accu-Cheks and sliding scale at the penitentiary for now with further adjustment of her medical therapy by her regular providers depending on her clinical course. Glycosylated hemoglobin and lipid panel should be repeated in about 3 monthsr. Weight loss in moderation strongly advisable with patient placed on a 1500-calorie weight loss ADA, heart healthy, diverticulosis diet on 09/08. Qualifiers: Diabetes mellitus type: type 2 Diabetes mellitus mcfp insulin use: without termite control representative use Diabetes mellitus complication status: without complication Qualified Code(s): E11.9 - Type 2 diabetes mellitus without complications (4) GERD (gastroesophageal reflux disease) SNOMED Code(s): 375618696 ICD Code: K21.9 - GASTRO-ESOPHAGEAL REFLUX DISEASE WITHOUT ESOPHAGITIS Status: Chronic Priority: Medium Current Visit: Yes Problem Details: History Gerd/HH/PUD. Stable per history. High-dose IV Pepcid and IV Protonix initiated on admission and during this hospitalization as above. This therapy will be changed to an oral regimen at discharge. Qualifiers: Esophagitis presence: esophagitis presence not specified Qualified Code(s): K21.9 - Gastro-esophageal reflux disease without esophagitis (5) Mixed anxiety depressive disorder SNOMED Code(s): 041564724 ICD Code: F41.8 - OTHER SPECIFIED ANXIETY DISORDERS Status: Chronic Priority: Medium Current Visit: Yes Problem Details: Stable by history although moderate control during initial phases of this hospitalization. Note that the patient's anxiety significantly improved after improvement of her abdominal complaints and our plan for penitentiary placement. Continue to observe closely by her new regular provider after discharge from this facility. (6) Osteoarthritis SNOMED Code(s): 544196630 ICD Code: M19.90 - UNSPECIFIED OSTEOARTHRITIS, UNSPECIFIED SITE Status: Chronic Priority: Medium Current Visit: Yes Problem Details: Stable by history with patient needing a walker. Qualifiers: Osteoarthritis location: multiple joints Osteoarthritis type: primary Qualified Code(s): M89.49 - Other hypertrophic osteoarthropathy, multiple sites (7) Hypertension SNOMED Code(s): 60644186 ICD Code: I10 - ESSENTIAL (PRIMARY) HYPERTENSION Status: Chronic Priority: Medium Current Visit: Yes Problem Details: Blood pressure somewhat elevated in the emergency room and during the early phases of this hospitalization. Lisinopril initiated on 09/08/2020 and much improved as above. Continue to observe closely. Qualifiers: Hypertension type: essential hypertension Qualified Code(s): I10 - Essential (primary) hypertension (8) Hypocalcemia SNOMED Code(s): 8986386 ICD Code: E83.51 - HYPOCALCEMIA Status: Acute Priority: Medium Current Visit: Yes Onset Date: 09/08/20 Problem Details: Resume her previous calcium with vitamin D supplement at time of transfer and otherwise observe for now. Consider extra strength Tums depending on her clinical course. (9) Hypomagnesemia SNOMED Code(s): 796050937 ICD Code: E83.42 - HYPOMAGNESEMIA Status: Chronic Priority: Medium Current Visit: Yes Problem Details: Normal on 09/08/2020, however mildly increased on 09/12. Her magnesium supplement from home was not available with magnesium oxide at 400 mg p.o. twice daily initiated on admission. Her magnesium oxide will be decreased to a daily regimen with close follow-up by her new regular provider as per discharge instructions. (10) Hypoalbuminemia SNOMED Code(s): 501275506 ICD Code: E88.09 - OTH DISORDERS OF PLASMA-PROTEIN METABOLISM, NEC Status: Chronic Priority: Medium Current Visit: Yes Onset Date: 02/05/17 Problem Details: Consider high protein Glucerna supplements as snacks as previously advised however note problems with her obesity, dietary noncompliance, etc. Observe for now. (11) Weakness SNOMED Code(s): 79963929 ICD Code: R53.1 - WEAKNESS Status: Chronic Priority: High Current Visit: Yes Problem Details: Note generalized weakness with patient requesting penitentiary placement as above. Family appears to be in agreement with this plan. PT and OT has been ordered as above. - Patient Summary/Data Operative Procedure(s) Performed: None Complications: None Consults: Consultations 09/08/20 11:36 Consult to Case Management/Trust Administrative Assistant [CONS] Routine 09/09/20 09:01 PT Evaluation and Treatment [CONS] Routine 09/09/20 09:03 OT Evaluation and Treatment [CONS] Routine Labs Pending at D/C: None Recommended Follow-up Testing/Procedures: As per discharge instructions Planned Operative Procedure(s) after DC: None Hospital Course: The patient was initially placed in observation status as above with subsequent transfer to inpatient/acute care secondary to refractory symptoms. She did have an extended hospitalization secondary to these refractory symptoms. No other complications during this hospitalization, although the patient is requesting transfer to [facility] secondary to her overall general weakness affecting her ADLs and her multiple healthcare issues as above. PT and OT to be continued as an outpatient. Note multiple medication adjustments during this hospitalization as above with improved blood pressures, blood sugar control, etc. during this hospitalization. - Patient Instructions Diet: Diabetic Diet Diet, Other: 1500-calorie ADA, heart healthy, diverticulosis Activity: As Tolerated (And as directed by PT/OT with strict fall precautions, walker use, etc.) Driving: Do Not Drive Showering/Bathing: May Shower (With assist) Notify Provider of: Fever, Increased Pain, Nausea and/or Vomiting Other/Special Instructions: 1. Follow-up with her new regular provider in 1 week for reevaluation and recommended repeat INR, CBC, comprehensive metabolic panel, magnesium level, and acute abdominal x-rays. 2. Continue twice daily Accu-Cheks with Humalog sliding scale as above with further medication adjustments by her regular provider. 3. Notify her regular provider, if the patient does not have an excellent bowel movement at least every 2 days. 4. Continue PT and OT on an outpatient basisstrengthening. 5. Recommend repeat lipid panel and glycosylated hemoglobin in 3 months by regular provider. 6. Note weight loss diet as above with further dietary adjustments depending on her clinical course - Discharge Plan *PRESCRIPTION DRUG MONITORING PROGRAM REVIEWED*: Not Applicable *COPY OF PRESCRIPTION DRUG MONITORING REPORT IN PATIENT STACIE: Not Applicable Prescriptions/Med Rec: metFORMIN [Glucophage] 500 mg PO BIDMEALS #14 tablet Magnesium Oxide 400 mg PO DAILY #7 tablet polyethylene glycoL 3350 [MiraLAX] 17 gm PO DAILY #10 packet Insulin Aspart [NovoLOG] See Protocol SQ BIDAC #1 pen lisinopriL [Prinivil] 10 mg PO DAILY #7 tablet Pantoprazole [ProTONIX] 40 mg PO ACBREAKFAST #7 tab.cr Home Medications: Home Meds Escitalopram [Lexapro] 20 mg PO BEDTIME 04/18/18 [History] Brimonidine Tartrate [Alphagan P 0.1% Oph Soln] 1 drop EYEBOTH BID@,09/17/19 [History] Cetirizine [ZyrTEC] 10 mg PO DAILY PRN 09/17/19 [History] Chlorthalidone 12.5 mg PO TUTHSA@08 09/17/19 [History] Docusate Sodium 100 mg PO BID 09/17/19 [History] Ipratropium [Atrovent HFA] 2 puff INH Q6H PRN 09/17/19 [History] Latanoprost/Pf [Latanoprost 0.005% Eye Drop] 1 drop EYEBOTH BEDTIME 09/17/19 [History] Montelukast Sodium [Singulair] 10 mg PO BEDTIME 09/17/19 [History] Nebivolol [Bystolic] 1.25 mg PO DAILY 09/17/19 [History] Pregabalin 150 mg PO BID 09/17/19 [History] Acetaminophen [Tylenol] 650 mg PO Q4H PRN tablet 10/07/19 [Rx] Warfarin [Coumadin] 1.5 mg PO SUTUTHSA@18 01/07/20 [History] Warfarin [Coumadin] 2 mg PO MOWEFR@18 01/07/20 [History] Calcium Carbonate/Vitamin D3 [Calcium 600-Vit D3 800 Caplet] 1 each PO DAILY 09/07/20 [History] Pravastatin [Pravachol] 20 mg PO BEDTIME 09/07/20 [History] polyethylene glycoL 3350 [MiraLAX] 17 gm PO DAILY PRN 09/07/20 [History] Acetaminophen [Tylenol] 650 mg PO Q4H PRN tablet 09/12/20 [Rx] Insulin Aspart [NovoLOG] See Protocol SQ BIDAC #1 pen 09/12/20 [Rx] Magnesium Oxide 400 mg PO DAILY #7 tablet 09/12/20 [Rx] Montelukast [Singulair] 10 mg PO BEDTIME tablet 09/12/20 [Rx] Pantoprazole [ProTONIX] 40 mg PO ACBREAKFAST #7 tab.cr 09/12/20 [Rx] Sennosides/Docusate Sodium [Senna-Docusate Sodium Tablet] 3 tab PO BID #30 09/12/20 [Rx] lisinopriL [Prinivil] 10 mg PO DAILY #7 tablet 09/12/20 [Rx] metFORMIN [Glucophage] 500 mg PO BIDMEALS #14 tablet 09/12/20 [Rx] polyethylene glycoL 3350 [MiraLAX] 17 gm PO DAILY #10 packet 09/12/20 [Rx] Oxygen Therapy Mode: Room Air Forms: ED Department Discharge Referrals: Elsie Szymanski, PULPIT OPERATOR [Primary Care Provider] - - Discharge Summary/Plan Comment DC Time >30 min.: Yes (Coordination of care ) Discharge Summary/Plan Comment: As above. Extensive precautions were given to the patient, who is in agreement with the treatment plan. See Patient Instructions for further treatment and plan. - General Info Date of Service: 09/12/20 Admission Dx/Problem (Free Text: 1. Constipation secondary abdominal pain 2. Peptic reflux disease Functional Status: Reports: Pain Controlled, Tolerating Diet, Ambulating, Urinating, Incentive Spirometry. Denies: New Symptoms Numeric/FACES Score: 0 - Review of Systems General: Reports: Weakness (Stable moderate generalized affecting her ADLs). Denies: Fever, Fatigue, Malaise, Chills, Night Sweats, Appetite (Good) HEENT: Reports: Glasses. Denies: Dysphasia, Ear Pain, Eye Pain, Headaches, Post Nasal Drip, Sinus Congestion, Sore Throat, Rhinitis, Visual Changes Pulmonary: Reports: No Symptoms. Denies: Shortness of Breath, Pleuritic Chest Pain, Cough, Sputum, Hemoptysis, Wheezing Cardiovascular: Reports: No Symptoms. Denies: Chest Pain, Palpitations, Dyspnea on Exertion, Orthopnea, PND, Edema, Lightheadedness Gastrointestinal: Reports: Constipation. Denies: Abdominal Pain, Decreased Appetite, Diarrhea, Difficulty Swallowing, Flatus, Hematochezia, Melena, Nausea, Vomiting Genitourinary: Reports: Incontinence. Denies: Dysuria, Frequency, Burning, Brandon n, Urgency, Hematuria, Retention, Flank Pain Musculoskeletal: Reports: No Symptoms. Denies: Neck Pain, Shoulder Pain, Arm Pain, Back Pain, Leg Pain Skin: Reports: No Symptoms. Denies: Diaphoresis, Bruising Neurological: Reports: Difficulty Walking (Walker use required), Weakness (As above). Denies: Confusion, Numbness, Paresthesia, Tingling Psychiatric: Reports: Depression (Mild), Anxiety (Mild). Denies: Confusion, Agitation, Cravings, Hallucinations - Patient Data Vitals - Most Recent: Last Vital Signs Temp 36.6 C 09/12/20 08:00 Pulse 72 09/12/20 08:00 Resp 14 09/12/20 08:00 BP 126/52 L 09/12/20 08:00 Pulse Ox 95 09/12/20 08:00 Vital Signs - 24 hr 09/11/20 09/12/20 09/12/20 20:00 07:28 07:29 Temperature [ Oral] Temperature [ 36.5 C Temporal] Pulse, 71 Peripheral Pulse, 72 Peripheral [ Pulse Oximetry] Respiratory 14 Rate Blood Pressure 126/52 L 126/52 L Blood Pressure 133/70 [Left Upper Arm ] O2 Sat by Pulse 90 L Oximetry 09/12/20 08:00 Temperature [ 36.6 C Oral] Temperature [ Temporal] Pulse, Peripheral Pulse, 72 Peripheral [ Pulse Oximetry] Respiratory 14 Rate Blood Pressure Blood Pressure 126/52 L [Left Upper Arm ] O2 Sat by Pulse 95 Oximetry Weight - Most Recent: 98.43 kg I&O - Last 24 hours: Intake & Output 09/11/20 09/12/20 09/12/20 22:59 06:59 14:59 Intake Total 240 Balance 240 Imaging Impressions - Last 24 hrs: Acute abdominal x-rays on 09/10/2020 does show a mild increased gaseous distention predominantly colonic in nature since previous x-rays on 10/04/2020. Occasional nonspecific fluid levels but no evidence of obstruction, etc. Lab Results - Last 24 hrs: Laboratory Results - last 24 hr 09/11/20 09/12/20 09/12/20 Range/Units 17:47 07:10 07:10 WBC (4.0-10.2) K/uL RBC (3.77-5.09) M/uL Hgb (11.7-15.5) g/dL Hct (34.0-46.0) % MCV (84.0-98.0) fL MCH (28.2-33.3) pg MCHC (31.7-36.0) g/dL RDW (11.2-14.1) % Plt Count (150-350) K/uL Neut % (Auto) (45.0-80.0) % Lymph % (Auto) (10.0-50.0) % Bryan % (Auto) (2.0-14.0) % Eos % (Auto) (0.0-5.0) % Baso % (Auto) (0.0-2.0) % Neut # (Auto) (1.40-7.00) K/uL Lymph # (Auto) (0.50-3.50) K/uL Bryan # (Auto) (0.00-1.00) K/uL Eos # (Auto) (0.00-0.50) K/uL Baso # (Auto) (0.00-0.20) K/uL PT 19.2 H (9.5-12.0) SEC INR 2.0 Sodium 143 (136-145) mmol/L Potassium 3.5 (3.5-5.1) mmol/L Chloride 104 (98-107) mmol/L Carbon Dioxide 32.8 H (21.0-32.0) mmol/L BUN 11 (7-18) mg/dL Creatinine 0.86 (0.51-1.17) mg/dL Est Cr Clr Drug Dosing 51.06 mL/min Estimated GFR (MDRD) > 60 mL/min Glucose 131 H (70-99) mg/dL POC Glucose 168 H (65-110) mg/dl Calcium 8.5 (8.5-10.1) mg/dL Magnesium 1.6 L (1.8-2.4) mg/dL Total Bilirubin 0.4 (0.2-1.0) mg/dL AST 35 (15-37) U/L ALT 62 (12-78) U/L Alkaline Phosphatase 88 (46-116) IU/L Total Protein 6.0 L (6.4-8.2) g/dL Albumin 2.9 L (3.4-5.0) g/dL 09/12/20 Range/Units 07:10 WBC 8.1 (4.0-10.2) K/uL RBC 4.28 (3.77-5.09) M/uL Hgb 12.6 (11.7-15.5) g/dL Hct 40.5 (34.0-46.0) % MCV 94.6 (84.0-98.0) fL MCH 29.4 (28.2-33.3) pg MCHC 31.1 L (31.7-36.0) g/dL RDW 13.3 (11.2-14.1) % Plt Count 266 (150-350) K/uL Neut % (Auto) 61.4 (45.0-80.0) % Lymph % (Auto) 29.4 (10.0-50.0) % Bryan % (Auto) 6.0 (2.0-14.0) % Eos % (Auto) 3.0 (0.0-5.0) % Baso % (Auto) 0.2 (0.0-2.0) % Neut # (Auto) 4.99 (1.40-7.00) K/uL Lymph # (Auto) 2.39 (0.50-3.50) K/uL Bryan # (Auto) 0.49 (0.00-1.00) K/uL Eos # (Auto) 0.24 (0.00-0.50) K/uL Baso # (Auto) 0.02 (0.00-0.20) K/uL PT (9.5-12.0) SEC INR Sodium (136-145) mmol/L Potassium (3.5-5.1) mmol/L Chloride (98-107) mmol/L Carbon Dioxide (21.0-32.0) mmol/L BUN (7-18) mg/dL Creatinine (0.51-1.17) mg/dL Est Cr Clr Drug Dosing mL/min Estimated GFR (MDRD) mL/min Glucose (70-99) mg/dL POC Glucose (65-110) mg/dl Calcium (8.5-10.1) mg/dL Magnesium (1.8-2.4) mg/dL Total Bilirubin (0.2-1.0) mg/dL AST (15-37) U/L ALT (12-78) U/L Alkaline Phosphatase (46-116) IU/L Total Protein (6.4-8.2) g/dL Albumin (3.4-5.0) g/dL Laboratory Tests 09/08/20 09/08/20 09/08/20 Range/Units 00:00 07:15 07:15 WBC 9.0 (4.0-10.2) K/uL RBC 4.55 (3.77-5.09) M/uL Hgb 13.4 (11.7-15.5) g/dL Hct 42.6 (34.0-46.0) % MCV 93.6 (84.0-98.0) fL MCH 29.5 (28.2-33.3) pg MCHC 31.5 L (31.7-36.0) g/dL RDW 13.4 (11.2-14.1) % Plt Count 296 (150-350) K/uL Neut % (Auto) 65.9 (45.0-80.0) % Lymph % (Auto) 25.5 (10.0-50.0) % Bryan % (Auto) 6.4 (2.0-14.0) % Eos % (Auto) 1.9 (0.0-5.0) % Baso % (Auto) 0.3 (0.0-2.0) % Neut # (Auto) 5.91 (1.40-7.00) K/uL Lymph # (Auto) 2.29 (0.50-3.50) K/uL Bryan # (Auto) 0.57 (0.00-1.00) K/uL Eos # (Auto) 0.17 (0.00-0.50) K/uL Baso # (Auto) 0.03 (0.00-0.20) K/uL PT (9.5-12.0) SEC INR Sodium 143 (136-145) mmol/L Potassium 3.8 (3.5-5.1) mmol/L Chloride 104 (98-107) mmol/L Carbon Dioxide 34.4 H (21.0-32.0) mmol/L BUN 18 (7-18) mg/dL Creatinine 0.80 (0.51-1.17) mg/dL Est Cr Clr Drug Dosing 54.89 mL/min Estimated GFR (MDRD) > 60 mL/min Glucose 185 H (70-99) mg/dL POC Glucose (65-110) mg/dl Calcium 8.1 L (8.5-10.1) mg/dL Magnesium 2.4 (1.8-2.4) mg/dL Total Bilirubin 0.4 (0.2-1.0) mg/dL AST 37 (15-37) U/L ALT 66 (12-78) U/L Alkaline Phosphatase 111 (46-116) IU/L Total Protein 6.3 L (6.4-8.2) g/dL Albumin 2.9 L (3.4-5.0) g/dL Amylase 20 L (25-115) U/L Lipase 39 L (73-393) U/L Specimen Type Urincc Urine Color Yellow Urine Appearance Slightly cloudy Urine pH 7.0 (5.0-9.0) Ur Specific Hooper 1.025 (1.005-1.030) Urine Protein Negative (NEGATIVE) mg/dL Urine Glucose (UA) 100 H (NEGATIVE) mg/dL Urine Ketones 15 H (NEGATIVE) mg/dL Urine Occult Blood Negative (NEGATIVE) Urine Nitrite Negative (NEGATIVE) Urine Bilirubin Negative (NEGATIVE) Urine Urobilinogen 0.2 (0.2-1.0) E.U./dL Ur Leukocyte Esterase Negative (NEGATIVE) Urine RBC Not seen /HPF Urine WBC 0-5 /HPF Ur Epithelial Cells Moderate H /LPF Urine Bacteria Rare (NONE TO FEW) /HPF SARS-CoV-2 RNA (MADELYN) (NEGATIVE) 09/08/20 09/09/20 09/09/20 Range/Units 17:11 07:45 17:01 WBC (4.0-10.2) K/uL RBC (3.77-5.09) M/uL Hgb (11.7-15.5) g/dL Hct (34.0-46.0) % MCV (84.0-98.0) fL MCH (28.2-33.3) pg MCHC (31.7-36.0) g/dL RDW (11.2-14.1) % Plt Count (150-350) K/uL Neut % (Auto) (45.0-80.0) % Lymph % (Auto) (10.0-50.0) % Bryan % (Auto) (2.0-14.0) % Eos % (Auto) (0.0-5.0) % Baso % (Auto) (0.0-2.0) % Neut # (Auto) (1.40-7.00) K/uL Lymph # (Auto) (0.50-3.50) K/uL Bryan # (Auto) (0.00-1.00) K/uL Eos # (Auto) (0.00-0.50) K/uL Baso # (Auto) (0.00-0.20) K/uL PT (9.5-12.0) SEC INR Sodium (136-145) mmol/L Potassium (3.5-5.1) mmol/L Chloride (98-107) mmol/L Carbon Dioxide (21.0-32.0) mmol/L BUN (7-18) mg/dL Creatinine (0.51-1.17) mg/dL Est Cr Clr Drug Dosing mL/min Estimated GFR (MDRD) mL/min Glucose (70-99) mg/dL POC Glucose 163 H 148 H 154 H (65-110) mg/dl Calcium (8.5-10.1) mg/dL Magnesium (1.8-2.4) mg/dL Total Bilirubin (0.2-1.0) mg/dL AST (15-37) U/L ALT (12-78) U/L Alkaline Phosphatase (46-116) IU/L Total Protein (6.4-8.2) g/dL Albumin (3.4-5.0) g/dL Amylase (25-115) U/L Lipase (73-393) U/L Specimen Type Urine Color Urine Appearance Urine pH (5.0-9.0) Ur Specific Hooper (1.005-1.030) Urine Protein (NEGATIVE) mg/dL Urine Glucose (UA) (NEGATIVE) mg/dL Urine Ketones (NEGATIVE) mg/dL Urine Occult Blood (NEGATIVE) Urine Nitrite (NEGATIVE) Urine Bilirubin (NEGATIVE) Urine Urobilinogen (0.2-1.0) E.U./dL Ur Leukocyte Esterase (NEGATIVE) Urine RBC /HPF Urine WBC /HPF Ur Epithelial Cells /LPF Urine Bacteria (NONE TO FEW) /HPF SARS-CoV-2 RNA (MADELYN) (NEGATIVE) 09/10/20 09/10/20 09/10/20 Range/Units 07:16 07:30 07:30 WBC 7.3 (4.0-10.2) K/uL RBC 4.13 (3.77-5.09) M/uL Hgb 12.3 (11.7-15.5) g/dL Hct 39.4 (34.0-46.0) % MCV 95.4 (84.0-98.0) fL MCH 29.8 (28.2-33.3) pg MCHC 31.2 L (31.7-36.0) g/dL RDW 13.3 (11.2-14.1) % Plt Count 262 (150-350) K/uL Neut % (Auto) 69.1 (45.0-80.0) % Lymph % (Auto) 22.2 (10.0-50.0) % Bryan % (Auto) 5.7 (2.0-14.0) % Eos % (Auto) 2.6 (0.0-5.0) % Baso % (Auto) 0.4 (0.0-2.0) % Neut # (Auto) 5.06 (1.40-7.00) K/uL Lymph # (Auto) 1.63 (0.50-3.50) K/uL Bryan # (Auto) 0.42 (0.00-1.00) K/uL Eos # (Auto) 0.19 (0.00-0.50) K/uL Baso # (Auto) 0.03 (0.00-0.20) K/uL PT 21.0 H (9.5-12.0) SEC INR 2.1 Sodium (136-145) mmol/L Potassium (3.5-5.1) mmol/L Chloride (98-107) mmol/L Carbon Dioxide (21.0-32.0) mmol/L BUN (7-18) mg/dL Creatinine (0.51-1.17) mg/dL Est Cr Clr Drug Dosing mL/min Estimated GFR (MDRD) mL/min Glucose (70-99) mg/dL POC Glucose 163 H (65-110) mg/dl Calcium (8.5-10.1) mg/dL Magnesium (1.8-2.4) mg/dL Total Bilirubin (0.2-1.0) mg/dL AST (15-37) U/L ALT (12-78) U/L Alkaline Phosphatase (46-116) IU/L Total Protein (6.4-8.2) g/dL Albumin (3.4-5.0) g/dL Amylase (25-115) U/L Lipase (73-393) U/L Specimen Type Urine Color Urine Appearance Urine pH (5.0-9.0) Ur Specific Hooper (1.005-1.030) Urine Protein (NEGATIVE) mg/dL Urine Glucose (UA) (NEGATIVE) mg/dL Urine Ketones (NEGATIVE) mg/dL Urine Occult Blood (NEGATIVE) Urine Nitrite (NEGATIVE) Urine Bilirubin (NEGATIVE) Urine Urobilinogen (0.2-1.0) E.U./dL Ur Leukocyte Esterase (NEGATIVE) Urine RBC /HPF Urine WBC /HPF Ur Epithelial Cells /LPF Urine Bacteria (NONE TO FEW) /HPF SARS-CoV-2 RNA (MADELYN) (NEGATIVE) 09/10/20 09/10/20 09/11/20 Range/Units 07:30 17:12 07:15 WBC (4.0-10.2) K/uL RBC (3.77-5.09) M/uL Hgb (11.7-15.5) g/dL Hct (34.0-46.0) % MCV (84.0-98.0) fL MCH (28.2-33.3) pg MCHC (31.7-36.0) g/dL RDW (11.2-14.1) % Plt Count (150-350) K/uL Neut % (Auto) (45.0-80.0) % Lymph % (Auto) (10.0-50.0) % Bryan % (Auto) (2.0-14.0) % Eos % (Auto) (0.0-5.0) % Baso % (Auto) (0.0-2.0) % Neut # (Auto) (1.40-7.00) K/uL Lymph # (Auto) (0.50-3.50) K/uL Bryan # (Auto) (0.00-1.00) K/uL Eos # (Auto) (0.00-0.50) K/uL Baso # (Auto) (0.00-0.20) K/uL PT (9.5-12.0) SEC INR Sodium 145 (136-145) mmol/L Potassium 3.6 (3.5-5.1) mmol/L Chloride 106 (98-107) mmol/L Carbon Dioxide 35.3 H (21.0-32.0) mmol/L BUN 9 (7-18) mg/dL Creatinine 0.83 (0.51-1.17) mg/dL Est Cr Clr Drug Dosing 52.91 mL/min Estimated GFR (MDRD) > 60 mL/min Glucose 175 H (70-99) mg/dL POC Glucose 151 H 148 H (65-110) mg/dl Calcium 8.4 L (8.5-10.1) mg/dL Magnesium 1.8 (1.8-2.4) mg/dL Total Bilirubin 0.4 (0.2-1.0) mg/dL AST 31 (15-37) U/L ALT 55 (12-78) U/L Alkaline Phosphatase 93 (46-116) IU/L Total Protein 5.7 L (6.4-8.2) g/dL Albumin 2.8 L (3.4-5.0) g/dL Amylase (25-115) U/L Lipase (73-393) U/L Specimen Type Urine Color Urine Appearance Urine pH (5.0-9.0) Ur Specific Hooper (1.005-1.030) Urine Protein (NEGATIVE) mg/dL Urine Glucose (UA) (NEGATIVE) mg/dL Urine Ketones (NEGATIVE) mg/dL Urine Occult Blood (NEGATIVE) Urine Nitrite (NEGATIVE) Urine Bilirubin (NEGATIVE) Urine Urobilinogen (0.2-1.0) E.U./dL Ur Leukocyte Esterase (NEGATIVE) Urine RBC /HPF Urine WBC /HPF Ur Epithelial Cells /LPF Urine Bacteria (NONE TO FEW) /HPF SARS-CoV-2 RNA (MADELYN) (NEGATIVE) 09/11/20 09/12/20 09/12/20 Range/Units 17:47 07:10 07:10 WBC (4.0-10.2) K/uL RBC (3.77-5.09) M/uL Hgb (11.7-15.5) g/dL Hct (34.0-46.0) % MCV (84.0-98.0) fL MCH (28.2-33.3) pg MCHC (31.7-36.0) g/dL RDW (11.2-14.1) % Plt Count (150-350) K/uL Neut % (Auto) (45.0-80.0) % Lymph % (Auto) (10.0-50.0) % Bryan % (Auto) (2.0-14.0) % Eos % (Auto) (0.0-5.0) % Baso % (Auto) (0.0-2.0) % Neut # (Auto) (1.40-7.00) K/uL Lymph # (Auto) (0.50-3.50) K/uL Bryan # (Auto) (0.00-1.00) K/uL Eos # (Auto) (0.00-0.50) K/uL Baso # (Auto) (0.00-0.20) K/uL PT 19.2 H (9.5-12.0) SEC INR 2.0 Sodium 143 (136-145) mmol/L Potassium 3.5 (3.5-5.1) mmol/L Chloride 104 (98-107) mmol/L Carbon Dioxide 32.8 H (21.0-32.0) mmol/L BUN 11 (7-18) mg/dL Creatinine 0.86 (0.51-1.17) mg/dL Est Cr Clr Drug Dosing 51.06 mL/min Estimated GFR (MDRD) > 60 mL/min Glucose 131 H (70-99) mg/dL POC Glucose 168 H (65-110) mg/dl Calcium 8.5 (8.5-10.1) mg/dL Magnesium 1.6 L (1.8-2.4) mg/dL Total Bilirubin 0.4 (0.2-1.0) mg/dL AST 35 (15-37) U/L ALT 62 (12-78) U/L Alkaline Phosphatase 88 (46-116) IU/L Total Protein 6.0 L (6.4-8.2) g/dL Albumin 2.9 L (3.4-5.0) g/dL Amylase (25-115) U/L Lipase (73-393) U/L Specimen Type Urine Color Urine Appearance Urine pH (5.0-9.0) Ur Specific Hooper (1.005-1.030) Urine Protein (NEGATIVE) mg/dL Urine Glucose (UA) (NEGATIVE) mg/dL Urine Ketones (NEGATIVE) mg/dL Urine Occult Blood (NEGATIVE) Urine Nitrite (NEGATIVE) Urine Bilirubin (NEGATIVE) Urine Urobilinogen (0.2-1.0) E.U./dL Ur Leukocyte Esterase (NEGATIVE) Urine RBC /HPF Urine WBC /HPF Ur Epithelial Cells /LPF Urine Bacteria (NONE TO FEW) /HPF SARS-CoV-2 RNA (MADELYN) (NEGATIVE) 09/12/20 09/12/20 Range/Units 07:10 09:23 WBC 8.1 (4.0-10.2) K/uL RBC 4.28 (3.77-5.09) M/uL Hgb 12.6 (11.7-15.5) g/dL Hct 40.5 (34.0-46.0) % MCV 94.6 (84.0-98.0) fL MCH 29.4 (28.2-33.3) pg MCHC 31.1 L (31.7-36.0) g/dL RDW 13.3 (11.2-14.1) % Plt Count 266 (150-350) K/uL Neut % (Auto) 61.4 (45.0-80.0) % Lymph % (Auto) 29.4 (10.0-50.0) % Bryan % (Auto) 6.0 (2.0-14.0) % Eos % (Auto) 3.0 (0.0-5.0) % Baso % (Auto) 0.2 (0.0-2.0) % Neut # (Auto) 4.99 (1.40-7.00) K/uL Lymph # (Auto) 2.39 (0.50-3.50) K/uL Bryan # (Auto) 0.49 (0.00-1.00) K/uL Eos # (Auto) 0.24 (0.00-0.50) K/uL Baso # (Auto) 0.02 (0.00-0.20) K/uL PT (9.5-12.0) SEC INR Sodium (136-145) mmol/L Potassium (3.5-5.1) mmol/L Chloride (98-107) mmol/L Carbon Dioxide (21.0-32.0) mmol/L BUN (7-18) mg/dL Creatinine (0.51-1.17) mg/dL Est Cr Clr Drug Dosing mL/min Estimated GFR (MDRD) mL/min Glucose (70-99) mg/dL POC Glucose (65-110) mg/dl Calcium (8.5-10.1) mg/dL Magnesium (1.8-2.4) mg/dL Total Bilirubin (0.2-1.0) mg/dL AST (15-37) U/L ALT (12-78) U/L Alkaline Phosphatase (46-116) IU/L Total Protein (6.4-8.2) g/dL Albumin (3.4-5.0) g/dL Amylase (25-115) U/L Lipase (73-393) U/L Specimen Type Urine Color Urine Appearance Urine pH (5.0-9.0) Ur Specific Hooper (1.005-1.030) Urine Protein (NEGATIVE) mg/dL Urine Glucose (UA) (NEGATIVE) mg/dL Urine Ketones (NEGATIVE) mg/dL Urine Occult Blood (NEGATIVE) Urine Nitrite (NEGATIVE) Urine Bilirubin (NEGATIVE) Urine Urobilinogen (0.2-1.0) E.U./dL Ur Leukocyte Esterase (NEGATIVE) Urine RBC /HPF Urine WBC /HPF Ur Epithelial Cells /LPF Urine Bacteria (NONE TO FEW) /HPF SARS-CoV-2 RNA (MADELYN) Negative (NEGATIVE) VIKAS Results - Last 24 hrs: None Med Orders - Current: Current Medications Acetaminophen (Tylenol) 650 mg PO Q4H PRN PRN Reason: Pain Last Admin: 09/12/20 07:30 Dose: 650 mg Documented by: Cetirizine HCl (Zyrtec) 10 mg PO DAILY PRN PRN Reason: Allergies Chlorthalidone (Chlorthalidone) 12.5 mg PO TUTHSA@08 [facility] Last Admin: 09/10/20 08:33 Dose: 12.5 mg Documented by: Docusate Sodium (Colace) 100 mg PO BID [facility] Last Admin: 09/12/20 07:28 Dose: 100 mg Documented by: Escitalopram Oxalate (Lexapro) 20 mg PO BEDTIME [facility] Last Admin: 09/11/20 19:34 Dose: 20 mg Documented by: Glucagon (Glucagen) 1 mg IM ASDIRECTED PRN PRN Reason: Hypoglycemia Insulin Human Lispro (Humalog) 0 unit SUBCUT BIDAC [facility]; Protocol Last Admin: 09/12/20 07:31 Dose: Not Given Documented by: Latanoprost (Xalatan 0.005% Ophth Soln) 0 ml EYEBOTH DAILY@2200 [facility] Last Admin: 09/11/20 22:26 Dose: 1 drop Documented by: Lisinopril (Prinivil) 10 mg PO DAILY [facility] Last Admin: 09/12/20 07:29 Dose: 10 mg Documented by: Magnesium Oxide (Magnesium Oxide) 400 mg PO BID [facility] Last Admin: 09/12/20 07:28 Dose: 400 mg Documented by: Metformin HCl (Glucophage) 500 mg PO BIDMEALS [facility] Last Admin: 09/12/20 07:30 Dose: 500 mg Documented by: Montelukast Sodium (Singulair) 10 mg PO BEDTIME [facility] Last Admin: 09/11/20 19:33 Dose: 10 mg Documented by: Nebivolol (Bystolic) 1.25 mg PO DAILY [facility] Last Admin: 09/12/20 07:28 Dose: 1.25 mg Documented by: Non-Formulary Medication (Ipratropium) 2 puff INH Q6H PRN PRN Reason: Shortness of Breath Alphagan P 1% Own (Med) 0 each EYEBOTH BID@0800,1700 [facility] Last Admin: 09/12/20 07:31 Dose: 1 each Documented by: Ondansetron HCl (Zofran Odt) 4 mg PO Q6H PRN PRN Reason: Nausea/Vomiting Pantoprazole Sodium (Protonix) 40 mg PO ACBREAKFAST [facility] Last Admin: 09/12/20 07:30 Dose: 40 mg Documented by: Polyethylene Glycol (Miralax) 17 gm PO DAILY [facility] Last Admin: 09/12/20 07:30 Dose: 17 gm Documented by: Pravastatin Sodium (Pravachol) 20 mg PO BEDTIME [facility] Last Admin: 09/11/20 19:33 Dose: 20 mg Documented by: Pregabalin (Lyrica) 150 mg PO BID [facility] Last Admin: 09/12/20 07:29 Dose: 150 mg Documented by: Temazepam (Restoril) 15 mg PO DAILY@2000 PRN PRN Reason: Insomnia Warfarin Sodium (Coumadin) 1.5 mg PO SUTUTHSA@18 [facility] Last Admin: 09/11/20 17:42 Dose: 1.5 mg Documented by: Warfarin Sodium (Coumadin) 2 mg PO MOWEFR@18 [facility] Last Admin: 09/09/20 17:30 Dose: 2 mg Documented by: Discontinued Medications Bisacodyl (Dulcolax) 10 mg PO ONETIME ONE Stop: 09/08/20 08:51 Last Admin: 09/08/20 09:37 Dose: 10 mg Documented by: Dextrose/Water (Dextrose 50% In Water) 50 ml IV ASDIRECTED PRN PRN Reason: Hypoglycemia Famotidine (Pepcid) 20 mg IVPUSH Q12H [facility] Famotidine (Pepcid) 20 mg IVPUSH BID [facility] Last Admin: 09/11/20 07:56 Dose: 20 mg Documented by: Lactated Ringer's (Ringers, Lactated) 1,000 mls @ 80 mls/hr IV ASDIRECTED [facility] Last Admin: 09/09/20 23:00 Dose: 80 mls/hr Documented by: Lactulose (Cephulac) 20 gm PO ONETIME ONE Stop: 09/11/20 10:09 Last Admin: 09/11/20 11:02 Dose: 20 gm Documented by: Lactulose (Cephulac) 20 gm PO ONETIME ONE Stop: 09/11/20 15:01 Last Admin: 09/11/20 15:28 Dose: 20 gm Documented by: Latanoprost (Xalatan 0.005% Oph Soln) 0 ml EYEBOTH BID [facility] Last Admin: 09/09/20 08:26 Dose: Not Given Documented by: Magnesium Citrate (Citrate Of Magnesia) 0 ml PO ONETIME ONE Stop: 09/07/20 18:16 Last Admin: 09/07/20 20:00 Dose: 296 ml Documented by: Magnesium Citrate (Citrate Of Magnesia) 0 ml PO ONETIME ONE Stop: 09/08/20 08:45 Last Admin: 09/08/20 09:36 Dose: 296 ml Documented by: Magnesium Oxide (Magnesium Oxide) 400 mg PO ONETIME ONE Stop: 09/07/20 19:06 Last Admin: 09/07/20 20:00 Dose: 400 mg Documented by: Montelukast Sodium (Singulair) 10 mg PO BEDTIME [facility] Alphagan P 1% Own (Med) 0 each EYEBOTH BID [facility] Last Admin: 09/09/20 08:23 Dose: 1 each Documented by: Ondansetron HCl (Zofran) 4 mg IVPUSH Q6H PRN PRN Reason: Nausea/Vomiting Last Admin: 09/07/20 23:23 Dose: 4 mg Documented by: Pantoprazole Sodium (Protonix Iv) 40 mg IVPUSH Q12H [facility] Last Admin: 09/11/20 07:53 Dose: 40 mg Documented by: Polyethylene Glycol (Miralax) 17 gm PO DAILY PRN PRN Reason: Constipation Polyethylene Glycol (Miralax) 17 gm PO ONETIME ONE Stop: 09/07/20 18:16 Last Admin: 09/07/20 20:00 Dose: 17 gm Documented by: Polyethylene Glycol (Miralax) 17 gm PO ONETIME ONE Stop: 09/08/20 08:45 Last Admin: 09/08/20 09:37 Dose: 17 gm Documented by: Polyethylene Glycol (Miralax) 17 gm PO DAILY [facility] Pravastatin Sodium (Pravachol) 20 mg PO BEDTIME [facility] Sodium Chloride (Saline Flush) 10 ml FLUSH Q12HR [facility] Last Admin: 09/11/20 07:55 Dose: 10 ml Documented by: Sodium Chloride (Saline Flush) 10 ml FLUSH ASDIRECTED PRN PRN Reason: Keep Vein Open Last Admin: 09/11/20 08:04 Dose: 10 ml Documented by: - Exam Quality Assessment: Reports: DVT Prophylaxis (Coumadin). Denies: Supplemental Oxygen, Central Line/PICC, Urine Catheter, Skin Breakdown, Restraints General: Reports: Alert, Oriented, Cooperative, No Acute Distress HEENT: Reports: Pupils Equal, Pupils Reactive, EOMI, Mucous Membr. Moist/[place], Other (No vertigo or nystagmus). Denies: Scleral Icterus Neck: Reports: Supple, Trachea Midline, No JVD, No Thyromegaly, Carotid Bruit (Mild bilateral carotid bruits). Denies: Lymphadenopathy Lungs: Reports: Clear to Auscultation, Normal Respiratory Effort Cardiovascular: Reports: Regular Rate, Regular Rhythm, No Murmurs. Denies: Gallops, Rubs GI/Abdominal Exam: Normal Bowel Sounds, Soft, Non-Tender, No Organomegaly, No Distention, No Abnormal Bruit, No Mass, Other (Morbidly obese). No: Guarding (Female) Exam: Deferred Rectal (Female) Exam: Deferred Back Exam: Reports: Normal Inspection, Full Range of Motion. Denies: CVA Tenderness (L), CVA Tenderness (R), Muscle Spasm Extremities: Normal Inspection, Normal Range of Motion, Non-Tender, No Pedal Edema, Normal Capillary Refill. No: Sameera's Sign Skin: Reports: Ecchymosis (Improving bilateral forearm ecchymosis from previous hospitalizations) Neurological: Reports: No New Focal Deficit, Other (Stable generalized weakness moderate in nature requiring walker use) Psy/Mental Status: Reports: Anxious (Borderline), Depressed (Borderline). Denies: Agitated, Hallucinations, Withdrawal Symptoms
[2020-09-12] MEDS ORDERED: Lactulose Soln 10 GM/15 ML 30 ML UD Cup PO ONE (10:19)
[2020-09-12] MEDS ORDERED: Lactulose Soln 10 GM/15 ML 30 ML UD Cup ONE (12:56)
== END 2020-09-12 13:15 | DRG 392 ==
LOC: LL.ED 15:53 → OBSVTOIN 17:30 → INTOOBSV 17:30 → UNDOADMOB 17:30 → LL.MS 17:30 → OBSVTOIN 09-08 11:35 → LL.MS 09-08 11:35
PROVIDERS: ADMIT Family Medicine; ATTEND Family Medicine
DX: K59.00 Constipation, unspecified (principal); J45.20 Mild intermittent asthma, uncomplicated; M89.49 Other hypertrophic osteoarthropathy, multiple sites; K21.9 Gastro-esophageal reflux disease without esophagitis; F41.8 Other specified anxiety disorders; I10 Essential (primary) hypertension; D11.9 Benign neoplasm of major salivary gland, unspecified; Z88.6 Allergy status to analgesic agent; E83.51 Hypocalcemia; E83.42 Hypomagnesemia; E88.09 Other disorders of plasma-protein metabolism, not elsewhere classified; R53.1 Weakness; J30.9 Allergic rhinitis, unspecified; Z91.048 Other nonmedicinal substance allergy status; Z20.822 Contact with and (suspected) exposure to COVID-19; H54.7 Unspecified visual loss; H40.9 Unspecified glaucoma; G47.30 Sleep apnea, unspecified; M54.9 Dorsalgia, unspecified; M10.9 Gout, unspecified; M54.2 Cervicalgia; G89.29 Other chronic pain; M81.0 Age-related osteoporosis without current pathological fracture; M79.7 Fibromyalgia; E11.42 Type 2 diabetes mellitus with diabetic polyneuropathy; E55.9 Vitamin D deficiency, unspecified; E66.9 Obesity, unspecified; D64.9 Anemia, unspecified; Z90.49 Acquired absence of other specified parts of digestive tract; Z90.710 Acquired absence of both cervix and uterus; Z96.619 Presence of unspecified artificial shoulder joint; Z88.1 Allergy status to other antibiotic agents; Z91.040 Latex allergy status; Z88.5 Allergy status to narcotic agent; Z91.041 Radiographic dye allergy status; Z88.0 Allergy status to penicillin; Z88.7 Allergy status to serum and vaccine; Z88.8 Allergy status to other drugs, medicaments and biological substances; Z79.01 Long term (current) use of anticoagulants; Z79.899 Other long term (current) drug therapy; Z86.718 Personal history of other venous thrombosis and embolism; Z87.440 Personal history of urinary (tract) infections
CPT/HCPCS: 36415; 74022; 80053; 81001; 82150; 82272; 83690; 83735; 85025; 87086; 96374; 96375; 96376; 99284; A9270 ×12; C9113; G0378 ×3; J3490; J7120; 82962; 85610; 97162-GP; 97530-GP; 99220; 99232; 99239; J1815-GY; J2405; U0002

== ENCOUNTER 2021-04-24 18:20 | Emergency (ER) | payer MEDICARE, MEDICAID ==
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
[2021-04-24 18:54] VITALS: BP 129/86; PULSE 87
== END 2021-04-24 19:14 | disposition home or self-care (01) ==
LOC: LL.ED 18:20
DX: S93.402A Sprain of unspecified ligament of left ankle, initial encounter (principal); I10 Essential (primary) hypertension; E11.42 Type 2 diabetes mellitus with diabetic polyneuropathy; Z88.8 Allergy status to other drugs, medicaments and biological substances; Z91.012 Allergy to eggs; Z91.011 Allergy to milk products; Z88.5 Allergy status to narcotic agent; Z88.7 Allergy status to serum and vaccine; Z79.899 Other long term (current) drug therapy; Z79.4 Long term (current) use of insulin; X58.XXXA Exposure to other specified factors, initial encounter
CPT/HCPCS: 73610-LT; 73630-LT; 99283; 99283-25

== ENCOUNTER 2021-11-19 14:18 | Inpatient (IN) | payer MEDICARE, MEDICAID ==
[2021-11-19 15:51] LABS: ANION GAP 8.6 meq/L (7-15); CHLORIDE,CL 101 mmol/L (98-107); SODIUM,NA 139 mmol/L (136-145)
[2021-11-19] MEDS ORDERED: GI Cocktail Oral Solution 30 ML PO ONE (17:53)
[2021-11-19] MEDS: Lactated Ringers 1,000 ML IV SCH (18:04)
[2021-11-19] MEDS: Sodium Chloride 0.9% 10 ML Syringe FLUSH PRN ×2 (18:09→20:15)
[2021-11-19] MEDS: Pantoprazole 40 MG Vial IVPUSH SCH (20:15)
[2021-11-20] MEDS: Lactated Ringers 1,000 ML IV SCH ×2 (01:25→10:21)
[2021-11-20] MEDS ORDERED: Pregabalin 25 MG Cap PO ONE ×2 (03:49→16:00)
[2021-11-20] MEDS ORDERED: Ondansetron 4 MG/2 ML SDV IVPUSH PRN (04:14)
[2021-11-20] MEDS ORDERED: Pregabalin 100 MG Cap PO ONE ×2 (04:18→16:00)
[2021-11-20] MEDS: Sodium Chloride 0.9% 10 ML Syringe FLUSH PRN ×2 (04:26→05:47)
[2021-11-20] MEDS ORDERED: LORazepam 2 MG/ML SDV IVPUSH ONE (05:28)
[2021-11-20] MEDS: Pantoprazole 40 MG Vial IVPUSH SCH (08:03)
[2021-11-20] MEDS ORDERED: Ketorolac 30 MG/ML SDV IVPUSH ONE (08:16)
[2021-11-20 08:20] LABS: ANION GAP 13.1 meq/L (7-15); CHLORIDE,CL 99 mmol/L (98-107); SODIUM,NA 139 mmol/L (136-145)
[2021-11-20 14:24] VITALS: BP 138/82; PULSE 97
== END 2021-11-20 16:30 | DRG 392 ==
LOC: LL.ED 14:18 → LL.MS 18:15
PROVIDERS: ADMIT Emergency Medicine; ATTEND Emergency Medicine
DX: K57.10 Diverticulosis of small intestine without perforation or abscess without bleeding (principal); E78.00 Pure hypercholesterolemia, unspecified; I10 Essential (primary) hypertension; Z86.711 Personal history of pulmonary embolism; E78.5 Hyperlipidemia, unspecified; G47.30 Sleep apnea, unspecified; K90.0 Celiac disease; J45.909 Unspecified asthma, uncomplicated; K44.9 Diaphragmatic hernia without obstruction or gangrene; R32 Unspecified urinary incontinence; Z20.822 Contact with and (suspected) exposure to COVID-19; K21.9 Gastro-esophageal reflux disease without esophagitis; Z91.041 Radiographic dye allergy status; K58.9 Irritable bowel syndrome, unspecified; G43.909 Migraine, unspecified, not intractable, without status migrainosus; F41.9 Anxiety disorder, unspecified; Z88.7 Allergy status to serum and vaccine; F32.A Depression, unspecified; E11.9 Type 2 diabetes mellitus without complications; Z79.01 Long term (current) use of anticoagulants; Z79.84 Long term (current) use of oral hypoglycemic drugs; Z79.899 Other long term (current) drug therapy; D64.9 Anemia, unspecified; K59.09 Other constipation; M10.9 Gout, unspecified; M54.2 Cervicalgia; M19.90 Unspecified osteoarthritis, unspecified site; G89.29 Other chronic pain; Z88.1 Allergy status to other antibiotic agents; Z91.012 Allergy to eggs; Z91.040 Latex allergy status; Z86.718 Personal history of other venous thrombosis and embolism; Z86.73 Personal history of transient ischemic attack (TIA), and cerebral infarction without residual deficits; Z91.011 Allergy to milk products; Z90.710 Acquired absence of both cervix and uterus; Z88.5 Allergy status to narcotic agent; Z88.0 Allergy status to penicillin; Z88.8 Allergy status to other drugs, medicaments and biological substances; Z91.048 Other nonmedicinal substance allergy status; Z91.09 Other allergy status, other than to drugs and biological substances
CPT/HCPCS: 36415; 71045; 74018; 74176; 76705; 80053; 80074; 82150; 82247; 82248; 83690; 85025; 99223; 99238; 99285-25; A9270-GY; C9113; J1885; J2060; J2405; J3490; J7120; U0002

== ENCOUNTER 2021-11-30 14:07 | Inpatient (IN) | payer MEDICARE, MEDICAID ==
[2021-11-30] MEDS ORDERED: Diclofenac Sodium 1% Gel 100 GM Tube TOP PRN (19:08)
[2021-11-30] MEDS ORDERED: Nitroglycerin 0.4 MG Tab.SL SL PRN (19:08)
[2021-11-30] MEDS ORDERED: Pregabalin 25 MG Cap PO SCH (19:15)
[2021-11-30] MEDS: Latanoprost 0.005% Ophth Soln 2.5 ML Bottle EYEBOTH SCH (19:57)
[2021-11-30] MEDS: Pregabalin 75 MG Cap PO SCH (20:00)
[2021-11-30] MEDS: Apixaban 2.5 MG Tab PO SCH (20:00)
[2021-11-30] MEDS: metFORMIN 500 MG Tab PO SCH (20:00)
[2021-11-30] MEDS: Metoclopramide 10 MG Tab PO SCH (20:00)
[2021-11-30] MEDS: Magnesium Oxide 400 MG Tab PO SCH (20:01)
[2021-11-30] MEDS: Isosorbide Dinitrate 10 MG Tab PO SCH (20:01)
[2021-11-30] MEDS: Montelukast 10 MG Tab PO SCH (20:01)
[2021-11-30] MEDS: Pravastatin 20 MG Tab PO SCH (20:01)
[2021-11-30] MEDS: Brimonidine 0.2% Ophth Soln 5 ML Bottle EYEBOTH SCH (22:29)
[2021-12-01] MEDS: Ondansetron 4 MG Tab.DIS PO PRN (03:01)
[2021-12-01] MEDS: Lisinopril 10 MG Tab PO SCH (08:11)
[2021-12-01] MEDS: Apixaban 2.5 MG Tab PO SCH ×2 (08:11→17:31)
[2021-12-01] MEDS: Pregabalin 75 MG Cap PO SCH ×2 (08:11→20:18)
[2021-12-01] MEDS: Isosorbide Dinitrate 10 MG Tab PO SCH ×2 (08:12→17:31)
[2021-12-01] MEDS: Metoclopramide 10 MG Tab PO SCH ×4 (08:12→20:18)
[2021-12-01] MEDS: metFORMIN 500 MG Tab PO SCH ×2 (08:12→17:31)
[2021-12-01] MEDS: Famotidine 20 MG Tab PO SCH (08:13)
[2021-12-01] MEDS: Escitalopram 20 MG Tab PO SCH (08:13)
[2021-12-01] MEDS: Magnesium Oxide 400 MG Tab PO SCH ×2 (08:14→17:31)
[2021-12-01] MEDS: Calcium Carbonate/Vitamin D3 625 MG-125 Unit Tab PO SCH (08:14)
[2021-12-01] MEDS: Loratadine 10 MG Tab PO SCH (08:14)
[2021-12-01] MEDS: Brimonidine 0.2% Ophth Soln 5 ML Bottle EYEBOTH SCH ×2 (08:15→17:32)
[2021-12-01] MEDS: Pregabalin 25 MG Cap PO SCH (11:35)
[2021-12-01] MEDS: Pravastatin 20 MG Tab PO SCH (20:17)
[2021-12-01] MEDS: Montelukast 10 MG Tab PO SCH (20:18)
[2021-12-01] MEDS: Latanoprost 0.005% Ophth Soln 2.5 ML Bottle EYEBOTH SCH (20:19)
[2021-12-02] MEDS: Acetaminophen 325 MG Tab PO PRN (06:07)
[2021-12-02] MEDS: metFORMIN 500 MG Tab PO SCH ×2 (07:56→17:22)
[2021-12-02] MEDS: Apixaban 2.5 MG Tab PO SCH ×2 (07:57→17:21)
[2021-12-02] MEDS: Magnesium Oxide 400 MG Tab PO SCH ×2 (07:57→17:22)
[2021-12-02] MEDS: Pregabalin 75 MG Cap PO SCH ×2 (07:57→22:23)
[2021-12-02] MEDS: Famotidine 20 MG Tab PO SCH (07:57)
[2021-12-02] MEDS: Metoclopramide 10 MG Tab PO SCH ×4 (07:58→22:23)
[2021-12-02] MEDS: Calcium Carbonate/Vitamin D3 625 MG-125 Unit Tab PO SCH (07:59)
[2021-12-02] MEDS: Lisinopril 10 MG Tab PO SCH (07:59)
[2021-12-02] MEDS: Isosorbide Dinitrate 10 MG Tab PO SCH ×2 (08:00→17:22)
[2021-12-02] MEDS: Escitalopram 20 MG Tab PO SCH (08:00)
[2021-12-02] MEDS: Loratadine 10 MG Tab PO SCH (08:00)
[2021-12-02] MEDS: Brimonidine 0.2% Ophth Soln 5 ML Bottle EYEBOTH SCH ×2 (08:01→17:23)
[2021-12-02] MEDS: Chlorthalidone 25 MG Tab PO SCH (08:01)
[2021-12-02] MEDS: Pregabalin 25 MG Cap PO SCH (11:55)
[2021-12-02] MEDS: Pravastatin 20 MG Tab PO SCH (22:23)
[2021-12-02] MEDS: Montelukast 10 MG Tab PO SCH (22:23)
[2021-12-02] MEDS: Latanoprost 0.005% Ophth Soln 2.5 ML Bottle EYEBOTH SCH (22:24)
[2021-12-03] MEDS: Melatonin 3 MG Tab PO PRN (00:05)
[2021-12-03] MEDS: Isosorbide Dinitrate 10 MG Tab PO SCH ×2 (07:53→17:16)
[2021-12-03] MEDS: Apixaban 2.5 MG Tab PO SCH ×2 (07:53→17:15)
[2021-12-03] MEDS: Calcium Carbonate/Vitamin D3 625 MG-125 Unit Tab PO SCH (07:53)
[2021-12-03] MEDS: Lisinopril 10 MG Tab PO SCH (07:53)
[2021-12-03] MEDS: Magnesium Oxide 400 MG Tab PO SCH ×2 (07:54→17:15)
[2021-12-03] MEDS: Metoclopramide 10 MG Tab PO SCH ×4 (07:54→20:56)
[2021-12-03] MEDS: Loratadine 10 MG Tab PO SCH (07:54)
[2021-12-03] MEDS: metFORMIN 500 MG Tab PO SCH ×2 (07:55→17:16)
[2021-12-03] MEDS: Escitalopram 20 MG Tab PO SCH (07:55)
[2021-12-03] MEDS: Famotidine 20 MG Tab PO SCH (07:55)
[2021-12-03] MEDS: Pregabalin 75 MG Cap PO SCH ×2 (07:56→20:55)
[2021-12-03] MEDS: Brimonidine 0.2% Ophth Soln 5 ML Bottle EYEBOTH SCH ×2 (07:56→17:16)
[2021-12-03] MEDS: Pregabalin 25 MG Cap PO SCH (11:40)
[2021-12-03] MEDS: Ondansetron 4 MG Tab.DIS PO PRN (17:45)
[2021-12-03] MEDS: Pravastatin 20 MG Tab PO SCH (20:56)
[2021-12-03] MEDS: Montelukast 10 MG Tab PO SCH (20:57)
[2021-12-03] MEDS: Latanoprost 0.005% Ophth Soln 2.5 ML Bottle EYEBOTH SCH (20:58)
[2021-12-04] MEDS: Melatonin 3 MG Tab PO PRN ×2 (00:20→23:24)
[2021-12-04] MEDS: Apixaban 2.5 MG Tab PO SCH ×2 (08:07→17:21)
[2021-12-04] MEDS: metFORMIN 500 MG Tab PO SCH ×2 (08:07→16:26)
[2021-12-04] MEDS: Pregabalin 75 MG Cap PO SCH ×2 (08:08→20:10)
[2021-12-04] MEDS: Metoclopramide 10 MG Tab PO SCH ×4 (08:08→21:57)
[2021-12-04] MEDS: Famotidine 20 MG Tab PO SCH (08:09)
[2021-12-04] MEDS: Calcium Carbonate/Vitamin D3 625 MG-125 Unit Tab PO SCH (08:09)
[2021-12-04] MEDS: Magnesium Oxide 400 MG Tab PO SCH ×2 (08:09→17:21)
[2021-12-04] MEDS: Escitalopram 20 MG Tab PO SCH (08:10)
[2021-12-04] MEDS: Loratadine 10 MG Tab PO SCH (08:10)
[2021-12-04] MEDS: Isosorbide Dinitrate 10 MG Tab PO SCH ×2 (08:14→17:21)
[2021-12-04] MEDS: Brimonidine 0.2% Ophth Soln 5 ML Bottle EYEBOTH SCH ×2 (08:15→17:22)
[2021-12-04] MEDS: Lisinopril 10 MG Tab PO SCH (08:15)
[2021-12-04 08:26] LABS: CHLORIDE,CL 103 mmol/L (98-107); SODIUM,NA 142 mmol/L (136-145)
[2021-12-04] MEDS: Pregabalin 25 MG Cap PO SCH (11:38)
[2021-12-04] MEDS: Acetaminophen 325 MG Tab PO PRN ×2 (16:25→22:24)
[2021-12-04] MEDS: Pravastatin 20 MG Tab PO SCH (20:10)
[2021-12-04] MEDS: Latanoprost 0.005% Ophth Soln 2.5 ML Bottle EYEBOTH SCH (20:11)
[2021-12-04] MEDS: Montelukast 10 MG Tab PO SCH (20:11)
[2021-12-05] MEDS: Apixaban 2.5 MG Tab PO SCH ×2 (07:46→18:06)
[2021-12-05] MEDS: Pregabalin 75 MG Cap PO SCH ×2 (07:46→20:30)
[2021-12-05] MEDS: Calcium Carbonate/Vitamin D3 625 MG-125 Unit Tab PO SCH (07:46)
[2021-12-05] MEDS: Famotidine 20 MG Tab PO SCH (07:46)
[2021-12-05] MEDS: Escitalopram 20 MG Tab PO SCH (07:47)
[2021-12-05] MEDS: Metoclopramide 10 MG Tab PO SCH ×4 (07:48→20:31)
[2021-12-05] MEDS: Magnesium Oxide 400 MG Tab PO SCH ×2 (07:48→18:06)
[2021-12-05] MEDS: Brimonidine 0.2% Ophth Soln 5 ML Bottle EYEBOTH SCH ×2 (07:48→18:09)
[2021-12-05] MEDS: Loratadine 10 MG Tab PO SCH (07:49)
[2021-12-05] MEDS: metFORMIN 500 MG Tab PO SCH ×2 (07:58→16:49)
[2021-12-05] MEDS: Isosorbide Dinitrate 10 MG Tab PO SCH ×2 (07:58→18:07)
[2021-12-05] MEDS: Chlorthalidone 25 MG Tab PO SCH (07:59)
[2021-12-05] MEDS: Lisinopril 10 MG Tab PO SCH (07:59)
[2021-12-05] MEDS: Pregabalin 25 MG Cap PO SCH (11:19)
[2021-12-05] MEDS: Montelukast 10 MG Tab PO SCH (20:30)
[2021-12-05] MEDS: Latanoprost 0.005% Ophth Soln 2.5 ML Bottle EYEBOTH SCH (20:31)
[2021-12-05] MEDS: Pravastatin 20 MG Tab PO SCH (20:31)
[2021-12-05] MEDS: Acetaminophen 325 MG Tab PO PRN (23:48)
[2021-12-05] MEDS: Melatonin 3 MG Tab PO PRN (23:48)
[2021-12-06] MEDS: Pregabalin 75 MG Cap PO SCH ×2 (08:09→20:10)
[2021-12-06] MEDS: Metoclopramide 10 MG Tab PO SCH ×2 (08:09→11:53)
[2021-12-06] MEDS: Apixaban 2.5 MG Tab PO SCH ×2 (08:10→17:17)
[2021-12-06] MEDS: Calcium Carbonate/Vitamin D3 625 MG-125 Unit Tab PO SCH (08:10)
[2021-12-06] MEDS: metFORMIN 500 MG Tab PO SCH ×2 (08:10→17:16)
[2021-12-06] MEDS: Loratadine 10 MG Tab PO SCH (08:10)
[2021-12-06] MEDS: Magnesium Oxide 400 MG Tab PO SCH ×2 (08:11→17:16)
[2021-12-06] MEDS: Famotidine 20 MG Tab PO SCH (08:11)
[2021-12-06] MEDS: Lisinopril 10 MG Tab PO SCH (08:11)
[2021-12-06] MEDS: Escitalopram 20 MG Tab PO SCH (08:11)
[2021-12-06] MEDS: Brimonidine 0.2% Ophth Soln 5 ML Bottle EYEBOTH SCH ×2 (08:12→17:17)
[2021-12-06] MEDS: Isosorbide Dinitrate 10 MG Tab PO SCH ×2 (08:12→17:17)
[2021-12-06] MEDS: Pregabalin 25 MG Cap PO SCH (11:52)
[2021-12-06] MEDS ORDERED: Metoclopramide 10 MG Tab PO SCH (17:15)
[2021-12-06] MEDS: Pravastatin 20 MG Tab PO SCH (20:10)
[2021-12-06] MEDS: Montelukast 10 MG Tab PO SCH (20:11)
[2021-12-06] MEDS: Latanoprost 0.005% Ophth Soln 2.5 ML Bottle EYEBOTH SCH (20:11)
[2021-12-06] MEDS: Melatonin 3 MG Tab PO PRN (22:16)
[2021-12-06] MEDS: Acetaminophen 325 MG Tab PO PRN (22:16)
[2021-12-07] MEDS: Chlorthalidone 25 MG Tab PO SCH (08:11)
[2021-12-07] MEDS: Metoclopramide 10 MG Tab PO SCH ×3 (08:12→17:26)
[2021-12-07] MEDS: Pregabalin 75 MG Cap PO SCH ×2 (08:12→20:06)
[2021-12-07] MEDS: Apixaban 2.5 MG Tab PO SCH ×2 (08:12→17:26)
[2021-12-07] MEDS: Isosorbide Dinitrate 10 MG Tab PO SCH ×2 (08:13→17:26)
[2021-12-07] MEDS: metFORMIN 500 MG Tab PO SCH ×2 (08:14→17:27)
[2021-12-07] MEDS: Famotidine 20 MG Tab PO SCH (08:14)
[2021-12-07] MEDS: Calcium Carbonate/Vitamin D3 625 MG-125 Unit Tab PO SCH (08:14)
[2021-12-07] MEDS: Magnesium Oxide 400 MG Tab PO SCH ×2 (08:14→17:26)
[2021-12-07] MEDS: Lisinopril 10 MG Tab PO SCH (08:14)
[2021-12-07] MEDS: Escitalopram 20 MG Tab PO SCH (08:15)
[2021-12-07] MEDS: Brimonidine 0.2% Ophth Soln 5 ML Bottle EYEBOTH SCH ×2 (08:18→17:27)
[2021-12-07] MEDS: Loratadine 10 MG Tab PO SCH (08:18)
[2021-12-07] MEDS: Ondansetron 4 MG Tab.DIS PO PRN (09:25)
[2021-12-07] MEDS: Pregabalin 25 MG Cap PO SCH (11:20)
[2021-12-07] MEDS: Sulfamethoxazole/Trimethoprim 800-160 MG Tab PO SCH ×2 (14:07→20:06)
[2021-12-07] MEDS: Montelukast 10 MG Tab PO SCH (20:06)
[2021-12-07] MEDS: Pravastatin 20 MG Tab PO SCH (20:06)
[2021-12-07] MEDS: Latanoprost 0.005% Ophth Soln 2.5 ML Bottle EYEBOTH SCH (20:08)
[2021-12-07] MEDS: Melatonin 3 MG Tab PO PRN (22:09)
[2021-12-08] MEDS: Brimonidine 0.2% Ophth Soln 5 ML Bottle EYEBOTH SCH ×2 (08:18→17:21)
[2021-12-08] MEDS: Famotidine 20 MG Tab PO SCH (08:19)
[2021-12-08] MEDS: Isosorbide Dinitrate 10 MG Tab PO SCH ×2 (08:19→17:21)
[2021-12-08] MEDS: Pregabalin 75 MG Cap PO SCH ×2 (08:19→21:40)
[2021-12-08] MEDS: Loratadine 10 MG Tab PO SCH (08:19)
[2021-12-08] MEDS: Escitalopram 20 MG Tab PO SCH (08:20)
[2021-12-08] MEDS: Lisinopril 10 MG Tab PO SCH (08:21)
[2021-12-08] MEDS: Magnesium Oxide 400 MG Tab PO SCH ×2 (08:21→17:21)
[2021-12-08] MEDS: Calcium Carbonate/Vitamin D3 625 MG-125 Unit Tab PO SCH (08:21)
[2021-12-08] MEDS: Metoclopramide 10 MG Tab PO SCH ×3 (08:22→17:22)
[2021-12-08] MEDS: Sulfamethoxazole/Trimethoprim 800-160 MG Tab PO SCH ×2 (08:22→17:22)
[2021-12-08] MEDS: metFORMIN 500 MG Tab PO SCH ×2 (08:22→17:21)
[2021-12-08] MEDS: Apixaban 2.5 MG Tab PO SCH ×2 (08:22→17:21)
[2021-12-08] MEDS: Pregabalin 25 MG Cap PO SCH (11:46)
[2021-12-08] MEDS: Pravastatin 20 MG Tab PO SCH (21:40)
[2021-12-08] MEDS: Montelukast 10 MG Tab PO SCH (21:41)
[2021-12-08] MEDS: Latanoprost 0.005% Ophth Soln 2.5 ML Bottle EYEBOTH SCH (21:42)
[2021-12-08] MEDS: Melatonin 3 MG Tab PO PRN (21:55)
[2021-12-09] MEDS: Pregabalin 75 MG Cap PO SCH ×2 (08:54→19:04)
[2021-12-09] MEDS: Lisinopril 10 MG Tab PO SCH (08:55)
[2021-12-09] MEDS: Metoclopramide 10 MG Tab PO SCH ×3 (08:55→17:10)
[2021-12-09] MEDS: metFORMIN 500 MG Tab PO SCH ×2 (08:55→17:09)
[2021-12-09] MEDS: Escitalopram 20 MG Tab PO SCH (08:56)
[2021-12-09] MEDS: Sulfamethoxazole/Trimethoprim 800-160 MG Tab PO SCH ×2 (08:56→17:09)
[2021-12-09] MEDS: Isosorbide Dinitrate 10 MG Tab PO SCH ×2 (08:56→17:10)
[2021-12-09] MEDS: Calcium Carbonate/Vitamin D3 625 MG-125 Unit Tab PO SCH (08:56)
[2021-12-09] MEDS: Famotidine 20 MG Tab PO SCH (08:58)
[2021-12-09] MEDS: Loratadine 10 MG Tab PO SCH (08:58)
[2021-12-09] MEDS: Apixaban 2.5 MG Tab PO SCH ×2 (08:58→17:09)
[2021-12-09] MEDS: Magnesium Oxide 400 MG Tab PO SCH ×2 (08:58→17:09)
[2021-12-09] MEDS: Brimonidine 0.2% Ophth Soln 5 ML Bottle EYEBOTH SCH ×2 (08:59→17:11)
[2021-12-09] MEDS: Chlorthalidone 25 MG Tab PO SCH (09:03)
[2021-12-09] MEDS: Pregabalin 25 MG Cap PO SCH (11:49)
[2021-12-09] MEDS: Pravastatin 20 MG Tab PO SCH (19:04)
[2021-12-09] MEDS: Montelukast 10 MG Tab PO SCH (19:04)
[2021-12-09] MEDS: Latanoprost 0.005% Ophth Soln 2.5 ML Bottle EYEBOTH SCH (19:06)
[2021-12-09] MEDS: Melatonin 3 MG Tab PO PRN (23:11)
[2021-12-10] MEDS: Acetaminophen 325 MG Tab PO PRN ×2 (01:36→12:15)
[2021-12-10] MEDS: Sulfamethoxazole/Trimethoprim 800-160 MG Tab PO SCH ×2 (08:15→17:02)
[2021-12-10] MEDS: Magnesium Oxide 400 MG Tab PO SCH ×2 (08:15→17:03)
[2021-12-10] MEDS: metFORMIN 500 MG Tab PO SCH ×2 (08:15→17:03)
[2021-12-10] MEDS: Escitalopram 20 MG Tab PO SCH (08:16)
[2021-12-10] MEDS: Apixaban 2.5 MG Tab PO SCH ×2 (08:16→17:02)
[2021-12-10] MEDS: Lisinopril 10 MG Tab PO SCH (08:16)
[2021-12-10] MEDS: Metoclopramide 10 MG Tab PO SCH ×3 (08:17→17:03)
[2021-12-10] MEDS: Calcium Carbonate/Vitamin D3 625 MG-125 Unit Tab PO SCH (08:17)
[2021-12-10] MEDS: Loratadine 10 MG Tab PO SCH (08:18)
[2021-12-10] MEDS: Pregabalin 75 MG Cap PO SCH ×2 (08:18→19:52)
[2021-12-10] MEDS: Famotidine 20 MG Tab PO SCH (08:18)
[2021-12-10] MEDS: Isosorbide Dinitrate 10 MG Tab PO SCH ×2 (08:18→17:03)
[2021-12-10] MEDS: Brimonidine 0.2% Ophth Soln 5 ML Bottle EYEBOTH SCH ×2 (08:19→17:02)
[2021-12-10] MEDS: Pregabalin 25 MG Cap PO SCH (11:20)
[2021-12-10] MEDS: Montelukast 10 MG Tab PO SCH (19:52)
[2021-12-10] MEDS: Pravastatin 20 MG Tab PO SCH (19:52)
[2021-12-10] MEDS: Latanoprost 0.005% Ophth Soln 2.5 ML Bottle EYEBOTH SCH (19:53)
[2021-12-11 07:25] VITALS: PULSE 111
[2021-12-11] MEDS: Pregabalin 75 MG Cap PO SCH (07:51)
[2021-12-11] MEDS: Famotidine 20 MG Tab PO SCH (07:52)
[2021-12-11] MEDS: Isosorbide Dinitrate 10 MG Tab PO SCH (07:53)
[2021-12-11] MEDS: Sulfamethoxazole/Trimethoprim 800-160 MG Tab PO SCH (07:53)
[2021-12-11] MEDS: Magnesium Oxide 400 MG Tab PO SCH (07:53)
[2021-12-11] MEDS: Metoclopramide 10 MG Tab PO SCH ×2 (07:54→11:22)
[2021-12-11] MEDS: Apixaban 2.5 MG Tab PO SCH (07:55)
[2021-12-11] MEDS: Loratadine 10 MG Tab PO SCH (07:55)
[2021-12-11] MEDS: Calcium Carbonate/Vitamin D3 625 MG-125 Unit Tab PO SCH (07:56)
[2021-12-11] MEDS: Lisinopril 10 MG Tab PO SCH (07:56)
[2021-12-11] MEDS: Escitalopram 20 MG Tab PO SCH (07:56)
[2021-12-11] MEDS: metFORMIN 500 MG Tab PO SCH (07:57)
[2021-12-11 07:58] VITALS: BP 0/0
[2021-12-11] MEDS: Brimonidine 0.2% Ophth Soln 5 ML Bottle EYEBOTH SCH (07:58)
[2021-12-11 08:07] LABS: ANION GAP 8.6 meq/L (7-15)
[2021-12-11] MEDS: Pregabalin 25 MG Cap PO SCH (11:23)
== END 2021-12-11 11:50 | DRG 947 ==
LOC: LL.MS 17:06
PROVIDERS: ADMIT Emergency Medicine; ATTEND Emergency Medicine
DX: R53.1 Weakness (principal); U07.1 COVID-19; E87.1 Hypo-osmolality and hyponatremia; N39.0 Urinary tract infection, site not specified; M79.7 Fibromyalgia; K21.9 Gastro-esophageal reflux disease without esophagitis; I10 Essential (primary) hypertension; H40.10X4 Unspecified open-angle glaucoma, indeterminate stage; M15.9 Polyosteoarthritis, unspecified; E78.5 Hyperlipidemia, unspecified; G47.39 Other sleep apnea; J30.89 Other allergic rhinitis; E11.42 Type 2 diabetes mellitus with diabetic polyneuropathy; N28.9 Disorder of kidney and ureter, unspecified; E78.00 Pure hypercholesterolemia, unspecified; M81.0 Age-related osteoporosis without current pathological fracture; F41.9 Anxiety disorder, unspecified; F32.A Depression, unspecified; E66.9 Obesity, unspecified; Z90.710 Acquired absence of both cervix and uterus; Z95.5 Presence of coronary angioplasty implant and graft; Z88.1 Allergy status to other antibiotic agents; Z88.5 Allergy status to narcotic agent; Z90.49 Acquired absence of other specified parts of digestive tract; Z87.19 Personal history of other diseases of the digestive system; Z88.0 Allergy status to penicillin; Z88.8 Allergy status to other drugs, medicaments and biological substances; Z86.73 Personal history of transient ischemic attack (TIA), and cerebral infarction without residual deficits; Z68.29 Body mass index [BMI] 29.0-29.9, adult
CPT/HCPCS: 36415; 80053; 81001; 82947; 83735; 85025; 87086; 87186; 97110-GO; 97166-GO; 97530-GO; 97535-GO; 99306; 99307; 99316; A9270-GY

== ENCOUNTER 2021-12-19 15:44 | Emergency (ER) | payer MEDICAID, MEDICARE, OTHER ==
[2021-12-19 15:56] VITALS: BP 108/57; PULSE 104
[2021-12-19] MEDS ORDERED: GI Cocktail Oral Solution 30 ML PO ONE (16:20)
[2021-12-19] MEDS ORDERED: Metoclopramide 10 MG/2 ML SDV IM ONE (17:09)
[2021-12-19] MEDS ORDERED: Metoclopramide 10 MG/2 ML SDV ONE (17:25)
== END 2021-12-19 18:25 | disposition home or self-care (01) ==
LOC: LL.ED 15:44
DX: R10.13 Epigastric pain (principal); D64.9 Anemia, unspecified; I10 Essential (primary) hypertension; E11.9 Type 2 diabetes mellitus without complications; Z79.899 Other long term (current) drug therapy; Z79.84 Long term (current) use of oral hypoglycemic drugs; Z88.8 Allergy status to other drugs, medicaments and biological substances; Z91.048 Other nonmedicinal substance allergy status; Z91.018 Allergy to other foods; Z88.1 Allergy status to other antibiotic agents; Z91.040 Latex allergy status; Z88.5 Allergy status to narcotic agent
CPT/HCPCS: 36415; 74022; 85025; 93005; 93010; 96372; 99284; 99284-25; A9270-GY; J2765

== ENCOUNTER 2022-01-10 22:34 | Emergency (ER) | payer MEDICARE, MEDICAID, OTHER ==
[2022-01-10 22:42] VITALS: BP 119/66; PULSE 82
[2022-01-10] MEDS ORDERED: diphenhydrAMINE 25 MG Cap PO ONE (22:51)
== END 2022-01-10 23:50 | disposition home or self-care (01) ==
LOC: LL.ED 22:34
DX: L50.9 Urticaria, unspecified (principal); I10 Essential (primary) hypertension; E78.00 Pure hypercholesterolemia, unspecified; F41.9 Anxiety disorder, unspecified; F32.A Depression, unspecified; E11.9 Type 2 diabetes mellitus without complications; E66.9 Obesity, unspecified; Z79.899 Other long term (current) drug therapy; Z91.040 Latex allergy status; Z88.8 Allergy status to other drugs, medicaments and biological substances; Z91.018 Allergy to other foods; Z91.012 Allergy to eggs; Z91.041 Radiographic dye allergy status; Z88.0 Allergy status to penicillin; Z88.1 Allergy status to other antibiotic agents
CPT/HCPCS: 99283; 99284; A9270

== ENCOUNTER 2022-04-08 16:05 | Emergency (ER) | payer OTHER, MEDICARE, MEDICAID ==
[2022-04-08 16:09] VITALS: BP 128/79; PULSE 92
[2022-04-08] MEDS ORDERED: Orphenadrine 60 MG/2 ML Inj IM ONE (16:37)
[2022-04-08] MEDS ORDERED: traMADol 50 MG Tab PO ONE (16:37)
== END 2022-04-08 17:37 | disposition home or self-care (01) ==
LOC: LL.ED 16:05
DX: M54.32 Sciatica, left side (principal); I11.9 Hypertensive heart disease without heart failure; E78.00 Pure hypercholesterolemia, unspecified; E11.9 Type 2 diabetes mellitus without complications; Z88.0 Allergy status to penicillin; Z91.018 Allergy to other foods; Z91.040 Latex allergy status; Z88.1 Allergy status to other antibiotic agents; Z88.8 Allergy status to other drugs, medicaments and biological substances; Z88.5 Allergy status to narcotic agent; Z88.7 Allergy status to serum and vaccine; Z79.899 Other long term (current) drug therapy; Z79.84 Long term (current) use of oral hypoglycemic drugs
CPT/HCPCS: 96372; 99283; A9270; J2360; 99284

== ENCOUNTER 2023-07-25 09:47 | Day surgery (SDC) | payer MEDICARE, MEDICAID ==
[~2023-07-25 09:47] MED LIST: Lactated Ringers 1,000 ML IV SCH; Midazolam 1 MG/ML 2 ML SDV ONE; Propofol 200 MG/20 ML SDV ONE; Sodium Chloride 0.9% 10 ML Syringe FLUSH PRN
[2023-07-25] MEDS ORDERED: Glycopyrrolate 0.2 MG/ML SDV IVPUSH ONE (11:15)
[2023-07-25 14:02] VITALS: BP 126/75; PULSE 88
== END 2023-07-25 12:55 | disposition home or self-care (01) ==
LOC: LL.SDS 09:47
PROVIDERS: ATTEND Surgery
DX: K29.00 Acute gastritis without bleeding (principal); K29.50 Unspecified chronic gastritis without bleeding; I10 Essential (primary) hypertension; E11.69 Type 2 diabetes mellitus with other specified complication; J45.20 Mild intermittent asthma, uncomplicated; K21.9 Gastro-esophageal reflux disease without esophagitis; G47.30 Sleep apnea, unspecified; F41.1 Generalized anxiety disorder; Z79.85 Long-term (current) use of injectable non-insulin antidiabetic drugs; Z79.4 Long term (current) use of insulin; Z79.899 Other long term (current) drug therapy; Z88.0 Allergy status to penicillin; Z91.012 Allergy to eggs; Z91.013 Allergy to seafood
CPT/HCPCS: 00731; 82947; J2250; J2704; J3490; J7120

== ENCOUNTER 2024-04-16 08:12 | Emergency (ER) | payer MEDICARE, MEDICAID ==
[2024-04-16] MEDS: Aspirin 81 MG Tab.Chew PO ONE (08:30)
[2024-04-16] MEDS: Sodium Chloride 0.9% 10 ML Syringe FLUSH PRN (08:33)
[2024-04-16 08:35] LABS: BASOPHILS ABSOLUTE AUTO 0.04 K/uL (0.00-0.20); BASOPHILS PERCENT AUTO 0.3 % (0.0-2.0); EOSINOPHILS ABSOLUTE AUTO 0.26 K/uL (0.00-0.50); EOSINOPHILS PERCENT AUTO 2.2 % (0.0-5.0); HEMATOCRIT 41.8 % (34.0-46.0); HEMOGLOBIN 13.3 g/dL (11.7-15.5); LYMPHOCYTES ABSOLUTE AUTO 1.95 K/uL (0.50-3.50); LYMPHOCYTES PERCENT AUTO 16.7 % (10.0-50.0); MEAN CORPUSCULAR HEMOGLOBIN 30.3 pg (28.2-33.3); MEAN CORPUSCULAR HGB CONC 31.8 g/dL (31.7-36.0); MEAN CORPUSCULAR VOLUME 95.2 fL (84.0-98.0); MONOCYTES ABSOLUTE AUTO 0.61 K/uL (0.00-1.00); MONOCYTES PERCENT AUTO 5.2 % (2.0-14.0); NEUTROPHILS ABSOLUTE AUTO 8.79 K/uL (1.40-7.00); NEUTROPHILS PERCENT AUTO 75.6 % (45.0-80.0); PLATELET COUNT,PLT 265 K/uL (150-350); RED BLOOD CELL COUNT 4.39 M/uL (3.77-5.09); RED CELL DISTRIBUTION WIDTH 12.7 % (11.2-14.1); WHITE BLOOD CELL COUNT,WBC 11.7 K/uL (4.0-10.2)
[2024-04-16 09:04] LABS: ALANINE AMINOTRANSFERASE,ALT 20 U/L (12-78); ALBUMIN 3.1 g/dL (3.4-5.0); ALKALINE PHOSPHATASE 99 IU/L (46-116); ASPARTATE AMNIOTRANSFERASE,AST 11 U/L (15-37); BILIRUBIN TOTAL 0.5 mg/dL (0.2-1.0); BLOOD UREA NITROGEN,BUN 13 mg/dL (7-18); CALCIUM 9.2 mg/dL (8.5-10.1); CARBON DIOXIDE,CO2 32.7 mmol/L (21.0-32.0); CHLORIDE,CL 103 mmol/L (98-107); CREATININE 1.07 mg/dL (0.51-1.17); GLUCOSE RANDOM 110 mg/dL (70-99); LIPASE 34 U/L (16-77); MAGNESIUM 1.6 mg/dL (1.8-2.4); POTASSIUM,K 3.9 mmol/L (3.5-5.1); PROTEIN TOTAL,TP 6.6 g/dL (6.4-8.2); SODIUM,NA 140 mmol/L (136-145)
[2024-04-16 09:05] LABS: ANION GAP 8.2 meq/L (7-15); ESTIMATED GFR 54 mL/min (>=60)
[2024-04-16 09:16] LABS: PROTHROMBIN TIME 9.9 SEC (9.0-11.1)
[2024-04-16 09:49] LABS: PTT,PARTIAL THROMBOPLSTIN TIME 28.8 SEC (23.6-29.8)
[2024-04-16] MEDS ORDERED: Aluminum Hydroxide/Magnesium Hydroxide/Simethicone Susp 30 ML Cup PO ONE (11:20)
[2024-04-16 11:21] VITALS: BP 113/71; PULSE 77
== END 2024-04-16 11:50 | disposition home or self-care (01) ==
LOC: LL.ED 08:12
DX: R07.89 Other chest pain (principal); K21.9 Gastro-esophageal reflux disease without esophagitis; I10 Essential (primary) hypertension; E78.00 Pure hypercholesterolemia, unspecified; J45.909 Unspecified asthma, uncomplicated; E11.40 Type 2 diabetes mellitus with diabetic neuropathy, unspecified; E66.9 Obesity, unspecified; Z86.73 Personal history of transient ischemic attack (TIA), and cerebral infarction without residual deficits; Z79.01 Long term (current) use of anticoagulants; Z79.4 Long term (current) use of insulin; Z79.899 Other long term (current) drug therapy; Z88.2 Allergy status to sulfonamides; Z88.8 Allergy status to other drugs, medicaments and biological substances; Z88.7 Allergy status to serum and vaccine; Z88.1 Allergy status to other antibiotic agents; Z88.0 Allergy status to penicillin; Z88.5 Allergy status to narcotic agent; Z91.018 Allergy to other foods; Z91.011 Allergy to milk products; Z91.041 Radiographic dye allergy status; Z91.012 Allergy to eggs; Z91.013 Allergy to seafood
CPT/HCPCS: 36415; 71045; 80053; 83605; 83690; 83735; 83880; 84484; 85025; 85610; 85730; 93005; 94761; 99285; A9270-GY; J3490

== ENCOUNTER 2024-06-25 10:18 | Emergency (ER) | payer MEDICARE, MEDICAID ==
[2024-06-25] MEDS ORDERED: Sodium Chloride 0.9% 10 ML Syringe FLUSH PRN (10:40)
[2024-06-25 11:10] LABS: BASOPHILS ABSOLUTE AUTO 0.02 K/uL (0.00-0.20); BASOPHILS PERCENT AUTO 0.2 % (0.0-2.0); EOSINOPHILS ABSOLUTE AUTO 0.02 K/uL (0.00-0.50); EOSINOPHILS PERCENT AUTO 0.2 % (0.0-5.0); HEMATOCRIT 48.5 % (34.0-46.0); HEMOGLOBIN 15.7 g/dL (11.7-15.5); IMMATURE GRAN ABSOLUTE AUTO 0.03 10^3/uL (0.00-0.04); IMMATURE GRAN PERCENT AUTO 0.2 % (0.0-0.4); LYMPHOCYTES ABSOLUTE AUTO 0.69 K/uL (0.50-3.50); LYMPHOCYTES PERCENT AUTO 5.6 % (10.0-50.0); MEAN CORPUSCULAR HEMOGLOBIN 30.3 pg (28.2-33.3); MEAN CORPUSCULAR HGB CONC 32.4 g/dL (31.7-36.0); MEAN CORPUSCULAR VOLUME 93.4 fL (84.0-98.0); MONOCYTES PERCENT AUTO 4.8 % (2.0-14.0); NEUTROPHILS ABSOLUTE AUTO 11.02 K/uL (1.40-7.00); PLATELET COUNT,PLT 236 K/uL (150-350); RED BLOOD CELL COUNT 5.19 M/uL (3.77-5.09); RED CELL DISTRIBUTION WIDTH 12.4 % (11.2-14.1); WHITE BLOOD CELL COUNT,WBC 12.4 K/uL (4.0-10.2)
[2024-06-25] MEDS: Sodium Chloride 0.9% 1,000 ML IV ONE (11:13)
[2024-06-25 11:24] LABS: LACTIC ACID 1.3 mmol/L (0.4-2.0)
[2024-06-25] MEDS: Aluminum Hydroxide/Magnesium Hydroxide/Simethicone Susp 30 ML Cup PO ONE (11:31)
[2024-06-25] MEDS: Lidocaine 2% Viscous Solution 15 ML UD PO ONE (11:31)
[2024-06-25 11:35] LABS: ALANINE AMINOTRANSFERASE,ALT 57 U/L (12-78); ALKALINE PHOSPHATASE 108 IU/L (46-116); ANION GAP 11.3 meq/L (7-15); ASPARTATE AMNIOTRANSFERASE,AST 27 U/L (15-37); BILIRUBIN TOTAL 0.5 mg/dL (0.2-1.0); BLOOD UREA NITROGEN,BUN 26 mg/dL (7-18); CALCIUM 8.6 mg/dL (8.5-10.1); CARBON DIOXIDE,CO2 25.7 mmol/L (21.0-32.0); CHLORIDE,CL 99 mmol/L (98-107); CREATININE 1.45 mg/dL (0.51-1.17); GLUCOSE RANDOM 167 mg/dL (70-99); MAGNESIUM 1.4 mg/dL (1.8-2.4); POTASSIUM,K 4.4 mmol/L (3.5-5.1); PRO B-TYPE NATRIUR PEPT,BNPPRO 196 pg/mL (0-125); PROTEIN TOTAL,TP 6.9 g/dL (6.4-8.2); SODIUM,NA 136 mmol/L (136-145)
[2024-06-25 11:37] LABS: ESTIMATED GFR 37 mL/min (>=60)
[2024-06-25] MEDS: Magnesium Sulfate/Water Premix 2 GM in Premix Bag 1 BAG IV ONE (11:50)
[2024-06-25] MEDS: Sucralfate 1 GM Tab PO ONE (13:07)
[2024-06-25 14:46] VITALS: BP 149/92; PULSE 101
== END 2024-06-25 15:10 ==
LOC: LL.ED 10:18
DX: K21.9 Gastro-esophageal reflux disease without esophagitis (principal); E83.42 Hypomagnesemia; I10 Essential (primary) hypertension; J45.909 Unspecified asthma, uncomplicated; E11.9 Type 2 diabetes mellitus without complications; E66.9 Obesity, unspecified; Z90.49 Acquired absence of other specified parts of digestive tract; Z90.710 Acquired absence of both cervix and uterus; Z86.73 Personal history of transient ischemic attack (TIA), and cerebral infarction without residual deficits; Z88.0 Allergy status to penicillin; Z88.1 Allergy status to other antibiotic agents; Z88.2 Allergy status to sulfonamides; Z88.7 Allergy status to serum and vaccine; Z88.8 Allergy status to other drugs, medicaments and biological substances; Z91.011 Allergy to milk products; Z91.012 Allergy to eggs; Z91.018 Allergy to other foods; Z91.013 Allergy to seafood; Z91.048 Other nonmedicinal substance allergy status; Z91.041 Radiographic dye allergy status; Z91.040 Latex allergy status; Z79.01 Long term (current) use of anticoagulants; Z79.4 Long term (current) use of insulin; Z79.899 Other long term (current) drug therapy
CPT/HCPCS: 36415; 74019; 74176; 80053; 81003; 82150; 83605; 83735; 83880; 84484; 85025; 87428-QW; 96361; 96365; 96366; 99285-25; A9270-GY; J3475; J7030

== ENCOUNTER 2024-07-13 18:47 | Emergency (ER) | payer MEDICARE, MEDICAID ==
[2024-07-13 19:27] LABS: BASOPHILS ABSOLUTE AUTO 0.04 K/uL (0.00-0.20); BASOPHILS PERCENT AUTO 0.4 % (0.0-2.0); EOSINOPHILS ABSOLUTE AUTO 0.03 K/uL (0.00-0.50); EOSINOPHILS PERCENT AUTO 0.3 % (0.0-5.0); HEMATOCRIT 41.9 % (34.0-46.0); HEMOGLOBIN 13.9 g/dL (11.7-15.5); IMMATURE GRAN ABSOLUTE AUTO 0.04 10^3/uL (0.00-0.04); IMMATURE GRAN PERCENT AUTO 0.4 % (0.0-0.4); LYMPHOCYTES ABSOLUTE AUTO 1.31 K/uL (0.50-3.50); LYMPHOCYTES PERCENT AUTO 11.7 % (10.0-50.0); MEAN CORPUSCULAR HEMOGLOBIN 30.1 pg (28.2-33.3); MEAN CORPUSCULAR HGB CONC 33.2 g/dL (31.7-36.0); MEAN CORPUSCULAR VOLUME 90.7 fL (84.0-98.0); MONOCYTES PERCENT AUTO 5.3 % (2.0-14.0); NEUTROPHILS PERCENT AUTO 81.9 % (45.0-80.0); PLATELET COUNT,PLT 279 K/uL (150-350); RED BLOOD CELL COUNT 4.62 M/uL (3.77-5.09); RED CELL DISTRIBUTION WIDTH 12.1 % (11.2-14.1); WHITE BLOOD CELL COUNT,WBC 11.2 K/uL (4.0-10.2)
[2024-07-13 19:34] LABS: APPEARANCE,URINE CLEAR; BILIRUBIN,URINE NEGATIVE (NEGATIVE); COLOR,URINE YELLOW; GLUCOSE,URINE NEGATIVE (NEGATIVE); KETONES,URINE 40 mg/dL (NEGATIVE); LEUKOCYTE ESTERASE,URINE NEGATIVE (NEGATIVE); NITRITE,URINE NEGATIVE (NEGATIVE); OCCULT BLOOD,URINE NEGATIVE (NEGATIVE); PH,URINE 8.5 (5.0-9.0); PROTEIN,URINE NEGATIVE (NEGATIVE); UROBILINOGEN,URINE 0.2 E.U./dL (0.2-1.0)
[2024-07-13 19:48] LABS: PROTHROMBIN TIME 10.4 SEC (9.0-11.1)
[2024-07-13 19:51] LABS: LACTIC ACID 1.7 mmol/L (0.4-2.0)
[2024-07-13 19:55] LABS: ALANINE AMINOTRANSFERASE,ALT 33 U/L (12-78); ALBUMIN 3.2 g/dL (3.4-5.0); ALKALINE PHOSPHATASE 110 IU/L (46-116); ASPARTATE AMNIOTRANSFERASE,AST 25 U/L (15-37); BILIRUBIN TOTAL 1.3 mg/dL (0.2-1.0); BLOOD UREA NITROGEN,BUN 8 mg/dL (7-18); CALCIUM 8.8 mg/dL (8.5-10.1); CARBON DIOXIDE,CO2 30.5 mmol/L (21.0-32.0); CHLORIDE,CL 100 mmol/L (98-107); GLUCOSE RANDOM 149 mg/dL (70-99); MAGNESIUM 1.5 mg/dL (1.8-2.4); PRO B-TYPE NATRIUR PEPT,BNPPRO 2911 pg/mL (0-125); PROTEIN TOTAL,TP 6.7 g/dL (6.4-8.2); SODIUM,NA 141 mmol/L (136-145)
[2024-07-13 20:25] LABS: ANION GAP 13.4 meq/L (7-15); ESTIMATED GFR 47 mL/min (>=60); POTASSIUM,K 2.9 mmol/L (3.5-5.1)
[2024-07-13] MEDS ORDERED: Sodium Chloride 0.9% 10 ML Syringe FLUSH PRN (20:26)
[2024-07-13] MEDS ORDERED: Sodium Chloride 0.9% 250 ML IV SCH (20:45)
[2024-07-13] MEDS: Potassium Chloride Riders 10 MEQ in Premix Bag 2 BAG IV SCH (20:58)
[2024-07-13] MEDS: Magnesium Sulfate/Water Premix 2 GM in Premix Bag 1 BAG IV ONE (20:58)
[2024-07-13] MEDS: Potassium Bicarbonate/Cit Ac 20 MEQ Effervescent Tab PO ONE ×3 (21:11→23:04)
[2024-07-13] MEDS: Magnesium Chloride 64 MG Tab.ER PO ONE ×2 (21:11→22:07)
[2024-07-14 00:52] VITALS: BP 114/74; PULSE 102
[2024-07-14] MEDS ORDERED: Magnesium Chloride 64 MG Tab.ER PO ONE (20:54)
== END 2024-07-14 01:25 ==
LOC: LL.ED 18:47
DX: J06.9 Acute upper respiratory infection, unspecified (principal); E87.6 Hypokalemia; E83.42 Hypomagnesemia; I10 Essential (primary) hypertension; K21.9 Gastro-esophageal reflux disease without esophagitis; E11.9 Type 2 diabetes mellitus without complications; E66.9 Obesity, unspecified; Z90.49 Acquired absence of other specified parts of digestive tract; Z90.710 Acquired absence of both cervix and uterus; Z79.899 Other long term (current) drug therapy; Z79.01 Long term (current) use of anticoagulants; Z79.4 Long term (current) use of insulin; Z88.2 Allergy status to sulfonamides; Z88.8 Allergy status to other drugs, medicaments and biological substances; Z91.018 Allergy to other foods; Z88.0 Allergy status to penicillin; Z91.040 Latex allergy status; Z88.5 Allergy status to narcotic agent; Z88.6 Allergy status to analgesic agent; Z91.041 Radiographic dye allergy status; Z91.011 Allergy to milk products; Z91.013 Allergy to seafood; Z91.012 Allergy to eggs; Z88.1 Allergy status to other antibiotic agents; Z91.048 Other nonmedicinal substance allergy status
CPT/HCPCS: 36415; 71046; 80053; 81003; 83605; 83735; 83880; 84132; 85025; 85610; 87428-QW; 99284; 99285; A9270-GY

== ENCOUNTER 2024-07-14 07:13 | Emergency (ER) | payer MEDICARE, MEDICAID ==
[2024-07-14 08:31] VITALS: PULSE 103
[2024-07-14 08:47] VITALS: BP 163/93
[2024-07-14 12:39] LABS: PCO2 ARTERIAL,POC 36 mmHg (35-48)
[2024-07-14 12:40] LABS: BASE EXCESS ARTERIAL,POC 8 mmol/L (-2-3); HCO3 ARTERIAL,POC 30.3 mmol/L (22-26); O2 SATURATION ARTERIAL,POC 95 % (95-98); TCO2 ARTERIAL,POC 29 mmol/L (23-27)
[2024-07-14 12:41] LABS: PH ARTERIAL,POC 7.5 pH (7.35-7.45); PO2 ARTERIAL,POC 64 mmHg (83-108)
== END 2024-07-14 09:40 ==
LOC: LL.ED 07:13
DX: E87.3 Alkalosis (principal); G47.30 Sleep apnea, unspecified; I10 Essential (primary) hypertension; E78.00 Pure hypercholesterolemia, unspecified; J45.909 Unspecified asthma, uncomplicated; K21.9 Gastro-esophageal reflux disease without esophagitis; E11.9 Type 2 diabetes mellitus without complications; E66.9 Obesity, unspecified; Z86.73 Personal history of transient ischemic attack (TIA), and cerebral infarction without residual deficits; Z90.49 Acquired absence of other specified parts of digestive tract; Z90.710 Acquired absence of both cervix and uterus; Z88.8 Allergy status to other drugs, medicaments and biological substances; Z88.0 Allergy status to penicillin; Z88.5 Allergy status to narcotic agent; Z88.1 Allergy status to other antibiotic agents; Z88.7 Allergy status to serum and vaccine; Z91.040 Latex allergy status; Z91.018 Allergy to other foods; Z91.012 Allergy to eggs; Z91.013 Allergy to seafood; Z79.01 Long term (current) use of anticoagulants; Z79.4 Long term (current) use of insulin; Z79.899 Other long term (current) drug therapy
CPT/HCPCS: 36415; 36600; 82140; 82803; 99284; 99285

== ENCOUNTER 2024-07-26 20:40 | Emergency (ER) | payer MEDICARE, MEDICAID ==
[~2024-07-26 20:40] MED LIST changes: -Lactated Ringers 1,000 ML IV SCH; -Midazolam 1 MG/ML 2 ML SDV ONE; -Propofol 200 MG/20 ML SDV ONE
[2024-07-26 21:13] LABS: BASOPHILS ABSOLUTE AUTO 0.04 K/uL (0.00-0.20); BASOPHILS PERCENT AUTO 0.3 % (0.0-2.0); EOSINOPHILS PERCENT AUTO 1.4 % (0.0-5.0); HEMATOCRIT 47.7 % (34.0-46.0); HEMOGLOBIN 14.9 g/dL (11.7-15.5); IMMATURE GRAN ABSOLUTE AUTO 0.02 10^3/uL (0.00-0.04); IMMATURE GRAN PERCENT AUTO 0.1 % (0.0-0.4); LYMPHOCYTES ABSOLUTE AUTO 1.95 K/uL (0.50-3.50); LYMPHOCYTES PERCENT AUTO 13.8 % (10.0-50.0); MEAN CORPUSCULAR HEMOGLOBIN 29.9 pg (28.2-33.3); MEAN CORPUSCULAR HGB CONC 31.2 g/dL (31.7-36.0); MEAN CORPUSCULAR VOLUME 95.8 fL (84.0-98.0); MONOCYTES ABSOLUTE AUTO 0.76 K/uL (0.00-1.00); MONOCYTES PERCENT AUTO 5.4 % (2.0-14.0); NEUTROPHILS ABSOLUTE AUTO 11.15 K/uL (1.40-7.00); PLATELET COUNT,PLT 322 K/uL (150-350); RED BLOOD CELL COUNT 4.98 M/uL (3.77-5.09); RED CELL DISTRIBUTION WIDTH 12.6 % (11.2-14.1); WHITE BLOOD CELL COUNT,WBC 14.1 K/uL (4.0-10.2)
[2024-07-26 21:35] LABS: ALANINE AMINOTRANSFERASE,ALT 40 U/L (12-78); ALBUMIN 3.2 g/dL (3.4-5.0); ALKALINE PHOSPHATASE 104 IU/L (46-116); ASPARTATE AMNIOTRANSFERASE,AST 28 U/L (15-37); BILIRUBIN TOTAL 0.3 mg/dL (0.2-1.0); BLOOD UREA NITROGEN,BUN 22 mg/dL (7-18); CALCIUM 8.6 mg/dL (8.5-10.1); CARBON DIOXIDE,CO2 32.3 mmol/L (21.0-32.0); CHLORIDE,CL 101 mmol/L (98-107); CREATININE 2.08 mg/dL (0.51-1.17); GLUCOSE RANDOM 85 mg/dL (70-99); POTASSIUM,K 3.1 mmol/L (3.5-5.1); PROTEIN TOTAL,TP 6.8 g/dL (6.4-8.2); SODIUM,NA 141 mmol/L (136-145)
[2024-07-26 21:42] LABS: ANION GAP 10.8 meq/L (7-15); ESTIMATED GFR 24 mL/min (>=60)
[2024-07-26 21:45] LABS: INR 1.1 (0.9-1.1); PROTHROMBIN TIME 10.5 SEC (9.0-11.1)
[2024-07-26] MEDS: Potassium Bicarbonate/Cit Ac 20 MEQ Effervescent Tab PO ONE ×3 (22:03→23:41)
[2024-07-26] MEDS: Sodium Chloride 0.9% 1,000 ML IV ONE (22:04)
[2024-07-26] MEDS ORDERED: Sodium Chloride 0.9% 1,000 ML IV SCH (22:15)
[2024-07-26] MEDS: Potassium Chloride 10 MEQ Tab.ER PO ONE (23:41)
== END 2024-07-26 23:55 ==
LOC: LL.ED 20:40
DX: E87.6 Hypokalemia (principal); E86.0 Dehydration; R47.1 Dysarthria and anarthria; I10 Essential (primary) hypertension; E11.9 Type 2 diabetes mellitus without complications; E66.9 Obesity, unspecified; Z90.49 Acquired absence of other specified parts of digestive tract; Z90.710 Acquired absence of both cervix and uterus; Z79.899 Other long term (current) drug therapy; Z79.01 Long term (current) use of anticoagulants; Z79.4 Long term (current) use of insulin; Z88.8 Allergy status to other drugs, medicaments and biological substances; Z88.2 Allergy status to sulfonamides; Z88.7 Allergy status to serum and vaccine; Z91.018 Allergy to other foods; Z88.0 Allergy status to penicillin; Z88.6 Allergy status to analgesic agent; Z88.5 Allergy status to narcotic agent; Z88.1 Allergy status to other antibiotic agents; Z91.040 Latex allergy status; Z91.041 Radiographic dye allergy status; Z91.012 Allergy to eggs; Z91.013 Allergy to seafood; Z91.011 Allergy to milk products
CPT/HCPCS: 36415; 70450; 80053; 83735; 84484; 85025; 85379; 85610; 85730; 87040; 93005; 93010; 96360; 96361; 99284; 99285-25; A9270-GY; J7030